=== PATIENT | female | born 1940 | race Caucasian/White ===

== ENCOUNTER 2018-07-17 09:34 | Outpatient (CLI) | payer MEDICARE, SELFPAY ==
[2018-07-17 10:01] LABS: Abs Immature Grans 0.01 k/cumm (0.0-0.09); Absolute Basophil Count 0.02 k/cumm (0.0-0.2); Absolute Eosinophil Count 0.08 k/cumm (0.0-0.7); Absolute Lymphocyte Count 1.26 k/cumm (1.2-3.4); Absolute Monocyte Count 0.59 k/cumm (0.11-0.7); Absolute Neutrophil Count 4.07 k/cumm (1.2-6.7); Basophils % 0.3; Eosinophils % 1.3; HCT 42.4 % (36.0-46.0); Immature Grans % 0.2; Lymphocytes % 20.9; Mean Corpuscular Volume 93.8 fL (80-95); Mean Platelet Volume 9.8 fL (8.0-11.0); Monocytes % 9.8; Neutrophils % 67.5; Platelet Count 214 x1000/uL (130-400); RBC 4.52 m/cumm (4.00-5.20); RBC Distribution Width 13.4 % (11.7-14.6); White Blood Cell Count 6.03 k/cumm (4.4-10.8)
[2018-07-17 10:23] LABS: ALT 20 U/L (12-78); AST 17 U/L (15-37); Albumin 3.5 g/dL (3.4-5.0); Alkaline Phosphatase 85 U/L (46-116); Anion Gap 7.3 mmol/L (3-11); BUN 23 mg/dL (7-18); Bilirubin, Total 0.4 mg/dL (0.2-1.0); CO2 29.7 mmol/L (21.0-32.0); CREATININE 1.23 mg/dL (0.55-1.02); Calcium 9.3 mg/dL (8.5-10.1); Chloride 105 mmol/L (98-107); Estimated GFR 42.01 (mL/min/1.73m2); Glucose 71 mg/dL (70-100); LDH 181 U/L (81-234); Potassium 3.8 mmol/L (3.5-5.1); Sodium 142 mmol/L (136-145); Total Protein 6.6 g/dL (6.4-8.2)
== END 2018-07-17 09:54 ==
PROVIDERS: PCP Family Medicine; Visit Provider Internal Medicine Hematology & Oncology
DX: C83.30 Diffuse large B-cell lymphoma, unspecified site (principal)
CPT/HCPCS: 36415; 80053; 83615; 85025

== ENCOUNTER → 2019-09-09 09:54 | Outpatient (BNVA) | payer MEDICARE, SELFPAY | PROVIDERS: PCP Family Medicine; Referring Provider Family Medicine; Visit Provider Psychiatry & Neurology Neurology | DX: G20 Parkinson's disease (principal); R49.8 Other voice and resonance disorders; R53.83 Other fatigue | CPT/HCPCS: 99205 ==

== ENCOUNTER → 2019-10-08 15:00 | Outpatient (BNVA) | payer MEDICARE, SELFPAY | PROVIDERS: PCP Family Medicine; Referring Provider Family Medicine; Visit Provider Psychiatry & Neurology Neurology | DX: R53.83 Other fatigue (principal); G20 Parkinson's disease; R49.8 Other voice and resonance disorders | CPT/HCPCS: 99214 ==

== ENCOUNTER → 2019-10-22 08:20 | Outpatient (BNVA) | payer MEDICARE, SELFPAY | PROVIDERS: PCP Family Medicine; Referring Provider Family Medicine; Visit Provider Psychiatry & Neurology Neurology | DX: R69 Illness, unspecified (principal) ==

== ENCOUNTER 2019-10-27 02:35 | Outpatient (CLI) | payer MEDICARE, SELFPAY ==
[2019-10-27 11:07] LABS: Abs Immature Grans 0.02 k/cumm (0.0-0.09); Absolute Basophil Count 0.04 k/cumm (0.0-0.2); Absolute Eosinophil Count 0.72 k/cumm (0.0-0.7); Absolute Lymphocyte Count 1.57 k/cumm (1.2-3.4); Absolute Monocyte Count 0.73 k/cumm (0.11-0.7); Absolute Neutrophil Count 4.74 k/cumm (1.2-6.7); Basophils % 0.5; Eosinophils % 9.2; HCT 43.5 % (36.0-46.0); HGB 14.6 g/dL (12.0-15.5); Immature Grans % 0.3 %; Lymphocytes % 20.1; Mean Corp. HGB Concentration 33.6 g/dL (32.0-36.0); Mean Corpuscular Hemoglobin 31.2 pg (27.0-33.0); Mean Corpuscular Volume 92.9 fL (80-95); Mean Platelet Volume 9.7 fL (8.0-11.0); Monocytes % 9.3; Neutrophils % 60.6; Platelet Count 233 x1000/uL (130-400); RBC 4.68 m/cumm (4.00-5.20); White Blood Cell Count 7.82 k/cumm (4.4-10.8)
[2019-10-27 12:32] LABS: ALT 27 U/L (14-59); AST 24 U/L (15-37); Albumin 3.5 g/dL (3.4-5.0); Alkaline Phosphatase 102 U/L (46-116); Anion Gap 8.7 mmol/L (3-11); BUN 20 mg/dL (7-18); Bilirubin, Total 0.8 mg/dL (0.2-1.0); CO2 29.3 mmol/L (21.0-32.0); CREATININE 0.99 mg/dL (0.55-1.02); Calcium 8.7 mg/dL (8.5-10.1); Chloride 100 mmol/L (98-107); Estimated GFR 53.83 (mL/min/1.73m2); Glucose 88 mg/dL (74-106); Potassium 4.1 mmol/L (3.5-5.1); Sodium 138 mmol/L (136-145); TSH (W/Ref FT4) 4.74 uIU/mL (0.36-3.74); Total Protein 6.2 g/dL (6.4-8.2); Vitamin B12 396 pg/mL (193-986)
[2019-10-27 12:48] LABS: FREE T4 1.22 ng/dL (0.76-1.46)
== END 2019-10-27 02:55 ==
PROVIDERS: PCP Family Medicine; Visit Provider Family Medicine
DX: E03.9 Hypothyroidism, unspecified (principal); I48.91 Unspecified atrial fibrillation; R53.83 Other fatigue; J44.9 Chronic obstructive pulmonary disease, unspecified
CPT/HCPCS: 36415; 80053; 82607; 84439; 84443; 85025

== ENCOUNTER 2019-11-27 20:15 | Outpatient (REF) | payer MEDICARE, SELFPAY ==
[2019-11-27 19:40] LABS: Bilirubin Negative (Negative); Blood Trace-intact (Negative); Clarity Clear (Clear); Glucose Negative (Negative); Ketones Negative (Negative); Leukocyte Esterase Negative (Negative); Nitrite Positive (Negative); Specific Gravity >= 1.030 (1.005-1.025); Urobilinogen 0.2 EU/dL (Up TO 0.2); pH 5.5 (5-8)
[2019-11-27 19:53] LABS: Bacteria Many HPF (Negative); C & S Indicated? Yes; Casts Negative LPF (Negative); Crystals Few Calcium Oxalate HPF (Negative); Epithelial Cells Few HPF (Negative); Mucus Negative (Negative)
== END 2019-11-27 20:35 ==
LOC: LBN 20:15
PROVIDERS: PCP Family Medicine; Visit Provider Family Medicine
DX: R82.90 Unspecified abnormal findings in urine (principal)
CPT/HCPCS: 87077; 81003; 81015; 87086; 87186

== ENCOUNTER 2020-04-23 03:37 | Outpatient (CLI) | payer MEDICARE, SELFPAY ==
[2020-04-23 12:21] LABS: Abs Immature Grans 0.02 10^3/uL (0.0-0.06); Absolute Basophil Count 0.06 10^3/uL (0.0-0.2); Absolute Lymphocyte Count 1.29 10^3/uL (1.2-3.4); Absolute Neutrophil Count 4.96 10^3/uL (1.2-6.7); Basophils % 0.9; Eosinophils % 1.4; HCT 43.5 % (36.0-46.0); HGB 13.9 g/dL (11.2-15.7); Immature Grans % 0.3; Lymphocytes % 18.6; MCH 30.7 pg (27.0-33.0); Monocytes % 7.2; Neutrophils % 71.6; Nucleated RBC 0 %; Platelet Count 212 10^3/uL (130-400); RBC 4.53 10^6/uL (3.93-5.22); RDW 13.2 % (11.7-14.6); RDW-SD 46.9 fL; WBC 6.93 10^3/uL (4.4-10.8)
[2020-04-23 14:06] LABS: ALT 29 U/L (14-59); AST 28 U/L (15-37); Albumin 3.6 g/dL (3.4-5.0); Alkaline Phosphatase 87 U/L (46-116); Anion Gap 9.5 mmol/L (3-11); BUN 29 mg/dL (7-18); Bilirubin, Total 0.7 mg/dL (0.2-1.0); CO2 27.5 mmol/L (21.0-32.0); CREATININE 1.08 mg/dL (0.55-1.02); Calcium 9.5 mg/dL (8.5-10.1); Chloride 104 mmol/L (98-107); Estimated GFR 48.69 (mL/min/1.73m2); Glucose 93 mg/dL (74-106); Lipase 141 U/L (73-393); Potassium 4.2 mmol/L (3.5-5.1); Sodium 141 mmol/L (136-145); TSH (W/Ref FT4) 4.02 uIU/mL (0.36-3.74); Total Protein 6.3 g/dL (6.4-8.2)
[2020-04-23 14:38] LABS: FREE T4 1.18 ng/dL (0.76-1.46)
== END 2020-04-23 03:57 ==
PROVIDERS: PCP Family Medicine; Visit Provider Family Medicine
DX: E03.9 Hypothyroidism, unspecified (principal); R53.83 Other fatigue; R00.0 Tachycardia, unspecified; F32.9 Major depressive disorder, single episode, unspecified; I48.91 Unspecified atrial fibrillation; R10.9 Unspecified abdominal pain
CPT/HCPCS: 80053; 83690; 84439; 84443; 85025

== ENCOUNTER 2020-09-09 11:19 | Outpatient (CLI) | payer MEDICARE, SELFPAY ==
--- NOTE | 2020-09-09 10:30 | DI.RAD_ITS ---
EXAM: XR FOOT LT COMPLETE CLINICAL HISTORY: left foot pain. TECHNIQUE: 2D digital imaging was performed. COMPARISON: CR XR FOOT RT COMPLETE from 09/09/2020 FINDINGS: There has been interval bunion surgery with shaving of the medial aspect of the head of the great toe metatarsal and there is a dorsal fusion plate extending from the medial cuneiform to the neck of the great toe metatarsal secured by multiple vertical screws. No hardware fracture. No radiographic ev idence of osteomyelitis or loosening. IMPRESSION: DATA REPOSITORY: RADIATION DOSE DELIVERED:
--- NOTE | 2020-09-09 10:30 | DI.RAD_ITS ---
EXAM: XR FOOT RT COMPLETE CLINICAL HISTORY: right foot pain. TECHNIQUE: 2D digital imaging was performed. COMPARISON: CR LEFT FOOT COMPLETE from 10/11/2012 FINDINGS: There is no evidence of fracture. There is prominent hallux valgus. Minimal degenerative changes in the great toe metatarsophalangeal joint. The plantar arch is somewhat exaggerated. No osseous lesi ons. No obvious osseous tarsal coalition. IMPRESSION: DATA REPOSITORY: RADIATION DOSE DELIVERED:
== END 2020-09-09 11:20 | disposition home or self-care (01) ==
LOC: DIORS 11:19
PROVIDERS: PCP Family Medicine; Referring Provider Family Medicine; Visit Provider Student in an Organized Health Care Education/Training Program
DX: M77.41 Metatarsalgia, right foot (principal); M20.11 Hallux valgus (acquired), right foot; M77.42 Metatarsalgia, left foot; M21.612 Bunion of left foot; Z98.890 Other specified postprocedural states; G20 Parkinson's disease; J44.9 Chronic obstructive pulmonary disease, unspecified
CPT/HCPCS: 99214; 73630

== ENCOUNTER 2020-10-28 13:16 | Outpatient (CLI) | payer MEDICARE, SELFPAY ==
--- NOTE | 2020-10-28 13:30 | RT.EKG_ITS ---
APPROVED REPORT Exam: Resting ECG Patient Location: O HR:73 bpm ECG Measurements Heart Rate 73 AXIS MS [id number] P [id number] QRSd 107 QRS -37 QT 375 T 185 QTc 414 Conclusion Atrial fibrillation...? atrial activity Electrical interference Left anterior fascicular block poor R wave progression
== END 2020-10-28 13:17 | disposition home or self-care (01) ==
LOC: DI.CARD 13:40
PROVIDERS: PCP Family Medicine; Referring Provider Family Medicine; Visit Provider Internal Medicine Cardiovascular Disease
DX: R00.2 Palpitations (principal)
CPT/HCPCS: 93010

== ENCOUNTER → 2020-10-28 13:16 | Outpatient (BNVA) | payer MEDICARE, SELFPAY | PROVIDERS: PCP Family Medicine; Referring Provider Family Medicine; Visit Provider Internal Medicine Cardiovascular Disease | DX: I48.21 Permanent atrial fibrillation (principal); R00.2 Palpitations; I08.2 Rheumatic disorders of both aortic and tricuspid valves; Z79.01 Long term (current) use of anticoagulants | CPT/HCPCS: 93005; 99203; 99213 ==

== ENCOUNTER 2020-11-23 22:08 | Outpatient (REF) | payer MEDICARE, SELFPAY ==
[2020-11-23 21:36] LABS: HCT 39.5 % (36.0-46.0); HGB 12.9 g/dL (11.2-15.7); MCH 31.4 pg (27.0-33.0); MCHC 32.7 % (32.0-36.0); MCV 96.1 fL (80-95); MPV 10.5 fL (8.0-11.0); Platelet Count 194 10^3/uL (130-400); RBC 4.11 10^6/uL (3.93-5.22); RDW 12.9 % (11.7-14.6); RDW-SD 46.1 fL; WBC 5.25 10^3/uL (4.4-10.8)
[2020-11-23 22:00] LABS: ALT 21 U/L (14-59); AST 20 U/L (15-37); Albumin 3.7 g/dL (3.4-5.0); Alkaline Phosphatase 76 U/L (46-116); Anion Gap 5.2 mmol/L (3-11); BUN 25 mg/dL (7-18); Bilirubin, Total 0.7 mg/dL (0.2-1.0); CO2 31.8 mmol/L (21.0-32.0); CREATININE 0.9 mg/dL (0.55-1.02); Chloride 107 mmol/L (98-107); Estimated GFR 59.94 (mL/min/1.73m2); Sodium 144 mmol/L (136-145); TSH (W/Ref FT4) 2.11 uIU/mL (0.36-3.74); Total Protein 6.2 g/dL (6.4-8.2)
[2020-11-23 22:06] LABS: Glucose 45 mg/dL (74-106)
== END 2020-11-23 22:09 | disposition home or self-care (01) ==
LOC: LBN 22:08
PROVIDERS: PCP Family Medicine; Visit Provider Family Medicine
DX: E03.9 Hypothyroidism, unspecified (principal); R53.83 Other fatigue; R00.2 Palpitations; F32.9 Major depressive disorder, single episode, unspecified
CPT/HCPCS: 80053; 85027; 84443

== ENCOUNTER → 2020-12-14 14:21 | Outpatient (BNVA) | payer MEDICARE, SELFPAY | PROVIDERS: PCP Family Medicine; Referring Provider Family Medicine; Visit Provider Psychiatry & Neurology Neurology | DX: G20 Parkinson's disease (principal); R53.83 Other fatigue; J44.9 Chronic obstructive pulmonary disease, unspecified | CPT/HCPCS: 99215 ==

== ENCOUNTER 2021-03-14 08:30 | Emergency (ER) | payer MEDICARE, SELFPAY ==
[2021-03-14] VITALS (26 sets, daily range): BP systolic 102–141; BP diastolic 45–101; PULSE 90–137; RESP 16–31; TEMP 36.5–36.6; O2SAT 94–98
--- NOTE | 2021-03-14 08:45 | RT.EKG_ITS ---
APPROVED REPORT Exam: Resting ECG Reason for Exam: Fall Patient Location: E HR:126 bpm ECG Measurements Heart Rate 126 AXIS OR [id number] P [id number] QRSd 88 QRS -57 QT 355 T 248 QTc 515 Conclusion Pacemaker spikes or artifacts...timing non-diagnostic Atrial fibrillation...? atrial activity Left anterior fascicular block...axis(240,-40), init forces inf Anterior infarct, old...Q >40mS, abnormal ST-T, V2-V5 Prolonged QT interval...QTc >500mS no STEMI. I have reviewed and interpreted ECG and agree with software generated interpretation.
--- NOTE | 2021-03-14 08:49 | W.ED.GENAD ---
Discharge Plan Disposition Patient Disposition: [facility] Condition: Stable Discharge Details Clinical Impression: Closed fracture of neck of left femur Primary Care Provider: Luz Szymanski ED Provider: Naty Melara Home Meds and New Rx's Prescriptions: No Action fluticasone propionate 50 mcg/actuation spray,suspension 2 spray NS BID PRN (Reason: allergy symptoms) Qty: 47.4 RF: 5 lorazepam 0.5 mg tablet 0.5 mg PO HS PRN (Reason: sleep) RF: 0 amantadine HCl 100 mg capsule 100 mg PO DAILY Qty: 30 RF: 5 buspirone 10 mg tablet 10 mg PO TID Qty: 270 RF: 5 verapamil 180 mg capsule,ext rel. pellets 24 hr 180 mg PO DAILY Qty: 90 RF: 5 diltiazem HCl 30 mg tablet 30 mg PO BID PRN (Reason: palpitation) Qty: 50 RF: 0 Eliquis 2.5 mg tablet 2.5 mg PO BID Qty: 180 RF: 12 duloxetine 60 mg capsule,delayed release(DR/EC) 60 mg PO DAILY Qty: 90 RF: 11 Medical Decision Making 80-year-old female presents to the ER with chief complaint of fall last night and left hip pain. Patient lives alone and states that she had a mechanical fall. She was unable to get up initially and crawled around on the floor. Was eventually able to get into a rocking chair. At this time she is complaining of left hip pain and swelling. Denies loss of consciousness or hitting her head no other complaints at this time. She denies any chest pain shortness breath abdominal pain nausea vomiting or diarrhea. Upon initial exam she does have some swelling anteriorly over her proximal femur/left hip area. Distal pulses intact. No other signs of injury. She has a past medical history of aortic valve insufficiency, atrial fibrillation, COPD, hypothyroidism, Parkinson's. TECHNIQUE: 2D digital imaging was performed. COMPARISON: No previous for comparison. FINDINGS: BONES: There is an acute mildly impacted subcapital fracture of the left femoral neck. No bony destructive lesion is seen. Portions of the sacrum are obscured due to overlying bowel. JOINTS: No dislocation present. No joint space narrowing is present. The sacroiliac joints and symphysis pubis appear intact. SOFT TISSUE: Normal. IMPRESSION: Acute mildly impacted subcapital fracture of the left femoral neck. COMPARISON: CR CHEST 2 VIEWS PA,LAT from 07/02/2013 FINDINGS: MEDIASTINUM: Normal. HEART: Mild cardiomegaly. PULMONARY VASCULATURE: Atherosclerosis of the thoracic aorta. LUNGS: Clear. PLEURAL SPACE: No pleural effusion or pneumothorax. BONE:Within normal limits for the patient's age. OTHER FINDINGS:Nipple shadows are seen bilaterally. IMPRESSION: No acute pulmonary findings. Discussed Xray results with patient and family who verbalize understanding and discussed need for possible transfer due to no ortho availabilty. They are in agreement with plan. DI requested to push images to [facility]. 1054: Call made to [facility] regarding ortho consult for transfer request. Spoke with office staff, will call back from Dr. Zaragoza regarding case. 1218: Urinalysis shows evidence of urinary tract infection 30 urine protein trace urine ketones trace blood positive nitrite trace leukocytes 3-5 RBCs 10-20 WBCs. Culture is pending at this time. Ceftriaxone 1 g IV piggyback ordered at this time. This time I am awaiting callback from [facility] regarding acceptance or denial of transfer. Last I spoke with them they are awaiting the images. 1237: Follow up call made to [facility], images received, will call back. 1257: Spoke with [facility] they will accept patient for transfer accepting physician is Dr. Stokes they will call back with a bed assignment. [facility] called and they are requesting a negative Covid result before sending patient. 1528: EMS here, patient transferred to [facility]. Remained hemodynamically stable throughout rest of stay. HPI General Mode of arrival: wheelchair. Date/Time Provider Initiated Documentation: 03/14/21 08:31. Limitations to Documentation: no limitations. Information obtained by: patient. HPI Narrative: 80-year-old female presents to the ER with chief complaint of fall last night and left hip pain. Patient lives alone and states that she had a mechanical fall. She was unable to get up initially and crawled around on the floor. Was eventually able to get into a rocking chair. At this time she is complaining of left hip pain and swelling. Denies loss of consciousness or hitting her head no other complaints at this time. She denies any chest pain shortness breath abdominal pain nausea vomiting or diarrhea. Upon initial exam she does have some swelling anteriorly over her proximal femur/left hip area. Distal pulses intact. No other signs of injury. She has a past medical history of aortic valve insufficiency, atrial fibrillation, COPD, hypothyroidism, Parkinson's. Related Data Home Medications Medication Instructions Recorded Confirmed fluticasone propionate 50 2 spray NS BID PRN #47.4 ml 10/09/19 03/14/21 mcg/actuation nasal spray,suspension buspirone 10 mg tablet 10 mg PO TID #270 tab 09/09/20 03/14/21 verapamil 180 mg 24 hr 180 mg PO DAILY #90 tab-cap 09/09/20 03/14/21 capsule,extended release apixaban 2.5 mg tablet 2.5 mg PO BID #180 tab 10/05/20 03/14/21 diltiazem HCl 30 mg tablet 30 mg PO BID PRN #50 tab-cap 10/05/20 03/14/21 duloxetine 60 mg capsule,delayed 60 mg PO DAILY #90 tab 10/05/20 03/14/21 release lorazepam 0.5 mg tablet 0.5 mg PO HS PRN tab-cap 10/28/20 03/14/21 amantadine HCl 100 mg capsule 100 mg PO DAILY #30 cap 12/14/20 03/14/21 Previous Rx's Medication Instructions Recorded fluticasone propionate 50 2 spray NS BID PRN #47.4 ml 10/09/19 mcg/actuation nasal spray,suspension buspirone 10 mg tablet 10 mg PO TID #270 tab 09/09/20 verapamil 180 mg 24 hr 180 mg PO DAILY #90 tab-cap 09/09/20 capsule,extended release apixaban 2.5 mg tablet 2.5 mg PO BID #180 tab 10/05/20 diltiazem HCl 30 mg tablet 30 mg PO BID PRN #50 tab-cap 10/05/20 duloxetine 60 mg capsule,delayed 60 mg PO DAILY #90 tab 10/05/20 release amantadine HCl 100 mg capsule 100 mg PO DAILY #30 cap 12/14/20 Allergies Allergy/AdvReac Type Severity Reaction Status Date / Time methylphenidate AdvReac Intermediate GI Verified 03/14/21 08:54 codeine AdvReac Unknown Nausea Verified 03/14/21 08:54 azithromycin AdvReac Nausea Verified 03/14/21 08:54 [From Zithromax Z-Edu] sulfamethoxazole AdvReac explosive Verified 03/14/21 08:54 [From Bactrim] diarrhea trazodone AdvReac Nausea Verified 03/14/21 08:54 trimethoprim [From Bactrim] AdvReac explosive Verified 03/14/21 08:54 diarrhea Review of Systems Narrative: Constitutional: Negative for weight loss, alert and oriented, well groomed, normal body habitus, appears comfortable. HEENT: Denies headaches, blurry vision, nasal discharge, sore throat, trouble swallowing. Chest: Denies chest pain, palpitations, irregular rhythm, hypertension. Respiratory: Denies Shortness of breath, cough, hemoptysis. GI: Denies abdominal pain, nausea, vomiting, diarrhea, constipation. : Denies dysuria, hematuria, flank pain, rectal bleeding. Neuro: Denies dizziness, blurry vision, weakness, syncope, headache or facial numbness. Musculoskeletal: Complaining of left hip pain status post fall. Hematologic: Denies easy bruising, intolerance to heat or cold, hair loss. [facility] Medical History Abdominal pain Abnormal weight loss 07/16/04 from 124-107; she feels it's due to increased activity and stress ALLERGIES Allergy or intolerlance to codeine, sulfamethoxazole and trimethoprin. There is a history of low blood pressure on calcium blockers in the past as well. Anxiety JANET-7 SCORE=16 Aortic valve insufficiency Followed by Mohan Morris at [place]. 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 Insomnia (09/02/14) Low back pain (04/12/09) Metatarsalgia of both feet Mild cognitive impairment with memory loss see above Osteopenia t-scores; -2.1; -1.5 Tachycardia Tricuspid valve insufficiency (04/14/16) moderate Surgical History Colonoscopy - MAC 1995 1997 1998 2012 ECHO (~2006) [place] with [place] [facility] [place] pressure 21 EGD - MAC (~1995) showing increase in PA pressures H/O cataract removal with insertion of prosthetic lens H/O esophagogastroduodenoscopy 07/16/95 showing increase in PA pressure S/P appendectomy S/P breast biopsy intraductal papilloma S/P bunionectomy bilateral Family History Mother Essential hypertension Heart disease Father No problems noted. Social History Smoking/Tobacco Use Status: Never Smoking risk assessment performed?: Yes Alcohol Intake: current Alcohol Intake frequency: holidays/special occasions only Alcohol type: wine Drug use: Never Adopted: No Caregiver/Support person: Yes (caregiver for jenni) Details: currently in a fpc, but pt is primary support Foster care: No Household members: none Housing: house Number of Children: 3 number of grandchildren: 4 current occupation: Retired Pets and animals: No What type of physical activity do you participate in: none Seatbelt use: never Drive intox or ride w/intox motorcycle delivery driver: No Firearms in home: Yes (unloaded, not locked) Firearms unloaded and locked: No Do you feel safe at home: Yes Do you feel safe in your relationship?: Yes Exam Narrative Exam Narrative: Constitutional: Alert and oriented x3. Appears stated age. Normal body habitus. Head: Normocephalic, no trauma. Eyes: Pupils PERRLA, Red reflex noted, EOM's intact. Eyelids symmetrical without lesions, discharge, or swelling. ENT: Bilateral TM's WNL, External ear normal to inspection, no mastoid TTP, swelling, or erythema, Nasal turbinates WNL, no nasal discharge. Normal dentition, Posterior pharynx WNL, no exudate. Chest: RRR, Normal S1, S2, distal pulses intact. Resp: Lungs clear to auscultation bilaterally, no wheezes, rales, or rhonchi. Musculoskeletal: Unable to assess gait. Tenderness and swelling noted to left anterior hip/proximal femur area. Distal dorsal pedal pulses intact circulation sensation movement distally to injury intact. Skin: No suspicious rashes or lesions. Capillary refill less than 2 sec. Neurologic: Cranial nerves II-XII intact. Alert and oriented x 3. DTR's intact. Hematologic/Lymphatic: No ecchymosis, no lymphadenopathy.
[2021-03-14 09:22] LABS: Abs Immature Grans 0.08 10^3/uL (0.0-0.06); Absolute Basophil Count 0.03 10^3/uL (0.0-0.2); Absolute Eosinophil Count 0.02 10^3/uL (0.0-0.7); Absolute Lymphocyte Count 0.79 10^3/uL (1.2-3.4); Absolute Monocyte Count 0.76 10^3/uL (0.1-0.8); Absolute Neutrophil Count 8.83 10^3/uL (1.2-6.7); Basophils % 0.3; Eosinophils % 0.2; HCT 44.6 % (36.0-46.0); HGB 14.3 g/dL (11.2-15.7); Immature Grans % 0.8; Lymphocytes % 7.5; MCH 30.6 pg (27.0-33.0); MCHC 32.1 % (32.0-36.0); MCV 95.5 fL (80-95); MPV 10.3 fL (8.0-11.0); Monocytes % 7.2; Nucleated RBC 0 %; Platelet Count 169 10^3/uL (130-400); RBC 4.67 10^6/uL (3.93-5.22); RDW 13.2 % (11.7-14.6); RDW-SD 46.5 fL; WBC 10.51 10^3/uL (4.4-10.8)
[2021-03-14] MEDS: dilTIAZem 30 MG TAB PO (09:25)
[2021-03-14 09:41] LABS: INR 1.1 (0.9-1.1); Prothrombin Time 11.3 sec (9.3-11.0)
--- NOTE | 2021-03-14 10:06 | DI.RAD_ITS ---
Exam(s) XR PELVIS AP XR FEMUR LT EXAM: XR PELVIS AP and XR femur LT CLINICAL HISTORY: Fall, R/O Fracture. TECHNIQUE: 2D digital imaging was performed. COMPARISON: No previous for comparison. FINDINGS: BONES: There is an acute mildly impacted subcapital fracture of the left femoral neck. No bony destr uctive lesion is seen. Portions of the sacrum are obscured due to overlying bowel. JOINTS: No dislocation present. No joint space narrowing is present. The sacroiliac joints and symphy sis pubis appear intact. SOFT TISSUE: Normal. IMPRESSION: Acute mildly impacted subcapital fracture of the left femoral neck. DATA REPOSITORY: RADIATION DOSE DELIVERED:
--- NOTE | 2021-03-14 10:06 | DI.RAD_ITS ---
Exam(s) XR CHEST 2V PA LATERAL EXAM: XR CHEST 2V PA LATERAL CLINICAL HISTORY: Fall, Hip pain TECHNIQUE: 2D digital imaging was performed. COMPARISON: CR CHEST 2 VIEWS PA,LAT from 07/02/2013 FINDINGS: MEDIASTINUM: Normal. HEART: Mild cardiomegaly. PULMONARY VASCULATURE: Atherosclerosis of the thoracic aorta. LUNGS: Clear. PLEURAL SPACE: No pleural effusion or pneumothorax. BONE:Within normal limits for the patient's age. OTHER FINDINGS:Nipple shadows are seen bilaterally. IMPRESSION: No acute pulmonary findings. DATA REPOSITORY: RADIATION DOSE DELIVERED:
[2021-03-14] MEDS: Normal Saline 250 ML 500 ML IV (10:09)
[2021-03-14 10:14] LABS: Magnesium 1.9 mg/dL (1.8-2.4)
[2021-03-14 10:19] LABS: ALT 40 U/L (14-59); AST 24 U/L (15-37); Albumin 3.9 g/dL (3.4-5.0); Alkaline Phosphatase 80 U/L (46-116); BUN 25 mg/dL (7-18); Bilirubin, Total 1.2 mg/dL (0.2-1.0); CREATININE 1.2 mg/dL (0.55-1.02); Calcium 9.4 mg/dL (8.5-10.1); Chloride 106 mmol/L (98-107); Estimated GFR 43.01 (mL/min/1.73m2); Glucose 122 mg/dL (74-106); Potassium 4.2 mmol/L (3.5-5.1); Sodium 142 mmol/L (136-145); Total Protein 6.9 g/dL (6.4-8.2); Troponin I < 0.05 ng/mL (<0.06)
[2021-03-14 11:50] LABS: Bilirubin Negative (Negative); Blood Trace-intact (Negative); Clarity Cloudy (Clear); Glucose Negative (Negative); Ketones Trace mg/dL (Negative); Leukocyte Esterase Trace (Negative); Nitrite Positive (Negative); Specific Gravity 1.025 (1.005-1.025); Urobilinogen 0.2 EU/dL (Up TO 0.2)
[2021-03-14] MEDS: ACETAMINOPHEN 1,000 MG/100 ML BTL 400 MG IVPB (12:08)
[2021-03-14 12:13] LABS: Bacteria Many HPF (Negative); C & S Indicated? Yes; Casts Negative LPF (Negative); Crystals Rare Calcium Oxalate HPF (Negative); Epithelial Cells Few HPF (Negative); Mucus Negative (Negative)
[2021-03-14] MEDS: cefTRIAXone 1 GM/50 ML BAG IVPB (13:14)
[2021-03-14] MEDS: Normal Saline 1,000 ML 125 ML IV (13:25)
[2021-03-14 14:09] LABS: Source Nasal/Nares
[2021-03-14 15:01] LABS: COVID-19 PCR Negative (Negative)
== END 2021-03-14 15:42 | disposition short-term general hospital (02) ==
PROVIDERS: Emergency Provider Registered Nurse Emergency; PCP Family Medicine
DX: S72.092A Other fracture of head and neck of left femur, initial encounter for closed fracture (principal); W18.39XA Other fall on same level, initial encounter
CPT/HCPCS: 36415; 51702; 73552; 80053; 87077; 87635; 93005; 96361; 96365; 96367; 99285; 71046; 72170; 81003; 81015; 83735; 84484; 85025; 85610; 87086; 87186; 93010; 99284; J0131; J0696

== ENCOUNTER 2021-04-26 10:23 | Inpatient (IN) | payer MEDICARE, SELFPAY ==
[2021-04-26] VITALS (69 sets, daily range): BP systolic 84–117; BP diastolic 43–86; PULSE 49–101; RESP 14–31; TEMP 36.2–36.7; O2SAT 92–99
--- NOTE | 2021-04-26 10:15 | DI.CT_ITS ---
Exam(s) CT HEAD WO EXAM: CT HEAD WO CLINICAL HISTORY: Fall 3 days ago, Weakness, R/O Bleed. TECHNIQUE: Imaging Protocol: Axial computed tomography images with coronal and sagittal reformatted images were created and reviewed COMPARISON: No exams were available for comparison FINDINGS: There are no skull fractures. Mild mucosal thickening is seen posteriorly in the right maxillary si nus. There is no evidence of intracranial hemorrhage, mass effect, or shift of midline structures. There are no extra-axial fluid collections. The ventricles are not enlarged or shifted and there is no blo od within the ventricular system nor within the basal cisterns. There is some periventricular hypodensity consistent with chronic small vessel disease but no evidenc e of obvious acute infarct. Mount of involutional changes consistent with the patient's advanced age . IMPRESSION: No acute intracranial findings on this noninfused CT scan of the brain. No evidence of intracranial hemorrhage, as per request. RADIATION DOSE DELIVERED: 652.25mGy.cm Total DLP DATA REPOSITORY: All CT scans at this facility are submitted to the National Radiology Data Registry (NRDR) Dose Index Registry (DIR) with the [employer] ([employer]). RADIATION OPTIMIZATION: All CT scans at this facility use at least one of these dose optimization te chniques: automated exposure control; mA and/or kV adjustment per patient size (includes targeted exa ms where dose is matched to clinical indication); or iterative reconstruction.
--- NOTE | 2021-04-26 10:30 | RT.EKG_ITS ---
APPROVED REPORT Exam: Resting ECG Reason for Exam: Weakness Patient Location: E HR:54 bpm ECG Measurements Heart Rate 54 AXIS AZ [id number] P [id number] QRSd 130 QRS -55 QT 685 T 75 QTc 652 Conclusion Atrial fibrillation...? atrial activity Left bundle branch block...QRSd>120, broad/notched R Prolonged QT interval...QTc >500mS new LBBB from prior, does not meet Sgar[place]ossa criteria I have reviewed and interpreted ECG and agree with software generated interpretation.
--- NOTE | 2021-04-26 10:33 | W.ED.GENAD ---
Discharge Plan Disposition Patient Disposition: [facility] INPATIENT Condition: Fair Discharge Details Clinical Impression: Weakness, Hypokalemia, Frequent falls Admit Date/Time: 04/26/21 15:56 Admit Provider: Cathleen Saha Attending Provider: Cathleen Saha Primary Care Provider: Luz Szymanski ED Provider: Naty Melara Medical Decision Making 80-year-old female presents to the ER via EMS with chief complaint of weakness which is worsened over the last 3 days status post a fall. Patient is alert and oriented x3 upon arrival. She states that she was walking with a walker when she just fell. She denies any chest pain, shortness of breath, nausea vomiting diarrhea. She was recently admitted and released from rehab for a left hip fracture. She does have some caregivers and home health which comes into her home to help her periodically. She does have a contusion noted to the left outer eyebrow and a small contusion noted to her left shoulder. She denies any neck pain. She does report some back pain, does have a history of baseline chronic back pain. She currently takes Eliquis which she took this morning. No other associated symptoms or complaints. She has a past medical history of anxiety, aortic valve insufficiency, atrial fibrillation, COPD non-Hodgkin's lymphoma, hypothyroidism. At this time cardiac work-up ordered including serial troponins, EKG, urinalysis PT ordered due to patient taking of Eliquis. Head CT without contrast rule out bleed. EKG was reviewed by Deja Lorenz MD ER attending, please see her official read and report. Old EKG available for review. Atrial fibrillation with questionably new left bundle branch block QT 685 At this time there is no leukocytosis, RBC 3.50 hemoglobin 10.9 hematocrit 33.5, PT 13.2 INR 1.3, potassium 3.0 chloride 108 anion gap 11.1, BUN 38 creatinine 1.2, GFR is 43, glucose 110 magnesium 1.7 initial troponin eyes within normal limits less than 0.05. Urinalysis is pending, informed by staff nurse midwife that blood pressure is slightly soft at 98/62, normal saline bolus of 500 cc given. 1206: Blood pressure 89/61. Heart rate 62, 98% room air, normal saline at 150 an hour ordered. 1433: Spoke with patient regarding recommendation for admission due to weakness, hypotension, electrolyte abnormality and anemia. Patient said absolutely not. Patient is requesting to be seen by her primary care provider Luz Szymanski. I will involve patient's family. 1529: Spoke with Jamilah ferrara daughter regarding patient case and recommendation for admission, she agrees that her Mom should be admitted. She has home health coming and and has some neighbors checking on her. She does not have anyone to stay with her at home and her family does not feel it is safe for her to go home. 1533: Call made to Fausto, Kosta sister in law, voicemail left. 1534: Hospitalist paged. 1539: Spoke with Fausto, who also agrees patient is unsafe to go home. 1554: Spoke with Dr. Saha who agrees to accept patient for admission. Discussed plan of care and my recommendations for admission with patient who was hesitant at first but agrees to stay overnight for observation. Spoke with Fausto kosta Sister in law who reports that patient was set to have a paliative care appointment with Dr. Szymanski tomorrow. HPI General Mode of arrival: EMS. Date/Time Provider Initiated Documentation: 04/26/21 10:24. Limitations to Documentation: no limitations. Information obtained by: patient, EMS and old records reviewed. HPI Narrative: 80-year-old female presents to the ER via EMS with chief complaint of weakness which is worsened over the last 3 days status post a fall. Patient is alert and oriented x3 upon arrival. She states that she was walking with a walker when she just fell. She denies any chest pain, shortness of breath, nausea vomiting diarrhea. She was recently admitted and released from rehab for a left hip fracture. She does have some caregivers and home health which comes into her home to help her periodically. She does have a contusion noted to the left outer eyebrow and a small contusion noted to her left shoulder. She denies any neck pain. She does report some back pain, does have a history of baseline chronic back pain. She currently takes Eliquis which she took this morning. No other associated symptoms or complaints. She has a past medical history of anxiety, aortic valve insufficiency, atrial fibrillation, COPD non-Hodgkin's lymphoma, hypothyroidism. Related Data Home Medications Medication Instructions Recorded Confirmed fluticasone propionate 50 2 spray NS BID PRN #47.4 ml 10/09/19 04/26/21 mcg/actuation nasal spray,suspension buspirone 10 mg tablet 10 mg PO TID #270 tab 09/09/20 04/26/21 verapamil 180 mg 24 hr 180 mg PO DAILY #90 tab-cap 09/09/20 04/26/21 capsule,extended release apixaban 2.5 mg tablet 2.5 mg PO BID #180 tab 10/05/20 04/26/21 diltiazem HCl 30 mg tablet 30 mg PO BID PRN #50 tab-cap 10/05/20 04/26/21 duloxetine 60 mg capsule,delayed 60 mg PO DAILY #90 tab 10/05/20 04/26/21 release lorazepam 0.5 mg tablet 0.5 mg PO HS PRN tab-cap 10/28/20 04/26/21 amantadine HCl 100 mg capsule 100 mg PO DAILY #30 cap 12/14/20 04/26/21 Previous Rx's Medication Instructions Recorded fluticasone propionate 50 2 spray NS BID PRN #47.4 ml 10/09/19 mcg/actuation nasal spray,suspension buspirone 10 mg tablet 10 mg PO TID #270 tab 09/09/20 verapamil 180 mg 24 hr 180 mg PO DAILY #90 tab-cap 09/09/20 capsule,extended release apixaban 2.5 mg tablet 2.5 mg PO BID #180 tab 10/05/20 diltiazem HCl 30 mg tablet 30 mg PO BID PRN #50 tab-cap 10/05/20 duloxetine 60 mg capsule,delayed 60 mg PO DAILY #90 tab 10/05/20 release amantadine HCl 100 mg capsule 100 mg PO DAILY #30 cap 12/14/20 Allergies Allergy/AdvReac Type Severity Reaction Status Date / Time methylphenidate AdvReac Intermediate GI Verified 04/26/21 10:41 codeine AdvReac Unknown Nausea Verified 04/26/21 10:41 azithromycin AdvReac Nausea Verified 04/26/21 10:41 [From Zithromax Z-Edu] sulfamethoxazole AdvReac explosive Verified 04/26/21 10:41 [From Bactrim] diarrhea trazodone AdvReac Nausea Verified 04/26/21 10:41 trimethoprim [From Bactrim] AdvReac explosive Verified 04/26/21 10:41 diarrhea General UMESH: 3 Review of Systems All systems reviewed & are unremarkable except as noted in HPI and below Constitutional Constitutional: Reports as per HPI, Denies fever(s), Reports frequent falls, Denies headache(s), Reports lethargy and Reports weakness ENT Ears, Nose, Mouth, and Throat: Denies headache(s) Neurologic Neurologic: Reports frequent falls, Denies headache(s) and Reports weakness [facility] Medical History Abdominal pain Abnormal weight loss 07/16/04 from 124-107; she feels it's due to increased activity and stress ALLERGIES Allergy or intolerlance to codeine, sulfamethoxazole and trimethoprin. There is a history of low blood pressure on calcium blockers in the past as well. Anxiety JANET-7 SCORE=16 Aortic valve insufficiency Followed by Mohan Morris at [place]. 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 Insomnia (09/02/14) Low back pain (04/12/09) Metatarsalgia of both feet Mild cognitive impairment with memory loss see above Osteopenia t-scores; -2.1; -1.5 Tachycardia Tricuspid valve insufficiency (04/14/16) moderate Surgical History Colonoscopy - MAC 1995 1997 1998 2012 ECHO (~2006) Echocardiogram with negative pulmonary work up at [facility], PA pressure 21 EGD - MAC (~1995) showing increase in PA pressures H/O cataract removal with insertion of prosthetic lens H/O esophagogastroduodenoscopy 07/16/95 showing increase in PA pressure S/P appendectomy S/P breast biopsy intraductal papilloma S/P bunionectomy bilateral Family History Mother Essential hypertension Heart disease Father No problems noted. Social History Smoking/Tobacco Use Status: Never Smoking risk assessment performed?: Yes Alcohol Intake: current Alcohol Intake frequency: holidays/special occasions only Alcohol type: wine Drug use: Never Adopted: No Caregiver/Support person: Yes (caregiver for jenni) Details: currently in a halfway, but pt is primary support Foster care: No Household members: none Housing: house Number of Children: 3 number of grandchildren: 4 current occupation: Retired Pets and animals: No What type of physical activity do you participate in: none Seatbelt use: never Drive intox or ride w/intox parcel post truck driver: No Firearms in home: Yes (unloaded, not locked) Firearms unloaded and locked: No Do you feel safe at home: Yes Do you feel safe in your relationship?: Yes Exam Narrative Exam Narrative: Constitutional: Alert and oriented x3. Appears stated age. body habitus. Head: Normocephalic, contusion noted to left eyebrow, no hematomas or scalp lacerations noted. Eyes: Pupils PERRLA, Red reflex noted, EOM's intact. Eyelids symmetrical without lesions, discharge, or swelling. ENT: Bilateral TM's WNL, External ear normal to inspection, no mastoid TTP, swelling, or erythema, Nasal turbinates WNL, no nasal discharge. Normal dentition, Posterior pharynx WNL, no exudate. Chest: RRR, Normal S1, S2, distal pulses intact. Resp: Lungs clear to auscultation bilaterally, no wheezes, rales, or rhonchi. Musculoskeletal: Unable to assess gait. No focal neuro deficit generalized weakness. Skin: No suspicious rashes or lesions. Capillary refill less than 2 sec. Neurologic: Cranial nerves II-XII intact. Alert and oriented x 3. No facial droop. Hematologic/Lymphatic: No ecchymosis, no lymphadenopathy. Procedures Stool Hemoccult Procedural Steps Taken: stool placed in appropriate test area, developer placed on stool and control areas and controls appropriately positive and negative Hemoccult result: negative
[2021-04-26 10:56] LABS: Abs Immature Grans 0.03 10^3/uL (0.0-0.06); Absolute Basophil Count 0.02 10^3/uL (0.0-0.2); Absolute Eosinophil Count 0.05 10^3/uL (0.0-0.7); Absolute Lymphocyte Count 0.93 10^3/uL (1.2-3.4); Absolute Monocyte Count 0.74 10^3/uL (0.1-0.8); Absolute Neutrophil Count 6.05 10^3/uL (1.2-6.7); Basophils % 0.3; Eosinophils % 0.6; HCT 33.5 % (36.0-46.0); HGB 10.9 g/dL (11.2-15.7); Immature Grans % 0.4; Lymphocytes % 11.9; MCH 31.1 pg (27.0-33.0); MCHC 32.5 % (32.0-36.0); MCV 95.7 fL (80-95); MPV 10.4 fL (8.0-11.0); Monocytes % 9.5; Neutrophils % 77.3; Nucleated RBC 0 %; Platelet Count 192 10^3/uL (130-400); RDW 14.2 % (11.7-14.6); WBC 7.82 10^3/uL (4.4-10.8)
[2021-04-26 11:11] LABS: INR 1.3 (0.9-1.1); PTT Activated 26.7 sec (21.0-27.5); Prothrombin Time 13.2 sec (9.3-11.0)
[2021-04-26 11:12] LABS: ALT 24 U/L (14-59); AST 21 U/L (15-37); Albumin 3.3 g/dL (3.4-5.0); Alkaline Phosphatase 100 U/L (46-116); Anion Gap 11.1 mmol/L (3-11); BUN 38 mg/dL (7-18); CO2 25.9 mmol/L (21.0-32.0); CREATININE 1.2 mg/dL (0.55-1.02); Calcium 8.6 mg/dL (8.5-10.1); Chloride 108 mmol/L (98-107); Estimated GFR 43.01 (mL/min/1.73m2); Glucose 110 mg/dL (74-106); Magnesium 1.7 mg/dL (1.8-2.4); Sodium 145 mmol/L (136-145); Total Protein 5.9 g/dL (6.4-8.2); Troponin I < 0.05 ng/mL (<0.06)
[2021-04-26] MEDS: Normal Saline 500 ML 1000 ML IV (11:30)
[2021-04-26] MEDS: Magnesium Oxide 400 MG TAB PO (11:34)
[2021-04-26] MEDS: Potassium Chloride Liquid 20 MEQ PKT 40 MEQ PO (11:35)
[2021-04-26] MEDS: Normal Saline 1,000 ML 150 ML IV (12:12)
[2021-04-26 13:04] LABS: Lactate 1.5 mmol/L (0.6-1.4)
[2021-04-26 13:24] LABS: Troponin I < 0.05 ng/mL (<0.06)
[2021-04-26] MEDS: Omnipaque 350 MG/ML 100 ML BTL IJ (13:56)
[2021-04-26] MEDS: Normal Saline Flush 10 ML SYR IVP ×2 (13:57→18:57)
[2021-04-26] MEDS: Normal Saline - Diluent 50 ML VIAL IV (13:57)
--- NOTE | 2021-04-26 14:00 | DI.CT_ITS ---
Exam(s) CT CHEST/ABD/PEL W EXAM: CT CHEST/ABD/PEL W CLINICAL HISTORY: Hypotension, Fall. TECHNIQUE: Imaging Protocol: Axial computed tomography images with coronal and sagittal reformatted images were created and reviewed CONTRAST MATERIAL: Intravenous: Omnipaque 350 Contrast volume:100 ml Oral: None COMPARISON: CT CHEST ABD PELVIS WITH CONTRAST from 12/18/2013 FINDINGS: CHEST: Images are degraded by respiratory motion artifact LUNGS: Mild increased markings left lower lobe-mild infiltrate. No pleural effusions. No obvious fo rhina findings in the trachea and mainstem bronchi. MEDIASTINUM: There is no hilar nor mediastinal adenopathy. Visualized thyroid unremarkable. CARDIAC: Cardiomegaly. No pericardial effusion.Diameter of the ascending thoracic aorta is 3.7 cm. No evidence of dissection. OSSEOUS: No significant osseous lesions.. ABDOMEN: LIVER: Liver is hypodense implying steatosis. No discrete focal hepatic lesions identified. GALLBLADDER/BILIARY: No obvious gallbladder pathology. CBD is not dilated. PANCREAS: Atrophic. SPLEEN: Spleen is not enlarged. There are no intrasplenic lesions. ADRENALS: There are no significant adrenal masses. KIDNEYS: No calculi nor hydronephrosis. No solid renal masses. No cysts evident. ABDOMINAL AORTA: Abdominal aorta is not enlarged. LYMPH NODES: There is no retroperitoneal nor paraaortic adenopathy. ABDOMINAL WALL: No evidence of significant anterior abdominal wall nor inguinal hernia. GI: There is no evidence of bowel obstruction.Extensive sigmoid diverticulosis. No obvious acute div erticulitis. There is some edema in the mesentery noted. PELVIS: LYMPH NODES: There is no intrapelvic nor inguinal adenopathy. GI: No evidence of appendicitis.There is extensive sigmoid diverticulosis. No obvious acute divertic ulitis although there is a small amount of free fluid in the pelvis. URINARY BLADDER: No calculi nor masses evident REPRODUCTIVE: OSSEOUS: Left hip hardware noted no lytic osseous lesions. No compression fractures. Mild anterolis thesis L5 upon S1 (degenerative). IMPRESSION: 1. Mild left lower lobe infiltrate. No pleural effusions. No obvious intrathoracic adenopathy. Car diomegaly. No pericardial effusion. No aortic dissection. 2. Hepatic steatosis. Mesenteric edema noted as well as a small amount of free fluid in the pelvis. 3. Extensive sigmoid diverticulosis. No obvious acute diverticulitis although please note that a sub tle case of diverticulitis can be missed here given the extensive involvement of the sigmoid with div erticular disease. 4. Mild free fluid in the dependent aspect of the pelvis. No obvious fractures. RADIATION DOSE DELIVERED: 931.69mGy.cm Total DLP DATA REPOSITORY: All CT scans at this facility are submitted to the National Radiology Data Registry (NRDR) Dose Index Registry (DIR) with the [employer] (A[employer]). RADIATION OPTIMIZATION: All CT scans at this facility use at least one of these dose optimization te chniques: automated exposure control; mA and/or kV adjustment per patient size (includes targeted exa ms where dose is matched to clinical indication); or iterative reconstruction.
[2021-04-26 16:43] LABS: Bilirubin Negative (Negative); Blood Small (Negative); Clarity Cloudy (Clear); Glucose Negative (Negative); Ketones 15 mg/dL (Negative); Leukocyte Esterase Moderate (Negative); Nitrite Positive (Negative); Specific Gravity >= 1.030 (1.005-1.025); Urobilinogen 0.2 EU/dL (Up TO 0.2)
[2021-04-26 16:47] LABS: Source Nasal/Nares
[2021-04-26 16:50] LABS: WBC >50 HPF (0-5)
[2021-04-26 16:51] LABS: Bacteria Packed HPF (Negative); C & S Indicated? Yes
[2021-04-26 17:12] LABS: HCT 34.2 % (36.0-46.0); HGB 10.9 g/dL (11.2-15.7)
[2021-04-26] MEDS: cefTRIAXone 1 GM/50 ML BAG IVPB (18:11)
[2021-04-26] MEDS: Lactated Ringers 1,000 ML 80 ML IV (18:57)
--- NOTE | 2021-04-26 19:19 | W.PM.HP.N ---
Date of service: 04/26/21 Time of Service: 19:19 Assessment and Plan Assessment and plan (1) UTI (urinary tract infection): Status: Acute Assessment and plan: Empiric ceftriaxone. Await blood culture results. (2) New onset left bundle branch block (LBBB): Status: Acute Assessment and plan: No ACS. Tele. Obtain echo. May require stress testing (could be as outpatient). (3) Ambulatory dysfunction: Status: Acute Assessment and plan: PT consult (4) Atrial fibrillation: Status: Chronic Assessment and plan: Could be related to the fall. Monitor on tele. Continue verapamil. Continue anticoagulation. (5) Acute anemia: Status: Acute Assessment and plan: While lower than previously known, the patient's H/H has been stable today. We will check her anemia studies, but for now would continue anticoagulation. (6) Parkinson's disease: Status: Chronic Assessment and plan: Continue amantadine. (7) Hypokalemia: Status: Acute Assessment and plan: Repleted. Recheck in am (8) Hypomagnesemia: Status: Acute Assessment and plan: Repleted, recheck in am. (9) DVT prophylaxis: Status: Acute Assessment and plan: Continue therapeutic apixaban since H/H is stable. (10) Discharge planning issues: Status: Acute Assessment and plan: Full code Consult palliative care and physical therapy History of Present Illness History of Present Illness Chief Complaint: Falls at home Narrative: Ms Arias is an 80 year old female with PMhx of Afib on anticoagulation, COPD, Parkinson's disease, ambulatory dysfunction, and a recent hip fx in March of 2021, treated at the [facility], after which she was discharged to [facility] and then home with home health two weeks ago who presented to [facility] ED today after a fall 3 days ago and with weakness ever since. The patient states that she has actually had 4 falls since coming home, all of them due to generalized weakness. She denies dizziness, palpitations, chest pain, nausea, loss of consciousness. She did hit her head on her last fall. The patient was found to have a laceration on her chin. The patient states that the falls are happening even though she is using a walker. Her potassium and magnesium were found to be low. She was found to have a UTI by UA, though she denies dysuria. She does endorse a chronic urinary incontinence. She was initiated on ceftriaxone empirically. Hospitalist admission was requested. The patient states that she is not interested in returning to a SNF no matter what. She is interested in hiring an aide to help her at home. Review of Systems All systems reviewed & are unremarkable except as noted in HPI and below [facility] Medical History Abdominal pain Abnormal weight loss 07/16/04 from 124-107; she feels it's due to increased activity and stress ALLERGIES Allergy or intolerlance to codeine, sulfamethoxazole and trimethoprin. There is a history of low blood pressure on calcium blockers in the past as well. Anxiety JANET-7 SCORE=16 Aortic valve insufficiency Followed by Mohan Morris at [place]. 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 Insomnia (09/02/14) Low back pain (04/12/09) Metatarsalgia of both feet Mild cognitive impairment with memory loss see above Osteopenia t-scores; -2.1; -1.5 Tachycardia Tricuspid valve insufficiency (04/14/16) moderate Surgical History Colonoscopy - MAC 1995 1997 1998 2012 ECHO (~2006) Echocardiogram with negative pulmonary work up at [facility], PA pressure 21 EGD - MAC (~1995) showing increase in PA pressures H/O cataract removal with insertion of prosthetic lens H/O esophagogastroduodenoscopy 07/16/95 showing increase in PA pressure S/P appendectomy S/P breast biopsy intraductal papilloma S/P bunionectomy bilateral Family History Mother Essential hypertension Heart disease Father No problems noted. Social History Smoking/Tobacco Use Status: Never Smoking risk assessment performed?: Yes Alcohol Intake: current Alcohol Intake frequency: holidays/special occasions only Alcohol type: wine Drug use: Never Adopted: No Caregiver/Support person: Yes (caregiver for [employer]) Details: currently in a jail, but pt is primary support Foster care: No Household members: none Housing: house Number of Children: 3 number of grandchildren: 4 current occupation: Retired Pets and animals: No What type of physical activity do you participate in: none Seatbelt use: never Drive intox or ride w/intox driver/guide: No Firearms in home: Yes (unloaded, not locked) Firearms unloaded and locked: No Do you feel safe at home: Yes Do you feel safe in your relationship?: Yes Meds Allergies and Home Medications Allergies Allergy/AdvReac Type Severity Reaction Status Date / Time methylphenidate AdvReac Intermediate GI Verified 04/26/21 10:41 codeine AdvReac Unknown Nausea Verified 04/26/21 10:41 azithromycin AdvReac Nausea Verified 04/26/21 10:41 [From Zithromax Z-Edu] sulfamethoxazole AdvReac explosive Verified 04/26/21 10:41 [From Bactrim] diarrhea trazodone AdvReac Nausea Verified 04/26/21 10:41 trimethoprim [From Bactrim] AdvReac explosive Verified 04/26/21 10:41 diarrhea Home Medications Medication Instructions Recorded Confirmed Type fluticasone propionate 50 2 spray NS BID PRN #47.4 ml 10/09/19 04/26/21 Rx mcg/actuation nasal spray,suspension buspirone 10 mg tablet 10 mg PO TID #270 tab 09/09/20 04/26/21 Rx verapamil 180 mg 24 hr 180 mg PO DAILY #90 tab-cap 09/09/20 04/26/21 Rx capsule,extended release apixaban 2.5 mg tablet 2.5 mg PO BID #180 tab 10/05/20 04/26/21 Rx diltiazem HCl 30 mg tablet 30 mg PO BID PRN #50 tab-cap 10/05/20 04/26/21 Rx duloxetine 60 mg capsule,delayed 60 mg PO DAILY #90 tab 10/05/20 04/26/21 Rx release lorazepam 0.5 mg tablet 0.5 mg PO HS PRN tab-cap 10/28/20 04/26/21 History amantadine HCl 100 mg capsule 100 mg PO DAILY #30 cap 12/14/20 04/26/21 Rx Exam Narrative Exam Narrative: General: Pleasant tremulous female, frail, A&ox3 Neurological: A&Ox3, tremulous, no focal deficits Psychiatric: Appropriate speech pattern/content Skin: large ecchymosis on the chin/over the left eye HEENT: ecchymosis/abrasion on chin, normocephalic, EOMI, dry MM, clear oropharynx, no submandibular or cervical lymphadenopathy, no goiter or JVD Cardiovascular: Seemingly regularly regular rhythm, + JERRICA Lungs: CTAB Gastrointestinal: soft, nontender, nondistended Genitourinary: deferred Extremities: B foot drop, 2+ pedal pulses B, no edema/clubbing/cyanosis Results Imaging Additional studies: CT head: No acute intracranial findings on this noninfused CT scan of the brain. No evidence of intracranial hemorrhage, as per request. CT chest/abdomen/pelvis: 1. Mild left lower lobe infiltrate. No pleural effusions. No obvious intrathoracic adenopathy. Cardiomegaly. No pericardial effusion. No aortic dissection. 2. Hepatic steatosis. Mesenteric edema noted as well as a small amount of free fluid in the pelvis. 3. Extensive sigmoid diverticulosis. No obvious acute diverticulitis although please note that a subtle case of diverticulitis can be missed here given the extensive involvement of the sigmoid with diverticular disease. 4. Mild free fluid in the dependent aspect of the pelvis. No obvious fractures. EKG: Afib, new LBBB, HR 54. Labs Result diagrams: 04/26/21 17:00 04/26/21 10:46 Labs: Laboratory Results - last 24 hr 04/26/21 04/26/21 04/26/21 10:46 10:46 10:46 WBC 7.82 RBC 3.50 L Hgb 10.9 L Hct 33.5 L MCV 95.7 H MCH 31.1 MCHC 32.5 RDW 14.2 Plt Count 192 MPV 10.4 Immature Gran % 0.4 Neutrophils % 77.3 Lymphocytes % 11.9 Monocytes % 9.5 Eosinophils % 0.6 Basophils % 0.3 Nucleated RBC % 0 Absolute Neutrophils 6.05 Absolute Lymphocytes 0.93 L Absolute Monocytes 0.74 Absolute Eosinophils 0.05 Absolute Basophils 0.02 PT 13.2 H INR 1.3 H APTT 26.7 VBG Lactate Sodium 145 Potassium 3.0 L Chloride 108 H Carbon Dioxide 25.9 Anion Gap 11.1 H BUN 38 H Creatinine 1.2 H Estimated GFR/1.73 m2 43.01 Glucose 110 H Calcium 8.6 Magnesium 1.7 L Total Bilirubin 1.0 AST 21 ALT 24 Alkaline Phosphatase 100 Troponin I < 0.05 Total Protein 5.9 L Albumin 3.3 L Urine Color Urine Clarity Urine pH Ur Specific Cullen Urine Protein Urine Ketones Urine Blood Urine Nitrite Urine Bilirubin Urine Urobilinogen Ur Leukocyte Esterase Urine RBC Urine WBC Ur Epithelial Cells Urine Crystals Urine Bacteria Urine Mucus Ur Culture Indicated? Urine Glucose COVID-19 Source 04/26/21 04/26/21 04/26/21 12:59 12:59 16:30 WBC RBC Hgb Hct MCV MCH MCHC RDW Plt Count MPV Immature Gran % Neutrophils % Lymphocytes % Monocytes % Eosinophils % Basophils % Nucleated RBC % Absolute Neutrophils Absolute Lymphocytes Absolute Monocytes Absolute Eosinophils Absolute Basophils PT INR APTT VBG Lactate 1.5 H Sodium Potassium Chloride Carbon Dioxide Anion Gap BUN Creatinine Estimated GFR/1.73 m2 Glucose Calcium Magnesium Total Bilirubin AST ALT Alkaline Phosphatase Troponin I < 0.05 Total Protein Albumin Urine Color Yellow Urine Clarity Cloudy Urine pH 6.0 Ur Specific Cullen >= 1.030 H Urine Protein 30 H Urine Ketones 15 H Urine Blood Small H Urine Nitrite Positive H Urine Bilirubin Negative Urine Urobilinogen 0.2 Ur Leukocyte Esterase Moderate H Urine RBC Urine WBC >50 H Ur Epithelial Cells Not Applicable Urine Crystals Not Applicable Urine Bacteria Packed Urine Mucus Not Applicable Ur Culture Indicated? Yes Urine Glucose Negative COVID-19 Source 04/26/21 04/26/21 16:36 17:00 WBC RBC Hgb 10.9 L Hct 34.2 L MCV MCH MCHC RDW Plt Count MPV Immature Gran % Neutrophils % Lymphocytes % Monocytes % Eosinophils % Basophils % Nucleated RBC % Absolute Neutrophils Absolute Lymphocytes Absolute Monocytes Absolute Eosinophils Absolute Basophils PT INR APTT VBG Lactate Sodium Potassium Chloride Carbon Dioxide Anion Gap BUN Creatinine Estimated GFR/1.73 m2 Glucose Calcium Magnesium Total Bilirubin AST ALT Alkaline Phosphatase Troponin I Total Protein Albumin Urine Color Urine Clarity Urine pH Ur Specific Cullen Urine Protein Urine Ketones Urine Blood Urine Nitrite Urine Bilirubin Urine Urobilinogen Ur Leukocyte Esterase Urine RBC Urine WBC Ur Epithelial Cells Urine Crystals Urine Bacteria Urine Mucus Ur Culture Indicated? Urine Glucose COVID-19 Source Nasal/Nares Last Vital Signs Temp 36.7 C 04/26/21 17:05 Pulse 55 L 04/26/21 17:05 Resp 18 04/26/21 17:05 BP 113/56 L 04/26/21 17:05 Pulse Ox 99 04/26/21 17:05
[2021-04-26 20:55] LABS: COVID-19 PCR Negative (Negative)
[2021-04-26] MEDS: Acetaminophen 325 MG TAB PO (21:01)
[2021-04-26] MEDS: LORazepam 0.5 MG TAB PO (21:02)
[2021-04-26] MEDS: Apixaban 2.5 MG TAB PO (21:02)
[2021-04-26] MEDS: busPIRone 5 MG TAB PO (21:02)
[2021-04-27] VITALS (8 sets, daily range): BP systolic 96–113; BP diastolic 55–71; PULSE 57–650; RESP 14–18; TEMP 36.4–37.2; O2SAT 92–97
[2021-04-27 07:09] LABS: Abs Immature Grans 0.02 10^3/uL (0.0-0.06); Absolute Basophil Count 0.04 10^3/uL (0.0-0.2); Absolute Eosinophil Count 0.14 10^3/uL (0.0-0.7); Absolute Lymphocyte Count 0.67 10^3/uL (1.2-3.4); Absolute Monocyte Count 0.47 10^3/uL (0.1-0.8); Absolute Neutrophil Count 3.93 10^3/uL (1.2-6.7); Basophils % 0.8; Eosinophils % 2.7; HCT 32.9 % (36.0-46.0); HGB 10.6 g/dL (11.2-15.7); Immature Grans % 0.4; Lymphocytes % 12.7; MCH 30.5 pg (27.0-33.0); MCHC 32.2 % (32.0-36.0); MCV 94.8 fL (80-95); MPV 10.3 fL (8.0-11.0); Monocytes % 8.9; Neutrophils % 74.5; Nucleated RBC 0 %; Platelet Count 176 10^3/uL (130-400); RBC 3.47 10^6/uL (3.93-5.22); RDW 14.2 % (11.7-14.6); RDW-SD 49.3 fL; WBC 5.27 10^3/uL (4.4-10.8)
[2021-04-27] MEDS: DULoxetine 30 MG CAP 60 MG PO (07:50)
[2021-04-27] MEDS: Apixaban 2.5 MG TAB PO ×2 (07:50→19:39)
[2021-04-27] MEDS: busPIRone 5 MG TAB PO ×3 (07:50→19:39)
[2021-04-27 07:56] LABS: Anion Gap 10.2 mmol/L (3-11); BUN 25 mg/dL (7-18); CO2 23.8 mmol/L (21.0-32.0); CREATININE 0.8 mg/dL (0.55-1.02); Calcium 8.5 mg/dL (8.5-10.1); Chloride 110 mmol/L (98-107); Glucose 92 mg/dL (74-106); Potassium 3.5 mmol/L (3.5-5.1); Sodium 144 mmol/L (136-145)
[2021-04-27 08:03] LABS: Iron 47 ug/dL (50-170); Total Iron Binding Capacity 201 ug/dL (250-450); Transferrin Sat 23 % (15-50)
[2021-04-27 08:05] LABS: Ferritin 157 ng/mL (8-252); Folate 6.6 ng/mL (8.6-20.0); Magnesium 1.6 mg/dL (1.8-2.4); Vitamin B12 963 pg/mL (193-986)
--- NOTE | 2021-04-27 09:18 | PCNE_ITS ---
Date of service: 04/27/21 Time of Service: 07:18 History of Present Illness History of Present Illness Chief Complaint: weakness and pain Narrative: History from H and P History of Present Illness Chief Complaint: Falls at home Narrative: Ms Arias is an 80 year old female with PMhx of Afib on anticoagulation, COPD, Parkinson's disease, ambulatory dysfunction, and a recent hip fx in March of 2021, treated at the [facility], after which she was discharged to [facility] and then home with home health two weeks ago who presented to [facility] ED today after a fall 3 days ago and with weakness ever since. The patient states that she has actually had 4 falls since coming home, all of them due to generalized weakness. She denies dizziness, palpitations, chest pain, nausea, loss of consciousness. She did hit her head on her last fall. The patient was found to have a laceration on her chin. The patient states that the falls are happening even though she is using a walker. Her potassium and magnesium were found to be low. She was found to have a UTI by UA, though she denies dysuria. She does endorse a chronic urinary incontinence. She was initiated on ceftriaxone empirically. Hospitalist admission was requested. The patient states that she is not interested in returning to a SNF no matter what. She is interested in hiring an aide to help her at home. Interim Hx: I have known Alyse for about 30 to 35 years. She has been my PCP for the last 20+ years. During this time she has gone through significant amount of stressors including non-Hodgkin's lymphoma, Parkinson's, failed cataract surgery, chronic low back pain and most recently a significant other who had dementia and was in a care home for several years. A few weeks ago she broke her hip and was in [facility]. She then went to health and rehab and eventually home. I had been contacted by home health as well as [facility] with concerns about how Alyse was doing. Home health did go out to see her and felt that due to her weakness and inability to care for herself that she needed to be seen in the ER. Alyse states that she is feeling better but realizes that she cannot be home alone. She plans to hire help in. She declines going back to a care home. Assessment and Plan Assessment and plan (1) Acute anemia: Status: Acute (2) New onset left bundle branch block (LBBB): Status: Acute (3) UTI (urinary tract infection): Status: Acute (4) Closed fracture of neck of left femur: Status: Acute (5) Frequent falls: Status: Acute (6) Palliative care patient: Status: Acute Assessment and plan: 80 year old, well known to me. PMHx significant for Lymphoma, Parkinsons, A fib, recent hip fracture, anxiety, depression. Lived a lone and has difficulty organizing the details of her life. Family has been there for her for many years, but unfortunately there has been problems over the last couple of years. They are no longer willing to enable her. She knows she cannot live in her present house. Her goal is to move to [place], she has not visited her home in [place] for several years. She refuses to go to [facility] and rehab. Her significant other had been in a [place] care home. She does not want to consider this but it may be one of her options. She wants to have people coming to her house to help her. She does not know where these people will come from but understands that she would have to pay for them. She does have long-term care insurance to help to pay for services. Her anxiety remains a major problem. Unfortunately it does create barriers between her and her family and different caregivers. Alyse and I get along very well. Agree with physical therapy. She has to be safe on discharge. She is not safe living alone at home. I had also called her a number of times at her home from discharge from [facility] and rehab and yesterday when she presented to the ER. Unfortunately she states that she has an old phone that does not work often. This is another barrier to care. Her face is quite bruised from her recent falls. I am concerned that there will be even more if she returns home to an unsafe environment. I do want to commend [facility] and other nursing care. She is very happy with the care she is receiving at [facility]. Review of Systems Narrative: Alyse states that she is very anxious and upset. Pain is stable. She is very weak and knows that she needs help. She does not have any chest pain. No recent GI complaints. She does get short of breath at times. [facility] Medical History Abdominal pain Abnormal weight loss 07/16/04 from 124-107; she feels it's due to increased activity and stress ALLERGIES Allergy or intolerlance to codeine, sulfamethoxazole and trimethoprin. There is a history of low blood pressure on calcium blockers in the past as well. Anxiety JANET-7 SCORE=16 Aortic valve insufficiency Followed by Mohan Morris at [place]. 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 Insomnia (09/02/14) Low back pain (04/12/09) Metatarsalgia of both feet Mild cognitive impairment with memory loss see above Osteopenia t-scores; -2.1; -1.5 Tachycardia Tricuspid valve insufficiency (04/14/16) moderate Surgical History Colonoscopy - MAC 1995 1997 1998 2012 ECHO (~2006) Echocardiogram with negative pulmonary work up at [facility], PA pressure 21 EGD - MAC (~1995) showing increase in PA pressures H/O cataract removal with insertion of prosthetic lens H/O esophagogastroduodenoscopy 07/16/95 showing increase in PA pressure S/P appendectomy S/P breast biopsy intraductal papilloma S/P bunionectomy bilateral Family History Mother Essential hypertension Heart disease Father No problems noted. Social History Smoking/Tobacco Use Status: Never Smoking risk assessment performed?: Yes Alcohol Intake: current Alcohol Intake frequency: holidays/special occasions only Alcohol type: wine Drug use: Never Adopted: No Caregiver/Support person: Yes (caregiver for jenni) Details: currently in a care home, but pt is primary support Foster care: No Household members: none Housing: house Number of Children: 3 number of grandchildren: 4 current occupation: Retired Pets and animals: No What type of physical activity do you participate in: none Seatbelt use: never Drive intox or ride w/intox six horse hitch driver: No Firearms in home: Yes (unloaded, not locked) Firearms unloaded and locked: No Do you feel safe at home: Yes Do you feel safe in your relationship?: Yes Exam Const General: cooperative and no acute distress Nutritional Appearance: thin Orientation: oriented x3 HENMT Head: normal to inspection Ears: hearing grossly impaired (Need to speak slowly and distinctly) Mouth: tongue normal and lip abnormal (bruise and swelling from fall) Teeth and gingiva: poor dentition Neck Neck: other (Swelling in her chin from recent fall) Resp Effort & Inspection: able to speak in complete sentences (Speaks in a very low voice, short sentences) Auscultation: bronchovesicular breath sounds Cardio Rhythm: abnormal rhythm Heart Sounds: murmur Psych Mood: anxious mood Affect: anxious affect Attitude: cooperative Results Last Vital Signs Temp 98.2 F 04/27/21 07:40 Pulse 57 L 04/27/21 07:40 Resp 18 04/27/21 07:40 BP 110/59 L 04/27/21 07:40 Pulse Ox 92 04/27/21 07:40 Labs Result diagrams: 04/28/21 07:59 04/28/21 07:59 Labs: Laboratory Results - last 24 hr 04/26/21 04/26/21 04/26/21 10:46 10:46 10:46 WBC 7.82 RBC 3.50 L Hgb 10.9 L Hct 33.5 L MCV 95.7 H MCH 31.1 MCHC 32.5 RDW 14.2 Plt Count 192 MPV 10.4 Immature Gran % 0.4 Neutrophils % 77.3 Lymphocytes % 11.9 Monocytes % 9.5 Eosinophils % 0.6 Basophils % 0.3 Nucleated RBC % 0 Absolute Neutrophils 6.05 Absolute Lymphocytes 0.93 L Absolute Monocytes 0.74 Absolute Eosinophils 0.05 Absolute Basophils 0.02 PT 13.2 H INR 1.3 H APTT 26.7 VBG Lactate Sodium 145 Potassium 3.0 L Chloride 108 H Carbon Dioxide 25.9 Anion Gap 11.1 H BUN 38 H Creatinine 1.2 H Estimated GFR/1.73 m2 43.01 Glucose 110 H Calcium 8.6 Magnesium 1.7 L Iron TIBC Transferrin % Sat Ferritin Total Bilirubin 1.0 AST 21 ALT 24 Alkaline Phosphatase 100 Troponin I < 0.05 Total Protein 5.9 L Albumin 3.3 L Vitamin B12 Folate Urine Color Urine Clarity Urine pH Ur Specific Minier Urine Protein Urine Ketones Urine Blood Urine Nitrite Urine Bilirubin Urine Urobilinogen Ur Leukocyte Esterase Urine RBC Urine WBC Ur Epithelial Cells Urine Crystals Urine Bacteria Urine Mucus Ur Culture Indicated? Urine Glucose COVID-19 Source SARS-CoV-2 (PCR) 04/26/21 04/26/21 04/26/21 12:59 12:59 16:30 WBC RBC Hgb Hct MCV MCH MCHC RDW Plt Count MPV Immature Gran % Neutrophils % Lymphocytes % Monocytes % Eosinophils % Basophils % Nucleated RBC % Absolute Neutrophils Absolute Lymphocytes Absolute Monocytes Absolute Eosinophils Absolute Basophils PT INR APTT VBG Lactate 1.5 H Sodium Potassium Chloride Carbon Dioxide Anion Gap BUN Creatinine Estimated GFR/1.73 m2 Glucose Calcium Magnesium Iron TIBC Transferrin % Sat Ferritin Total Bilirubin AST ALT Alkaline Phosphatase Troponin I < 0.05 Total Protein Albumin Vitamin B12 Folate Urine Color Yellow Urine Clarity Cloudy Urine pH 6.0 Ur Specific Minier >= 1.030 H Urine Protein 30 H Urine Ketones 15 H Urine Blood Small H Urine Nitrite Positive H Urine Bilirubin Negative Urine Urobilinogen 0.2 Ur Leukocyte Esterase Moderate H Urine RBC Urine WBC >50 H Ur Epithelial Cells Not Applicable Urine Crystals Not Applicable Urine Bacteria Packed Urine Mucus Not Applicable Ur Culture Indicated? Yes Urine Glucose Negative COVID-19 Source SARS-CoV-2 (PCR) 04/26/21 04/26/21 04/27/21 16:36 17:00 06:54 WBC 5.27 D RBC 3.47 L Hgb 10.9 L 10.6 L Hct 34.2 L 32.9 L MCV 94.8 MCH 30.5 MCHC 32.2 RDW 14.2 Plt Count 176 MPV 10.3 Immature Gran % 0.4 Neutrophils % 74.5 Lymphocytes % 12.7 Monocytes % 8.9 Eosinophils % 2.7 Basophils % 0.8 Nucleated RBC % 0 Absolute Neutrophils 3.93 Absolute Lymphocytes 0.67 L Absolute Monocytes 0.47 Absolute Eosinophils 0.14 Absolute Basophils 0.04 PT INR APTT VBG Lactate Sodium Potassium Chloride Carbon Dioxide Anion Gap BUN Creatinine Estimated GFR/1.73 m2 Glucose Calcium Magnesium Iron TIBC Transferrin % Sat Ferritin Total Bilirubin AST ALT Alkaline Phosphatase Troponin I Total Protein Albumin Vitamin B12 Folate Urine Color Urine Clarity Urine pH Ur Specific Minier Urine Protein Urine Ketones Urine Blood Urine Nitrite Urine Bilirubin Urine Urobilinogen Ur Leukocyte Esterase Urine RBC Urine WBC Ur Epithelial Cells Urine Crystals Urine Bacteria Urine Mucus Ur Culture Indicated? Urine Glucose COVID-19 Source Nasal/Nares SARS-CoV-2 (PCR) Negative 04/27/21 04/27/21 04/27/21 06:54 06:54 06:54 WBC RBC Hgb Hct MCV MCH MCHC RDW Plt Count MPV Immature Gran % Neutrophils % Lymphocytes % Monocytes % Eosinophils % Basophils % Nucleated RBC % Absolute Neutrophils Absolute Lymphocytes Absolute Monocytes Absolute Eosinophils Absolute Basophils PT INR APTT VBG Lactate Sodium 144 Potassium 3.5 Chloride 110 H Carbon Dioxide 23.8 Anion Gap 10.2 BUN 25 H D Creatinine 0.8 Estimated GFR/1.73 m2 >= 60.00 Glucose 92 Calcium 8.5 Magnesium 1.6 L Iron 47 L TIBC 201 L Transferrin % Sat 23 Ferritin 157 Total Bilirubin AST ALT Alkaline Phosphatase Troponin I Total Protein Albumin Vitamin B12 963 Folate 6.6 L Urine Color Urine Clarity Urine pH Ur Specific Minier Urine Protein Urine Ketones Urine Blood Urine Nitrite Urine Bilirubin Urine Urobilinogen Ur Leukocyte Esterase Urine RBC Urine WBC Ur Epithelial Cells Urine Crystals Urine Bacteria Urine Mucus Ur Culture Indicated? Urine Glucose COVID-19 Source SARS-CoV-2 (PCR) 04/27/21 06:54 WBC RBC Hgb Hct MCV MCH MCHC RDW Plt Count MPV Immature Gran % Neutrophils % Lymphocytes % Monocytes % Eosinophils % Basophils % Nucleated RBC % Absolute Neutrophils Absolute Lymphocytes Absolute Monocytes Absolute Eosinophils Absolute Basophils PT INR APTT VBG Lactate 1.0 Sodium Potassium Chloride Carbon Dioxide Anion Gap BUN Creatinine Estimated GFR/1.73 m2 Glucose Calcium Magnesium Iron TIBC Transferrin % Sat Ferritin Total Bilirubin AST ALT Alkaline Phosphatase Troponin I Total Protein Albumin Vitamin B12 Folate Urine Color Urine Clarity Urine pH Ur Specific Minier Urine Protein Urine Ketones Urine Blood Urine Nitrite Urine Bilirubin Urine Urobilinogen Ur Leukocyte Esterase Urine RBC Urine WBC Ur Epithelial Cells Urine Crystals Urine Bacteria Urine Mucus Ur Culture Indicated? Urine Glucose COVID-19 Source SARS-CoV-2 (PCR)
[2021-04-27] MEDS: MAGNESIUM SULFATE 2 GM/50 ML BAG IVPB (09:54)
[2021-04-27] MEDS: Folic Acid 1 MG TAB PO (09:54)
--- NOTE | 2021-04-27 10:14 | IN_ITS ---
Date of service: 04/27/21 Time of Service: 10:14 PT Notes Visit Reasons: UTI,Ambulatory Disfunction Physical Therapy Inpatient Initial Evaluation Date: 04/27/2021 Referring Doctor: Cathleen Saha MD for mobility PT Orders: PT CONSULT: Precautions: Fall. Standard. Activity as tolerated. Hard of hearing. Patient Profile/Admitting Diagnosis: Alyse is an 80-year-old female with Parkinson's disease who presented to the ED with weakness and fall. She is diagnosed with urinary tract infection, new onset left BBB, ambulatory dysfunction, atrial fibrillation, acute anemia, hypokalemia, and hypokalemia see PMHX: Medical History Abdominal pain Abnormal weight loss 07/16/04 from 124-107; she feels it's due to increased activity and stress ALLERGIES Allergy or intolerlance to codeine, sulfamethoxazole and trimethoprin. There is a history of low blood pressure on calcium blockers in the past as well. Anxiety JANET-7 SCORE=16 Aortic valve insufficiency Followed by Mohan Morris at [place]. 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 Insomnia (09/02/14) Low back pain (04/12/09) Metatarsalgia of both feet Mild cognitive impairment with memory loss see above Osteopenia t-scores; -2.1; -1.5 Tachycardia Tricuspid valve insufficiency (04/14/16) moderate Surgical History Colonoscopy - MAC 1995 1997 1998 2012 ECHO (~2006) Echocardiogram with negative pulmonary work up at [facility], PA pressure 21 EGD - MAC (~1995) showing increase in PA pressures H/O cataract removal with insertion of prosthetic lens H/O esophagogastroduodenoscopy 07/16/95 showing increase in PA pressure S/P appendectomy S/P breast biopsy intraductal papilloma S/P bunionectomy bilateral Social History/Home Situation: Lives alone in a private home with 5 steps to enter without rails. Independent with all mobility garments without an assistive. Worked as a medical staff physician previously. Equipment Owned/DME: [employer] Subjective: Agreeable to consult. States that she has had 3 to falls in the past 3 weeks. Reports being weak and unsure about getting out of bed today. Denies headache and chest pain. Adamant about not going anywhere but home. Agreeable to home health PT services. Indincates that she has just been recently diagnosed withwith parkinson's Disease and is receiving treatment for it. Objective: General Observation: Supine in bed. Appears anxious about getting out of bed. Mental Status: Alert and able to follow single step commands. Pain: Denies ROM: Right Upper Extremity: Shoulder Flexion only allows up to about 90?. Shoulder abduction only allows up to about 80?. Elbow flexion WFL. Wrist flexion WFL. Functional opening and closing of hand WFL. Left Upper Extremity: Shoulder Flexion only allows up to about 90?. Shoulder abduction only allows up to about 80?.Elbow flexion WFL. Wrist flexion WFL. Functional opening and closing of hand WFL. Right Lower Extremity: Hip flexion WFL. Hip abduction WFL. Knee flexion WFL. Ankle dorsiflexion to neutral only. Ankle plantarflexion WFL. Left Lower Extremity: Hip flexion WFL. Hip abduction WFL. Knee flexion WFL. Ankle dorsiflexion to neutral only. Ankle plantarflexion WFL. Strength: Right Upper Extremity: Shoulder flexors 3-/5. Shoulder abductors 3-/5. Elbow flexors 3+/5. Elbow extensors 3+/5. Social Media Director weak but functional. Left Upper Extremity: Shoulder flexors 3-/5. Shoulder abductors 3-/5. Elbow flexors 3+/5. Elbow extensors 3+/5. Social Media Director weak but functional. Right Lower Extremity: Hip flexors 3+/5. Hip abductors 3+/5. Knee flexors 3+/5. Knee extensors 3+/5. Ankle dorsiflexors 3-/5. Ankle plantarflexors 3+/5. Left Lower Extremity: Hip flexors 3+/5. Hip abductors 3+/5. Knee flexors 3+/5. Knee extensors 3+/5. Ankle dorsiflexors 3-/5. Ankle plantarflexors 3+/5. Bed Mobility/Transfers: Supine to sit minimal assist with HOB at 45? Sit to stand moderate assist with increased tendency to push back during ascent Stand to sit minimal assist Bed to bedside commode minimal assist of 2 Bedside commode to bed minimal assist of 2 Gait: Instructed patient with level surface ambulation of 8 feet requiring minimal assist of 2. Yudelka decreased. Gait parkinsonian with decreased step height and length. Steps discontinuous. Moderate verbal cues needed for safe technique. Balance: Static Sitting: Good Dynamic Sitting: Fair Static Standing: Poor Dynamic Standing: Poor Special Tests: Mobility Limitations Standardized Measure [facility] AM-PAC 6 clicks Basic Mobility Inpatient Short Form: Raw Score: 16 CMS Score: 54% deficit Informed Consent/Education: Patient was instructed in purpose of PT consult and plan of care. Agreeable to proceed with established PT POC to achieve personal goals. Assessment: Alyse demonstrates generalized weakness, abnormal and unsafe gait pattern, impaired static and dynamic standing balance, and functional mobility decline requiring 2 for all mobility performance. Patient presents with clinical signs and symptoms consistent with current/admitting diagnoses that have resulted to mobility limitations, gait instability, generalized weakness, and overall ADL decline as demonstrated by the following impairment level findings: 1. Decreased strength to BUE/LE major muscle groups 2. Impaired sitting/standing balance 3. Impaired activity tolerance 4. Limitation of joint range of motion in B shoulders and ankles Impairments are contributing to the following functional limitations: 1. Decline in bed mobility skills 2. Decline in transfer skills 3. Difficulty with ambulation without assistive device and physical assistance 4. Increased completion time for mobility ADL performance 5. Increased risk for falls 6. Difficulty with managing steps alone safely 7. Inability to thrive at home at this time Patient is assessed as a 49319 moderate complexity based on the following: History: 80-year-old female with past medical history as indicated above Examination: Demonstrable impairment in strength, balance, and mobility level with underlying impairments and functional limitations as exhibited above as well as deficit score of 54% utilizing the [facility] Mobility Inpatient Short Form Presentation: Evolving Decision Makin moderate complexity Goals: Goals X1 week 1. Supine-Sit independent 2. Sit-Supine independent 3. Sit-Stand independent 4. Stand-Sit independent with FWW 5. Bed-Chair independent with FWW 6. Chair-Bed independent with FWW 7. Independent gait on level surface with use of FWW for at least 30 feet without report of pain nor dyspnea 8. Independent stair negotiation while holding onto B rails for at least 5 steps without report of pain nor dyspnea 9. Good static and dynamic standing balance/tolerance Plan of Care/Treatment Plan: 1-2x/day, 7 days/week x 1 week. Plan of care has been reviewed with the DISPLAY FABRICATOR providing the service under Physical Therapy direction. Initiate Physical Therapy intervention for pain management as needed, strengthening, bed mobility, transfers, gait, stairs, balance training, and use of assistive device. DISCHARGE RECOMMENDATIONS: Patient will benefit from care home facility placement for continued skilled physical therapy services in order to progress mobility level, strength, and balance in preparation for a safe discharge to home. TREATMENT CODE/TIME: 87697 x 20 minutes, 57011 x 14 minutes beginning at 10:14 AM. Thank you for the opportunity to participate in the care of this patient. Mikayla Costa PT, DPT, CLT [facility] [place], [place]
[2021-04-27] MEDS: Normal Saline Flush 10 ML SYR IVP ×3 (10:16→19:40)
--- NOTE | 2021-04-27 11:32 | OT.INNT ---
Date of service: 04/27/21 Time of Service: 11:32 Occupational Therapy Notes 04/27/21 OT consult received and pts chart was reviewed. OT attempted to evaluate pt who was mad and states that she is fine and does not need services. OT did attempt to perform bathing with pt when she states, I dont have time for this, lunch is coming. She states that she has no deficits that needs to be addressed and she is upset that she needs to do all the things people ask of her. She reports that if she has an issue she can figure it out. OT will discuss with MD and decide if further consultation is needed at this time. Charley Schaeffer, OTR/L
[2021-04-27] MEDS: Lactated Ringers 1,000 ML 80 ML IV (13:46)
--- NOTE | 2021-04-27 14:41 | INITIAL_ITS ---
- If Service Date Differs Date of service: 04/27/21 Time of Service: 14:41 Care Management Initial Assess REASON FOR HOSPITALIZATION:: UTI PAST MEDICAL HISTORY/PAST SURGICAL HISTORY:: Medical History . Abdominal pain. Abnormal weight loss. 07/16/04 from 124-107; she feels it's due to increased activity and stress. ALLERGIES. Allergy or intolerlance to codeine, sulfamethoxazole and trimethoprin. There is a history of low blood pressure on calcium blockers in the past as well. Anxiety. JANET-7 SCORE=16. Aortic valve insufficiency. Followed by Mohan Morris at [place]. Atrial fibrillation (04/07/13). Bunion of great toe. Cataract. IOL. Chronic obstructive lung disease. Chronic pulmonary heart disease. CT Scan Chest - nodule, otherwise nl; PFT - w/ exercise diffusion - nl at [facility]. Depressive disorder. on Cymbalta; has gone through counseling in [place]. Diffuse large cell non-Hodgkin's lymphoma (03/11/13). PLEURAL EFFUSION. Ductal papillomatosis of breast. s/p breast Bx. Dysphagia. Fatigue. Foot joint pain. 10/10/12. Foot joint pain (10/10/12). H/O echocardiogram. 10/10/12 echo w/neg pulmonary w/u at [facility]; PA pressure 21. Heart palpitations. Hoarseness. Hypothyroidism (03/10/13). Newly diagnosed. Insomnia (09/02/14). Low back pain (04/12/09). Metatarsalgia of both feet. Mild cognitive impairment with memory loss. see above. Osteopenia. t-scores; -2.1; -1.5. Tachycardia. Tricuspid valve insufficiency (04/14/16). moderate. Surgical History . Colonoscopy - MAC. 1995. 1997. 1998. 2012. ECHO (~2006). Echocardiogram with negative pulmonary work up at [facility], PA pressure 21. EGD - MAC (~1995). showing increase in PA pressures. H/O cataract removal with insertion of prosthetic lens. H/O esophagogastroduodenoscopy. 07/16/95 showing increase in PA pressure. S/P appendectomy. S/P breast biopsy. intraductal papilloma. S/P bunionectomy. bilateral PREVIOUS FUNCTIONAL STATUS/SOCIAL/FAMILY SUPPORTS:: Alyse lives alone on [address] in [place], [place]. She has just had VNA serviceds initiated through [facility] . Alyse has been independent with ADLs but recently has had several falls and feels she cannot be alone all of the time. Alyse has 3 children. Her 2 sons, artur and Patrice live in [place] and her daughter Maile lives locally. Alyse declined discussing her children , stating there is some family stuff going on. Her son Artur was visiting when CM met with her and she did acknowledge that he is supportive. She denies having any close friends or neighbors who can offer support however. CURRENT FUNCTIONAL STATUS:: Alyse was sitting up in bed when CM met with her. She was polite but very reserved in her responses and interactions. Alyse's son Artur was present but left to go get a sandwich. Alyse stated that she was told that she would be able to go home today and expressed her displeasure that she has not been discharged. She still had not seen the provider when CM met with her and CM encouraged her to discuss this with her. In further discussion, Alyse stated that she is definitely not interested in going to a SNF. When asked if she felt safe to go home she stated not alone. She informed CM that she would have to get someone to stay with her for a few hours a day.She indicated that she has private means and can hire caregivers. CM provided her with information for 2 agencies that provide these services, at her request. She did acknowledge that this would not be easy to do as resources are limited. ADVANCE DIRECTIVES:: Has COLST form - is a full code Has patient been provided with info about the portal/API?: Yes Did the patient sign up for the portal?: No CODE STATUS:: Full Code INSURANCE COVERAGE / FINANCIAL ISSUES:: Medicare. [employer] plan CURRENT HOME/COMMUNITY SERVICES/EQUIPMENT:: home health nursing and PT through [facility] PRIMARY CARE PHYSICIAN:: Luz Szymanski POTENTIAL DISCHARGE NEEDS:: Follow up with PCP and plan of care PATIENT/FAMILY EDUCATION NEEDS:: Review of discharge instructions, mefducations, limitations, activity, follow up plan, Ask Me Three TRANSPORTATION:: Unknown at this time; to be determined based on disposition PLAN:: Alyse will likely return home with a resumption of home health services and the addition of private caregivers since she will not consider SNF. She will follow up with her community providers and plan of care. CM will continue to support Alyse and assess for discharge planning needs.
[2021-04-27] MEDS: Verapamil 80 MG TAB 160 MG PO (17:33)
[2021-04-27] MEDS: cefTRIAXone 1 GM/50 ML BAG IVPB (18:04)
--- NOTE | 2021-04-27 18:54 | W.PM.PROGNOT ---
Date of Service Date of service: 04/27/21 Time of Service: 18:54 Assessment and Plan Assessment and plan (1) UTI (urinary tract infection): Status: Acute Assessment and plan: Due to GNR, present on admission. Continue empiric ceftriaxone. (2) New onset left bundle branch block (LBBB): Status: Acute Assessment and plan: No ACS. Continue to monitor on Tele. Echo with LVEH of 53%, RVSP of 44 mmHg, dilated R and L atrium, moderate aortic regurg. No wall motion abnormalities. Consider outpatient stress testing. (3) Ambulatory dysfunction: Status: Acute Assessment and plan: PT consult (4) Atrial fibrillation: Status: Chronic Assessment and plan: Could be the cause of the to the fall. Continue to monitor on tele until tomorrow am. Would d/c if no significant events. Continue verapamil. Continue anticoagulation. (5) Acute anemia: Status: Acute Assessment and plan: h/H stable. Replete folate. Continue anticoagulation. (6) Parkinson's disease: Status: Chronic Assessment and plan: Continue amantadine. (7) Hypokalemia: Status: Resolved Assessment and plan: Recheck in am (8) Hypomagnesemia: Status: Acute Assessment and plan: Repleted, recheck in am. (9) DVT prophylaxis: Status: Acute Assessment and plan: Continue therapeutic apixaban since H/H is stable. (10) Discharge planning issues: Status: Acute Assessment and plan: Full code Palliaitve care and physical therapy consulted. Subjective Subjective Interval history since last seen: Ms Arias states she is feeling good. Denies pain/dizziness/chest discomfort/shortness of breath/nausea. Stated she was too tired after all the testing to work with physical therapy. Exam Narrative Exam Narrative: General: Pleasant tremulous female, frail, A&ox3 HEENT: ecchymosis/abrasion on chin, EOMI, MMM Cardiovascular: irregularly irregular rhythm, + JERRICA Lungs: CTAB Gastrointestinal: soft, nontender, nondistended Genitourinary: deferred Extremities: no edema/clubbing/cyanosis Objective Last Vital Signs Temp 36.6 C 04/27/21 15:57 Pulse 75 04/27/21 15:57 Resp 18 04/27/21 15:57 BP 113/71 04/27/21 15:57 Pulse Ox 95 04/27/21 15:57 Laboratory Results - last 24 hr 04/26/21 04/27/21 04/27/21 16:36 06:54 06:54 WBC 5.27 D RBC 3.47 L Hgb 10.6 L Hct 32.9 L MCV 94.8 MCH 30.5 MCHC 32.2 RDW 14.2 Plt Count 176 MPV 10.3 Immature Gran % 0.4 Neutrophils % 74.5 Lymphocytes % 12.7 Monocytes % 8.9 Eosinophils % 2.7 Basophils % 0.8 Nucleated RBC % 0 Absolute Neutrophils 3.93 Absolute Lymphocytes 0.67 L Absolute Monocytes 0.47 Absolute Eosinophils 0.14 Absolute Basophils 0.04 VBG Lactate Sodium Potassium Chloride Carbon Dioxide Anion Gap BUN Creatinine Estimated GFR/1.73 m2 Glucose Calcium Magnesium Iron 47 L TIBC 201 L Transferrin % Sat 23 Ferritin Vitamin B12 Folate SARS-CoV-2 (PCR) Negative 04/27/21 04/27/21 04/27/21 06:54 06:54 06:54 WBC RBC Hgb Hct MCV MCH MCHC RDW Plt Count MPV Immature Gran % Neutrophils % Lymphocytes % Monocytes % Eosinophils % Basophils % Nucleated RBC % Absolute Neutrophils Absolute Lymphocytes Absolute Monocytes Absolute Eosinophils Absolute Basophils VBG Lactate 1.0 Sodium 144 Potassium 3.5 Chloride 110 H Carbon Dioxide 23.8 Anion Gap 10.2 BUN 25 H D Creatinine 0.8 Estimated GFR/1.73 m2 >= 60.00 Glucose 92 Calcium 8.5 Magnesium 1.6 L Iron TIBC Transferrin % Sat Ferritin 157 Vitamin B12 963 Folate 6.6 L SARS-CoV-2 (PCR)
[2021-04-27] MEDS: LORazepam 0.5 MG TAB PO (19:39)
[2021-04-28] VITALS (7 sets, daily range): BP systolic 103–116; BP diastolic 62–67; PULSE 61–86; RESP 15–18; TEMP 36.6–37.3; O2SAT 94–97
[2021-04-28] MEDS: busPIRone 5 MG TAB PO ×3 (07:58→19:44)
[2021-04-28] MEDS: Apixaban 2.5 MG TAB PO ×2 (07:58→19:44)
[2021-04-28] MEDS: DULoxetine 30 MG CAP 60 MG PO (07:58)
[2021-04-28] MEDS: Normal Saline Flush 10 ML SYR IVP ×3 (07:58→17:52)
[2021-04-28] MEDS: Folic Acid 1 MG TAB PO (07:58)
[2021-04-28 08:15] LABS: HCT 34.6 % (36.0-46.0); HGB 11.4 g/dL (11.2-15.7)
[2021-04-28 08:24] LABS: BUN 18 mg/dL (7-18); CREATININE 0.7 mg/dL (0.55-1.02); Calcium 8.1 mg/dL (8.5-10.1); Chloride 108 mmol/L (98-107); Glucose 92 mg/dL (74-106); Magnesium 1.6 mg/dL (1.8-2.4); Potassium 3.7 mmol/L (3.5-5.1); Sodium 144 mmol/L (136-145)
[2021-04-28] MEDS: Verapamil C.R. 180 MG TABCR PO (09:24)
--- NOTE | 2021-04-28 09:25 | PDOC.CMPRO ---
- If Service Date Differs Date of service: 04/28/21 Time of Service: 09:25 Care Management Progress Note S/O:Alyse was sitting up in a chair when CM met with her. Initially she was pleasant and engaged with CM. As the conversation turned to discharge planning however, Alyse refused to continue the conversation. CM asked if she had looked at the brochures for caregivers and she said no. When asked if she planned to she stated I don't want to discuss it. Each question CM asked was met with the same response. Alyse would not maintain eye contact or engage further in conversation. CM explained that she was trying to help her and would return the next day. A: Alyse is an 80 year old woman admitted on 04/26/21 with a UTI and ambulatory dysfunction P:Alyse will likely return home with a resumption of home health services and the addition of private caregivers since she will not consider SNF. She will follow up with her community providers and plan of care. CM will continue to support Alyse and assess for discharge planning needs.
[2021-04-28] MEDS: MAGNESIUM SULFATE 2 GM/50 ML BAG IVPB (10:06)
[2021-04-28] MEDS: Normal Saline 500 ML 30 ML IV (10:06)
--- NOTE | 2021-04-28 10:26 | OT.INNT ---
Date of service: 04/28/21 Time of Service: 08:30 Occupational Therapy Notes 04/28/21 Pt refuses all skilled OT services at this time. If pt changes her mind and MD feels that pt would benefit from further consultation, OT is happy to work with pt if she is agreeable. Charley Schaeffer, OTR/L
--- NOTE | 2021-04-28 14:17 | W.PM.PROGNOT ---
Date of Service Date of service: 04/28/21 Time of Service: Assessment and Plan Assessment and plan (1) UTI (urinary tract infection): Start date: 04/28/21 Start time: : Status: Acute Assessment and plan: Due to GNR, present on admission. Continue empiric ceftriaxone. No speciation at this time, greater than 100 colonies (2) New onset left bundle branch block (LBBB): Start date: 04/28/21 Start time: 13: Status: Acute Assessment and plan: No ACS. D/C teley Echo with LVEH of 53%, RVSP of 44 mmHg, dilated R and L atrium, moderate aortic regurg. No wall motion abnormalities. Consider outpatient stress testing. (3) Ambulatory dysfunction: Start date: 04/28/21 Start time: : Status: Acute Assessment and plan: PT feels she would benefit from SNIF however patient refusing, Max 1 assist today per Alyse BLANKING PRESS OPERATOR (4) Atrial fibrillation: Start date: 04/28/21 Start time: : Status: Chronic Assessment and plan: No event on teley therefore dcd Continue verapamil. Continue anticoagulation. (5) Acute anemia: Start date: 04/28/21 Start time: : Status: Acute Assessment and plan: h/H stable. Replete folate. Continue anticoagulation. (6) Parkinson's disease: Start date: 04/28/21 Start time: 13: Status: Chronic Assessment and plan: Continue amantadine. (7) Hypokalemia: Start date: 04/28/21 Start time: 13: Status: Resolved Assessment and plan: 3.7 (8) Hypomagnesemia: Start date: 04/28/21 Start time: 13: Status: Acute Assessment and plan: 1.6 today, replete with IV and po BID, recheck in am (9) DVT prophylaxis: Start date: 04/28/21 Start time: 13: Status: Acute Assessment and plan: Continue therapeutic apixaban since H/H is stable. (10) Discharge planning issues: Start date: 04/28/21 Start time: 13: Status: Acute Assessment and plan: Full code Pt ideally recommends SNIF however patient refusing, She would like 24 hour care but did not realize that she should not be driving and that they need to be with her at all times upon hearing this she did not like the idea, she would have to sign out AMA as her going home alone would not be a safe discharge. discussed with Dr. Saha. Subjective Subjective Patient reports: other Interval history since last seen: Sitting up in chair. Unrealistic of goals on discharge. Perseverating on paying IRS. She does have her laptop with her with capability to pay. When speaking to her about 24 hour care she did not realize that it would mean she would need someone at all times even when shopping. She believes she is safe to still drive. At this time she is not safe to walk. This was discussed with her. She is frustrated and upset, she does not understand why she needs someone with her at all times. She should not be driving, at this time she is a max one assist per PT, she has had 4 falls since getting out of rehab, a week ago. She states she is a private person and does not want someone falling her all the time. PT does feel she would benefit most from a SNIF, if she does not have a home health care provider this is not a safe discharge and she will have to leave AMA. She does understand this. Exam Narrative Exam Narrative: General: Pleasant female, frail, A&ox3 HEENT: ecchymosis/abrasion on chin, various stages of healing EOMI, MMM Cardiovascular: irregularly irregular rhythm, + JERRICA Lungs: CTAB Gastrointestinal: soft, nontender, nondistended Extremities: no edema/clubbing/cyanosis Objective Last Vital Signs Temp 37.3 C 04/28/21 11:56 Pulse 84 04/28/21 11:56 Resp 15 04/28/21 11:56 BP 114/67 04/28/21 11:56 Pulse Ox 96 04/28/21 11:56 Laboratory Results - last 24 hr 04/28/21 04/28/21 07:59 07:59 Hgb 11.4 Hct 34.6 L Sodium 144 Potassium 3.7 Chloride 108 H Carbon Dioxide 28.0 Anion Gap 8.0 BUN 18 D Creatinine 0.7 Estimated GFR/1.73 m2 >= 60.00 Glucose 92 Calcium 8.1 L Magnesium 1.6 L
[2021-04-28] MEDS: MAGNESIUM SULFATE 4 GM/100 ML BAG IVPB (15:42)
--- NOTE | 2021-04-28 15:47 | CHAPLAIN ---
Alyse Dorman, PT, asked me to visit with Alyse. During PT Alyse said that Alyse Arias seemed upset about learning she would need two people with her at all times when she is home. Alyse, PT, said that may not be the case now, but that is what Alyse Arias had been told prior to Alyse PT working with her. Alyse Arias does not want people living with her, she said, although she acknowledges that she may need some help at home. She said she is not afraid of falling, and if she falls, so that will be it. She did not anticipate that she would need to people with her all the time. She said she hopes to be able to get in her car and drive to [place] or wherever she would like to go, possibly her home in [place]. She told me about her fall, being in the ED, then transferred to [facility] were ortho was available. Then she was transferred to [facility] and she said she had a terrible experience there. She talked about some of the situations she was in there which were uncomfortable for her and made her frightened. Alyse expects Luz Szymanski MD, to come in to see her sometime today, and Alyse is relieved to know she can talk with Luz who has known her for a long time. Alyse has a daughter locally who helps her out some, and another child in [place]. Meera asked me to contact her friend Renetta Pradhan for her and Alyse gave me her cell phone number to give to Renetta, and I will contact Renetta with that information. I will visit Alyse tomorrow.
--- NOTE | 2021-04-28 16:33 | PHACLINREV_ITS ---
Pharmacy Admission Review - Admission Clinical Review (Last Reviewed 04/26/21 @ 10:38 by Naty Melara) Palliative care patient (Acute) Hypomagnesemia (Acute) Discharge planning issues (Acute) DVT prophylaxis (Acute) Acute anemia (Acute) New onset left bundle branch block (LBBB) (Acute) UTI (urinary tract infection) (Acute) Ambulatory dysfunction (Acute) Closed fracture of neck of left femur (Acute) Weakness (Acute) Hypokalemia (Acute) Frequent falls (Acute) methylphenidate Adverse Reaction (Intermediate, Verified 04/26/21 10:41) GI codeine Adverse Reaction (Unknown, Verified 04/26/21 10:41) Nausea azithromycin [From Zithromax Z-Edu] Adverse Reaction (Verified 04/26/21 10:41) Nausea sulfamethoxazole [From Bactrim] Adverse Reaction (Verified 04/26/21 10:41) explosive diarrhea trazodone Adverse Reaction (Verified 04/26/21 10:41) Nausea trimethoprim [From Bactrim] Adverse Reaction (Verified 04/26/21 10:41) explosive diarrhea Resuscitation Status Full Code Height 5 ft 6 in Weight 42.8 kg - Renal Dosing Renal Dosing: BUN 18 mg/dL (7-18) D 04/28/21 07:59 Creatinine 0.7 mg/dL (0.55-1.02) 04/28/21 07:59 Medications needing adjustments: Reviewed (Crcl ~36.63 mL/min; current meds okfiordaliza y. Watch for adjustments if renal function worsens.) - Anticoagulation Anticoagulation: Hgb 11.4 g/dL (11.2-15.7) 04/28/21 07:59 Hct 34.6 % (36.0-46.0) L 04/28/21 07:59 Plt Count 176 10^3/uL (130-400) 04/27/21 06:54 INR 1.3 (0.9-1.1) H 04/26/21 10:46 Creatinine 0.7 mg/dL (0.55-1.02) 04/28/21 07:59 DVT Prophylaxis: N/A Therapeutic Anticoagulation: Reviewed Medications: Apixaban - Opiate Usage Evaluate Pain Scale/Pains Meds: N/A - Relevant Labs Sodium 144 mmol/L (136-145) 04/28/21 07:59 Potassium 3.7 mmol/L (3.5-5.1) 04/28/21 07:59 Chloride 108 mmol/L (98-107) H 04/28/21 07:59 Magnesium 1.6 mg/dL (1.8-2.4) L 04/28/21 07:59 Electrolytes, C-Reactive P, ESR: Reviewed (IV and PO mag replacement ordered.) - DM Control DM Control: Glucose 92 mg/dL (74-106) 04/28/21 07:59 Insulin Dosing: N/A - Heart Failure/UT Heart Failure/UT: Troponin I < 0.05 ng/mL (<0.06) 04/26/21 12:59 EF%, SAMANTHA's, B-Blockers, Diuretics: Reviewed - BP Control BP Control: Blood Pressure 104/66 Blood Pressure 114/67 If elevated: N/A - Qtc Review If Elevated: Reviewed (QTc 652 on admission, pt was on telemetry for a bit after admission) - IV to PO Switch IV Medications: Reviewed - Home Meds Home Med List reviewed: Reviewed Relevent Home Meds Not ordered & why?: diltiazem (PRN) - Current meds Current Medication Order Review: Intervened (Discontinued DI meds that had already been given.) - Comments Comments/Follow Ups: Watch VS, SCr, mag, for culture results and for med changes (possible renal dose adjustments). Antibiotic Activity - Pharmacy Antibiotic Review Pharmacy Antibiotic Activity: C/S review (Urine culture growing gram negative rods and gram positive branden. Ceftriaxone continues for UTI (day 3 starts this evening).)
[2021-04-28] MEDS: cefTRIAXone 1 GM/50 ML BAG IVPB (17:52)
[2021-04-28] MEDS: Magnesium Chloride 64 MG TABCR PO (19:44)
--- NOTE | 2021-04-28 19:44 | PT.INTREAT ---
Date of service: 04/28/21 Time of Service: 09:49 PT Notes Visit Reasons: UTI,Ambulatory Disfunction Inpatient Physical Therapy Treatment Note [facility] Date: 04/28/2021 PRECAUTIONS: Activity as tolerated, fall SUBJECTIVE: Alyse is agreeable to participating in PT. She states that she is very stressed and upset today. She is very concerned that she will not be able to pay her taxes that are due today if she is not discharged to home. OBJECTIVE: PAIN: Patient c/o back pain from prolonged sitting position in chair BED MOBILITY/TRANSFERS Supine-sit: S with HOB at 40 degrees Sit-supine: I with HOB flat Sit-stand: CGA Stand-sit: CGA Bed-chair: CGA Chair-bed: CGA GAIT Assistive Device: FWW Weight bearing: Full Assist: CGA Distance: 5 steps + 10' in a.m.; 10 steps in p.m. Deviation: Parkinsonian gait, slow pacing, short step height and length, cues for increased FARHAN THEREX: Patient was instructed in a seated UE and LE strengthening program in a.m., and in a core stabilization and LE strengthening program in p.m, as per flow sheet. TOILETING: Patient toileted with assist ASSESSMENT: Patient demonstrates improved mobility today compared to yesterday. She completed transfers and gait training with FWW requiring verbal cueing and CGA only. She continues to demonstrate global weakness and global tremor with activity which increases her risk for falls. PLAN: Continue with gait and transfer training as well as global strengthening and bed mobility for continued improvement in mobility and activity tolerance. TREATMENT CODE/TIME: Session 1: 32 minutes; [id number], [id number] (09:49) Session 2: 19 minutes; [id number] (14:48)
[2021-04-29 03:34] VITALS: BP 114/67; PULSE 87; RESP 16; TEMP 36.9; O2SAT 96
[2021-04-29 07:25] LABS: Abs Immature Grans 0.01 10^3/uL (0.0-0.06); Absolute Basophil Count 0.03 10^3/uL (0.0-0.2); Absolute Eosinophil Count 0.19 10^3/uL (0.0-0.7); Absolute Lymphocyte Count 0.73 10^3/uL (1.2-3.4); Absolute Neutrophil Count 3.34 10^3/uL (1.2-6.7); Basophils % 0.6; HCT 34.6 % (36.0-46.0); HGB 11.2 g/dL (11.2-15.7); Immature Grans % 0.2; Lymphocytes % 15.2; MCH 30.8 pg (27.0-33.0); MCHC 32.4 % (32.0-36.0); MCV 95.1 fL (80-95); MPV 10.3 fL (8.0-11.0); Monocytes % 10.4; Neutrophils % 69.6; Nucleated RBC 0 %; Platelet Count 180 10^3/uL (130-400); RBC 3.64 10^6/uL (3.93-5.22); RDW 14.2 % (11.7-14.6); RDW-SD 49.7 fL
[2021-04-29 07:41] LABS: Anion Gap 4.1 mmol/L (3-11); BUN 13 mg/dL (7-18); CO2 27.9 mmol/L (21.0-32.0); CREATININE 0.7 mg/dL (0.55-1.02); Calcium 7.9 mg/dL (8.5-10.1); Chloride 109 mmol/L (98-107); Glucose 83 mg/dL (74-106); Magnesium 2.3 mg/dL (1.8-2.4); Potassium 3.7 mmol/L (3.5-5.1); Sodium 141 mmol/L (136-145)
[2021-04-29] MEDS: Magnesium Chloride 64 MG TABCR PO ×2 (08:00→19:40)
[2021-04-29] MEDS: Verapamil C.R. 180 MG TABCR PO (08:00)
[2021-04-29] MEDS: DULoxetine 30 MG CAP 60 MG PO (08:00)
[2021-04-29] MEDS: busPIRone 5 MG TAB PO ×3 (08:01→19:41)
[2021-04-29] MEDS: Apixaban 2.5 MG TAB PO ×2 (08:01→19:41)
[2021-04-29] MEDS: Folic Acid 1 MG TAB PO (08:01)
[2021-04-29 09:10] VITALS: BP 109/63; PULSE 64; RESP 16; TEMP 36.6; O2SAT 95
[2021-04-29 09:47] LABS: Albumin 2.7 g/dL (3.4-5.0)
--- NOTE | 2021-04-29 10:58 | PCPN_ITS ---
Date of service: 04/28/21 Time of Service: 17:58 Assessment and Plan Assessment and plan (1) UTI (urinary tract infection): Status: Acute (2) Ambulatory dysfunction: Status: Acute (3) Weakness: Status: Acute (4) Palliative care patient: Status: Acute Assessment and plan: Improving, but continues to be weak and require 1 person assist. We discussed that soon she will not qualify for hospitalization and will need to move to another facility or home with care. I explained about costs, three possible d/c plans, etc. Explained about caregivers coming in, going to a private home and going to a [facility], specifically [facility]. She is thinking about her choices. I explained some of the choices take time to get into place and she needs to move forward. She knows I am away for the next 10 days. If she is local, I will see her outpt otherwise I will resume her care when she is home. I have spent more than 50% of time in counseling with this patient. Subjective Subjective Patient reports: feels better; denies nausea Interval history since last seen: Overall feeling stronger. Not happy about needing to choose next steps afer hospitalization. Staff reports she Just doesn't want to think or talk about it I am meeting with Noy and daughter Ana. Exam Narrative Exam Narrative: Sitting in bed Eyes Alignment and Position: alignment normal Resp Effort & Inspection: normal respiratory effort and able to speak in complete sentences (voice hoarse sounding) Neuro General: patient oriented x3 Cognition: normal cognition Speech: abnormal speech Psych Speech and Movement: speech clear Mood: anxious mood and irritable mood Affect: anxious affect and irritable affect Attitude: guarded Objective Last Vital Signs Temp 97.9 F 04/29/21 09:10 Pulse 64 04/29/21 09:10 Resp 16 04/29/21 09:10 BP 109/63 04/29/21 09:10 Pulse Ox 95 04/29/21 09:10 Laboratory Results - last 24 hr 04/29/21 04/29/21 06:42 06:42 WBC 4.80 RBC 3.64 L Hgb 11.2 Hct 34.6 L MCV 95.1 H MCH 30.8 MCHC 32.4 RDW 14.2 Plt Count 180 MPV 10.3 Immature Gran % 0.2 Neutrophils % 69.6 Lymphocytes % 15.2 Monocytes % 10.4 Eosinophils % 4.0 Basophils % 0.6 Nucleated RBC % 0 Absolute Neutrophils 3.34 Absolute Lymphocytes 0.73 L Absolute Monocytes 0.50 Absolute Eosinophils 0.19 Absolute Basophils 0.03 Sodium 141 Potassium 3.7 Chloride 109 H Carbon Dioxide 27.9 Anion Gap 4.1 BUN 13 Creatinine 0.7 Estimated GFR/1.73 m2 >= 60.00 Glucose 83 Calcium 7.9 L Magnesium 2.3 Albumin 2.7 L From PT: ASSESSMENT: Patient demonstrates improved mobility today compared to yesterday. She completed transfers and gait training with FWW requiring verbal cueing and CGA only. She continues to demonstrate global weakness and global tremor with activity which increases her risk for falls. PLAN: Continue with gait and transfer training as well as global strengthening and bed mobility for continued improvement in mobility and activity tolerance. From Hospitalist: Pt ideally recommends SNIF however patient refusing, She would like 24 hour care but did not realize that she should not be driving and that they need to be with her at all times upon hearing this she did not like the idea, she would have to sign out AMA as her going home alone would not be a safe discharge.
--- NOTE | 2021-04-29 13:13 | PT.INTREAT ---
Date of service: 04/29/21 Time of Service: 11:32 PT Notes Visit Reasons: UTI,Ambulatory Disfunction Inpatient Physical Therapy Treatment Note [facility] Date: 04/29/2021 PRECAUTIONS: Activity as tolerated, fall SUBJECTIVE: Alyse is agreeable to participating in PT. She states that she is still very stressed and upset today. She states that due to her recent fall, she has not been able to have a follow up with Dr. Sarabia regarding her new Parkinson's diagnosis. OBJECTIVE: PAIN: Patient c/o back pain from prolonged sitting position in chair BED MOBILITY/TRANSFERS Supine-sit: S with HOB at 50 degrees Sit-supine: I with HOB flat Sit-stand: CGA Stand-sit: CGA Bed-chair: CGA Chair-bed: CGA GAIT Assistive Device: FWW Weight bearing: Full Assist: CGA Distance: 5' + 10' + 15' in a.m.; 6' in p.m. Deviation: Parkinsonian gait, slow pacing, short step height and length, cues for increased FARHAN THEREX: Patient was instructed in a seated UE and LE strengthening program in a.m., and in a core stabilization and LE strengthening program in p.m, as per flow sheet. TOILETING: Patient toileted with assist ASSESSMENT: Patient demonstrates improved mobility today compared to yesterday. She completed transfers and gait training with FWW requiring verbal cueing and CGA only. She continues to demonstrate global weakness and global tremor with activity which increases her risk for falls. PLAN: Continue with gait and transfer training as well as global strengthening and bed mobility for continued improvement in mobility and activity tolerance. TREATMENT CODE/TIME: Session 1: 36 minutes; 25913, [id number] (11:32) Session 2: 17 minutes; 40246, 84697 (13:24)
[2021-04-29 13:55] VITALS: BP 119/72; BP 98/60; PULSE 76; PULSE 84
[2021-04-29 15:35] VITALS: BP 107/67; PULSE 65; RESP 16; TEMP 37.1; O2SAT 95
--- NOTE | 2021-04-29 15:56 | CMPROGNOTE_ITS ---
- If Service Date Differs Date of service: 04/29/21 Time of Service: 15:56 Care Management Progress Note S/O:Alyse was sitting up in bed when CM met with her. She refused to engage in conversation. CM asked about her conversation with Dr. Szymanski last evening. She stated obviously you already know what she said. CM reviewed the options Dr. Szymanski had given her for discharge: SNF, home with home health and caregivers which have not been hired or AFC. The last 2 options would take a f air amount of time to set up. Again, her response to any questions asked about discharge planning was, I don't want to discuss it. After a few moments of silence she stated : I have nothing to say to you. CM informed her that a different CM would be working with her over the weekend. A: Alyse is an 80 year old woman admitted on 04/26/21 with a UTI and ambulatory dysfunction P:Alyse will likely return home with a resumption of home health services and the addition of private caregivers since she will not consider SNF. She will follow up with her community providers and plan of care. CM will continue to support Alyse and assess for discharge planning needs.
--- NOTE | 2021-04-29 16:06 | W.NUTCONSULT ---
Date of service: 04/29/21 Time of Service: 16:06
--- NOTE | 2021-04-29 16:07 | W.NUTCONSULT ---
Date of service: 04/29/21 Time of Service: 16:08
--- NOTE | 2021-04-29 16:09 | W.NUTCONSULT ---
Date of service: 04/29/21 Time of Service: 16:09 Nutritional Consult NUTRITIONAL DIAGNOSIS: Asssessment: 80Yo female with UTI, acute anemia and progressive weakness. Current BMI c/w underweight and noted >10% wt loss in <2 months (from 03/14/21). NFPA showed poor dentition and pt acknowledges a more difficult time managing firm foods (just had soup on lunch tray today). Estimated needs: 1418kcals (REEX1.3PAL using IBW), 61-73g protein (1-1.2g/kg) and 1535mL fluid (25mL/kcal). Noted last vitamin D level entered in 2010 and was on the lower side of normal. Diagnosis: Malnutrition r/t inadequate protein calorie intake AEB low volume intake on trays and >10% wt loss in 2 months. Some chewing and swallowing difficulty r/t poor dentition AEB physical assessment and interviewing pt today. Intervention: Will add soft, higher calorie and protein options (pudding/custard/yogurt) on lunch tray so she may keep them and eat when appetite allows. Pt declined offering of ensure or protein supplements. Recommend checking vitamin D levels due to hx of Parkinson?s Disease and recent progressive weakness. Pt educated today on calorie rich choices on her tray and aiming for higher protein foods from dairy and meat choices. Monitoring and evaluation: Will monitor weight for more aggressive nutrition therapy as needed. Time Spent in Nutritional Counseling and Treatment: 0
--- NOTE | 2021-04-29 16:52 | W.PM.PROGNOT ---
Date of Service Date of service: 04/29/21 Time of Service: 16:53 Assessment and Plan Assessment and plan (1) UTI (urinary tract infection): Status: Acute Assessment and plan: ecoli, present on admission. Continue ceftriaxone day 4 (2) Ambulatory dysfunction: Status: Acute Assessment and plan: PT feels she would benefit from SNIF however patient refusing, Max 1 assist today per Alyse [employer] will place neurology consult regarding parkinson management and ? etiology of ambulatory dysfunction (3) Weakness: Status: Acute Assessment and plan: continue PT fall precautions discussed with Dr Saha Subjective Subjective Patient reports: tolerating liquids well, tolerating a regular diet and afebrile Interval history since last seen: working with PT. recommendations for 24/hour care at home. unsteady when ambulating. Exam Narrative Exam Narrative: Sitting in bed Const General: cooperative and no acute distress Nutritional Appearance: thin Orientation: oriented x3 HENMT Head: normal to inspection Ears: hearing grossly impaired (Need to speak slowly and distinctly) Mouth: tongue normal and lip abnormal (bruise and swelling from fall) Teeth and gingiva: poor dentition Eyes Alignment and Position: alignment normal Neck Neck: other (Swelling in her chin from recent fall) Resp Effort & Inspection: normal respiratory effort and able to speak in complete sentences (voice hoarse sounding) Auscultation: bronchovesicular breath sounds Cardio Rhythm: abnormal rhythm Heart Sounds: murmur Neuro General: patient oriented x3 Cognition: normal cognition Speech: abnormal speech Psych Speech and Movement: speech clear Mood: anxious mood and irritable mood Affect: anxious affect and irritable affect Attitude: cooperative and guarded Objective Last Vital Signs Temp 36.6 C 04/29/21 09:10 Pulse 76 04/29/21 13:55 Resp 16 04/29/21 09:10 BP 98/60 L 04/29/21 13:55 Pulse Ox 95 04/29/21 09:10 Laboratory Results - last 24 hr 04/29/21 04/29/21 06:42 06:42 WBC 4.80 RBC 3.64 L Hgb 11.2 Hct 34.6 L MCV 95.1 H MCH 30.8 MCHC 32.4 RDW 14.2 Plt Count 180 MPV 10.3 Immature Gran % 0.2 Neutrophils % 69.6 Lymphocytes % 15.2 Monocytes % 10.4 Eosinophils % 4.0 Basophils % 0.6 Nucleated RBC % 0 Absolute Neutrophils 3.34 Absolute Lymphocytes 0.73 L Absolute Monocytes 0.50 Absolute Eosinophils 0.19 Absolute Basophils 0.03 Sodium 141 Potassium 3.7 Chloride 109 H Carbon Dioxide 27.9 Anion Gap 4.1 BUN 13 Creatinine 0.7 Estimated GFR/1.73 m2 >= 60.00 Glucose 83 Calcium 7.9 L Magnesium 2.3 Albumin 2.7 L
[2021-04-29] MEDS: Normal Saline Flush 10 ML SYR IVP (18:13)
[2021-04-29] MEDS: cefTRIAXone 1 GM/50 ML BAG IVPB (18:13)
[2021-04-29 19:35] VITALS: BP 122/67; PULSE 64; RESP 18; TEMP 36.5; O2SAT 96
[2021-04-29] MEDS: Acetaminophen 325 MG TAB PO (19:39)
[2021-04-29 23:35] VITALS: BP 121/78; PULSE 62; RESP 18; TEMP 36; O2SAT 95
[2021-04-30 03:25] VITALS: BP 121/78; PULSE 62; RESP 18; TEMP 36.9; O2SAT 96
[2021-04-30 07:10] VITALS: BP 103/68; PULSE 66; RESP 14; TEMP 36.4; O2SAT 94
[2021-04-30] MEDS: Folic Acid 1 MG TAB PO (08:53)
[2021-04-30] MEDS: Verapamil C.R. 180 MG TABCR PO (08:53)
[2021-04-30] MEDS: DULoxetine 30 MG CAP 60 MG PO (08:53)
[2021-04-30] MEDS: busPIRone 5 MG TAB PO ×3 (08:53→19:52)
[2021-04-30] MEDS: Apixaban 2.5 MG TAB PO ×2 (08:53→19:52)
[2021-04-30] MEDS: Magnesium Chloride 64 MG TABCR PO ×2 (08:53→19:52)
--- NOTE | 2021-04-30 12:39 | PT.INTREAT ---
PT Notes Visit Reasons: UTI,Ambulatory Disfunction Inpatient Physical Therapy Treatment Note [facility] Date: 04/30/21 SUBJECTIVE: Alyse states that she is willing to go for a walk. She c/o dizziness once seated on commode for BM and declined further PT. OBJECTIVE: [] BED MOBILITY/TRANSFERS Supine-sit:S (HOB at 50 degrees) Sit-supine: S (HOB at 35 degrees) Sit-stand: CGA Stand-sit: CGA GAIT Assistive Device: FWW Weight bearing: full Assist: CGA Distance: 5'x2 Deviation: festinating gait, THEREX:held due to pt feeling light headed and wanted to stop PT ASSESSMENT: tolerated session fair. She was motivated to participate until she sat on commode to move her bowels. She began to c/o dizziness. She was able to ambulate and transfer back into bed despite dizziness. C/o of it getting slightly worse until she was able to lie down. Nurse was made aware. PLAN: required continued strengthening, and functional mobility including ambulation following PT POC. TREATMENT CODE/TIME: 20 min beginning at 10:10. [id number].
--- NOTE | 2021-04-30 13:43 | PGE_ITS ---
Date of Service Date of service: 04/30/21 Time of Service: 13:43 Assessment and Plan Assessment and plan (1) UTI (urinary tract infection): Status: Acute Assessment and plan: Ecoli, present on admission. No dysuria. Continue ceftriaxone day 5, course complete after dose this afternoon. (2) Ambulatory dysfunction: Status: Acute Assessment and plan: PT feels she would benefit from SNF however patient refusing. Her PT session was stopped early today due to dizziness. Neurology consult pending re: Parkinson management and ? etiology of ambulatory dysfunction. (3) Weakness: Status: Acute Assessment and plan: Continue PT fall precautions Refusing SNF, looking into caregivers in her home. CM to give information on [facility]. Care discussed with Dr Purdy Subjective Subjective Interval history since last seen: Alyse does not feel like she is getting around as well as she should be. Parkinson's is a new diagnosis for her. She is awaiting a neurology consult to see if any medications should be adjusted. She is eating and drinking well and tolerating her diet. She had some back pain last night but did not take anything for it. She is sleeping well. She denies any urinary symptoms. She denies SOB, coughing, wheezing. She had some dizziness this morning when she was getting out of bed, which was new for her. She denies CP/P/palpitations, N/V/D. She is moving her bowels. Exam Narrative Exam Narrative: General: elderly, thin female, laying in her bed. She is awake and alert, pleasant and talkative. HEENT: normocephalic, healing area of ecchymosis to her chin and left neck and healing abrasion to her chin. Neck: supple, no JVD. Cardiovascular: heart sounds regular, nontachycardic. Respirations: respirations appear even and unlabored, rales noted to left base. GI: +BS, soft, nontender on palpation, nondistended. Extremities: no edema, moves all 4 extremities equally. Objective Last Vital Signs Temp 36.4 C L 04/30/21 07:10 Pulse 66 04/30/21 07:10 Resp 14 04/30/21 07:10 BP 103/68 04/30/21 07:10 Pulse Ox 94 04/30/21 07:10
[2021-04-30 16:13] VITALS: BP 110/72; PULSE 76; RESP 16; TEMP 36.6; O2SAT 96
[2021-04-30] MEDS: cefTRIAXone 1 GM/50 ML BAG IVPB (17:18)
[2021-04-30 19:15] VITALS: BP 114/73; PULSE 69; RESP 16; TEMP 36.1; O2SAT 96
[2021-04-30 23:42] VITALS: BP 108/69; PULSE 69; RESP 17; TEMP 36.5; O2SAT 95
[2021-05-01 03:25] VITALS: BP 108/69; PULSE 101; RESP 16; TEMP 36.2; O2SAT 96
[2021-05-01 07:30] VITALS: BP 123/45; PULSE 93; RESP 16; TEMP 35.9; O2SAT 95
[2021-05-01] MEDS: Folic Acid 1 MG TAB PO (09:31)
[2021-05-01] MEDS: DULoxetine 30 MG CAP 60 MG PO (09:31)
[2021-05-01] MEDS: Docusate Sodium 100 MG CAP PO ×2 (09:31→14:47)
[2021-05-01] MEDS: Magnesium Chloride 64 MG TABCR PO ×2 (09:32→20:38)
[2021-05-01] MEDS: busPIRone 5 MG TAB PO ×3 (09:32→20:38)
[2021-05-01] MEDS: Apixaban 2.5 MG TAB PO ×2 (09:32→20:38)
[2021-05-01] MEDS: Verapamil C.R. 180 MG TABCR PO (09:32)
[2021-05-01] MEDS: Senna TAB 1 TAB PO (11:52)
--- NOTE | 2021-05-01 12:59 | PT.INTREAT ---
PT Notes Visit Reasons: UTI,Ambulatory Disfunction Inpatient Physical Therapy Treatment Note [facility] Date: 05/01/21 SUBJECTIVE: Alyse states that she is ready to exercise and go for a walk. OBJECTIVE: [] BED MOBILITY/TRANSFERS Supine-sit: SBA Sit-stand: CGA Stand-sit: CGA GAIT Assistive Device:FWW Weight bearing: full Assist: CGA Distance: 80' Deviation: cues to take longer strides and increase her FARHAN THEREX: global LE strength and stabilization while seated. See flowsheet for details. ASSESSMENT: tolerated session well. Improvement noted in her ambulation today. PLAN: requires continued strengthening to improve her functional mobility. TREATMENT CODE/TIME: 25 min beginning at 1105. [id number], [id number].
--- NOTE | 2021-05-01 16:38 | W.PM.PROGNOT ---
Date of Service Date of service: 05/01/21 Time of Service: 13:15 Assessment and Plan Assessment and plan (1) UTI (urinary tract infection): Start date: 05/01/21 Start time: 13:15 Status: Resolved Assessment and plan: Ecoli, present on admission. No dysuria. Continue ceftriaxone day 5, course complete after dose this afternoon. She has finished her course. (2) Ambulatory dysfunction: Start date: 05/01/21 Start time: 13:15 Status: Acute Assessment and plan: PT feels she would benefit from SNF however patient refusing. Neurology consult pending re: Parkinson management and ? etiology of ambulatory dysfunction. (3) Weakness: Start date: 05/01/21 Start time: 13:15 Status: Acute Assessment and plan: Continue PT fall precautions Refusing SNF, looking into caregivers in her home. CM to give information on [facility]. Care discussed with Dr Purdy Subjective Subjective Patient reports: no new complaints Interval history since last seen: Awaiting neurology to see patient for recommendations on possible parkinson medications. Otherwise no complaints. Home when medically ready. Possibly tomorrow or Sunday. Exam Narrative Exam Narrative: General: elderly, thin female, sitting up in chair. She is awake and alert, pleasant and talkative. HEENT: normocephalic, healing area of ecchymosis to her chin and left neck and healing abrasion to her chin. Neck: supple, no JVD. Cardiovascular: heart sounds regular, nontachycardic. Respirations: respirations appear even and unlabored, LSC GI: +BS, soft, nontender on palpation, nondistended. Extremities: no edema, moves all 4 extremities equally. Objective Last Vital Signs Temp 35.9 C L 05/01/21 07:30 Pulse 93 H 05/01/21 07:30 Resp 16 05/01/21 07:30 BP 123/45 L 05/01/21 07:30 Pulse Ox 95 05/01/21 07:30
[2021-05-01 20:14] VITALS: BP 116/75; PULSE 71; RESP 17; TEMP 36.4; O2SAT 96
[2021-05-01] MEDS: Normal Saline Flush 10 ML SYR IVP (20:44)
[2021-05-01 23:21] VITALS: BP 118/74; PULSE 70; RESP 17; TEMP 36.3; O2SAT 96
[2021-05-02 03:52] VITALS: BP 120/72; PULSE 69; RESP 17; TEMP 36.3; O2SAT 97
[2021-05-02 07:21] LABS: Anion Gap 7.8 mmol/L (3-11); BUN 24 mg/dL (7-18); CO2 28.2 mmol/L (21.0-32.0); CREATININE 0.8 mg/dL (0.55-1.02); Calcium 8.9 mg/dL (8.5-10.1); Chloride 108 mmol/L (98-107); Glucose 86 mg/dL (74-106); Potassium 4.3 mmol/L (3.5-5.1); Sodium 144 mmol/L (136-145)
[2021-05-02 07:25] LABS: Hemoglobin A1C 5.2 % (<5.7)
[2021-05-02] MEDS: Verapamil C.R. 180 MG TABCR PO (08:25)
[2021-05-02] MEDS: busPIRone 5 MG TAB PO ×3 (08:25→19:50)
[2021-05-02] MEDS: Apixaban 2.5 MG TAB PO ×2 (08:26→19:50)
[2021-05-02] MEDS: Folic Acid 1 MG TAB PO (08:26)
[2021-05-02] MEDS: Docusate Sodium 100 MG CAP PO ×3 (08:26→19:50)
[2021-05-02] MEDS: Senna TAB 1 TAB PO (08:26)
[2021-05-02] MEDS: DULoxetine 30 MG CAP 60 MG PO (08:26)
[2021-05-02] MEDS: Magnesium Chloride 64 MG TABCR PO ×2 (08:26→19:50)
[2021-05-02 08:30] VITALS: BP 117/73; PULSE 89; RESP 17; TEMP 36.7; O2SAT 98
[2021-05-02] MEDS: Normal Saline Flush 10 ML SYR IVP ×2 (10:42→19:51)
[2021-05-02] MEDS: Normal Saline 250 ML IV (10:44)
[2021-05-02 11:17] VITALS: BP 110/67; PULSE 87; RESP 17; TEMP 36.8; O2SAT 96
--- NOTE | 2021-05-02 15:23 | W.NEUROCONSU ---
Date of service: 05/02/21 Time of Service: 15:23 Assessment and Plan Assessment and plan (1) Frequent falls: Status: Acute (2) Parkinson's disease: Status: Chronic Assessment and plan: Ms. Arias is an 80 year-old, right-handed woman with: #1. Parkinsons and frequent falls. Previously she had ADRs to Sinemet, complicated by her anxiety. She was agreeable to re-trial. Will have her start Sinemet 25/100mg ER TID at ~6am, 11am, and 4pm. This should be taken with food to reduce change of side effect. ADRs discussed with her. Continue amantadine 100mg daily (dose was increased in past, but currently feels tremor is under good control). Continue PT. I will check in to see how she does on this tomorrow. History of Present Illness History of Present Illness Chief Complaint: Parkinsons and falls Narrative: Handedness: right. HPI: Ms. Arias is an 80 year-old woman with atrial fibrillation on apixaban, non-Hodgkin's lymphoma, remote breast cancer, depression, anxiety, COPD, mild cognitive impairment, osteopenia, and psoriasis. She is well known to me due to Parkinsonism, last seen in December 2020. She has had only sporadic care with me over the years due to her anxiety. At last visit, amantadine was started 100mg daily for tremor. She previously tried Sinemet 25/100mg x 2 doses which caused visual hallucinations. Since last seen, she has been having increasing falls. She fell on 03/14/21 suffering a left hip fracture. She was transferred to [facility] where she underwent surgical repair. She was then at [facility], discharged about 2 weeks ago. She notes amantadine was increased to 200mg daily during her stay. She notes improved tremor with this increase and notes stable tremor here in the hospital - though currently she is getting only 100mg daily. She was admitted here on 04/26/21 for ongoing falls and generalized weakness. Currently, she is unable to live alone at home safely. Consults Requesting physician: Cathleen Saha Review of Systems All systems reviewed & are unremarkable except as noted in HPI and below [facility] Medical History Abdominal pain Abnormal weight loss 07/16/04 from 124-107; she feels it's due to increased activity and stress ALLERGIES Allergy or intolerlance to codeine, sulfamethoxazole and trimethoprin. There is a history of low blood pressure on calcium blockers in the past as well. Anxiety JANET-7 SCORE=16 Aortic valve insufficiency Followed by Mohan Morris at [facility]. 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 Insomnia (09/02/14) Low back pain (04/12/09) Metatarsalgia of both feet Mild cognitive impairment with memory loss see above Osteopenia t-scores; -2.1; -1.5 Tachycardia Tricuspid valve insufficiency (04/14/16) moderate Surgical History Colonoscopy - MAC 1995 1997 1998 2012 ECHO (~2006) Echocardiogram with negative pulmonary work up at [facility], PA pressure 21 EGD - MAC (~1995) showing increase in PA pressures H/O cataract removal with insertion of prosthetic lens H/O esophagogastroduodenoscopy 07/16/95 showing increase in PA pressure S/P appendectomy S/P breast biopsy intraductal papilloma S/P bunionectomy bilateral Family History Mother Essential hypertension Heart disease Father No problems noted. Social History Smoking/Tobacco Use Status: Never Smoking risk assessment performed?: Yes Alcohol Intake: current Alcohol Intake frequency: holidays/special occasions only Alcohol type: wine Drug use: Never Adopted: No Caregiver/Support person: Yes (caregiver for [employer]) Details: currently in a alf, but pt is primary support Foster care: No Household members: none Housing: house Number of Children: 3 number of grandchildren: 4 current occupation: Retired Pets and animals: No What type of physical activity do you participate in: none Seatbelt use: never Drive intox or ride w/intox boat driver: No Firearms in home: Yes (unloaded, not locked) Firearms unloaded and locked: No Do you feel safe at home: Yes Do you feel safe in your relationship?: Yes Visit Medication and Allergies Active Medications Generic Name Dose Route Start Last Admin Trade Name Freq PRN Reason Stop Dose Admin Acetaminophen 0 mg 04/26/21 15:55 04/29/21 19:39 Acetaminophen 325 Mg Tab PO 650 mg Q4H PRN PRN Administration Al Hydrox/Mg Hydrox/Simethicone 30 ml 04/26/21 15:55 Mylanta Suspension 30 Ml Cup PO Q2H PRN PRN Amantadine HCl 100 mg 04/27/21 08:30 05/02/21 08:26 Amantadine 100 Mg Cap PO 100 mg DAILY SHARON Administration Apixaban 2.5 mg 04/26/21 20:00 05/02/21 08:26 Apixaban 2.5 Mg Tab PO 2.5 mg BID SHARON Administration Buspirone HCl 5 mg 04/26/21 20:00 05/02/21 13:29 Buspirone 5 Mg Tab PO 5 mg TID SHARON Administration Dimethicone/Zinc Oxide 0 gm 04/26/21 15:55 Kevan Protect Cream 142 Gm Tube TP PRN PRN Docusate Sodium 100 mg 05/01/21 08:30 05/02/21 13:30 Docusate Sodium 100 Mg Cap PO 100 mg TID SHARON Administration Duloxetine HCl 60 mg 04/27/21 08:30 05/02/21 08:26 Duloxetine 30 Mg Cap PO 60 mg DAILY SHARON Administration Fluticasone Propionate 0 gm 04/26/21 19:29 Fluticasone Nasal [place] 16 Gm Btl NS BID PRN PRN allergy symptoms Folic Acid 1 mg 04/28/21 08:30 05/02/21 08:26 Folic Acid 1 Mg Tab PO 1 mg DAILY SHARON Administration Sodium Chloride 500 mls @ 0 mls/hr 04/26/21 10:29 04/28/21 10:06 Saline 500ml Bag IV 30 mls/hr PRN PRN Administration As Directed IV Miscellaneous Supplies 1 each 04/26/21 10:30 Iv Access IV DIRECTED SHARON Lorazepam 0.5 mg 04/26/21 19:17 04/27/21 19:39 Lorazepam 0.5 Mg Tab PO 0.5 mg HS PRN PRN Administration sleep Magnesium Chloride 64 mg 04/28/21 20:00 05/02/21 08:26 Magnesium Chloride 64 Mg Tabcr PO 64 mg BID SHARON Administration Magnesium Hydroxide 30 ml 04/26/21 15:55 Milk Of Magnesia 30 Ml Cup PO DAILY PRN PRN Polyethylene Glycol 17 gm 05/01/21 20:00 05/02/21 08:29 Polyethylene Glycol 3350 17 Gm Packet PO Not Given BID SHARON Sennosides 1 tab 05/02/21 08:30 05/02/21 08:26 Senna Tab PO 1 tab DAILY SHARON Administration Sodium Chloride 0 ml 04/26/21 10:29 05/02/21 10:42 Normal Saline Flush 10 Ml Syr IVP 10 ml PRN PRN Administration Verapamil HCl 180 mg 04/28/21 08:30 05/02/21 08:25 Verapamil C.R. 180 Mg Tabcr PO 180 mg DAILY SHARON Administration Allergies methylphenidate Adverse Reaction (Intermediate, Verified 04/26/21 10:41) GI codeine Adverse Reaction (Unknown, Verified 04/26/21 10:41) Nausea azithromycin [From Zithromax Z-Edu] Adverse Reaction (Verified 04/26/21 10:41) Nausea sulfamethoxazole [From Bactrim] Adverse Reaction (Verified 04/26/21 10:41) explosive diarrhea trazodone Adverse Reaction (Verified 04/26/21 10:41) Nausea trimethoprim [From Bactrim] Adverse Reaction (Verified 04/26/21 10:41) explosive diarrhea Exam Narrative Exam Narrative: Physical Exam: Gen: Patient of apparent stated age, NAD Head and face: no facial or cranial abnormalities Neck: Supple, no meningismus, no occipital tenderness CV: + S1, S2, RRR, no murmur Resp: CTA B/L Abd: soft, nontender, nondistended Ext: No edema. No clubbing or cyanosis. No bony deformity. Neuro Exam: Language: fluency, naming, repetition, and comprehension intact; Mental Status: AAOx3, current events intact, fund of knowledge intact; Speech: no dysarthria Cranial nerves: Funduscopy: not performed CN II: visual melo intact CN III, IV, : extraocular movements intact, no nystagmus, pupils symmetric and reactive to light CN V: face sensation intact to LT and PP CN VII: no facial asymmetry noted CN VIII: hearing intact bilaterally CN IX, X: palate rises symmetrically CN XI: trapezius/SCM 5/5 bilaterally CN XII: protrudes tongue symmetrically Sensory: intact to LT, PP, vibration, and joint position in all extremities, absent Romberg Motor: bulk intact. Subtle LUE cogwheel rigidity. Fine motor movements slightly bilaterally. No obvious bradykinesia of the UE. No pronator drift. Strength 5/5 throughout except 4+/5 bilateral hip flexors. Occasional RUE resting pill-rolling tremor. Subtle R>L postural UE tremor with no significant action tremor. Reflexes: hyporeflexic throughout; toes down going bilaterally; Coordination: FTN and HTS intact bilaterally Gait: not tested Results Last Vital Signs Temp 98.2 F 05/02/21 11:17 Pulse 87 05/02/21 11:17 Resp 17 05/02/21 11:17 BP 110/67 05/02/21 11:17 Pulse Ox 96 05/02/21 11:17 Labs Result diagrams: 04/29/21 06:42 05/02/21 06:25 Labs: Laboratory Results - last 24 hr 05/02/21 05/02/21 06:25 06:25 Sodium 144 Potassium 4.3 Chloride 108 H Carbon Dioxide 28.2 Anion Gap 7.8 BUN 24 H D Creatinine 0.8 Estimated GFR/1.73 m2 >= 60.00 Glucose 86 Hemoglobin A1c 5.2 Calcium 8.9
[2021-05-02 15:25] VITALS: BP 117/67; PULSE 82; RESP 16; TEMP 36.6; O2SAT 96
--- NOTE | 2021-05-02 15:54 | PT.INTREAT ---
Date of service: 05/02/21 Time of Service: 11:26 PT Notes Visit Reasons: UTI,Ambulatory Disfunction Inpatient Physical Therapy Treatment Note [facility] Date: 05/02/2021 PRECAUTIONS: Activity as tolerated, fall SUBJECTIVE: Alyse is agreeable to participating in PT. She feels much better today and feels that she is making good progress. She hopes to be able to go home soon. She is waiting for her neurology consult with Dr. Garcia, which is scheduled to take place later today. OBJECTIVE: PAIN: Patient c/o back discomfort from prolonged sitting position in chair BED MOBILITY/TRANSFERS Sit-stand: SBA Stand-sit: SBA Bed-chair: SBA Chair-bed: SBA GAIT Assistive Device: FWW Weight bearing: Full Assist: SBA Distance: 100' x2 Deviation: Short step height and length, cues for increased FARHAN, seated rest x1, wheelchair follow THEREX: Patient was instructed in several standing LE strengthening exercises, as per flow sheet. STAIRS: Declined stair training this morning ASSESSMENT: Patient demonstrates improved mobility today compared to last week. She was able to tolerate a progression in gait distance with FWW support and SBA. PLAN: Continue with gait and transfer training as well as global strengthening for continued improvement in mobility and activity tolerance. TREATMENT CODE/TIME: 23 minutes; 43993 x2 (11:26)
--- NOTE | 2021-05-02 15:55 | PTTR_ITS ---
Date of service: 05/02/21 Time of Service: 15:55 PT Notes Visit Reasons: UTI,Ambulatory Disfunction Inpatient Physical Therapy Treatment Note [facility] Date: 05/02/2021 PRECAUTIONS: Fall. Activity as tolerated. SUBJECTIVE: Alyse states that Dr. Billy will work on changing the medication that may be contributing to her balance impairment. States that her steps has no rails. Unsure of what her family memeber/relative did to it but she does not know whether it will work. Denies headache and dizziness throughout session. Did report some fatigue after ambulation activity but no SOB. Commented that she does have an portfolio accountant who is looking into her taxes. OBJECTIVE: Tremors in B hands at rest. PAIN: None reported. Does have a heating pad to her back. BED MOBILITY/TRANSFERS Sit-stand: SBA Stand-sit: SBA Bed-chair: SBA Chair-bed: SBA GAIT Assistive Device: FWW Weight bearing: Full Assist: SBA Distance: 100' + 125' Deviation: Needed 1 seated rest due to onset of fatigue. Increased tremors with fatigue. Step height and length decreased. Mild thoracic kyphosis. THEREX: Worked on seated level exercises: LAQs, hip abduction/adduction, and hip flexion x 10. DBE in between exercises. ASSESSMENT: Participation level improving. Motivation to go home increasing. Activity tolerance getting better. Tremors and fatigue limiting activity performance. PLAN: Progress mobility level, strength, and balance as tolerated. Plans to go home with PT services. TREATMENT CODE/TIME: 83266 x 15 minutes, 62112 x 15 minutes beginning at 15:55 PM.
--- NOTE | 2021-05-02 17:31 | W.PM.PROGNOT ---
Date of Service Date of service: 05/02/21 Time of Service: 15:00 Assessment and Plan Assessment and plan (1) UTI (urinary tract infection): Start date: 05/02/21 Start time: 15:00 Status: Resolved Assessment and plan: Ecoli, present on admission. No dysuria. Continue ceftriaxone day 5, course complete after dose this afternoon. She has finished her course. (2) Ambulatory dysfunction: Start date: 05/02/21 Start time: 15:00 Status: Acute Assessment and plan: PT feels she would benefit from SNF however patient refusing. Neurology recommends extended release sinement 6 am 11 am and 1600 first dose now. She will see her tomorrow. (3) Weakness: Start date: 05/02/21 Start time: 15:00 Status: Acute Assessment and plan: Continue PT fall precautions Refusing SNF, looking into caregivers in her home. CM to give information on [facility]. Care discussed with Dr Purdy Subjective Subjective Patient reports: no new complaints Interval history since last seen: Sitting up in chair. No complaints. Neurology in room. Started on sinmet. Awaiting dispo Exam Narrative Exam Narrative: General: elderly, thin female, sitting up in chair. She is awake and alert, pleasant and talkative. HEENT: normocephalic, healing area of ecchymosis to her chin and left neck and healing abrasion to her chin. Neck: supple, no JVD. Cardiovascular: heart sounds regular, nontachycardic. Respirations: respirations appear even and unlabored, LSC GI: +BS, soft, nontender on palpation, nondistended. Extremities: no edema, moves all 4 extremities equally. Objective Last Vital Signs Temp 36.6 C 05/02/21 15:25 Pulse 82 05/02/21 15:25 Resp 16 05/02/21 15:25 BP 117/67 05/02/21 15:25 Pulse Ox 96 05/02/21 15:25 Laboratory Results - last 24 hr 05/02/21 05/02/21 06:25 06:25 Sodium 144 Potassium 4.3 Chloride 108 H Carbon Dioxide 28.2 Anion Gap 7.8 BUN 24 H D Creatinine 0.8 Estimated GFR/1.73 m2 >= 60.00 Glucose 86 Hemoglobin A1c 5.2 Calcium 8.9
--- NOTE | 2021-05-02 17:57 | PDOC.CMPRO ---
- If Service Date Differs Date of service: 05/02/21 Time of Service: 17:57 Care Management Progress Note S/O: Alyse was sitting up in her chair when CM met with her. She was pleasant and easily engaged in conversation. Alyse shares that she had a small argument with her daughter a few minutes ago because she will not support her decision to move home. Alyse is hopeful to get well enough to move back home however she understands that SNF placement is recommended to help her reach those goals. Alyse advises CM that she is willing to explore SNF options as a last resort, but refuses to go to [facility] based on her own personal experience. Before Alyse makes any decisions she wants to see if she can get private caregivers. A: Alyse is an 80 year old woman admitted on 04/26/21 with a UTI and ambulatory dysfunction P:Alyse will likely return home with a resumption of home health services and the addition of private caregivers vs SNF placement. She will follow up with her community providers and plan of care. CM will continue to support Alyse and assess for discharge planning needs.
[2021-05-02 18:47] VITALS: BP 111/66; PULSE 89; RESP 16; TEMP 37.2; O2SAT 97
[2021-05-02 23:20] VITALS: BP 113/71; PULSE 71; RESP 16; TEMP 36.2; O2SAT 96
[2021-05-03 03:17] VITALS: BP 111/74; PULSE 71; RESP 16; TEMP 36.4; O2SAT 96
[2021-05-03] MEDS: Verapamil C.R. 180 MG TABCR PO (07:39)
[2021-05-03] MEDS: busPIRone 5 MG TAB PO ×2 (07:39→13:59)
[2021-05-03] MEDS: Folic Acid 1 MG TAB PO (07:40)
[2021-05-03] MEDS: Magnesium Chloride 64 MG TABCR PO (07:40)
[2021-05-03] MEDS: Senna TAB 1 TAB PO (07:40)
[2021-05-03] MEDS: Apixaban 2.5 MG TAB PO (07:40)
[2021-05-03] MEDS: DULoxetine 30 MG CAP 60 MG PO (07:40)
[2021-05-03] MEDS: Docusate Sodium 100 MG CAP PO ×2 (07:40→13:59)
[2021-05-03 07:56] LABS: Anion Gap 5.5 mmol/L (3-11); BUN 20 mg/dL (7-18); CO2 28.5 mmol/L (21.0-32.0); CREATININE 0.8 mg/dL (0.55-1.02); Calcium 8.9 mg/dL (8.5-10.1); Chloride 107 mmol/L (98-107); Glucose 92 mg/dL (74-106); Potassium 4.1 mmol/L (3.5-5.1); Sodium 141 mmol/L (136-145)
[2021-05-03 08:29] VITALS: BP 107/57; PULSE 62; RESP 16; TEMP 36; O2SAT 95
--- NOTE | 2021-05-03 10:33 | W.PM.PROGNOT ---
Date of Service Date of service: 05/03/21 Time of Service: 10:33 Assessment and Plan Assessment and plan (1) Frequent falls: Status: Acute (2) Parkinson's disease: Status: Chronic Assessment and plan: Ms. Arias is an 80 year-old, right-handed woman with: #1. Parkinsons and frequent falls. Significant improvement functionally per PT after addition of Sinemet ER. No ADRs. She should continue current regimen unchanged: Sinemet 25/100mg ER TID at ~6am, 11am, and 4pm; along with amantadine 100mg daily. Will hold off on increasing amantadine after discussion. Continue PT. She should follow-up in neurology clinic in 4-6 weeks. Please call with any further questions or concerns. Subjective Subjective Interval history since last seen: Started on Sinemet ER yesterday. 2nd dose this am. No ADRs. Per PT, drastic functional improvement this am. No change in tremors per patient. Exam Narrative Exam Narrative: Physical Exam: Sinemet given ~5hr prior Constitutional: Patient of apparent stated age, well nourished, well developed, no acute distress Neuro: MS/Language/Speech: Alert, oriented, clear language (fluency and comprehension), no dysarthria Motor: bulk intact. Subtle LUE cogwheel rigidity. Fine motor movements reduced slightly bilaterally. No obvious bradykinesia of the UE; mild-moderate LE bradykinesia. No pronator drift. Strength 5/5 throughout except 4+/5 R and 5/5 L hip flexors. Occasional RUE>LUE resting pill-rolling tremor. Subtle R>L postural UE tremor with no significant action tremor. Coordination: Finger to nose performed without dysmetria Gait: not tested Objective Last Vital Signs Temp 96.8 F L 05/03/21 08:29 Pulse 62 05/03/21 08:29 Resp 16 05/03/21 08:29 BP 107/57 L 05/03/21 08:29 Pulse Ox 95 05/03/21 08:29 Laboratory Results - last 24 hr 05/03/21 07:00 Sodium 141 Potassium 4.1 Chloride 107 Carbon Dioxide 28.5 Anion Gap 5.5 BUN 20 H Creatinine 0.8 Estimated GFR/1.73 m2 >= 60.00 Glucose 92 Calcium 8.9
--- NOTE | 2021-05-03 11:16 | PDOC.CMDIS ---
- If Service Date Differs Date of service: 05/03/21 Time of Service: 14:17 LACE Index Scoring Tool - Questions: Length of Stay (in days): 7 - 13 Acuity (Admit via E.D.?): Yes Comorbidities: Chronic Pulmonary Disease E.D. Visits: 2 - Answers: Total Score: 12 Risk of Readmission: High Risk Care Management Discharge Reason for Hospitalization: UTI Discharge Plan: Alyse will return home with a resumption of home health services-[facility] (RN/PT/OT/RADIOISOTOPE TECHNICIAN) and the addition of private caregivers; self coordinated post discharge due to patient unwillingness to coordinate during admission. Alyse remains unagreeable to discharge to SNF, reviewed with her daughter via phone-on speakerphone with Alyse present. Orders faxed to [facility], [facility] referral completed, [facility] at [facility] outreached and aware as well, [facility] transport coordinated. She will follow up with her community providers and plan of care. Patient/Family Education Needs: Review discharge instructions, discuss Ask Me Three. Services Needed at Discharge: Home Delivered Meals ([facility] referral), Home Health Care Services ([facility]: RN/PT/OT/RADIOISOTOPE TECHNICIAN), Transportation ([facility] )
[2021-05-03 12:39] VITALS: BP 106/56; PULSE 63; RESP 17; TEMP 36.3; O2SAT 95
--- NOTE | 2021-05-03 13:28 | W.NUTRFU ---
Date of service: 05/03/21 Time of Service: 13:28 Nutritional Follow up NOTE: Weight stable. PO intake is improving. Will continue to follow progress. Time Spent in Nutritional Counseling and Treatment: 0
--- NOTE | 2021-05-03 14:33 | W.PM.DS.N ---
Date of service: 05/03/21 Time of Service: 14:34 DS: Diagnosis Discharge Diagnosis (1) Frequent falls: Status: Acute (2) Parkinson's disease: Status: Chronic Discharge Plan Disposition Patient Disposition: HOME W/HOME HEALTH SERVICE Condition: Fair Discharge Details Reason For Visit: UTI,Ambulatory Disfunction Admit Date/Time: 04/26/21 19:24 Admit Provider: Cathleen Saha Attending Provider: Cathleen Saha Primary Care Provider: Luz Szymanski [facility] Course Hospital Course: this is an 80 year old female with history of parkinsons, afib on anticoagulation, COPD who has suffered recent falls at home with a hip fracture in mar. She was treated at [facility] and sent to [facility] and rehab where she left [facility] to return home. She reports 4 falls since being home. She has denied dizziness, palpitations, chest pain, nausea, loss of consciousness. She did hit her head on her last fall and suffered a chin laceration. Fortunately her head CT was unremarkable. Her potassium and magnesium were found to be low and replaced. She was found to have a UTI by UA, though she denies dysuria. She did endorse a chronic urinary incontinence. She treated with ceftriaxone empirically. Hospitalist admitted. she underwent PT evaluation. she slowly progressed but it was thought her ambulatory dysfunction was impacted by her parkinsons so neurology was asked to weigh in. she was restarted on her sinemet and was improved dramatically. we discussed discharge to group home facility which she adamantly refused. we did discuss increasing services at the house, including 24 hour caregiver at home but she is not open to take. She is medically stable and we will discharge her to home per her wishes. she continues to decline rehab. PT recommends ongoing home PT/OT. discharge discussed with Dr Purdy . Home Meds and New Rx's Prescriptions: New carbidopa-levodopa 25-100 mg Tablet Extended Release 1 tab PO DAILY@0600 Qty: 90 RF: 0 carbidopa-levodopa 25-100 mg Tablet Extended Release 1 tab PO DAILY@1100 Qty: 0 RF: 0 carbidopa-levodopa 25-100 mg Tablet Extended Release 1 tab PO DAILY@1600 Qty: 0 RF: 0 Continued fluticasone propionate 50 mcg/actuation spray,suspension 2 spray NS BID PRN (Reason: allergy symptoms) Qty: 47.4 RF: 5 lorazepam 0.5 mg tablet 0.5 mg PO HS PRN (Reason: sleep) RF: 0 amantadine HCl 100 mg capsule 100 mg PO DAILY Qty: 30 RF: 5 buspirone 10 mg tablet 10 mg PO TID Qty: 270 RF: 5 verapamil 180 mg capsule,ext rel. pellets 24 hr 180 mg PO DAILY Qty: 90 RF: 5 diltiazem HCl 30 mg tablet 30 mg PO BID PRN (Reason: palpitation) Qty: 50 RF: 0 Eliquis 2.5 mg tablet 2.5 mg PO BID Qty: 180 RF: 12 duloxetine 60 mg capsule,delayed release(DR/EC) 60 mg PO DAILY Qty: 90 RF: 11 Discharge Instructions Instructions: Fall Prevention (DC) Additional Instructions: you have been started on carbidopa-levodopa to be taken at 6 am, 11 am and 4 pm. take as directed 3 times daily. resume the rest of your home medication as prescribed. you have been referred to home health for nursing, PT/OT and psychiatric social worker. Referrals: Luz Szymanski MD, [place] [Primary Care Provider] - Maria Del Rosario Garcia MD [ [facility] STAFF PHYSICIAN] - (4-6 weeks) Activity:: Activity as Tolerated Equipment/Supplies:: Walker Diet:: As Tolerated Discharge Orders Discharge Orders: Discharge Order (Routine); Ordered 05/03/21 Ordered By: Keren Gross DS: Summary Time Spent with Patient providing and/or coordinating discharge services: Greater than 30 minutes Status at Discharge Functional status at discharge: uses cane/walker Overall status at discharge: patient is progressing back to baseline Mental Status: mental status grossly normal Speech and Movement: speech clear Mood: anxious mood and irritable mood Affect: anxious affect and irritable affect Exam Narrative Exam Narrative: Sitting in bed Const General: cooperative and no acute distress Nutritional Appearance: thin Orientation: oriented x3 HENMT Head: normal to inspection Ears: hearing grossly impaired (Need to speak slowly and distinctly) Mouth: tongue normal and lip abnormal (bruise and swelling from fall) Teeth and gingiva: poor dentition Eyes Alignment and Position: alignment normal Neck Neck: other (Swelling in her chin from recent fall) Resp Effort & Inspection: normal respiratory effort and able to speak in complete sentences (voice hoarse sounding) Auscultation: bronchovesicular breath sounds Cardio Rhythm: abnormal rhythm Heart Sounds: murmur Neuro General: patient oriented x3 Cognition: normal cognition Speech: abnormal speech Extrem General: pedal edema bilaterally 1+ Psych Mental Status: mental status grossly normal Speech and Movement: speech clear Mood: anxious mood and irritable mood Affect: anxious affect and irritable affect Attitude: cooperative and guarded DS: Data Vitals/I&O Vitals and I&O: Vital Signs Temperature 36.3 C L 05/03/21 12:39 Temperature Source Tympanic 05/03/21 12:39 Pulse 63 05/03/21 12:39 Pulse Rhythm Regular 05/03/21 09:37 Pulse 58 L 04/26/21 16:40 Respiratory Rate 17 05/03/21 12:39 Respiratory Effort 05/03/21 09:37 Respiratory Depth Normal 05/03/21 09:37 Respiratory Pattern Normal 05/03/21 09:37 Blood Pressure 106/56 L 05/03/21 12:39 Blood Pressure Mean 88 04/26/21 16:30 Pulse Oximetry 95 05/03/21 12:39 Oxygen Delivery Method Room Air 05/03/21 12:39 Oxygen Flow Rate 0 05/03/21 12:39 Pain Level 0 05/03/21 12:39 Intake & Output 05/02/21 05/03/21 05/03/21 23:59 11:59 23:59 Intake Total 410 / 470 10 260 250 / 260 Output Total 400 / 400 200 / 200 Balance 50 / 60 Weight 42.8 kg Intake: IV 260 / 270 Oral 150 / 200 250 / 250 Output: Urine 400 / 400 200 / 200 Other: Urine Color Yellow Yellow Yellow Urine Appearance Clear Clear Clear Urine Odor Normal Comment voided in brief Stool Size Small Small Stool Characteristics Hard Hard Brown Voiding Methods Bedside Commode Diaper Bedside Commode Incontinent Diaper Incontinent Data Completed and Pending Labs on day of discharge: Labs from last 24 hours 05/03/21 07:00 Sodium 141 Potassium 4.1 Chloride 107 Carbon Dioxide 28.5 Anion Gap 5.5 BUN 20 H Creatinine 0.8 Estimated GFR/1.73 m2 >= 60.00 Glucose 92 Calcium 8.9 PFSH Medical History Abdominal pain Abnormal weight loss 07/16/04 from 124-107; she feels it's due to increased activity and stress ALLERGIES Allergy or intolerlance to codeine, sulfamethoxazole and trimethoprin. There is a history of low blood pressure on calcium blockers in the past as well. Anxiety JANET-7 SCORE=16 Aortic valve insufficiency Followed by Mohan Morris at [facility]. 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 Insomnia (09/02/14) Low back pain (04/12/09) Metatarsalgia of both feet Mild cognitive impairment with memory loss see above Osteopenia t-scores; -2.1; -1.5 Tachycardia Tricuspid valve insufficiency (04/14/16) moderate Surgical History Colonoscopy - MAC 1995 1997 1998 2012 ECHO (~2006) Echocardiogram with negative pulmonary work up at [facility] [place], PA pressure 21 EGD - MAC (~1995) showing increase in PA pressures H/O cataract removal with insertion of prosthetic lens H/O esophagogastroduodenoscopy 07/16/95 showing increase in PA pressure S/P appendectomy S/P breast biopsy intraductal papilloma S/P bunionectomy bilateral Family History Mother Essential hypertension Heart disease Father No problems noted. Social History Smoking/Tobacco Use Status: Never Smoking risk assessment performed?: Yes Alcohol Intake: current Alcohol Intake frequency: holidays/special occasions only Alcohol type: wine Drug use: Never Adopted: No Caregiver/Support person: Yes (caregiver for jenni) Details: currently in a fpc, but pt is primary support Foster care: No Household members: none Housing: house Number of Children: 3 number of grandchildren: 4 current occupation: Retired Pets and animals: No What type of physical activity do you participate in: none Seatbelt use: never Drive intox or ride w/intox compactor driver: No Firearms in home: Yes (unloaded, not locked) Firearms unloaded and locked: No Do you feel safe at home: Yes Do you feel safe in your relationship?: Yes
--- NOTE | 2021-05-03 15:19 | PT.INTREAT ---
Date of service: 05/03/21 Time of Service: 09:59 PT Notes Visit Reasons: UTI,Ambulatory Disfunction Inpatient Physical Therapy Treatment Note [facility] Date: 05/03/2021 PRECAUTIONS: Activity as Tolerated, PD SUBJECTIVE: Alyse is pleasant and agreeable to participating in PT. She states that she is feeling much better and that she was placed on an additional medication for her Parkinson's yesterday. She feels she is very close to her baseline and that she will be samantha to return to home safely soon. OBJECTIVE: PAIN: No c/o pain BED MOBILITY/TRANSFERS Sit-stand: S Stand-sit: S GAIT Assistive Device: FWW Weight bearing: Full Assist: S Distance: 100' + 150' Deviation: Seated rest x1, increased shakiness with increased fatigue STAIRS: Up/down 3x4 and 2x6 using B rails and a step-over pattern with supervision ASSESSMENT: Patient tolerated session well, although with complaint of increased fatigue. She was able to tolerate a progression in gait distance with FWW support and supervision, and was able to tolerate the addition of stair training, well. PLAN: Patient to discharge to home later today, per provider. Follow up with PT upon discharge. TREATMENT CODE/TIME: 24 minutes; 80073 x2 (09:59)
--- NOTE | 2021-05-03 17:36 | CHAPLAIN ---
Alyse was sitting up in the chair, dressed in her pajamas. She told me she was being kicked out, so she is going home, although there is no one there to be with her tonight. Sometime tomorrow Home Health will be in for an assessment. Alyse as adamantly refused to go to a SNF because of a bad experience at [facility]. She said he children won't help her at home because they don't believe she should be going home. A neighbor has also refused to help for the same reason, Alyse said. She said she was feeling unloved. She has discussed hiring caregivers in the past, but has not followed through on that. While I was with her, she reached for my hand. She said her Parkinson tremors have been worse because she is stressed. She was scheduled to be discharged at 3:30 p.m. at taken home by a van.
== END 2021-05-03 16:48 | disposition home health service (06) | DRG 57 ==
LOC: ER 15:56 → MS 16:51
PROVIDERS: Nurse Practitioner Family; Admitting Provider Internal Medicine; Emergency Provider Registered Nurse Emergency; PCP Family Medicine; Visit Provider Internal Medicine
DX: G20 Parkinson's disease (principal); N39.0 Urinary tract infection, site not specified; C83.30 Diffuse large B-cell lymphoma, unspecified site; Z68.1 Body mass index [BMI] 19.9 or less, adult; R29.6 Repeated falls; R53.1 Weakness; Z79.01 Long term (current) use of anticoagulants; I44.7 Left bundle-branch block, unspecified; R26.2 Difficulty in walking, not elsewhere classified; I48.91 Unspecified atrial fibrillation; D64.9 Anemia, unspecified; E87.6 Hypokalemia; E83.42 Hypomagnesemia; J44.9 Chronic obstructive pulmonary disease, unspecified; S72.8X2D Other fracture of left femur, subsequent encounter for closed fracture with routine healing; X58.XXXD Exposure to other specified factors, subsequent encounter; F41.9 Anxiety disorder, unspecified; E03.9 Hypothyroidism, unspecified; R49.0 Dysphonia; G47.00 Insomnia, unspecified; M54.50 Low back pain, unspecified; M77.42 Metatarsalgia, left foot; M77.41 Metatarsalgia, right foot; I08.2 Rheumatic disorders of both aortic and tricuspid valves; Z20.822 Contact with and (suspected) exposure to COVID-19; R32 Unspecified urinary incontinence; Z85.3 Personal history of malignant neoplasm of breast; F32.A Depression, unspecified; G31.84 Mild cognitive impairment of uncertain or unknown etiology; M85.80 Other specified disorders of bone density and structure, unspecified site; L40.9 Psoriasis, unspecified; R63.4 Abnormal weight loss; B96.20 Unspecified Escherichia coli [E. coli] as the cause of diseases classified elsewhere
CPT/HCPCS: 36415; 51701; 74177; 80048; 80053; 87077; 87635; 90662; 93005; 96360; 96361; 97110; 97162; 97530; 99222; 99231; 99285; 70450; 71260; 81003; 81015; 82040; 82607; 82728; 82746; 83036; 83540; 83550; 83605; 83735; 84484; 85014; 85018; 85025; 85610; 85730; 87086; 87186; 93010; 93306; 99223; 99232; 99239; G0378; J0696; J3475; J3490

== ENCOUNTER → 2021-05-02 07:33 | Outpatient (BNVA) | payer MEDICARE, SELFPAY ==
--- NOTE | 2021-05-04 09:46 | INDS_ITS ---
Date of service: 05/04/21 Time of Service: 09:46 PT Notes Visit Reasons: [facility] INPATIENT-PD MED ADJUSTMENT? Physical Therapy Inpatient Discharge Summary Date: 04/27/2021 Dates of Services: 04/27/2021 through 05/03/2021 This is a clinical summary of care provided for the duration of dates listed above. No charge was made in the completion of this documentation. Referring Doctor: Cathleen Saha MD for mobility PT Orders: PT CONSULT: Precautions: Fall. Standard. Activity as tolerated. Hard of hearing. Patient Profile/Admitting Diagnosis: Alyse is an 80-year-old female with Parkinson's disease who presented to the ED with weakness and fall. She is diagnosed with urinary tract infection, new onset left BBB, ambulatory dysfunction, atrial fibrillation, acute anemia, hypokalemia, and hypokalemia see PMHX: Medical History Abdominal pain Abnormal weight loss 07/16/04 from 124-107; she feels it's due to increased activity and stress ALLERGIES Allergy or intolerlance to codeine, sulfamethoxazole and trimethoprin. There is a history of low blood pressure on calcium blockers in the past as well. Anxiety JANET-7 SCORE=16 Aortic valve insufficiency Followed by Mohan Morris at [place]. 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 Insomnia (09/02/14) Low back pain (04/12/09) Metatarsalgia of both feet Mild cognitive impairment with memory loss see above Osteopenia t-scores; -2.1; -1.5 Tachycardia Tricuspid valve insufficiency (04/14/16) moderate Surgical History Colonoscopy - MAC 1995 1997 1998 2012 ECHO (~2006) Echocardiogram with negative pulmonary work up at [facility], PA pressure 21 EGD - MAC (~1995) showing increase in PA pressures H/O cataract removal with insertion of prosthetic lens H/O esophagogastroduodenoscopy 07/16/95 showing increase in PA pressure S/P appendectomy S/P breast biopsy intraductal papilloma S/P bunionectomy bilateral Social History/Home Situation: Lives alone in a private home with 5 steps to ent er without rails. Independent with all mobility garments without an assistive. Worked as a medical director previously. Equipment Owned/DME: [employer] Subjective:NT. See most recent PRODUCT CONSULTANT notes. Objective: General Observation: NT. See most recent PRODUCT CONSULTANT notes. Mental Status: NT. See most recent PRODUCT CONSULTANT notes. Pain: NT. See most recent PRODUCT CONSULTANT notes. ROM: Right Upper Extremity: Shoulder Flexion only allows up to about 90?. Shoulder abduction only allows up to about 80?. Elbow flexion WFL. Wrist flexion WFL. Functional opening and closing of hand WFL. Left Upper Extremity: Shoulder Flexion only allows up to about 90?. Shoulder abduction only allows up to about 80?.Elbow flexion WFL. Wrist flexion WFL. Functional opening and closing of hand WFL. Right Lower Extremity: Hip flexion WFL. Hip abduction WFL. Knee flexion WFL. Ankle dorsiflexion to neutral only. Ankle plantarflexion WFL. Left Lower Extremity: Hip flexion WFL. Hip abduction WFL. Knee flexion WFL. Ankle dorsiflexion to neutral only. Ankle plantarflexion WFL. Strength: Right Upper Extremity: Shoulder flexors 3-/5. Shoulder abductors 3-/5. Elbow flexors 3+/5. Elbow extensors 3+/5. Control Tower Operator weak but functional. Left Upper Extremity: Shoulder flexors 3-/5. Shoulder abductors 3-/5. Elbow flexors 3+/5. Elbow extensors 3+/5. Control Tower Operator weak but functional. Right Lower Extremity: Hip flexors 3+/5. Hip abductors 3+/5. Knee flexors 3+/5. Knee extensors 3+/5. Ankle dorsiflexors 3-/5. Ankle plantarflexors 3+/5. Left Lower Extremity: Hip flexors 3+/5. Hip abductors 3+/5. Knee flexors 3+/5. Knee extensors 3+/5. Ankle dorsiflexors 3-/5. Ankle plantarflexors 3+/5. Bed Mobility/Transfers: Supine to sit supervision Sit to stand supervision Stand to sit supervision Bed to bedside commode supervision Bedside commode to bed supervision Gait: Instructed patient with level surface ambulation of 8 feet requiring minimal assist of 2. Yudelka decreased. Gait parkinsonian with decreased step height and length. Steps discontinuous. Moderate verbal cues needed for safe technique. Balance: Static Sitting: Good Dynamic Sitting: Fair Static Standing: Poor Dynamic Standing: Poor Assessment: Patient presents with clinical signs and symptoms consistent with current/admitting diagnoses that have resulted to mobility limitations, gait instability, generalized weakness, and overall ADL decline as demonstrated by the following impairment level findings: 1. Decreased strength to BUE/LE major muscle groups 2. Impaired sitting/standing balance 3. Impaired activity tolerance 4. Limitation of joint range of motion in B shoulders and ankles Impairments are contributing to the following functional limitations: 1. Decline in bed mobility skills 2. Decline in transfer skills 3. Difficulty with ambulation without assistive device and physical assistance 4. Increased completion time for mobility ADL performance 5. Increased risk for falls 6. Difficulty with managing steps alone safely 7. Inability to thrive at home at this time Goals: Goals X1 week 1. Supine-Sit independent NOT MET 2. Sit-Supine independent NOT MET 3. Sit-Stand independent NOT MET 4. Stand-Sit independent with FWW NOT MET 5. Bed-Chair independent with FWW NOT MET 6. Chair-Bed independent with FWW NOT MET 7. Independent gait on level surface with use of FWW for at least 30 feet without report of pain nor dyspnea NOT MET 8. Independent stair negotiation while holding onto B rails for at least 5 steps without report of pain nor dyspnea NOT MET 9. Good static and dynamic standing balance/tolerance NOT MET DISCHARGE RECOMMENDATIONS: Patient will benefit from correction facility placement for continued skilled physical therapy services in order to progress mobility level, strength, and balance in preparation for a safe discharge to home. TREATMENT CODE/TIME: TN Thank you for the opportunity to participate in the care of this patient. Mikayla Costa PT, DPT, CLT [facility] [place], [place]
== END ==
PROVIDERS: PCP Family Medicine; Referring Provider Internal Medicine; Visit Provider Psychiatry & Neurology Neurology
DX: R69 Illness, unspecified (principal)

== ENCOUNTER → 2021-07-21 11:12 | Outpatient (BNVA) | payer MEDICARE, SELFPAY | PROVIDERS: PCP Family Medicine; Referring Provider Family Medicine; Visit Provider Psychiatry & Neurology Neurology | DX: G20 Parkinson's disease (principal); R53.83 Other fatigue; J44.9 Chronic obstructive pulmonary disease, unspecified | CPT/HCPCS: 99214 ==

== ENCOUNTER 2022-06-01 10:32 | Outpatient (CLI) | payer MEDICARE, SELFPAY ==
[2022-06-01 12:30] LABS: HCT 43.6 % (36.0-46.0); HGB 14.1 g/dL (11.2-15.7); MCH 31.1 pg (27.0-33.0); MCHC 32.3 % (32.0-36.0); MCV 96 fL (80-95); MPV 10.1 fL (8.0-11.0); Platelet Count 242 10^3/uL (130-400); RBC 4.53 10^6/uL (3.93-5.22); RDW 13.2 % (11.7-14.6); RDW-SD 47.3 fL
[2022-06-01 18:48] LABS: ALT 19 U/L (14-59); AST 21 U/L (15-37); Albumin 3.9 g/dL (3.4-5.0); Alkaline Phosphatase 83 U/L (46-116); Anion Gap 13.5 mmol/L (3-11); BUN 27 mg/dL (7-18); Bilirubin, Total 0.8 mg/dL (0.2-1.0); CO2 25.5 mmol/L (21.0-32.0); CREATININE 1.1 mg/dL (0.55-1.02); Calcium 9.4 mg/dL (8.5-10.1); Chloride 103 mmol/L (98-107); Estimated GFR 49.86 (mL/min/1.73m2); Glucose 87 mg/dL (74-106); Sodium 142 mmol/L (136-145); TSH (W/Ref FT4) 3.07 uIU/mL (0.36-3.74)
== END 2022-06-01 10:33 | disposition home or self-care (01) ==
LOC: LOS 10:33
PROVIDERS: PCP Family Medicine; Visit Provider Family Medicine
DX: D64.9 Anemia, unspecified (principal); E87.6 Hypokalemia; I10 Essential (primary) hypertension
CPT/HCPCS: 36415; 80053; 85027; 84443

== ENCOUNTER 2022-11-09 01:28 | Outpatient (CLI) | payer MEDICARE, SELFPAY ==
--- NOTE | 2022-11-09 10:58 | DI.RAD_ITS ---
Exam(s) XR HIP LT COMPLETE AP PELVIS EXAM: XR HIP LT COMPLETE AP PELVIS CLINICAL HISTORY: L hip pain,M25.552. TECHNIQUE: 2D digital imaging was performed of the left hip. Two views were obtained. AP pelvis an d lateral left hip views were obtained. COMPARISON: CR XR PELVIS AP from 03/14/[address] CHEST/ABD/PEL W from 04/26/2021 FINDINGS: BONES: Orthopedic hardware is seen at the site of the prior left subcapital femoral neck fracture. T here is loss of volume of the femoral head which may represent avascular necrosis. Secondary mild de generative changes are seen at the hip joint. The right hip is unremarkable. No acute fracture is i dentified. No bony destructive lesion is seen. JOINTS: No dislocation present. SOFT TISSUE: Normal. IMPRESSION: Postsurgical changes of a prior subcapital left femoral neck fracture. Loss of volume of the left fe moral head which may reflect avascular necrosis. Secondary degenerative changes are present. CT or MRI of the hip may be considered for further evaluation. DATA REPOSITORY: RADIATION DOSE DELIVERED:
== END 2022-11-09 01:48 ==
LOC: DI 01:28
PROVIDERS: PCP Family Medicine; Visit Provider Family Medicine
DX: M25.552 Pain in left hip (principal)
CPT/HCPCS: 73502

== ENCOUNTER 2022-11-16 01:04 | Outpatient (CLI) | payer MEDICARE, SELFPAY ==
--- NOTE | 2022-11-16 10:45 | DI.CT_ITS ---
Exam(s) CT PELVIC WO EXAM: CT PELVIC WO CLINICAL HISTORY: ? left hip avascular necrosis ,F/U XRAY,LT HIP PAIN,M87.059,M25.552. TECHNIQUE: Imaging Protocol: Axial computed tomography images with coronal and sagittal reformatted images were created and reviewed. COMPARISON: CT CT CHEST/ABD/PEL W from 04/26/2021 CR XR HIP LT COMPLETE AP PELVIS from 11/09/2022 FINDINGS: Bones: There are again seen intramedullary screws in the sideplate in the proximal femur. Since the prior CT scan from 04/26/2021 there has been fragmentation and sclerosis of the head of the left fem ur. There has been loss of volume. The orthopedic screws now project beyond the cortex of the bone into the joint space. The right hip is unremarkable. No cellulitic or osteomyelitic changes are alirio ntified. No lytic or sclerotic lesions are identified. Soft Tissues: There is colonic diverticulosis without evidence of a diverticulitis. Atherosclerosis is present. The urinary bladder is grossly unremarkable. IMPRESSION: 1. Loss of volume, fragmentation and sclerosis of the left femoral head. This may be secondary to av ascular necrosis. Old comminuted fracture cannot be excluded. The findings were not present in 2020 . 2. Sideplate and screws seen in the proximal left femur. Due to the loss of volume of the femoral he ad, the orthopedic screws now project beyond the cortex into the joint space. RADIATION DOSE DELIVERED: 301.76mGy.cm Total DLP 301.76mGy.cmTotal DLP DATA REPOSITORY: All CT scans at this facility are submitted to the National Radiology Data Registry (NRDR) Dose Index Registry (DIR) with the [employer] ([employer]). RADIATION OPTIMIZATION: All CT scans at this facility use at least one of these dose optimization te chniques: automated exposure control; mA and/or kV adjustment per patient size (includes targeted exa ms where dose is matched to clinical indication); or iterative reconstruction.
== END 2022-11-16 01:24 ==
LOC: DI 01:04
PROVIDERS: PCP Family Medicine; Visit Provider Family Medicine
DX: M25.552 Pain in left hip (principal); M87.052 Idiopathic aseptic necrosis of left femur
CPT/HCPCS: 72192

== ENCOUNTER → 2022-11-24 08:57 | Outpatient (BNVA) | payer MEDICARE, SELFPAY | PROVIDERS: PCP Family Medicine; Referring Provider Family Medicine; Visit Provider Student in an Organized Health Care Education/Training Program | DX: M87.052 Idiopathic aseptic necrosis of left femur; S72.002K Fracture of unspecified part of neck of left femur, subsequent encounter for closed fracture with nonunion; X58.XXXD Exposure to other specified factors, subsequent encounter | CPT/HCPCS: 99215 ==

== ENCOUNTER 2022-11-25 13:16 | Emergency (ER) | payer MEDICARE, SELFPAY ==
[2022-11-25 13:19] VITALS: BP 136/80; PULSE 70; RESP 18; TEMP 37; O2SAT 98
--- NOTE | 2022-11-25 13:30 | RT.EKG_ITS ---
APPROVED REPORT Exam: Resting ECG Reason for Exam: Altered mental status Patient Location: E HR:90 bpm ECG Measurements Heart Rate 90 AXIS ID [id number] P [id number] QRSd 90 QRS -56 QT 461 T 21 QTc 553 Conclusion Atrial fibrillation...? atrial activity Left anterior fascicular block...axis(240,-40), init forces inf Anterior infarct, old...Q >40mS, abnormal ST-T, V2-V5 Prolonged QT interval...QTc >500mS
[2022-11-25 13:43] VITALS: RESP 16
[2022-11-25 14:01] LABS: Abs Immature Grans 0.02 10^3/uL (0.0-0.06); Absolute Basophil Count 0.06 10^3/uL (0.0-0.2); Absolute Eosinophil Count 0.09 10^3/uL (0.0-0.7); Absolute Lymphocyte Count 1.02 10^3/uL (1.2-3.4); Absolute Monocyte Count 0.52 10^3/uL (0.1-0.8); Absolute Neutrophil Count 4.17 10^3/uL (1.2-6.7); Eosinophils % 1.5; HCT 39.6 % (36.0-46.0); HGB 13.1 g/dL (11.2-15.7); Immature Grans % 0.3; Lymphocytes % 17.3; MCH 31.8 pg (27.0-33.0); MCHC 33.1 % (32.0-36.0); MCV 96 fL (80-95); MPV 9.7 fL (8.0-11.0); Monocytes % 8.8; Neutrophils % 71.1; Platelet Count 197 10^3/uL (130-400); RBC 4.12 10^6/uL (3.93-5.22); RDW 13.7 % (11.7-14.6); RDW-SD 48.7 fL; WBC 5.88 10^3/uL (4.4-10.8)
--- NOTE | 2022-11-25 14:07 | ED.GENADUL_ITS ---
Discharge Plan Disposition Patient Disposition: Home Condition: Improving Discharge Details Clinical Impression: Mental status alteration Primary Care Provider: Luz Szymanski ED Provider: Chaka Kelley Home Meds and New Rx's Prescriptions: Continued carbidopa-levodopa 25-100 mg tablet extended release 1 tab PO TID Qty: 270 3RF Rx Instructions: Take at 6am, 11am, and 4pm. amantadine HCl 100 mg capsule 100 mg PO DAILY Qty: 90 5RF duloxetine 30 mg capsule,delayed release(DR/EC) 30 mg PO DAILY Qty: 90 11RF verapamil 180 mg capsule,ext rel. pellets 24 hr 180 mg PO DAILY Qty: 90 5RF lorazepam 0.5 mg tablet 0.5 mg PO QHS PRN (Reason: insomnia) Qty: 30 0RF fluticasone propionate 50 mcg/actuation spray,suspension 2 spray NS BID PRN (Reason: allergy symptoms) Qty: 47.4 5RF diltiazem HCl 30 mg tablet 30 mg PO BID PRN (Reason: palpitation) Qty: 50 0RF Eliquis 2.5 mg tablet 2.5 mg PO BID Qty: 180 12RF buspirone 10 mg tablet 10 mg PO TID Qty: 270 5RF Discharge Instructions Instructions: Altered Mental Status (ED) Additional Instructions: It is important that you stay well hydrated and have proper nutrition as I feel this may be a contributing factor to your episode today. If you have any new or significant worsening of symptoms return immediately to the emergency department for reassessment otherwise follow-up with your primary care provider. Referrals: Luz Szymanski MD, MS [Primary Care Provider] - Discharge Data Discharge Date/Time-TO BE ENTERED AT DEPARTURE: 11/25/22 17:19 Medical Decision Making Patient presenting to the emergency department via EMS for chief complaint of episode of altered mental status. Daughter concerned that patient may be dehydrated and malnourished due to low intake. Patient had a 10 to 15-minute episode not responding to daughter so daughter called EMS. EMS arrived and also per daughter witnessed a similar episode that has since resolved. Patient denies all symptoms, was given 500 mL of normal saline prior to arrival. Patient has significant past medical history of Parkinson's, dementia, significant hearing loss, A-fib, depression, anxiety, COPD, cognitive impairment. Physical exam shows frail thin appearing elderly female with no obvious neurological deficits, irregular heart rhythm but normal S1-S2, clear lung sounds, otherwise unremarkable exam. We will plan on checking labs, urinalysis, EKG, and CT imaging of head for question of possible TIA versus dehydration. Doubt absence seizure, given no persistent symptoms doubt CVA, no syncope so doubt lethal cardiac/ACS event. Pending results we will give patient further 500 mL fluid bolus given that that seem to resolve patient's symptoms. Please see physician interpretation for full interpretation of EKG but upon my review patient is in atrial fibrillation, rate of 90, does not appear to meet acute STEMI criteria. Reviewed patient's labs and CBC is overall nondiagnostic nonworrisome, CMP shows slight elevation of BUN at 19, magnesium 1.7, AST slightly elevated at 38 with ALT low at 7 nondetectable negative troponin all other labs within normal range. We will give patient p.o. magnesium and p.o. challenge. Reviewed CT imaging and radiologist interpretation that shows no acute findings. Patient reassessed and has had no further episodes since receiving fluids. Was unable to obtain urinalysis from patient due to her having incontinence and going in her brief. Discussed with patient and daughter further observation and admission for episode of altered mental status with unclear etiology. After discussion of this patient is insisting on discharge to home which she lives by herself. Discussed this with daughter with daughter seeming supportive of patient decision and further monitoring. We will ambulate patient to make sure patient is safe for ambulation at home and will give patient food intake. Patient able to ambulate with a walker at her baseline so we will discharge patient home for close monitoring and return for new or worsening symptoms. After discussion of diagnosis and plan of care patient has no further needs, questions, or concerns and states clear understanding to return to the emergency department for any worsening symptoms. This documentation was generated using e[employer] system, please disregard any oddities of phrase or misspellings. Medical Records Medical records reviewed: Yes I reviewed the patient's medical records. Imaging Data Radiologic Study: Imaging: CT Scan Radiologist's impression: Exam(s) PROCEDURE INFORMATION: Exam: CTA Head With Contrast, Arteriography Exam date and time: 11/25/2022 2:48 PM Age: 82 years old Clinical indication: Other: TIA TECHNIQUE: Imaging protocol: Computed tomographic angiography of the head with contrast. Exam focused on the arteries. 3D rendering (Not supervised by radiologist): MIP and/or 3D reconstructed images were created by the technologist. Contrast material: OMNIPAQUE 350; Contrast volume: 75 ml; Contrast route: INTRAVENOUS (IV); COMPARISON: CT HEAD WO 04/26/2021 11:06 AM FINDINGS: ANTERIOR CIRCULATION: Right internal carotid artery: Intracranial segment is patent with no significant stenosis. No aneurysm. Right middle cerebral artery: No occlusion or significant stenosis. No aneurysm. Right anterior cerebral artery: No occlusion or significant stenosis. No aneurysm. Left internal carotid artery: Intracranial segment is patent with no significant stenosis. No aneurysm. Left middle cerebral artery: No occlusion or significant stenosis. No aneurysm. Left anterior cerebral artery: No occlusion or significant stenosis. No aneurysm. POSTERIOR CIRCULATION: Right vertebral artery: No occlusion or significant stenosis. No aneurysm. Left vertebral artery: No occlusion or significant stenosis. No aneurysm. Basilar artery: No occlusion or significant stenosis. No aneurysm. Right posterior cerebral artery: No occlusion or significant stenosis. No aneurysm. Left posterior cerebral artery: No occlusion or significant stenosis. No aneurysm. Brain: No definite mass, mass effect, or midline shift. Cerebral ventricles: No ventriculomegaly. Bones/joints: Unremarkable. No acute fracture. Soft tissues: Unremarkable. IMPRESSION: No large vessel stenosis or occlusion. PROCEDURE INFORMATION: Exam: CTA Neck With Contrast Exam date and time: 11/25/2022 2:48 PM Age: 82 years old Clinical indication: Other: TIA TECHNIQUE: Imaging protocol: Computed tomographic angiography of the neck with contrast. 3D rendering (Not supervised by radiologist): MIP and/or 3D reconstructed images were created by the technologist. Contrast material: OMNIPAQUE 350; Contrast volume: 75 ml; Contrast route: INTRAVENOUS (IV); COMPARISON: CT CHEST/ABD/PEL W 04/26/2021 2:02 PM FINDINGS: Right common carotid artery: No stenosis. No dissection or occlusion. Right internal carotid artery: No stenosis of the extracranial segment. No dissection or occlusion. Right external carotid artery: No occlusion or stenosis of the origin. Left common carotid artery: No stenosis. No dissection or occlusion. Left internal carotid artery: No stenosis of the extracranial segment. No dissection or occlusion. Left external carotid artery: No occlusion or stenosis of the origin. Right vertebral artery: No stenosis. No dissection or occlusion. Left vertebral artery: No stenosis. No dissection or occlusion. Soft tissues: Normal. No significant soft tissue swelling. Bones/joints: No acute fracture. IMPRESSION: No stenosis or occlusion. REFERENCES: NASCET CRITERIA. The degree of stenosis in the cervical segment of the internal carotid artery is based on NASCET criteria. Normal is no stenosis. Mild is less than 50% stenosis. Moderate is 50-69% stenosis. Severe is 70% to 99% stenosis. Total occlusion is no detectable patent lumen. Lab Data Lab results reviewed: Yes I reviewed the patient's lab results. HPI General Mode of arrival: EMS . Date/Time Provider Initiated Documentation: 11/25/22 13:26 . Limitations to Documentation: no limitations . Information obtained by: patient, family and RN notes reviewed . History of Present Illness 82 year old F presents to the emergency department with the chief complaint of Altered mental status, Quality is described as other (Denies pain or discomfort), Patient started experiencing this minute(s) (90) and it has been now resolved. No relieving factors improve symptom(s), No exacerbating factors reported . Patient notes no other symptoms.. Patient did receive the following treatments prior to arrival, other (500 fluid bolus NS) Related Data Home Medications Medication Instructions Recorded Confirmed diltiazem HCl 30 mg tablet 30 mg PO BID PRN palpitation #50 06/21/21 11/25/22 tab-caps fluticasone propionate 50 2 spray NS BID PRN allergy 06/21/21 11/25/22 mcg/actuation nasal symptoms #47.4 mL spray,suspension apixaban 2.5 mg tablet (Eliquis) 2.5 mg PO BID #180 tabs 05/30/22 11/25/22 buspirone 10 mg tablet 10 mg PO TID #270 tabs 05/30/22 11/25/22 amantadine HCl 100 mg capsule 100 mg PO DAILY #90 caps 07/25/22 11/25/22 carbidopa ER 25 mg-levodopa 100 mg 1 tab PO TID #270 tabs 07/25/22 11/25/22 tablet,extended release duloxetine 30 mg capsule,delayed 30 mg PO DAILY #90 tabs 07/25/22 11/25/22 release verapamil 180 mg 24 hr 180 mg PO DAILY #90 tab-caps 07/25/22 11/25/22 capsule,extended release lorazepam 0.5 mg tablet 0.5 mg PO QHS PRN insomnia #30 tabs 09/25/22 11/25/22 Previous Rx's Medication Instructions Recorded diltiazem HCl 30 mg tablet 30 mg PO BID PRN palpitation #50 06/21/21 tab-caps fluticasone propionate 50 2 spray NS BID PRN allergy 06/21/21 mcg/actuation nasal symptoms #47.4 mL spray,suspension apixaban 2.5 mg tablet (Eliquis) 2.5 mg PO BID #180 tabs 05/30/22 buspirone 10 mg tablet 10 mg PO TID #270 tabs 05/30/22 amantadine HCl 100 mg capsule 100 mg PO DAILY #90 caps 07/25/22 carbidopa ER 25 mg-levodopa 100 mg 1 tab PO TID #270 tabs 07/25/22 tablet,extended release duloxetine 30 mg capsule,delayed 30 mg PO DAILY #90 tabs 07/25/22 release verapamil 180 mg 24 hr 180 mg PO DAILY #90 tab-caps 07/25/22 capsule,extended release lorazepam 0.5 mg tablet 0.5 mg PO QHS PRN insomnia #30 tabs 09/25/22 Allergies Allergy/AdvReac Type Severity Reaction Status Date / Time methylphenidate AdvReac Intermediate GI Verified 11/28/22 14:17 codeine AdvReac Unknown Nausea Verified 11/28/22 14:17 azithromycin AdvReac Nausea Verified 11/28/22 14:17 [From Zithromax Z-Edu] sulfamethoxazole AdvReac explosive Verified 11/28/22 14:17 [From Bactrim] diarrhea trazodone AdvReac Nausea Verified 11/28/22 14:17 trimethoprim [From Bactrim] AdvReac explosive Verified 11/28/22 14:17 diarrhea General Stated Complaint: GenMedical UEMSH: 3 Review of Systems Constitutional Constitutional: Denies fatigue, Denies fever(s), Denies headache(s), Reports poor appetite and Denies weakness ENT Ears, Nose, Mouth, and Throat: Denies headache(s) and Denies disequilibrium Cardiovascular Cardiovascular: Denies chest pain and Denies dyspnea Respiratory Respiratory: Denies cough and Denies dyspnea Gastrointestinal Gastrointestinal: Denies abdominal pain, Denies nausea and Denies vomiting Neurologic Neurologic: Reports as per HPI, Reports behavioral changes, Denies headache(s), Denies localized weakness, Denies convulsions, Denies sensory deficit, Denies tremor(s), Denies disequilibrium and Denies weakness Psychiatric Psychiatric: Reports behavioral changes Endocrine Endocrine: Denies fatigue PFSH All Active Problems (Updated 11/27/22 @ 12:29 by Luz Szymanski MD, [place]) Aortic stenosis (Chronic) Mental status alteration (Acute) 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 (Acute) Avascular necrosis of bone of hip (Acute) Carmen onychomycosis (Acute) Malnutrition (Acute) Parkinson disease (Chronic) Dementia (Chronic) MOCA on 06/01/22 Discharge planning issues (Acute) DVT prophylaxis (Acute) New onset left bundle branch block (LBBB) (Acute) Ambulatory dysfunction (Acute) Weakness (Acute) Hypokalemia (Acute) Frequent falls (Acute) Fatigue (Acute) Decreased hearing of both ears (Acute) Depression (Chronic) Metatarsalgia of both feet (Acute) Wart viral (Acute) Parkinson's disease (Chronic) Hypophonia (Acute) Presbylarynges (Acute) Abnormal weight loss (Acute) Ductal papillomatosis of breast (Acute) Tricuspid valve insufficiency (Chronic 04/14/16) moderate Osteopenia (Chronic) t-scores; -2.1; -1.5 Insomnia (Chronic 09/02/14) 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 Aortic valve insufficiency (Chronic) Followed by Mohan Morris at [place]. Mild cognitive impairment with memory loss (Chronic) see above Medical History Abdominal pain Abnormal weight loss 07/16/04 from 124-107; she feels it's due to increased activity and stress ALLERGIES Allergy or intolerlance to codeine, sulfamethoxazole and trimethoprin. There is a history of low blood pressure on calcium blockers in the past as well. 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 Dysphagia Fatigue Foot joint pain 10/10/12 Foot joint pain (10/10/12) H/O echocardiogram 10/10/12 echo w/neg pulmonary w/u at [facility] [place] [place]; PA pressure 21 Heart palpitations Hoarseness Low back pain (04/12/09) Palliative care patient Tachycardia Surgical History Colonoscopy - MAC 1995 1997 1998 2012 ECHO (~2006) Echocardiogram with negative pulmonary work up at [facility] [place] [place], PA pressure 21 EGD - MAC (~1995) showing increase in PA pressures H/O cataract removal with insertion of prosthetic lens H/O esophagogastroduodenoscopy 07/16/95 showing increase in PA pressure S/P appendectomy S/P breast biopsy intraductal papilloma S/P bunionectomy bilateral Family History Mother Essential hypertension Heart disease Father No problems noted. 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 Firearms in home: Yes (unloaded, not locked) Firearms unloaded and locked: No Do you feel safe at home: Yes Do you feel safe in your relationship?: Yes Exam Const General: cooperative, no acute distress and well groomed Orientation: alert, awake and oriented x3 HENMT Head: normal to inspection Ears: hearing grossly normal bilaterally and TM's normal bilaterally Mouth: oral mucosae normal and moist mucous membranes Throat: posterior oropharynx normal Eyes Visual Castaneda: normal visual castaneda by confrontation Alignment and Position: alignment normal Periorbital: periorbital findings normal Eyelids: eyelids normal Sclera: sclerae normal Pupils: PERRL EOM: EOM intact bilaterally Neck Neck: normal visual inspection, full ROM and no meningeal signs Resp Effort & Inspection: normal respiratory effort and able to speak in complete sentences Auscultation: clear to auscultation bilaterally Cardio Rate: regular rate Rhythm: abnormal rhythm irregularly irregular Heart Sounds: S1 normal and S2 normal Neuro General: patient alert, patient awake, patient oriented x3, gait normal, tone normal, moves all extremities, CN's II-XI intact bilaterally and not confused Cognition: normal cognition Speech: speech normal Motor: muscle tone normal throughout, strength 5/5 throughout, no pronator drift, no movement abnormalities noted and no fasciculations Sensory Exam: no sensory deficits noted Coordination: [id number] test normal and Does not sway with eyes open Course Vital Signs Vital signs: Vital Signs Temperature 37 C 11/25/22 13:19 Pulse 70 11/25/22 13:19 Respiratory Rate 18 11/25/22 13:19 Blood Pressure 136/80 11/25/22 13:19 Pulse Oximetry 98 11/25/22 13:19 Temperature 37 C 11/25/22 13:19 Temperature Source Oral 11/25/22 13:19 Pulse 70 11/25/22 13:19 Respiratory Rate 16 11/25/22 13:43 Respiratory Effort Normal 11/25/22 13:43 Respiratory Depth Normal 11/25/22 13:43 Blood Pressure 136/80 11/25/22 13:19 Blood Pressure Position Sitting 11/25/22 13:19 Pulse Oximetry 98 11/25/22 13:19 Oxygen Delivery Method Room Air 11/25/22 13:19 Oxygen Flow Rate 0 11/25/22 13:19 Pain Level 0 11/25/22 13:19 Lab/Test Results Lab/Test Results: Laboratory Tests Range/Units 11/25/22 13:47 WBC (4.4-10.8) 10^3/uL 5.88 RBC (3.93-5.22) 10^6/uL 4.12 Hgb (11.2-15.7) g/dL 13.1 Hct (36.0-46.0) % 39.6 MCV (80-95) fL 96 H MCH (27.0-33.0) pg 31.8 MCHC (32.0-36.0) % 33.1 RDW (11.7-14.6) % 13.7 Plt Count (130-400) 10^3/uL 197 MPV (8.0-11.0) fL 9.7 Immature Gran % 0.3 Neutrophils % 71.1 Lymphocytes % 17.3 Monocytes % 8.8 Eosinophils % 1.5 Basophils % 1.0 Nucleated RBC % (0.0-0.3) % 0.0 Absolute Neutrophils (1.2-6.7) 10^3/uL 4.17 Absolute Lymphocytes (1.2-3.4) 10^3/uL 1.02 L Absolute Monocytes (0.1-0.8) 10^3/uL 0.52 Absolute Eosinophils (0.0-0.7) 10^3/uL 0.09 Absolute Basophils (0.0-0.2) 10^3/uL 0.06
[2022-11-25] MEDS: Normal Saline 500 ML IV (14:16)
[2022-11-25 14:21] LABS: ALT 7 U/L (14-59); AST 38 U/L (15-37); Albumin 3.5 g/dL (3.4-5.0); Alkaline Phosphatase 86 U/L (46-116); Anion Gap 7.5 mmol/L (3-11); BUN 19 mg/dL (7-18); Bilirubin, Total 0.8 mg/dL (0.2-1.0); CO2 27.5 mmol/L (21.0-32.0); CREATININE 0.8 mg/dL (0.55-1.02); Calcium 9.1 mg/dL (8.5-10.1); Chloride 103 mmol/L (98-107); Estimated GFR 72.61 (mL/min/1.73m2); Glucose 89 mg/dL (74-106); Magnesium 1.7 mg/dL (1.8-2.4); Potassium 3.7 mmol/L (3.5-5.1); Sodium 138 mmol/L (136-145); Total Protein 6.5 g/dL (6.4-8.2); Troponin I < 50 ng/L (<or=60)
--- NOTE | 2022-11-25 14:30 | DI.CT_ITS ---
Exam(s) CT BRAIN NECK CTA EXAM: CT BRAIN NECK CTA CLINICAL HISTORY: TIA. TECHNIQUE: Imaging Protocol: Axial CT angiography was performed with multi-slice acquisition and mu lti-planar and 3D reconstructions. CONTRAST MATERIAL: Intravenous: Omnipaque 350 Contrast volume:75 ml COMPARISON: CT CT CHEST/ABD/PEL W from 04/26/2021 FINDINGS: CT Head W/O and W contrast: Ventricles and Extra axial spaces: Normal in size and morphology for the patient's age. Patent cavum septum pellucidum. Hemorrhage: None. Cerebral parenchyma: Atrophy. White matter changes of small vessel disease. Midline shift: None. Brainstem/Cerebellum: Normal. Calvarium: Normal. Visualized Paranasal sinuses/Mastoids: Clear. Soft Tissues: Unremarkable. Enhancement: Normal. CTA Brain W: Internal Carotid Arteries: Petrous: Normal. Cavernous: Normal. Cerebral: Normal. Middle Cerebral Arteries: Right: No aneurysm, occlusion or significant stenosis. Left: No aneurysm, occlusion or significant stenosis. Anterior Cerebral Arteries: Right: No aneurysm, occlusion or significant stenosis. Left: No aneurysm, occlusion or significant stenosis. Posterior cerebral Arteries: Right: No aneurysm, occlusion or significant stenosis. Left: No aneurysm, occlusion or significant stenosis. Vertebral Arteries: Right: No aneurysm, occlusion or significant stenosis. Left: No aneurysm, occlusion or significant stenosis. Basilar Artery: No aneurysm, occlusion or significant stenosis. CTA Neck W: Common Carotid: Minimal plaque. Right: No dissection, occlusion or significant stenosis. Left: No dissection, occlusion or significant stenosis. External Carotid: Right: No dissection, occlusion or significant stenosis. Left: No dissection, occlusion or significant stenosis. Internal Carotid: Right: No dissection, occlusion or significant stenosis. Left: No dissection, occlusion or significant stenosis. Vertebral Artery: Right: No dissection, occlusion or significant stenosis. Left: No dissection, occlusion or significant stenosis. Lung Apices: Mild scarring. Bones: Degenerative changes in the cervical spine. No acute abnormality. Soft Tissues: Normal. IMPRESSION: 1. Normal CTA examination of the [place]. 2. CT Head: No acute abnormality.. 3. CTA neck: Minimal plaque at the common carotid arteries. No significant stenosis or evidence of d issection.. RADIATION DOSE DELIVERED: 1,927.76mGy.cm Total DLP DATA REPOSITORY: All CT scans at this facility are submitted to the National Radiology Data Registry (NRDR) Dose Index Registry (DIR) with the [employer] (ACR). RADIATION OPTIMIZATION: All CT scans at this facility use at least one of these dose optimization te chniques: automated exposure control; mA and/or kV adjustment per patient size (includes targeted exa ms where dose is matched to clinical indication); or iterative reconstruction.
[2022-11-25] MEDS: Omnipaque 350 MG/ML 100 ML BTL IJ (14:54)
--- NOTE | 2022-11-25 15:53 | DI.VRAD_ITS ---
PROCEDURE INFORMATION: Exam: CTA Head With Contrast, Arteriography Exam date and time: 11/25/2022 2:48 PM Age: 82 years old Clinical indication: Other: TIA TECHNIQUE: Imaging protocol: Computed tomographic angiography of the head with contrast. Exam focused on the arteries. 3D rendering (Not supervised by radiologist): MIP and/or 3D reconstructed images were created by the technologist. Contrast material: OMNIPAQUE 350; Contrast volume: 75 ml; Contrast route: INTRAVENOUS (IV); COMPARISON: CT HEAD WO 04/26/2021 11:06 AM FINDINGS: ANTERIOR CIRCULATION: Right internal carotid artery: Intracranial segment is patent with no significant stenosis. No aneurysm. Right middle cerebral artery: No occlusion or significant stenosis. No aneurysm. Right anterior cerebral artery: No occlusion or significant stenosis. No aneurysm. Left internal carotid artery: Intracranial segment is patent with no significant stenosis. No aneurysm. Left middle cerebral artery: No occlusion or significant stenosis. No aneurysm. Left anterior cerebral artery: No occlusion or significant stenosis. No aneurysm. POSTERIOR CIRCULATION: Right vertebral artery: No occlusion or significant stenosis. No aneurysm. Left vertebral artery: No occlusion or significant stenosis. No aneurysm. Basilar artery: No occlusion or significant stenosis. No aneurysm. Right posterior cerebral artery: No occlusion or significant stenosis. No aneurysm. Left posterior cerebral artery: No occlusion or significant stenosis. No aneurysm. Brain: No definite mass, mass effect, or midline shift. Cerebral ventricles: No ventriculomegaly. Bones/joints: Unremarkable. No acute fracture. Soft tissues: Unremarkable. IMPRESSION: No large vessel stenosis or occlusion. PROCEDURE INFORMATION: Exam: CTA Neck With Contrast Exam date and time: 11/25/2022 2:48 PM Age: 82 years old Clinical indication: Other: TIA TECHNIQUE: Imaging protocol: Computed tomographic angiography of the neck with contrast. 3D rendering (Not supervised by radiologist): MIP and/or 3D reconstructed images were created by the technologist. Contrast material: OMNIPAQUE 350; Contrast volume: 75 ml; Contrast route: INTRAVENOUS (IV); COMPARISON: CT CHEST/ABD/PEL W 04/26/2021 2:02 PM FINDINGS: Right common carotid artery: No stenosis. No dissection or occlusion. Right internal carotid artery: No stenosis of the extracranial segment. No dissection or occlusion. Right external carotid artery: No occlusion or stenosis of the origin. Left common carotid artery: No stenosis. No dissection or occlusion. Left internal carotid artery: No stenosis of the extracranial segment. No dissection or occlusion. Left external carotid artery: No occlusion or stenosis of the origin. Right vertebral artery: No stenosis. No dissection or occlusion. Left vertebral artery: No stenosis. No dissection or occlusion. Soft tissues: Normal. No significant soft tissue swelling. Bones/joints: No acute fracture. IMPRESSION: No stenosis or occlusion. REFERENCES: NASCET CRITERIA. The degree of stenosis in the cervical segment of the internal carotid artery is based on NASCET criteria. Normal is no stenosis. Mild is less than 50% stenosis. Moderate is 50-69% stenosis. Severe is 70% to 99% stenosis. Total occlusion is no detectable patent lumen. Dictated and Authenticated by: Tammy Mullen MD. Ordering:ABISAI Null MD
[2022-11-25] MEDS: Magnesium Oxide 400 MG TAB PO (16:29)
[2022-11-25 16:55] VITALS: BP 128/73; PULSE 67; RESP 18; TEMP 36.6; O2SAT 97
== END 2022-11-25 17:19 | disposition home or self-care (01) ==
PROVIDERS: Emergency Provider Nurse Practitioner Family; PCP Family Medicine
DX: R41.82 Altered mental status, unspecified (principal); I48.91 Unspecified atrial fibrillation; G20 Parkinson's disease; J44.9 Chronic obstructive pulmonary disease, unspecified
CPT/HCPCS: 70496; 70498; 80053; 93005; 96361; 99285; 83735; 84484; 85025; 93010; 99284; J3490

== ENCOUNTER 2022-11-28 11:01 | Outpatient (CLI) | payer MEDICARE, SELFPAY ==
--- NOTE | 2022-11-28 07:15 | DI.US_ITS ---
APPROVED REPORT EXAM: Comprehensive 2D, Doppler, and color-flow Echocardiogram Patient Location: Out-Patient Automotive Painter: Ana Laura Mathias RDCS (AE) Indications: Pre op hip replacement, aortic stenosis, Tricuspid insufficiency Other Information Study Quality: Adequate Conclusion Normal left ventricular wall thickness and chamber size. Ejection fraction is 45 to 50%. There is m ild to moderate global hypokinesis Normal right ventricular size and systolic function Both atria are severely dilated Aortic valve is calcified and probably trileaflet with moderate regurgitation. There is no hemodynam ically significant aortic stenosis Thickened mitral leaflets with mild regurgitation Thickened tricuspid leaflets with trace to mild regurgitation. Estimated right ventricular systolic pressure is 27 mmHg Mildly dilated ascending aorta Patient was in atrial fibrillation with a controlled rate throughout the study Wall motion Left Ventricle The left ventricle is normal size. Left ventricular systolic function is mildly to moderately decrea sed. There is normal left ventricular wall thickness. There is global hypokinesis of the left ventric le. There is no ventricular septal defect visualized. LVEF is 45-50%. Right Ventricle Right ventricle is grossly normal in size. The right ventricular systolic function is normal. The RVS P is 26.9mmHg. Atria Left atrium is severely dilated. Right atrium is severely dilated. The interatrial septum is intact w ith no evidence for an atrial septal defect. Aortic Valve Aortic valve is calcified. Aortic valve is probably trileaflet. There is no aortic valvular stenosis. Moderate aortic regurgitation. Mitral Valve Mitral valve leaflets are mildly thickened. No evidence of mitral valve stenosis. Mild mitral regurgi tation. Tricuspid Valve Tricuspid valve leaflets are thickened There is no tricuspid valve stenosis. Trace to mild tricuspid regurgitation. Pulmonic Valve The pulmonary valve is normal in structure. There is no pulmonic valvular stenosis. Mild pulmonic reg urgitation. Great Vessels The aortic root is normal in size. The ascending aorta is mildly dilated. IVC is normal in size and c ollapses >50% with inspiration. Pericardium There is no pericardial effusion. 2D Dimensions IVSD d PLAX 0.83 cm F: 0.6-1.0 LV Vol A2C d MOD 47.0 mL LVPW d PLAX 0.86 cm F: 0.6 - 1.0 LV Vol A4C d MOD 70.4 mL LVID d PLAX 4.42 cm F: 3.8 - 5.2 LA vol/ BSA A2C s A-L 49.6 mL/m2 LVDs 3.55 cm F: 2.2 - 3.5 LA vol/ BSA A4C s A-L 55.0 mL/m2 Ao Root d 3.28 cm F: 2.7 - 3.3 LA Vol/ BSA Biplane s A-L 53.6 mL/m2 RA Area A4C 21.33 cm2 LA Area A4C s MOD 23.02 cm2 RA Vol/ BSA A4C s A-L 56.3 mL/m2 LA Area A2C s MOD 21.27 cm2 Ao Asc Diam d 3.57 cm F: 2.3 - 3.1 LV EF A4C MOD 45.4 % LV EF Teichholz 40.7 % LV EF A2C MOD 45.7 % LVEF (Garcia's) 46.42 % F: 54 - 74 LV EF Biplane MOD 46.4 % LV Volume 51.71 mL F: 46 - 106 SV 27.49 mL LV Volume Index 38.58 mL/m2 F: 29 - 61 SV Index 20.52 mL/m2 LV Vol Biplane MOD 59.2 mL FS 19.70 % M-Mode TAPSE 1.24 cm (M/F) >1.7 LV Diastology MV E' medial 0.111 (>0.07 m/s) MV E Vmax 0.83 (0.4-1.3 m/s) LV E/e MED 7.45 (<14) MV E/E' medial 7.50 Aortic Valve LVOT Area 3.05 cm2 AoV Area Vmax 2.08 cm2 LVOT Vmax 0.86 m/s AoV Area/ BSA (Vmax) 1.55 cm2/m2 LVOT Mean Christophe. 0.59 m/s MOE Mean Christophe. 2.25 cm2 LVOT Peak Grad 3.0 mmHg MOE Mean Christophe. Index 1.68 cm2/m2 LVOT Mean Grad 1.6 mmHg AR DT 1370 msec LVOT VTI 0.159 m AR PHT 397 msec LVOT Diam s 1.95 cm AoV Vmax 1.27 m/s Velocity Ratio 0.68 AoV Mean Christophe. 0.80 m/s AoV Peak Grad 6.5 mmHg LVOT SV 48.68 mL AoV Mean Grad 3.0 mmHg AoV VTI 0.198 m AoV Area VTI 2.46 cm2 AoV Area/ BSA (VTI) 1.84 cm/m2 Mitral Valve MV DT 162 (160-240 msec) MR Vmax 4.95 m/s MV PHT 47 msec MR VTI 1.474 m MV Area PHT 4.70 cm2 MR Peak Grad 98.0 mmHg MR Mean Grad 63.4 mmHg Pulmonary Valve PV Vmax 0.72 (0.5-1.5 m/s) RVOT Peak Gr. 1.09 mmHg PV Peak Grad 2.1 mmHg RVOT Mean Gr. 0.55 mmHg PV Mean Grad 1.0 mmHg RVOT VTI 0.083 m PV VTI 0.132 m RVOT Vmax 0.52 m/s Tricuspid Valve TR Peak Grad 23.9 mmHg TR Vmax 2.44 m/s RA Pressure 3.00 mmHg RVSP (TR) 26.9 mmHg
== END 2022-11-28 11:21 ==
LOC: DI 11:02
PROVIDERS: PCP Family Medicine; Visit Provider Family Medicine
DX: I07.1 Rheumatic tricuspid insufficiency (principal); I35.0 Nonrheumatic aortic (valve) stenosis
CPT/HCPCS: 93306

== ENCOUNTER 2022-12-08 08:55 | Emergency (ER) | payer MEDICARE, SELFPAY ==
[2022-12-08] VITALS (17 sets, daily range): BP systolic 112–165; BP diastolic 48–134; PULSE 72–133; RESP 16–33; O2SAT 96–99
--- NOTE | 2022-12-08 | DI.RAD_ITS ---
Exam(s) XR CHEST 2V PA LATERAL EXAM: XR CHEST 2V PA LATERAL CLINICAL HISTORY: weakness. TECHNIQUE: 2D digital imaging was performed. COMPARISON: CR XR CHEST 2V PA LATERAL from 03/14/2021 FINDINGS: 2 views: Heart size is normal. The mediastinum is not widened. Bilateral hyperinflation. No obvious infiltrates. There is vertical line in the lateral aspect of t he right lung which is either pneumothorax or breast shadow. No obvious lung markings seen lateral t o this line. No obvious pleural effusions. IMPRESSION: Possible right-sided pneumothorax versus possible artifact.. Recommendrepeat image with different ro tation and also with expiration. DATA REPOSITORY: RADIATION DOSE DELIVERED:
--- NOTE | 2022-12-08 | DI.CT_ITS ---
Exam(s) CT HEAD WO EXAM: CT HEAD WO CLINICAL HISTORY: fall. TECHNIQUE: Imaging Protocol: Axial computed tomography images with coronal and sagittal reformatted images were created and reviewed COMPARISON: CT CT BRAIN NECK CTA from 11/25/2022 FINDINGS: There are no skull fractures. There is no fluid in the visualized paranasal sinuses. There is no evidence of intracranial hemorrhage, mass effect, or shift of midline structures. There are no extra-axial fluid collections. The ventricles are not enlarged or shifted and there is no blo od within the ventricular system nor within the basal cisterns. Small 4 millimeterlacune again noted in the left cerebellar hemisphere. Also subtle suggestion of 3 millimeter lacunar infarct in the left thalamus., nonhemorrhagic There is mild bilateral symmetrical periventricular hypodensity consistent with chronic small vessel disease. Persistent cavum septum pellucidum again noted. 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 No large territorial infarct. Clinically indicated MRI with diffusion imaging can be performed for added sensitivity and specificit y. RADIATION DOSE DELIVERED: 712.49mGy.cm Total DLP DATA REPOSITORY: All CT scans at this facility are submitted to the National Radiology Data Registry (NRDR) Dose Index Registry (DIR) with the [employer] (ACR). RADIATION OPTIMIZATION: All CT scans at this facility use at least one of these dose optimization te chniques: automated exposure control; mA and/or kV adjustment per patient size (includes targeted exa ms where dose is matched to clinical indication); or iterative reconstruction.
--- NOTE | 2022-12-08 08:45 | RT.EKG_ITS ---
APPROVED REPORT Exam: Resting ECG Reason for Exam: weakness Patient Location: E HR:88 bpm ECG Measurements Heart Rate 88 AXIS ID [id number] P [id number] QRSd 99 QRS -59 QT 407 T 249 QTc 508 Conclusion Atrial fibrillation...V-rate 68-119, irreg A-activity Left anterior fascicular block...axis(240,-40), init forces inf Anterior infarct, old...Q >40mS, abnormal ST-T, V2-V5 Prolonged QT interval...QTc >500mS
--- NOTE | 2022-12-08 10:51 | ED.GENADUL_ITS ---
Discharge Plan Disposition Patient Disposition: Home Discharge Details Clinical Impression: Urinary tract infection Primary Care Provider: Luz Szymanski ED Provider: Pa Westbrook Home Meds and New Rx's Prescriptions: New cephalexin 500 mg capsule 500 mg PO TID Qty: 14 0RF No Action carbidopa-levodopa 25-100 mg tablet extended release 1 tab PO TID Qty: 270 3RF Rx Instructions: Take at 6am, 11am, and 4pm. amantadine HCl 100 mg capsule 100 mg PO DAILY Qty: 90 5RF duloxetine 30 mg capsule,delayed release(DR/EC) 30 mg PO DAILY Qty: 90 11RF verapamil 180 mg capsule,ext rel. pellets 24 hr 180 mg PO DAILY Qty: 90 5RF lorazepam 0.5 mg tablet 0.5 mg PO QHS PRN (Reason: insomnia) Qty: 30 0RF fluticasone propionate 50 mcg/actuation spray,suspension 2 spray NS BID PRN (Reason: allergy symptoms) Qty: 47.4 5RF diltiazem HCl 30 mg tablet 30 mg PO BID PRN (Reason: palpitation) Qty: 50 0RF Eliquis 2.5 mg tablet 2.5 mg PO BID Qty: 180 12RF buspirone 10 mg tablet 10 mg PO TID Qty: 270 5RF cephalexin [Keflex] 500 mg Capsule 500 mg PO TID Discharge Instructions Instructions: Urinary Tract Infection in Women (ED) Additional Instructions: Stop taking the Eliquis today. Use your wheelchair at home at all times for all displacements. Your daughter will bring you to the hospital on Sunday for 10 AM for your surgery. Do not eat or drink anything after midnight on Sunday in preparation for your surgery on Sunday. On Sunday you may take your morning medications except the Eliquis with a small sip of water. Medical Decision Making HPI ROS and physical exam can be found on the paper chart since we were downtown. Essentially this is an 82-year-old lady who was brought to the hospital for evaluation for weakness and a possible fall. Although the patient is adamant that she did not fall and she lives alone family is insistent that she had fallen. Work-up included head CT which was negative. Chest x-ray was also negative. Patient initially refused the left hip x-ray were she notes she has chronic disease and is actually scheduled for surgery this coming Sunday. Blood work was within normal limits. EKG did not show any signs of ischemia. Normal troponin. UA did reveal a mild UTI. [facility] Plan for the patient to go home with some Keflex. The patient had a physical therapy evaluation with a walker. She was unable to walk independently with a walker which she usually is able to do. Following this failed trial I was able to convince her to get x-rays of her left hip which did not reveal any worsening disease. The patient has no admittable diagnoses. This was discussed with the daughter on multiple occasions. The daughter is adamant that she will not take her mother to perform home and that no one in the family is willing to take this elderly patient to their home. Case management was involved please see their notes for discussions that occurred between case management and family and the patient primary care doctor. I was present when the patient daughter and the orthopedic office will have a conversation regarding her preop for Sunday. The patient is agreeable to having surgery on Sunday. She will stop her Eliquis today take the antibiotic for her UTI and continue rest of her medications. Confirm that she will grape picker the patient's medications. On Sunday, tomorrow, the daughter abram patient's groceries like she usually does. There will be people checking on this lady or over the course of the weekend. I have explained to the patient it is very important that she use the wheelchair she has at home if she needs any type of the placement at home until she gets the surgery. HPI General Date/Time Provider Initiated Documentation: 12/08/22 10:38 . HPI Narrative: See paper chart Related Data Home Medications Medication Instructions Recorded Confirmed diltiazem HCl 30 mg tablet 30 mg PO BID PRN palpitation #50 06/21/21 12/08/22 tab-caps fluticasone propionate 50 2 spray NS BID PRN allergy 06/21/21 12/08/22 mcg/actuation nasal symptoms #47.4 mL spray,suspension apixaban 2.5 mg tablet (Eliquis) 2.5 mg PO BID #180 tabs 05/30/22 12/08/22 buspirone 10 mg tablet 10 mg PO TID #270 tabs 05/30/22 12/08/22 amantadine HCl 100 mg capsule 100 mg PO DAILY #90 caps 07/25/22 12/08/22 carbidopa ER 25 mg-levodopa 100 mg 1 tab PO TID #270 tabs 07/25/22 12/08/22 tablet,extended release duloxetine 30 mg capsule,delayed 30 mg PO DAILY #90 tabs 07/25/22 12/08/22 release verapamil 180 mg 24 hr 180 mg PO DAILY #90 tab-caps 07/25/22 12/08/22 capsule,extended release lorazepam 0.5 mg tablet 0.5 mg PO QHS PRN insomnia #30 tabs 09/25/22 12/08/22 cephalexin 500 mg capsule 500 mg PO TID 12/08/22 12/08/22 cephalexin 500 mg capsule 500 mg PO TID #14 caps 12/08/22 Previous Rx's Medication Instructions Recorded diltiazem HCl 30 mg tablet 30 mg PO BID PRN palpitation #50 06/21/21 tab-caps fluticasone propionate 50 2 spray NS BID PRN allergy 06/21/21 mcg/actuation nasal symptoms #47.4 mL spray,suspension apixaban 2.5 mg tablet (Eliquis) 2.5 mg PO BID #180 tabs 05/30/22 buspirone 10 mg tablet 10 mg PO TID #270 tabs 05/30/22 amantadine HCl 100 mg capsule 100 mg PO DAILY #90 caps 07/25/22 carbidopa ER 25 mg-levodopa 100 mg 1 tab PO TID #270 tabs 07/25/22 tablet,extended release duloxetine 30 mg capsule,delayed 30 mg PO DAILY #90 tabs 07/25/22 release verapamil 180 mg 24 hr 180 mg PO DAILY #90 tab-caps 07/25/22 capsule,extended release lorazepam 0.5 mg tablet 0.5 mg PO QHS PRN insomnia #30 tabs 09/25/22 cephalexin 500 mg capsule 500 mg PO TID #14 caps 12/08/22 Allergies Allergy/AdvReac Type Severity Reaction Status Date / Time methylphenidate AdvReac Intermediate GI Verified 12/08/22 14:54 codeine AdvReac Unknown Nausea Verified 12/08/22 14:54 azithromycin AdvReac Nausea Verified 12/08/22 14:54 [From Zithromax Z-Edu] sulfamethoxazole AdvReac explosive Verified 12/08/22 14:54 [From Bactrim] diarrhea trazodone AdvReac Nausea Verified 12/08/22 14:54 trimethoprim [From Bactrim] AdvReac explosive Verified 12/08/22 14:54 diarrhea General Stated Complaint: Dizzy/Sync UMESH: 3 Review of Systems Narrative: see paper chart PFSH All Active Problems (Updated 12/08/22 @ 15:09 by Pa Westbrook MD) Urinary tract infection (Acute) Mental status alteration (Acute) 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 (Acute) Avascular necrosis of bone of hip (Acute) Carmen onychomycosis (Acute) Malnutrition (Acute) Parkinson disease (Chronic) Dementia (Chronic) MOCA on 06/01/22 Discharge planning issues (Acute) DVT prophylaxis (Acute) New onset left bundle branch block (LBBB) (Acute) Ambulatory dysfunction (Acute) Weakness (Acute) Hypokalemia (Acute) Frequent falls (Acute) Fatigue (Acute) Decreased hearing of both ears (Acute) Depression (Chronic) Metatarsalgia of both feet (Acute) Wart viral (Acute) Parkinson's disease (Chronic) Hypophonia (Acute) Presbylarynges (Acute) Abnormal weight loss (Acute) Ductal papillomatosis of breast (Acute) Tricuspid valve insufficiency (Chronic 04/14/16) moderate Osteopenia (Chronic) t-scores; -2.1; -1.5 Insomnia (Chronic 09/02/14) 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 Aortic valve insufficiency (Chronic) Followed by Mohan Morris at [place]. Mild cognitive impairment with memory loss (Chronic) see above Medical History Abdominal pain Abnormal weight loss 07/16/04 from 124-107; she feels it's due to increased activity and stress ALLERGIES Allergy or intolerlance to codeine, sulfamethoxazole and trimethoprin. There is a history of low blood pressure on calcium blockers in the past as well. 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 Dysphagia Fatigue Foot joint pain 10/10/12 Foot joint pain (10/10/12) H/O echocardiogram 10/10/12 echo w/neg pulmonary w/u at [facility]; PA pressure 21 Heart palpitations Hoarseness Low back pain (04/12/09) Palliative care patient Tachycardia Surgical History Colonoscopy - MAC 1995 1997 1998 2012 ECHO (~2006) Echocardiogram with negative pulmonary work up at [facility], PA pressure 21 EGD - MAC (~1995) showing increase in PA pressures H/O cataract removal with insertion of prosthetic lens H/O esophagogastroduodenoscopy 07/16/95 showing increase in PA pressure S/P appendectomy S/P breast biopsy intraductal papilloma S/P bunionectomy bilateral Family History Mother Essential hypertension Heart disease Father No problems noted. Social History Smoking/Tobacco Use Status: Never Smoking risk assessment performed?: Yes Alcohol Intake: current Alcohol Intake frequency: holidays/special occasions only Alcohol type: wine Drug use: Never Adopted: No Caregiver/Support person: Yes (caregiver for fiance) Details: currently in a detention, but pt is primary support Foster care: No Household members: none Housing: house Number of Children: 3 number of grandchildren: 4 current occupation: Retired Pets and animals: No What type of physical activity do you participate in: none Seatbelt use: never Drive intox or ride w/intox crew car driver: No Firearms in home: Yes (unloaded, not locked) Firearms unloaded and locked: No Additional Social history: Unable to assess privatley. Pt. was in ER during pre-op call with Daughter Jamilah Houston, pt is reluctant to do surgery but did verbally agree to move forward with IVONNE. Dr. Westbrook explained to pt. that to walk independently she needs this surgery. Pre-op was completed as best as possible with Jamilah Cullen and Dr. Westbrook. Pt. was instructed to take Diltiazem, verapamil, carbidopa/levodopa, buspirone, dulo xetine, amandtadine, and newly prescribed Cephalexin for UTI morning of surgery. As well as to be NPO after midnight, may have water only up unil 7am morning of surgery after that nothing else by mouth, and to arrive 10am to [facility]. Dtr Jamilah, stated she will be bringing pt. DOS. Exam Narrative Exam Narrative: see paper chart Course Vital Signs Vital signs: Vital Signs Respiratory Rate 16 12/08/22 10:11 Respiratory Rate 16 12/08/22 10:11 Respiratory Effort Normal 12/08/22 10:11 Respiratory Depth Normal 12/08/22 10:11 Respiratory Pattern Normal 12/08/22 10:11
[2022-12-08 11:23] LABS: Abs Immature Grans 0.03 10^3/uL (0.0-0.06); Absolute Basophil Count 0.02 10^3/uL (0.0-0.2); Absolute Eosinophil Count 0.01 10^3/uL (0.0-0.7); Absolute Monocyte Count 0.33 10^3/uL (0.1-0.8); Absolute Neutrophil Count 7.36 10^3/uL (1.2-6.7); Basophils % 0.2; Eosinophils % 0.1; HCT 39.4 % (36.0-46.0); HGB 12.9 g/dL (11.2-15.7); Immature Grans % 0.4; Lymphocytes % 6.1; MCH 31.5 pg (27.0-33.0); MCHC 32.7 % (32.0-36.0); MCV 96 fL (80-95); MPV 9.6 fL (8.0-11.0); Neutrophils % 89.2; Platelet Count 157 10^3/uL (130-400); RDW 13.4 % (11.7-14.6); RDW-SD 47.8 fL; WBC 8.25 10^3/uL (4.4-10.8)
[2022-12-08 11:31] LABS: Bilirubin Negative (Negative); Blood Trace-intact (Negative); Clarity Cloudy (Clear); Glucose Negative (Negative); Ketones Negative (Negative); Leukocyte Esterase Trace (Negative); Nitrite Positive (Negative); Specific Gravity >= 1.030 (1.005-1.025); Urobilinogen 0.2 mg/dL (Up to 0.2); pH 5.5 (5-8)
[2022-12-08 11:37] LABS: Anion Gap 6.4 mmol/L (3-11); BUN 18 mg/dL (7-18); CO2 28.6 mmol/L (21.0-32.0); CREATININE 0.7 mg/dL (0.55-1.02); Calcium 8.4 mg/dL (8.5-10.1); Chloride 106 mmol/L (98-107); Estimated GFR 85.23 (mL/min/1.73m2); Glucose 108 mg/dL (74-106); Potassium 3.8 mmol/L (3.5-5.1); Sodium 141 mmol/L (136-145); Troponin I < 50 ng/L (<or=60)
[2022-12-08 11:38] LABS: Bacteria Many HPF (Negative); C & S Indicated? Yes; Casts Negative LPF (Negative); Crystals Negative HPF (Negative); Epithelial Cells Negative HPF (Negative); Mucus Trace (Negative); Other Cells Negative (Negative); WBC 20-50 HPF (0-5)
--- NOTE | 2022-12-08 12:24 | DI.RAD_ITS ---
Exam(s) XR CHEST 2V PA LATERAL EXAM: XR CHEST 2V PA LATERAL CLINICAL HISTORY: PTX ? expiration. TECHNIQUE: 2D digital imaging was performed. COMPARISON: CR XR CHEST 2V PA LATERAL from 12/08/2022 FINDINGS: 2 views: Performed as repeat because of possible pneumothorax on the right side. Heart size is normal. The mediastinum is not widened. Bilateral hyperinflation. Finding on the right side is most probably skin fold or breast shadow. Th ere appear to be lung markings laterally to this. There is no pneumothorax. No pleural effusions. IMPRESSION: No acute pulmonary findings. DATA REPOSITORY: RADIATION DOSE DELIVERED:
[2022-12-08] MEDS: cefTRIAXone 1 GM/50 ML BAG IV (13:12)
[2022-12-08 14:27] LABS: Troponin I < 50 ng/L (<or=60)
--- NOTE | 2022-12-08 14:39 | DI.RAD_ITS ---
Exam(s) XR HIP LT COMPLETE AP PELVIS EXAM: XR HIP LT COMPLETE AP PELVIS CLINICAL HISTORY: pain. TECHNIQUE: 2D digital imaging was performed. COMPARISON: CR XR HIP LT COMPLETE AP PELVIS from 11/09/2022 FINDINGS: 3 views Again noted is the hardware in left hip across femoral neck fracture. Again noted is some volume los s the femoral head which may represent sequelae of avascular necrosis. Also some degenerative change in hip joint. Opposite-right hip remains relatively unremarkable in appearance. No hardware loosening. No obvious radiographic evidence of osteomyelitis. IMPRESSION: As above. DATA REPOSITORY: RADIATION DOSE DELIVERED:
--- NOTE | 2022-12-08 15:17 | PDOC.CMPRO ---
Date of service: 12/08/22 Time of Service: 14:00 Care Management Progress Note Progress Note Text Progress Note Text: Alyse
--- NOTE | 2022-12-08 15:48 | PDOC.CMPRO ---
Date of service: 12/08/22 Time of Service: 14:00 Care Management Progress Note Progress Note Text Progress Note Text: CM is asked to meet with Alyse after she presented to the ER by ambulance with a chief complaint of Dizziness and Syncope, she is lying in the stretcher and accompanied by her daughter Ana (HCA). Per ER provider, Alyse does not have a diagnosis that warrants inpatient admission, however there are discharge planning concerns. CM discussed the importance of longterm planning with Alyse and Ana. CM offered Alyse Registered Client Associate resources and encouraged increasing rn progressive care support at home, patient declines and handed back the written information provided, including information on the COA. Ana flagged CM down after leaving the room and verbalizes that her mom doesn't know this yet, but she is not taking her home and just wants to be sure that she's not going to have to stay at the hospital for weeks. Per Ana, she was instructed by Alyse's PCP to call 911, have the ambulance bring her to the hospital and leave her here. Per Ana, although Alyse is able to make her own decisions she is stubborn, wont accept any help and she personally can't keep enabling Alyse to make bad decisions. CM reviewed case again with Dr. Westbrook prior to being transferred to Dr. Szymanski call. Dr. Szymanski expresses her frustration with Alyse's willingness to make good choices in relation to having half capacity. Of note, Alyse was evaluated by her PCP on 12/08/22 and per report Alyse does retain capacity.? I did do a capacity evaluation on her at her last visit.? She does have some dementia and is often times difficult to work with due to her stubbornness, but she still retains capacity and can make her own decisions. Fortunately, Alyse is scheduled for an Ortho procedure next week, and may be agreeable to SNF for STR, if requires a 3 night qualifying stay.
--- NOTE | 2022-12-10 09:32 | NUR.NOTE ---
Nursing Note: Accessed chart to look up whether or not on antibiotic.
--- NOTE | 2022-12-13 18:13 | IN_ITS ---
Date of service: 12/08/22 Time of Service: 13:12 PT Notes Visit Reasons: [facility] Physical Therapy Initial Evaluation Date: 12/08/2022 Referring Doctor: Pa Westbrook MD PT Orders: PT CONSULT: Urgent Precautions: Fall. Standard. Patient Profile/Admitting Diagnosis: Alyse is an 82-year-old female with Parkinson's disease who presented to the ED today due to generalized weakness and possible fall at home. Referred to PT to assess balance and safety of ambulation. 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 (Acute) Avascular necrosis of bone of hip (Acute) Carmen onychomycosis (Acute) Malnutrition (Acute) Parkinson disease (Chronic) Dementia (Chronic) MOCA on 06/01/22 Discharge planning issues (Acute) DVT prophylaxis (Acute) New onset left bundle branch block (LBBB) (Acute) Ambulatory dysfunction (Acute) Weakness (Acute) Hypokalemia (Acute) Frequent falls (Acute) Fatigue (Acute) Decreased hearing of both ears (Acute) Depression (Chronic) Metatarsalgia of both feet (Acute) Wart viral (Acute) Parkinson's disease (Chronic) Hypophonia (Acute) Presbylarynges (Acute) Abnormal weight loss (Acute) Ductal papillomatosis of breast (Acute) Tricuspid valve insufficiency (Chronic 04/14/16) moderate Osteopenia (Chronic) t-scores; -2.1; -1.5 Insomnia (Chronic 09/02/14) 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 PFT - w/ exercise diffusion - nl at [facility] Atrial fibrillation (Chronic 04/07/13) Anxiety (Chronic) JANET-7 SCORE=16 Chronic obstructive lung disease (Chronic) Hypothyroidism (Chronic 03/10/13) Newly diagnosed.Aortic valve insufficiency (Chronic) Followed by Mohan Morris at [place]. Mild cognitive impairment with memory loss (Chronic) see above Medical History? Abdominal pain Abnormal weight loss 07/16/04? from 124-107; she feels it's due to increased activity and stress ALLERGIES Allergy or intolerlance to codeine, sulfamethoxazole and trimethoprin.? There is a history of low blood pressure on calcium blockers in the past as well. 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 Colonoscopy - MAC 1995 1997 1998 2012 ECHO (~2006) Echocardiogram with negative pulmonary work up? at [facility],? PA pressure 21EGD - MAC (~1995) showing increase in PA pressures H/O cataract removal with insertion of prosthetic lens H/O esophagogastroduodenoscopy 07/16/95? showing increase in PA pressure S/P appendectomy S/P breast biopsy intraductal papilloma S/P bunionectomy bilateral Social History/Home Situation: Lives alone. Ambulatory inside the house with FWW. Has a lady who comes in once a week for house chores. Does her own laundry and meals. Equipment Owned/DME: FWW Subjective: Agreeable to moved out of bed with FWW. Reports fatigue and weakness. Objective: General Observation: In mild distress. Mildly confused. Asthenic. Mental Status: Alert. Knows where she is. Able to name the current president. Pain: Generalized moderate pain Vital Signs: Closely moniotred via tele ROM: Right Upper Extremity: Grossly WFL Left Upper Extremity: Grossly WFL Right Lower Extremity: Lacks the last 50% at the hip. Grossly WFL in the knee and ankle. Left Lower Extremity: Lacks the last 50% at the hip. Grossly WFL in the knee and ankle. Strength: Right Upper Extremity: Grossly 3/5 Left Upper Extremity: Grossly 3/5 Right Lower Extremity: 3-/5 at the hip. Grossly 3/5 in knee and ankle muscle group Left Lower Extremity: 3-/5 at the hip. Grossly 3/5 in knee and ankle muscle group Bed Mobility/Transfers: Supine to sit minimal assist Sit to supine minimal assist Sit to stand minimal assist of 2 Stand to sit minimal assist of 2 Gait: Instructed patient with level surface ambulation of 8 small steps using FWW however started to lean to the R and needed moderate support from KINGSLEY Morales and this provider to prevent a fall. Steps shuffled. Deferred further ambulation and shouted for help from nursing staff to prevent a fall. Balance: Static Sitting: Fair Dynamic Sitting: Fair Static Standing: Poor Dynamic Standing: Unable Special Tests: Mobility Limitations Standardized Measure [facility] AM-PAC 6 clicks Basic Mobility Inpatient Short Form: Raw Score: 9 CMS Score: 81% deficit 4-stage balance test: Deferred due to high fall risk Informed Consent/Education: Patient was instructed in purpose of PT consult. Unwilling to stay in a SNF due to previous negative experience. Assessment: Unsafe to go back home alone. Will require supervised setting due to high fall risk at this time or will need use of wheelchair inside home to reduce fall risk until scheduled hip surgery. Dr. Westbrook was apprised of discharge recommendations. Patient presents with clinical signs and symptoms consistent with current/admitting diagnoses that have resulted to mobility limitations, gait instability, generalized weakness, and overall ADL decline as demonstrated by the following impairment level findings: 1. Decreased strength to B UE/LE major muscle groups 2. Impaired sitting/standing balance 3. Impaired activity tolerance 4. Limitation of joint range of motion in B hips L>>R Impairments are contributing to the following functional limitations: 1. Decline in bed mobility skills 2. Decline in transfer skills 3. Difficulty with ambulation without assistive device and physical assistance 4. Increased completion time for mobility ADL performance 5. Increased risk for falls 6. Difficulty with managing steps alone safely Patient is assessed as a 81759 high complexity based on the following: History: 82-year-old female with past medical history as indicated above Examination: Demonstrable impairment in strength, balance, and mobility level with underlying impairments and functional limitations as exhibited above as well as deficit score of 81% utilizing the [facility] Mobility Inpatient Short Form Presentation: Evolving Decision Makin moderate complexity Goals: N/A. PT evaluation only. Plan of Care/Treatment Plan: N/A. PT evaluation only. DISCHARGE RECOMMENDATIONS: [] Home with no services [] [] Home with services [specify] [] Home with outpatient PT [] [X] SNF for continued rehabilitation. Patient will benefit from [facility]ci facility placement for continued skilled physical therapy services in order to progress mobility level, strength, and balance in preparation for a safe discharge to home. [] [facility] [] [] SNF versus LTC based on ability to participate and progress [] TREATMENT CODE/TIME: 68137 x 17 minutes beginning at 13:12 PM. Thank you for the opportunity to participate in the care of this patient. Mikayla Costa PT, DPT, CLT [facility] [place], [place]
== END 2022-12-08 18:20 | disposition home or self-care (01) ==
PROVIDERS: Emergency Provider Emergency Medicine; PCP Family Medicine
DX: R42 Dizziness and giddiness (principal); R11.0 Nausea; N39.0 Urinary tract infection, site not specified
CPT/HCPCS: 80048; 87077; 93005; 96365; 99285; 70450; 71046; 73502; 81003; 81015; 84484; 85025; 87086; 87186; 93010; 99284; J0696

== ENCOUNTER 2022-12-12 06:45 | Inpatient (IN) | payer MEDICARE, SELFPAY ==
[2022-12-12] VITALS (12 sets, daily range): BP systolic 91–128; BP diastolic 46–74; PULSE 58–100; RESP 12–25; TEMP 35.8–37; O2SAT 94–100; BMI 14.1
[2022-12-12] MEDS: Acetaminophen 500 MG TAB 1000 MG PO ×2 (10:42→19:50)
[2022-12-12] MEDS: Celecoxib 200 MG CAP 400 MG PO (10:42)
--- NOTE | 2022-12-12 11:21 | ANES.PREOP_ITS ---
General Info Date of Service Date Performed: 12/12/22 Height: 5 ft 5 in Weight: 38.51 kg Body Mass Index (BMI): 14.1 Surgical Procedure: Operation Date: 12/12/22 13:50 Proposed Procedure Side Surgeon p Hip Total Hip Anterior, Bimentum Dual Mobility, Cemented Stem(back-up) Left Tremayne Douglas MD s Hip Hardware Removal Left Tremayne Douglas MD Meds Allergies and Home Medications Allergies Allergy/AdvReac Type Severity Reaction Status Date / Time methylphenidate AdvReac Intermediate GI Verified 12/12/22 10:11 codeine AdvReac Unknown Nausea Verified 12/12/22 10:11 azithromycin AdvReac Nausea Verified 12/12/22 10:11 [From Zithromax Z-Edu] sulfamethoxazole AdvReac explosive Verified 12/12/22 10:11 [From Bactrim] diarrhea trazodone AdvReac Nausea Verified 12/12/22 10:11 trimethoprim [From Bactrim] AdvReac explosive Verified 12/12/22 10:11 diarrhea Home Medication Medication Instructions Recorded diltiazem HCl 30 mg tablet 30 mg PO BID PRN palpitation #50 06/21/21 tab-caps fluticasone propionate 50 2 spray NS BID PRN allergy 06/21/21 mcg/actuation nasal symptoms #47.4 mL spray,suspension apixaban 2.5 mg tablet (Eliquis) 2.5 mg PO BID #180 tabs 05/30/22 buspirone 10 mg tablet 10 mg PO TID #270 tabs 05/30/22 amantadine HCl 100 mg capsule 100 mg PO DAILY #90 caps 07/25/22 carbidopa ER 25 mg-levodopa 100 mg 1 tab PO TID #270 tabs 07/25/22 tablet,extended release duloxetine 30 mg capsule,delayed 30 mg PO DAILY #90 tabs 07/25/22 release verapamil 180 mg 24 hr 180 mg PO DAILY #90 tab-caps 07/25/22 capsule,extended release lorazepam 0.5 mg tablet 0.5 mg PO QHS PRN insomnia #30 tabs 09/25/22 cephalexin 500 mg capsule 500 mg PO TID 12/08/22 cephalexin 500 mg capsule 500 mg PO TID #14 caps 12/08/22 Current Visit Medications: Current Medications Generic Name Dose Route Start Last Admin Trade Name Freq PRN Reason Stop Dose Admin Acetaminophen 1,000 mg 12/12/22 06:00 12/12/22 10:42 Acetaminophen 500 Mg Tab PO 12/12/22 16:00 1,000 mg PREOP SHARON Administration Acetaminophen 1,000 mg 12/12/22 08:30 Acetaminophen 500 Mg Tab PO TID SHARON Celecoxib 400 mg 12/12/22 06:00 12/12/22 10:42 Celecoxib 200 Mg Cap PO 12/12/22 16:00 400 mg PREOP SHARON Administration Celecoxib 200 mg 12/12/22 08:30 Celecoxib 200 Mg Cap PO BID SHARON Dexamethasone 4 mg 12/12/22 08:30 Dexamethasone 4 Mg Tab PO 12/13/22 08:31 DAILY [facility] Docusate Sodium 100 mg 12/12/22 07:29 Docusate Sodium 100 Mg Cap PO BID PRN PRN Constipation Hydromorphone HCl 0.5 mg 12/12/22 07:29 Hydromorphone 2 Mg/Ml Syr IVP Q2H PRN PRN Tranexamic Acid 1,000 mg/ 60 mls @ 360 mls/hr 12/12/22 06:00 Sodium Chloride IV 12/12/22 16:00 PREOP [facility] Ringer's Solution 1,000 mls @ 80 mls/hr 12/12/22 06:00 IV 01/07/23 23:59 INFUSION SHARON Cefazolin Sodium/Dextrose 2 gm in 50 mls @ 100 mls/hr 12/12/22 06:00 Ancef Duplex IVPB 12/12/22 16:00 PREOP [facility] Cefazolin Sodium/Dextrose 1 gm in 50 mls @ 100 mls/hr 12/12/22 08:00 Ancef Duplex IVPB Q8H [facility] IV Miscellaneous Supplies 1 each 12/12/22 06:00 Iv Access IV 01/07/23 23:59 DIRECTED [facility] Ondansetron HCl 4 mg 12/12/22 07:29 Ondansetron 4 Mg/2 Ml Vial IVP Q6H PRN PRN Nausea Oxycodone HCl 0 mg 12/12/22 07:29 Oxycodone 5 Mg Tab PO Q3H PRN PRN Pain Pantoprazole Sodium 40 mg 12/12/22 07:30 Pantoprazole 40 Mg Tabcr PO DAILY@0730 [facility] Sodium Chloride 0 ml 12/12/22 06:00 Normal Saline Flush 10 Ml Syr IV 01/07/23 23:59 PRN PRN Sodium Chloride 0 ml 12/12/22 06:00 Normal Saline 10 Ml Vial IJ 01/07/23 23:59 DIRECTED PRN Sterile Water 0 ml 12/12/22 06:00 Water,Injection,Sterile 10 Ml Vial IJ 01/07/23 23:59 DIRECTED PRN PFSH Active Problems Active Problems: Problem Status Onset Code Chronic obstructive lung disease J44.9 Hypothyroidism 03/10/13 E03.9 Aortic valve insufficiency Mild cognitive impairment with memory loss G31.84 Anxiety F41.9 Atrial fibrillation 04/07/13 I48.91 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 Depressive disorder F32.9 Diffuse large cell non-Hodgkin's lymphoma 03/11/13 C85.80 Insomnia 09/02/14 G47.00 Osteopenia M85.80 Tricuspid valve insufficiency 04/14/16 I07.1 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 Abnormal weight loss R63.4 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 Hypophonia R49.8 Parkinson's disease G20 Wart viral B07.9 Metatarsalgia of both feet M77.41, M77.42 Depression F32.9 Decreased hearing of both ears H91.93 Fatigue R53.83 Weakness R53.1 Hypokalemia E87.6 Frequent falls R29.6 Ambulatory dysfunction R26.2 UTI (urinary tract infection) N39.0 New onset left bundle branch block (LBBB) I44.7 DVT prophylaxis Z29.9 Discharge planning issues Z02.9 Dementia F03.90 Parkinson disease G20 Malnutrition E46 Carmen onychomycosis B37.2 Avascular necrosis of bone of hip M87.059 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 There is a history of low blood pressure on calcium blockers in the past as well. 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 [place]; PA pressure 21 Heart palpitations Hoarseness Low back pain (04/12/09) Palliative care patient Tachycardia Surgical History Surgical History (Updated 12/12/22 @ 10:10 by Tammy Steve RN) Colonoscopy - MAC 1995 1997 1998 2012 ECHO (~2006) Echocardiogram with negative pulmonary work up at [facility] [place], PA pressure 21 EGD - MAC (~1995) showing increase in PA pressures H/O cataract removal with insertion of prosthetic lens H/O esophagogastroduodenoscopy 07/16/95 showing increase in PA pressure History of cataract surgery History of hip surgery Hx of appendectomy S/P appendectomy S/P breast biopsy intraductal papilloma S/P bunionectomy bilateral Tobacco Smoking/Tobacco Use Status: Never Alcohol Alcohol Intake: current Alcohol intake frequency: holidays/special occasions only Alcohol type: wine Substance Use Substance use: Never Vital Signs and Lab Results Vital Signs Most Recent Vital Signs in EMR: Most Recent Vital Signs Temp Pulse Resp BP Pulse Ox 37.0 C 100 H 20 128/71 98 12/12/22 09:55 12/12/22 09:55 12/12/22 09:55 12/12/22 09:55 12/12/22 09:55 Lab Results Blood Type / Crossmatch: No Data to Display Complete Blood Count: White Blood Count 8.25 10^3/uL (4.4-10.8) 12/08/22 11:15 Red Blood Count 4.10 10^6/uL (3.93-5.22) 12/08/22 11:15 Hemoglobin 12.9 g/dL (11.2-15.7) 12/08/22 11:15 Hematocrit 39.4 % (36.0-46.0) 12/08/22 11:15 Platelet Count 157 10^3/uL (130-400) 12/08/22 11:15 Complete Metabolic Panel: Sodium 141 mmol/L (136-145) 12/08/22 11:15 Potassium 3.8 mmol/L (3.5-5.1) 12/08/22 11:15 Chloride 106 mmol/L (98-107) 12/08/22 11:15 Carbon Dioxide 28.6 mmol/L (21.0-32.0) 12/08/22 11:15 BUN 18 mg/dL (7-18) 12/08/22 11:15 Creatinine 0.7 mg/dL (0.55-1.02) 12/08/22 11:15 Est GFR (CKD-EPI 2020) 85.23 (mL/min/1.73m2) 12/08/22 11:15 Magnesium 1.7 mg/dL (1.8-2.4) L 11/25/22 13:47 Calcium 8.4 mg/dL (8.5-10.1) L 12/08/22 11:15 Albumin 3.5 g/dL (3.4-5.0) 11/25/22 13:47 Glucose 108 mg/dL (74-106) H 12/08/22 11:15 Liver Function Panel: Alanine Aminotransferase (ALT/SGPT) 7 U/L (14-59) L 11/25/22 13 :47 Aspartate Amino Transf (AST/SGOT) 38 U/L (15-37) H 11/25/22 13: 47 Coagulation Panel: No Data to Display Cardiac Panel: Troponin I < 50 ng/L (<or=60) 12/08/22 Arterial Blood Gas: No Data to Display Venous Blood Gas: No Data to Display Pancreas Panel: No Data to Display Thyroid Panel: No Data to Display Infectious Disease: No Data to Display Blood Cultures: No Data to Display Toxicology Panel: No Data to Display Imaging and Studies Imaging and Studies Study information below may be from another EMR and interpreted by another provider. Please see original notes in EMR for more complete details. EKG Summary: Atrial Fibrillation (please see study) Echocardiogram Summary: Patient Name: Alyse Arias #: [id number]: [id number] Ordering Provider: Luz Szymanski M.D., DCAccount #: [id number]: REG CLI Primary Care Provider: Luz Szymanski M.D., DCDate of Exam: 11/28/22Sex: F Admission Date: 11/28/22 : 1940 Age: 82 APPROVED REPORT EXAM: Comprehensive 2D, Doppler, and color-flow Echocardiogram Patient Location: Out-Patient Crew Boss: Ana Laura Mathias RDCS (AE) Indications: Pre op hip replacement, aortic stenosis, Tricuspid insufficiency Other Information Study Quality: Adequate Conclusion Normal left ventricular wall thickness and chamber size. Ejection fraction is 45 to 50%. There is mild to moderate global hypokinesis Normal right ventricular size and systolic function Both atria are severely dilated Aortic valve is calcified and probably trileaflet with moderate regurgitation. There is no hemodynamically significant aortic stenosis Thickened mitral leaflets with mild regurgitation Thickened tricuspid leaflets with trace to mild regurgitation. Estimated right ventricular systolic pressure is 27 mmHg Mildly dilated ascending aorta Patient was in atrial fibrillation with a controlled rate throughout the study Wall motion Left Ventricle The left ventricle is normal size. Left ventricular systolic function is mildly to moderately decreased. There is normal left ventricular wall thickness. There is global hypokinesis of the left ventricle. There is no ventricular septal defect visualized. LVEF is 45-50%. Right Ventricle Right ventricle is grossly normal in size. The right ventricular systolic function is normal. The RVSP is 26.9mmHg. Atria Left atrium is severely dilated. Right atrium is severely dilated. The interatrial septum is intact with no evidence for an atrial septal defect. Aortic Valve Aortic valve is calcified. Aortic valve is probably trileaflet. There is no aortic valvular stenosis. Moderate aortic regurgitation. Mitral Valve Mitral valve leaflets are mildly thickened. No evidence of mitral valve stenosis. Mild mitral regurgitation. Tricuspid Valve Tricuspid valve leaflets are thickened There is no tricuspid valve stenosis. Trace to mild tricuspid regurgitation. Pulmonic Valve The pulmonary valve is normal in structure. There is no pulmonic valvular stenosis. Mild pulmonic regurgitation. Great Vessels The aortic root is normal in size. The ascending aorta is mildly dilated. IVC is normal in size and collapses >50% with inspiration. Pericardium There is no pericardial effusion. 2D Dimensions IVSD d PLAX 0.83 cm F: 0.6-1.0LV Vol A2C d MOD 47.0 mL LVPW d PLAX 0.86 cm F: 0.6 - 1.0LV Vol A4C d MOD 70.4 mL LVID d PLAX 4.42 cm F: 3.8 - 5.2LA vol/ BSA A2C s A-L49.6 mL/m2 LVDs 3.55 cm F: 2.2 - 3.5LA vol/ BSA A4C s A-L55.0 mL/m2 Ao Root d 3.28 cm F: 2.7 - 3.3LA Vol/ BSA Biplane s A-L 53.6 mL/m2 RA Area A4C21.33 cm2LA Area A4C s MOD 23.02 cm2 RA Vol/ BSA A4C s A-L 56.3 mL/m2LA Area A2C s MOD 21.27 cm2 Ao Asc Diam d 3.57 cm F: 2.3 - 3.1LV EF A4C MOD 45.4 % LV EF Teichholz 40.7 %LV EF A2C MOD 45.7 % LVEF (Garcia's)46.42 % F: 54 - 74LV EF Biplane MOD 46.4 % LV Ckcvdy93.71 mL F: 46 - 669BP77.49 mL LV Volume Index38.58 mL/m2 F: 29 - 61SV Index20.52 mL/m2 LV Vol Biplane MOD 59.2 mL FS19.70 % M-Mode TAPSE 1.24 cm (M/F) >1.7 LV Diastology MV E' medial0.111 (>0.07 m/s)MV E Vmax 0.83 (0.4-1.3 m/s) LV E/e MED7.45 (<14) MV E/E' medial 7.50 Aortic Valve LVOT Area3.05 cm2AoV Area Vmax2.08 cm2 LVOT Vmax 0.86 m/sAoV Area/ BSA (Vmax)1.55 cm2/m2 LVOT Mean Christophe.0.59 m/sAVA Mean Christophe.2.25 cm2 LVOT Peak Grad 3.0 mmHgAVA Mean Christophe. Index1.68 cm2/m2 LVOT Mean Grad 1.6 mmHgAR DT 1370 msec LVOT VTI0.159 mAR PHT 397 msec LVOT Diam s 1.95 cm AoV Vmax1.27 m/s Velocity Ratio 0.68 AoV Mean Christophe.0.80 m/s AoV Peak Grad6.5 mmHg LVOT SV 48.68 mL AoV Mean Grad3.0 mmHg AoV VTI0.198 m AoV Area VTI2.46 cm2 AoV Area/ BSA (VTI)1.84 cm/m2 Mitral Valve MV DT 162 (160-240 msec)MR Vmax 4.95 m/s MV PHT47 msecMR VTI 1.474 m MV Area PHT 4.70 cm2MR Peak Grad 98.0 mmHg MR Mean Grad 63.4 mmHg Pulmonary Valve PV Vmax 0.72 (0.5-1.5 m/s)RVOT Peak Gr.1.09 mmHg PV Peak Grad 2.1 mmHgRVOT Mean Gr.0.55 mmHg PV Mean Grad 1.0 mmHgRVOT VTI0.083 m PV VTI 0.132 mRVOT Vmax 0.52 m/s Tricuspid Valve TR Peak Grad 23.9 mmHgTR Vmax 2.44 m/s RA Pressure 3.00 mmHg RVSP (TR) 26.9 mmHg Ordered By: Luz Szymanski M.D., SYD CC: Dictated By: Lisset Strickland M.D. 11/28/22 9221 <Electronically signed by Lisset Strickland M.D. in OV> 11/28/22 1518 Transcribed By: Lisset Strickland MD This is privileged, confidential information intended only for the provider named. Any use or distribution by any person other than this provider is strictly prohibited. If you receive this report in error, please notify us immediately at [phone] and return the original report to us at the address above. Thank-you. Anesthesia Assessment and Plan Anesthesia History Personal History: Unknown Anesthesia History Family History: Family History Unknown Exercise Tolerance Exercise Tolerance: Metabolic Equivalents>4 Pertinent Negatives Pertinent Negatives: No Symptoms of GERD, No Major Cardiovascular Symptoms or Complaints, No Major Pulmonary Symptoms or Complaints and No History of CVA/TIA Cardiac & Pulmonary Exam Cardiac Exam: Normal S1/S2 Heart Sounds Pulmonary Exam: Clear Bilateral Breath Sounds Implantable Cardiac Device Does patient have a Pacemaker or an ICD?: No Airway Exam Known Difficult Airway: No Mallampati Class: 2 Mouth Opening: Normal (> 3cm) Thyromental Distance: Greater than 3 cm Neck Range of Motion: Full ROM Neck Circumference: Normal Teeth Condition: Normal Dentition ASA Classification ASA Score: ASA 3 Emergency Case?: No NPO Status NPO Status: NPO Clears >2 hours, Solids >8 hours Anesthesia Plan Resuscitation Status: Full Code Anesthesia Technique: Spinal Anesthesia Airway Planned: Natural Airway Monitors Used: Standard Monitors
[2022-12-12] MEDS: Lactated Ringers 1,000 ML 80 ML IV (11:40)
[2022-12-12] MEDS: ceFAZolin 2 GM/50 ML BAG IVPB (12:47)
--- NOTE | 2022-12-12 15:00 | DI.RAD_ITS ---
Exam(s) XR HIP LT IN OR EXAM: XR HIP LT IN OR CLINICAL HISTORY: AVASCULAR NECROSIS LEFT HIP. TECHNIQUE: 2D digital imaging was performed. COMPARISON: No exams were available for comparison FINDINGS: Fluoroscopy is provided during hip arthroplasty. See procedure report for details. Total fluoroscopy time 1 minutes 20 seconds Radiation exposure index/cumulative dose:soni Mcclure= 5.2675 my IMPRESSION: DATA REPOSITORY: RADIATION DOSE DELIVERED:
--- NOTE | 2022-12-12 15:32 | DSE_ITS ---
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 The surgery was tolerated well without any notable medical, surgical, or anesthetic complications. Mobilization began postoperatively. She was voiding sponta neously. Vitals were stable. Physical therapy worked with the patient. She did have some issues with hypotension on postop day #2 and 3. However, this was found to likely be attributable to long-acting calcium channel jay. With the correction medication this improved. There is no other concerning features of her labs or other work-up which was completed including a full cardiac work- up. At the time of discharge, there were no acute medical issues. Pain was controlled on oral regimen. Home Meds and New Rx's Prescriptions: New acetaminophen 500 mg tablet 500 mg PO Q6H PRN PRN (Reason: pain) Qty: 60 3RF celecoxib 100 mg capsule 100 mg PO BID PRNQty: 60 0RF Continued carbidopa-levodopa 25-100 mg tablet extended release 1 tab PO TID Qty: 270 3RF Rx Instructions: Take at 6am, 11am, and 4pm. amantadine HCl 100 mg capsule 100 mg PO DAILY Qty: 90 5RF duloxetine 30 mg capsule,delayed release(DR/EC) 30 mg PO DAILY Qty: 90 11RF lorazepam 0.5 mg tablet 0.5 mg PO QHS PRN (Reason: insomnia) Qty: 30 0RF fluticasone propionate 50 mcg/actuation spray,suspension 2 spray NS BID PRN (Reason: allergy symptoms) Qty: 47.4 5RF Eliquis 2.5 mg tablet 2.5 mg PO BID Qty: 180 12RF buspirone 10 mg tablet 10 mg PO TID Qty: 270 5RF Changed diltiazem HCl 30 mg tablet 30 mg PO TID Qty: 50 0RF Discontinued verapamil 180 mg capsule,ext rel. pellets 24 hr 180 mg PO DAILY Qty: 90 5RF Discharge Instructions Instructions: Total Hip Replacement (DC), Total Hip Discharge Instructions Additional Instructions: Total Hip Discharge Instructions Activity: The most important activity is to walk. You should try to take short walks a few times a day. You have no restrictions on movement or positioning, but do not try to force what you do. You will find some stiffness and weakness with hip flexion (lifting your knee). Do not try to strengthen this too early, continue to practice walking and stairs and this will come. - Outpatient physical therapy can be helpful to help return you to a normal gait and improve your flexibility and strength. This can start around 2 weeks. For some patients, it?s not necessary. Usually this is determined at the time of discharge or at the first post-operative visit. - You should wear the TERRELL hose on both legs for 2 weeks. Dressing: Keep the surgical dressing in place for at least one week. After the first week it may be removed and replace with light gauze and tape or nothing. It may get wet after 3 days but avoid soaking the dressing. If it gets wet, just lightly pat dry. It is important to always keep some gauze between skin folds, especially when you are sitting. Spend some time with the wound exposed when you are lying flat as the incision does wrinkle onto itself. Medications: - You should take Tylenol and an anti-inflammatory Celebrex as your primary pain control medications. - You have also been prescribed a stomach acid reduction agent Pantoprozole to help reduce stomach acid and reflux. - You may resume Apixaban for anticoagulation tomorrow - If you have constipation you should take Colace or Miralax (which is available [id number]). It takes most people 3-4 days to have a bowel movement. Follow-up: 4 weeks post-op If you have any acute concerns or questions, please do not hesitate to contact the office at [phone]. You may contact Dr. Douglas with any questions after hours through the hospital at [phone] or on his cell phone at [phone]. Stand Alone Forms: Nursing Discharge Form Referrals: Tremayne Douglas MD [ [facility] STAFF PHYSICIAN] - Activity:: Activity as Tolerated Equipment/Supplies:: Walker Diet:: As Tolerated Discharge Orders Discharge Orders: Discharge Order (Routine); Ordered 12/18/22 Ordered By: Tremayne Douglas DS: Summary Time Spent with Patient providing and/or coordinating discharge services: Less than 30 minutes Status at Discharge Functional status at discharge: uses cane/walker Overall status at discharge: patient is progressing back to baseline Mental Status: mental status grossly normal Speech and Movement: speech and movement normal Mood: congruent mood Affect: normal affect Exam Narrative Exam Narrative: Alyse was seen this morning. She is in no acute distress. Left leg shows some swelling about the lateral aspect the left leg with some resolving ecchymosis. No pain with flexion, internal rotation, external rotation of the left hip. Positive ankle dorsiflexion, plantarflexion, great toe extension, great toe flexion. Sensation intact light touch over the femoral side nerve distributions. Psych Mental Status: mental status grossly normal Speech and Movement: speech and movement normal Mood: congruent mood Affect: normal affect DS: Data Vitals/I&O Vitals and I&O: Vital Signs Temperature 98.6 F 12/12/22 09:55 Pulse 100 H 12/12/22 09:55 Pulse Rhythm Irregular 12/12/22 09:55 Respiratory Rate 20 12/12/22 09:55 Respiratory Depth Deep 12/12/22 09:55 Blood Pressure 128/71 12/12/22 09:55 Pulse Oximetry 98 12/12/22 09:55 Oxygen Delivery Method Room Air 12/12/22 09:55 Oxygen Flow Rate 0 12/12/22 09:55 Pain Level 6 12/12/22 09:55 Intake & Output 12/11/22 12/12/22 12/12/22 23:59 11:59 23:59 Intake Total 485 / 485 Balance 485 / 485 Weight 84 lb 14.4 oz Intake: IV 485 / 485 PFSH All Active Problems Dysuria (Acute) Acute blood loss as cause of postoperative anemia (Acute) Chronic obstructive lung disease (Chronic) Hypothyroidism (Chronic 03/10/13) Newly diagnosed. Aortic valve insufficiency (Chronic) Followed by Mohan Morris at [place]. 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) PLEURAL EFFUSION Insomnia (Chronic 09/02/14) Osteopenia (Chronic) t-scores; -2.1; -1.5 Tricuspid valve insufficiency (Chronic 04/14/16) moderate Ductal papillomatosis of breast (Acute) Abnormal weight loss (Acute) Presbylarynges (Acute) Hypophonia (Acute) Parkinson's disease (Chronic) Wart viral (Acute) Metatarsalgia of both feet (Acute) Depression (Chronic) Decreased hearing of both ears (Acute) Fatigue (Acute) Weakness (Acute) Hypokalemia (Acute) Frequent falls (Acute) Ambulatory dysfunction (Acute) New onset left bundle branch block (LBBB) (Acute) DVT prophylaxis (Acute) Discharge planning issues (Acute) Dementia (Chronic) MOCA on 06/01/22 Parkinson disease (Chronic) Malnutrition (Acute) Carmen onychomycosis (Acute) Avascular necrosis of bone of hip (Acute) s/p IVONNE (12/12/22) 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 There is a history of low blood pressure on calcium blockers in the past as well. 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 Dysphagia Fatigue Foot joint pain 10/10/12 Foot joint pain (10/10/12) H/O echocardiogram 10/10/12 echo w/neg pulmonary w/u at [facility]; PA pressure 21 Heart palpitations Hoarseness Low back pain (04/12/09) Palliative care patient Tachycardia Surgical History Colonoscopy - MAC 1995 1997 1998 2012 ECHO (~2006) Echocardiogram with negative pulmonary work up at [facility], PA pressure 21 EGD - MAC (~1995) showing increase in PA pressures H/O cataract removal with insertion of prosthetic lens H/O esophagogastroduodenoscopy 07/16/95 showing increase in PA pressure History of cataract surgery History of hip surgery Hx of appendectomy S/P appendectomy S/P breast biopsy intraductal papilloma S/P bunionectomy bilateral Family History Mother Essential hypertension Heart disease Father No problems noted. Social History Smoking/Tobacco Use Status: Never Smoking risk assessment performed?: Yes Alcohol Intake: current Alcohol Intake frequency: holidays/special occasions only Alcohol type: wine Drug use: Never Adopted: No Caregiver/Support person: Yes (caregiver for fiance) Details: currently in a senior living, but pt is primary support Foster care: No Household members: none Housing: house Number of Children: 3 number of grandchildren: 4 current occupation: Retired Pets and animals: No What type of physical activity do you participate in: none Seatbelt use: never Drive intox or ride w/intox courtesy bus driver: No Firearms in home: Yes (unloaded, not locked) Firearms unloaded and locked: No Additional Social history: Unable to assess privatley. Pt. was in ER during pre-op call with Daughter Jamilah Houston, pt is reluctant to do surgery but did verbally agree to move forward with IVONNE. Dr. Westbrook explained to pt. that to walk independently she needs this surgery. Pre-op was completed as best as possible with Jamilah Cullen and Dr. Westbrook. Pt. was instructed to take Diltiazem, verapamil, carbidopa/levodopa, buspirone, duloxetine, amandtadine, and newly prescribed Cephalexin for UTI morning of surgery. As well as to be NPO after midnight, may have water only up unil 7am morning of surgery after that nothing else by mouth, and to arrive 10am to [facility]. Dtr Jamilah, stated she will be bringing pt. DOS. Time Spent with Patient Time Spent with Patient: 45-69 minutes Time was spent: preparing to see the patient(eg.review tests), obtaining and/or reviewing separately otained hiistory, indepentently interpreting results and counseling the patient
--- NOTE | 2022-12-12 15:42 | ROE_ITS ---
Date of service: 12/12/22 Time of Service: 15:20 Operative Note Operative Note DATE OF PROCEDURE: 12/12/22 PRE-OP DIAGNOSIS: Left Femoral Neck Fracture Malunion and Hardware Failure POST-OP DIAGNOSIS: same PROCEDURE: Removal of Hardware - Left Hip (separate incision) with added difficulty requring metal cutting equipment Left Anterior Total Hip Arthroplasty with Intraoperative Navigation SURGEON: Tremayne Douglas AIRCRAFT STRUCTURAL FITTER: Cesia Willis ANESTHESIA TYPE: Spinal Refer to Anesthesia Record ESTIMATED BLOOD LOSS: 200 PATHOLOGY: none sent TOURNIQUET TIME: 0 COMPLICATIONS: None Patient was transported to: PACU Patient's condition: stable Implants: 1. Depuy Bimentum Dual Mobility Acetabular Component, 51mm 2. Depuy Bimentum Dual Mobility Acetabular Liner, [id number] 3. Depuy Corail Standard 125 degree Collared Femoral Stem, Size 11 4. 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 This was confirmed with radiographic findings. Alyse has exhausted nonoperative methods and was having significant limitations in daily function and desired better function and less pain. I discussed the technical details of a hip replacement. I explained the risks of the procedure to include, but not limited to, bleeding, infection, pain, stiffness, fracture, damage to nerves and vessels, damage to muscles and tendons, loosening, instability, leg length inequality, need for repeat procedure, blood clot and cardiopulmonary demise. Despite these risks, Alyse elected to proceed. Findings: The distal locking screw of the femoral neck system was cold welded. I was unable to remove the screw with any regular techniques as the screw head was firmly fixed into the plate. The more proximal screw was loose and required manipulation to withdrawal. Metal cutting equipment was then utilized to cut out the screw head from the plate which then allowed removal of the screw and removal of the plate system. There was a fragmented femoral head with large defects from the screws and chondral damage from screw prominence. Procedure Description: Alyse was greeted in the preoperative holding area where the correct side was identified and marked. The consent was reviewed with the patient and signed. The history and physical was updated. All questions were answered. She was taken back to the operating room. A spinal anesthestic was then administered. The feet were wrapped with cast padding and Coban and then placed into the boot liners and then into the boots. Care was taken to protect the skin and make sure the heels were fully down and the boots were stable. The patient was then positioned onto the HANA table. Both legs were held in a neutral position. SCDs were applied. The patient was then slid down onto a peroneal post. Prophylactic antibiotics in the form of Cefazolin were administered. 1g of Tranxemic Acid was given intravenously within 30 minutes of incision. The left leg was then prepped with Chloraprep and draped in a standard fashion. A second prep with Chloraprep was performed prior to joceline cement of a shower-curtain type drape with Iodine impregnated skin protection. A timeout to confirm correct identity, side and site, procedure, allergies, anesthesia, and medical concerns was performed. The previous incision about the posterior lateral hip was identified. This was confirmed to be an appropriately positioned incision based on the x-ray. The skin was incised sharply. The IT band was split. Overlying scar tissue to the femoral neck screw system was identified and cleared. There is excellent visualization of the more distal screw. The T25 screwdriver was inserted. However, was unable to remove the screw from within the plate. I was able to move the entire leg by attempting to remove the screw but would not free itself from the plate. Various techniques were utilized to try to free this up but it was of no success. I was able to remove the proximal screw although with the need of an obstetric assistant device because it was free spending. However, once it was removed attention was turned back to the distal screw. Various screw removal techniques were also utilized. However, once again, I was unable to free the screw out from the plate. Therefore, utilized trephines as well as metal cutting bur is to remove the screw head from the plate. Saline irrigation was utilized during this part of the case to minimize heat dissipation but also to remove metal debris from the tissues. Once it was completed the sideplate was able to be removed. The screw was also able to be removed with minimal trauma to the femur noted. The wound was thoroughly irrigated. The deep tissues were injected with a portion of the periarticular cocktail which consisted of ropivacaine, epinephrine, clonidine, ketorolac. The wound was once again irrigated. 5 cc of demineralized bone matrix was then inserted into the holes of the lateral femur. The vastus fascia and the iliotibial band was closed with 0 Vicryl and #1 Vicryl, respectively. The skin and deep tissues of the lateral wound were left open in case her future access, but attention was turned towards the hip replacement. An obliquely oriented incision was made starting lateral to the ASIS and running distal over the Tensor Fascia Elsa (TFL) muscle belly toward the fibular head, approximately 10cm. The skin and soft tissue was dissected sharply, through Denis?s fascia, and to the fascia of the TFL. With the fascia and superior border of the IT band identified, the fascia was incised with a new knife just above any perforators from the IT band. The TFL muscle belly was bluntly dissected away from the fascia and moved laterally. The fat between TFL and rectus was identified to ensure the dissection was not within the TFL. Blunt dissection created space between abductors and the capsule and retractor was placed over the lateral femoral neck. The fibers of the rectus femoris tendon were identified and these were freed from the anterior capsule. A second cobra retractor was placed around the medial femoral neck. The TFL was further retracted laterally to show the deep fascia. Careful dissection through this layer identified three main crossing vessels of the lateral femoral circumflex. These were cauterized in multiple locations and then cut without any noticeable bleeding. The TFL was further released bluntly from the deep fascia to expose anterior hip capsule and fat The Stuart orthopaedic retractor was then placed beneath the TFL and against sartorius and medial soft tissues to protect and retract the soft tissues. A T-capsulotomy was then performed starting at the superior lateral acetabulum and moving distally to the intertrochanteric ridge. These capsular flaps were tagged with a No. 1 Ethibond and elevated from within. The capsular flaps were released to the shoulder of the lateral neck and to the lesser trochanter to give excellent visualization of the proximal femur. A neck osteotomy was performed using an oscillating saw based on preoperative templates. This cut started in the shoulder and of the lateral neck and exited medially. The saw was at all times directed medially to avoid injury to the greater trochanter. Gross traction was applied to the leg and the osteotomy opened. The femoral head was removed with a corkscrew, making sure to protect the TFL on its exit. The femoral head had notable deformity with a nonunion of the subcapital femoral neck fracture. There is also fragmentation of the femoral head with large holes from the protruding screw and hardware. Traction was released after head removal. This was measured on the back table to determine the starting reamer size. Portions of the rectus obscuring visualization were minimally elevated off the superior acetabulum. An anterior retractor was placed over the anterior wall between capsule and labrum and attached to the Gripper retraction system. The femur was rotated to 90 degrees and medial capsule was fully released until the lesser trochanter was palpable and visible; the femur was returned to 30 degrees. A posterior retractor was placed similarly between capsule and labrum. This provided excellent visualization. The contents of the cotyloid fossa were removed with electrocautery and the labrum was removed with a knife. There was significant chondromalacia of the superior acetabulum which was gouged from the protruding screws. Acetabular reaming began with a 43mm reamer. This first reaming was directed anterior to posterior and medial to get down to the true floor. This was inspected and reamed until the true floor was reached. The anterior retractor was then released and entry and exit was provided by traction on the capsular flaps. I then reamed sequentially up to a 51mm reamer where good fit was obtained. The larger reamers were oriented based on anatomical reference of the anterior and lateral funes to ensure proper abduction and anteversion. Positioning and size was confirmed with the fluoroscopy. A 51mm Depuy Bimentum Dual Mobility acetabular component was selected. The deep tissues were irrigated. The acetabular component was then impacted in a position of about 40-45 degrees of abduction and 15-20 degrees of anteversion, using the patient?s anatomy as the ultimate landmark. Fluoroscopy was used to confirm this. There was excellent engineering supplies sales of the acetabular component and the inserting handle was removed. A portion of the wing-articular cocktail was then injected around the acetabulum into the capsule and periosteum. This cocktail consisted of 123mg of Ropivacaine, 0.25mg of Epinephrine, 0.04mg of Clonidine, and 15mg of Ketorolac, diluted to 50cc. The leg was rotated to 120 degrees. Any remaining medial capsule was released until the lesser trochanter was easily palpable. A retractor was placed mediall y. The lateral capsule was further released into the shoulder to allow access to the greater trochanter. A Sky retractor was placed over the greater trochanter which allowed the trochanter to flip in front of the capsule for excellent exposure. The leg was brought down into maximal extension and 20 degrees of adduction while ensuring there was no impingement on the acetabulum. Any remnant capsule within the trochanter was released. Piriformis and obturator externis were identified and protected. There was excellent access to the proximal femur. The lateral neck remnant was removed with a rongeur. A blunt canal probe was used to identify the canal and trajectory for later broaching. A box osteotome initiated the broach course. A small curved rasp and a curved curette were used to work laterally. Broaching then began with a size 8 Corail broach. This was inserted manually around the trochanter and into the canal before mallet blows. This was also checked multiple times to ensure that this was not penetrating the previous lateral femoral holes. The broach was seated to the neck cut level based on the neck cut and the preoperative template. Sequential broaching was continued manually until a tight fit was obtained with good rotational control of the femur. A trial standard 125 degree neck was inserted along with a +1.5 trial head in a 51/28 dual mobility liner. The leg was brought out of extension and adduction and then reduced with traction and internal rotation. The leg was stable anteriorly in a position of 30 degrees of extension and 90 degrees of external rotation. Fluoroscopy was used to ensure there was no fracture and the stem was seated well. Leg lengths were checked with an AP pelvis and pelvic reference points. BioSTL navigation system was used to confirm appropriate positioning and leg length and offset. An alignment lucho was also utilized to ensure that the leg lengths appear to be appropriate. Once content with the desired offset and leg lengths, the leg was brought back into extension, external rotation and adduction. The periosteum and surrounding tissue was injected with remaining portion of the wing-articular cocktail. The proximal femur was irrigated as well as the deep tissues. The Depuy Corail standard 125 degree collared stem, size 11, was then manually inserted into the proximal femur making sure to control rotation. It was then malleted into position with light blows, giving breaks to allow bone expansion and decrease risk of fracture. The selected Depuy Altrx Ceramic Head, size 28+1.5mm, was inserted into the by The Fred Rogers dual mobility liner per instructions at the base facture utilizing the Binstock device. This dual mobility construct was then placed onto the clean and dry trunnion and secured with impaction onto the tapered fit. The leg was brought back out of extension and adduction and reduced with traction and internal rotation. Stability was confirmed with no shuck at 90 degrees of external rotation and 30 degrees of extension. No impingement through range of motion arc. Final x-ray images were obtained with fluoroscopy to confirm adequate positioning and no intraoperative fracture. The deep tissues were thoroughly irrigated with Surgiphor, betadine solution. This was allowed to sit in the wound for 3 minutes before being thoroughly irrigated out with normal saline. The capsule was then reapproximated with the previously placed Ethibond sutures. The TFL fascia was finally closed with a No. 2 Stratafix, barbed suture. Deep tissues were then reapproximated with 0 Vicryl and a running 2-0 Vicryl. The skin was closed with a running 4-0 Monocryl in a subcuticular fashion. This was reinforced with skin glue. A Mepilex silver dressing was applied. At the end of the case, all counts were correct. Alyse was transferred to the hospital bed without difficulty and suffering no apparent complication. Alyse has a good prognosis. Physical therapy will start today and without restrictions, weight-bearing as tolerated. Aspirin 81mg BID will be used for DVT prophylaxis.
--- NOTE | 2022-12-12 15:55 | W.ANESPOSTOP ---
Postoperative Evaluation Date, Time and Location Date Performed: 12/12/22 Time Performed: 15:55 Patient Location: PACU Vital Signs Most Recent Imported Vital Signs: Most Recent Vital Signs Temp Pulse Resp BP Pulse Ox 36.1 C L 69 23 93/48 L 94 12/12/22 15:45 12/12/22 15:45 12/12/22 15:45 12/12/22 15:45 12/12/22 15:45 Pain Score Most Recent Pain Score: Most Recent Pain Score Pain Level 0 12/12/22 15:45 Assessment Mental Status: Awake (Alert & Oriented to Patient Baseline) Airway and Respiratory Function: Patent airway with normal (patient baseline) respiratory exam Cardiovascular Function: Hemodynamically Stable Hydration Status: Adequately Hydrated Nausea & Vomiting: No Nausea or Vomiting Pain: Pain is tolerable per patient Peripheral Nerve Block: Patient did not receive a nerve block
[2022-12-12] MEDS: fentaNYL 100 MCG/2 ML VIAL IVP (15:58)
[2022-12-12] MEDS: traMADol 50 MG TAB PO (16:55)
--- NOTE | 2022-12-12 17:23 | IN_ITS ---
PT Notes Visit Reasons: Left hip avascular necrosis Inpatient Physical Therapy Evaluation Date: 12/12/22 Referring Doctor: Dr. Douglas PT Orders: PT CONSULT: s/p ortho surgery Precautions: fall, standard Patient Profile/Admitting Diagnosis: Alyse is seen post op day 0 following left anterior IVONNE for management of avascular necrosis following ORIF for fixation of left femoral neck fx in 2020. Social History/Home Situation: Patient lives alone in multi-level home. One step to enter, then remains on single level. No longer drives. Independent with all ADLs. Ambulates with walker at baseline. Equipment Owned/DME: [facility] Subjective: Alyse states that she is feeling well. States that her hip feels the same. Objective: General Observation: Resting in bed with IV in LUE. No additional lines. Nursing and family present at time of consultation. Mental Status: A&Ox3. Hard of hearing. Pain: unable to quantify ROM: Right Upper Extremity: WFL Left Upper Extremity: WFL Right Lower Extremity: WFL Left Lower Extremity: Functionally demonstrates hip flexion up to 90*, knee motion 0-90*. Strength: Right Upper Extremity: Shoulder flexion 3/5 or greater. Biceps 4/5. Triceps 4/5. Left Upper Extremity: Shoulder flexion 3/5 or greater. Biceps 4/5. Triceps 4/5. Right Lower Extremity: Quads 3/5 or greater. Hip AB 2/5 or greater. Able to pump ankles and wiggle toes. Left Lower Extremity: Quads 3/5 or greater. Hip AB 2/5 or greater. Able to pump ankles and wiggle toes. Sensation: intact distally Bed Mobility/Transfers: supine-sit: min A with HOB at 30* sit-stand: CGA, cues for technique stand-sit: CGA, cues for safety and technique Gait: Ambulates 6' with FWW, CGA. Assistance for management of IV pole. Declined further ambulation. Balance: Static Sitting: good Dynamic Sitting: fair Static Standing: fair Dynamic Standing: fair Special Tests: Mobility Limitations Standardized Measure [facility] AM-PAC 6 clicks Basic Mobility Inpatient Short Form: Raw Score: 17 CMS Score: 51% Informed Consent/Education: Patient instructed in purpose of PT consult and plan of care. Treatment: Instructed in the followin. quad sets x 5 2. LAQ x 10 (edge of bed) 3. standing weight shifts 3x Assessment: Patient is an 82 year old female referred to physical therapy services with the diagnosis of left IVONNE, post op day 0. Patient presents with clinical signs and symptoms consistent with diagnosis, as demonstrated by the following impairment level findings: 1. decreased LLE strength 2. decreased activity tolerance 3. decreased standing balance 4. gait impairments Impairments are contributing to the following functional limitations: 1. unable to ambulate independently 2. unable to manage stairs 3. unable to tolerate household distance ambulation Patient is assessed as Moderate [id number] complexity based on the following: History: Patient is an 82 year old female presenting s/p left IVONNE. Complicating factors include advanced age, living independently, and multiple medical co- morbidities, including PD. Patient is very anxious to return home. Examination: functional limitations as noted above Presentation: evolving. Decision Making: moderate complexity Goals: Goals X1 week 1. Supine-Sit : supervision 2. Sit-Supine : supervision 3. Sit-Stand : supervision 4. Stand-Sit : supervision 5. Bed-Chair : supervision with FWW 6. Chair-Bed : supervision with FWW 7. Gait : supervision with FWW x 50' 8. Stairs x 1, bilat UE support, supervision only Plan of Care/Treatment Plan: 1-2x/day, 7 days/week x 1 week. Plan of care has been reviewed with the HEALTHCARE ECONOMICS CONSULTANT providing the service under Physical Therapy direction. Initiate Physical Therapy intervention for strengthening, bed mobility, transfers, gait, stairs, balance training, use of assistive device. DISCHARGE RECOMMENDATIONS: Home with services ( PT) vs brief swing bed stay, as patient lives alone and will need to be fully independent with all ADLs. Will continue closely monitoring her progress for discharge planning. TREATMENT CODE/TIME: 5:05 - 5:35 ([id number]) Meera Wakefield, PT, DPT [facility] All Active Problems Chronic obstructive lung disease (Chronic) Hypothyroidism (Chronic 03/10/13) Newly diagnosed. Aortic valve insufficiency (Chronic) Followed by Mohan Morris at [place]. Mild cognitive impairment with memory loss (Chronic) see above Anxiety (Chronic) JANET-7 SCORE=16 Atrial fibrillation (Chronic 04/07/13) Chronic pulmonary heart disease (Chronic) CT Scan Chest - nodule, otherwise nl; PFT - w/ exercise diffusion - nl at 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) PLEURAL EFFUSION Insomnia (Chronic 09/02/14) Osteopenia (Chronic) t-scores; -2.1; -1.5 Tricuspid valve insufficiency (Chronic 04/14/16) moderate Ductal papillomatosis of breast (Acute) Abnormal weight loss (Acute) Presbylarynges (Acute) Hypophonia (Acute) Parkinson's disease (Chronic) Wart viral (Acute) Metatarsalgia of both feet (Acute) Depression (Chronic) Decreased hearing of both ears (Acute) Fatigue (Acute) Weakness (Acute) Hypokalemia (Acute) Frequent falls (Acute) Ambulatory dysfunction (Acute) New onset left bundle branch block (LBBB) (Acute) DVT prophylaxis (Acute) Discharge planning issues (Acute) Dementia (Chronic) MOCA on 06/01/22 Parkinson disease (Chronic) Malnutrition (Acute) Carmen onychomycosis (Acute) Avascular necrosis of bone of hip (Acute) 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 (Acute) Mental status alteration (Acute) Urinary tract infection (Acute) Medical History Abdominal pain Abnormal weight loss 07/16/04 from 124-107; she feels it's due to increased activity and stress ALLERGIES Allergy or intolerlance to codeine, sulfamethoxazole and trimethoprin. There is a history of low blood pressure on calcium blockers in the past as well. 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; PA pressure 21 Heart palpitations Hoarseness Low back pain (04/12/09) Palliative care patient Tachycardia Surgical History (Updated 12/12/22 @ 10:10 by Tammy Steve RN) Colonoscopy - MAC 1995 1997 1998 2012 ECHO (~2006) Echocardiogram with negative pulmonary work up at [facility], PA pressure 21 EGD - MAC (~1995) showing increase in PA pressures H/O cataract removal with insertion of prosthetic lens H/O esophagogastroduodenoscopy 07/16/95 showing increase in PA pressure History of cataract surgery History of hip surgery Hx of appendectomy S/P appendectomy S/P breast biopsy intraductal papilloma S/P bunionectomy bilateral
[2022-12-12] MEDS: ceFAZolin 1 GM/50 ML BAG IVPB (19:49)
[2022-12-12] MEDS: busPIRone 5 MG TAB 10 MG PO (19:50)
[2022-12-12] MEDS: Celecoxib 200 MG CAP PO (19:52)
[2022-12-13] VITALS (7 sets, daily range): BP systolic 100–112; BP diastolic 66–75; PULSE 58–120; RESP 16–19; TEMP 36.2–37.1; O2SAT 97–98
[2022-12-13] MEDS: Lactated Ringers 1,000 ML 80 ML IV (00:35)
[2022-12-13] MEDS: HYDROmorphone 2 MG/ML SYR 0.5 MG IVP (00:36)
[2022-12-13] MEDS: Normal Saline Flush 10 ML SYR IV ×2 (00:37→11:54)
[2022-12-13] MEDS: ceFAZolin 1 GM/50 ML BAG IVPB ×3 (03:51→20:53)
[2022-12-13 06:48] LABS: HCT 33.1 % (36.0-46.0); HGB 10.6 g/dL (11.2-15.7); MCV 97 fL (80-95); MPV 9.9 fL (8.0-11.0); Platelet Count 132 10^3/uL (130-400); RBC 3.42 10^6/uL (3.93-5.22); RDW 13.2 % (11.7-14.6); RDW-SD 47.4 fL; WBC 6.52 10^3/uL (4.4-10.8)
[2022-12-13 07:03] LABS: Anion Gap 4.5 mmol/L (3-11); BUN 26 mg/dL (7-18); CO2 31.5 mmol/L (21.0-32.0); CREATININE 0.8 mg/dL (0.55-1.02); Calcium 8.3 mg/dL (8.5-10.1); Chloride 104 mmol/L (98-107); Estimated GFR 72.61 (mL/min/1.73m2); Glucose 115 mg/dL (74-106); Potassium 4.2 mmol/L (3.5-5.1); Sodium 140 mmol/L (136-145)
--- NOTE | 2022-12-13 07:25 | W.PM.PROGNOT ---
Date of Service Date of service: 12/13/22 Time of Service: 07:15 Assessment and Plan Assessment and plan (1) Avascular necrosis of bone of hip: Status: Acute Assessment and plan: Status post anterior replacement hardware removal yesterday. Case was complicated by difficulty with hardware removal. However, the hip replacement portion of the case went very smoothly. The final x-rays appear to show appropriate positioning of implants without signs of fracture. She has been able to mobilize. She is reluctant to say anything feels different but I think part of this is just her coming out of the anesthesia as well as dealing with the muscular pain which was created by the heart removal and the surgery itself. Continue with mobilization with physical therapy. Weightbearing as tolerated. No restrictions. She does have familial concerns about her return to home. She is also reluctant to consider rehabilitation center discharge. Will be imperative for physical therapy to address her home situation and her ability to discharge to home safely versus a short rehab stay. 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 We will discontinue antibiotics after perioperative antibiotics are completed. (4) Mild cognitive impairment with memory loss: Status: Chronic Assessment and plan: Contributes to discharge planning concerns with her ability to manage independently. (5) Ambulatory dysfunction: Status: Acute Assessment and plan: History of falls and instability. Continue PT consult and discharge planning. Subjective Subjective Interval history since last seen: Alyse reports to be doing well. She had some mild pain last night but overall feels that she is doing well. She has a difficult time saying that anything feels better in the left hip. She is complaining of some left heel pain. She denies numbness or tingling. She denies any issues with the wounds. Her vitals are stable overnight. Exam Narrative Exam Narrative: Sitting up in the chair. No acute distress. Alert and oriented x3. Evaluation the left lower extremity shows dressings which are clean dry and intact. There is some swelling of the left thigh but very minimal. No ecchymosis. Mild tenderness palpation. She is able to tolerate hip flexion, internal rotation and external rotation without significant increase in pain. She is able to demonstrate active dorsiflexion plantarflexion of the ankle as well as extension and flexion of the great toe. Sensation intact to light touch over the deep and superficial peroneal nerve and tibial nerve. There is some pain to palpation along the heel of the left side. No pain to palpation of the Achilles. No notable skin defect. No pain with ankle or subtalar joint range of motion. Objective Last Vital Signs Temp 36.5 C 12/13/22 07:22 Pulse 89 12/13/22 07:22 Resp 18 12/13/22 07:22 BP 100/69 12/13/22 07:22 Pulse Ox 98 12/13/22 07:22 Laboratory Results - last 24 hr 12/13/22 12/13/22 06:30 06:30 WBC 6.52 RBC 3.42 L Hgb 10.6 L Hct 33.1 L MCV 97 H MCH 31.0 MCHC 32.0 RDW 13.2 Plt Count 132 MPV 9.9 Sodium 140 Potassium 4.2 Chloride 104 Carbon Dioxide 31.5 Anion Gap 4.5 BUN 26 H Creatinine 0.8 Est GFR (CKD-EPI 2020) 72.61 Glucose 115 H Calcium 8.3 L Time Spent with Patient Time Spent with Patient: 25-34 minutes Time was spent: obtaining and/or reviewing separately otained hiistory, ordering medications,tests, procedures, indepentently interpreting results and counseling the patient
[2022-12-13] MEDS: Celecoxib 200 MG CAP PO ×2 (08:13→20:51)
[2022-12-13] MEDS: DULoxetine 30 MG CAP PO (08:13)
[2022-12-13] MEDS: Dexamethasone 4 MG TAB PO (08:13)
[2022-12-13] MEDS: Apixaban 2.5 MG TAB PO ×2 (08:13→20:51)
[2022-12-13] MEDS: busPIRone 5 MG TAB 10 MG PO ×3 (08:13→20:51)
[2022-12-13] MEDS: Pantoprazole 40 MG TABCR PO (08:14)
[2022-12-13] MEDS: Acetaminophen 500 MG TAB 1000 MG PO ×3 (08:14→20:50)
--- NOTE | 2022-12-13 09:43 | OT.INIE ---
Occupational Therapy Notes Inpatient Occupational Therapy Evaluation Date: 12/13/22 Referring Doctor:Tremayne Douglas MD OT Orders: Urgent Precautions: Fall, standard, full PATIENT PROFILE/ADMITTING DIAGNOSIS: Pt is a 82 year old female (L) anterior IVONNE for management of avascular necrosis following ORIF for fixation of left femoral neck fx in 2020. 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 (Acute) Avascular necrosis of bone of hip (Acute) Carmen onychomycosis (Acute) Malnutrition (Acute) Parkinson disease (Chronic) Dementia (Chronic) MOCA on 06/01/22Discharge planning issues (Acute) DVT prophylaxis (Acute) New onset left bundle branch block (LBBB) (Acute) Ambulatory dysfunction (Acute) Weakness (Acute) Hypokalemia (Acute) Frequent falls (Acute) Fatigue (Acute) Decreased hearing of both ears (Acute) Depression (Chronic) Metatarsalgia of both feet (Acute) Wart viral (Acute) Parkinson's disease (Chronic) Hypophonia (Acute) Presbylarynges (Acute) Abnormal weight loss (Acute) Ductal papillomatosis of breast (Acute) Tricuspid valve insufficiency (Chronic 04/14/16) moderate Osteopenia (Chronic) t-scores; -2.1; -1.5 Insomnia (Chronic 09/02/14) 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 PFT - w/ exercise diffusion - nl at [facility] Atrial fibrillation (Chronic 04/07/13) Anxiety (Chronic) JANET-7 SCORE=16 Chronic obstructive lung disease (Chronic) Hypothyroidism (Chronic 03/10/13) Newly diagnosed.Aortic valve insufficiency (Chronic) Followed by Mohan Morris at [place].Mild cognitive impairment with memory loss (Chronic) see above Medical History? Abdominal pain Abnormal weight loss 07/16/04? from 124-107; she feels it's due to increased activity and stressALLERGIES Allergy or intolerlance to codeine, sulfamethoxazole and trimethoprin.? There is a history of low blood pressure on calcium blockers in the past as well.Bunion of great toe Cataract IOLDuctal papillomatosis of breast s/p breast BxDysphagia Fatigue Foot joint pain 10/10/12Foot joint pain (10/10/12) H/O echocardiogram 10/10/12 echo w/neg pulmonary w/u at [facility]; PA pressure 21Heart palpitations Hoarseness Low back pain (04/12/09) Palliative care patient Tachycardia Surgical History? Colonoscopy - MAC 1995 1997 1998 2012 ECHO (~2006) Echocardiogram with negative pulmonary work up? at [facility],? PA pressure 21EGD - MAC (~1995) showing increase in PA pressuresH/O cataract removal with insertion of prosthetic lens H/O esophagogastroduodenoscopy 07/16/95? showing increase in PA pressureS/P appendectomy S/P breast biopsy intraductal papillomaS/P bunionectomy bilateral Social History/Home Situation: Patient lives alone in multi-level home. One step to enter, then remains on single level. She is worried that she needs a new piece to her step to be able to enter. No longer drives and relies on daughter/sister for community mobility. Independent with all ADLs inclduing sponge bathing. She notes that she does not use her shower at all. She states that she has a raised toilet seat. Ambulates with walker at baseline. Equipment owned/DME: FWW, raised toilet seat, grab bars SUBJECTIVE: Pt was sitting in chair. She reports that her pain was better than yesterday. She notes that she is worried about getting in to her home but would like to return there when she can. OBJECTIVE: General Observation: Pleasant, IV in (L) UE Mental Status: A&Ox3 Pain: c/o pain in hip but notes that this is better than it was previously. ROM: RUE AROM WFL L UE AROM WFL STRENGTH: RUE 4/5 throughout LUE 4/5 throughout FUNCTIONAL MOBILITY/ADLS: Transfers with FWW BATHING pt denies and would like to hold for today. DRESSING seated in chair Dressing UE (I) don and doffing [facility] gown Dressing LE mod (A) with don and doffing (B) socks GROOMING (I) brushing her hair and oral hygiene TOILETING NT with OT- goal is to progress pt to toilet EATING (I) seated in chair BALANCE: Static sitting Normal Dynamic Sitting Good SPECIAL TESTS: Daily Activity Limitations Standardized Measure [facility] AM -PAC ?6 clicks? Daily Activity Inpatient Short Form: Raw score: 18 INFORMED CONSENT/EDUCATION: Pt instructed in purpose of OT Consult and plan of care. ASSESSMENT: Patient is a 82-year-old female referred to occupational therapy services with diagnosis of (L) anterior IVONNE for management of avascular necrosis following ORIF for fixation of left femoral neck fx in 2020. Patient presents with clinical signs and symptoms consistent with dx, as demonstrated by the following impairment level findings/functional limitations: Impairments in ADL/IADL and leisure activities, decreased functional activity tolerance, pain in hip, decreased functional mobility required for ADL performance. AMPAC score Patient is assessed as a Moderate 56248 complexity based on the following: History: see above Examination: see functional limitations as noted above Presentation: evolving Decision Making: moderate complexity GOALS Goals x1 week 1. Transfers (I) wih FWW 2. Dressing mod (I) 3. Bathing (I) standing at sink 4. Toileting (I) on toilet 5. Eating (I) PLAN OF CARE/TREATMENT PLAN: 1x/day, 5 days/ week x 1week Initiate Occupational Therapy Services for bathing, dressing, grooming, toileting, eating, transfer training. DISCHARGE RECOMMENDATIONS Based on pts current level of function, OT recommends that return home with services for OT for (A) of her ADLs in her home setting and identification of need for adaptive equipment. TREATMENT TIME/MINUTES/CODES 42752, 15 minutes [facility] [place], [place]
--- NOTE | 2022-12-13 11:02 | PDOC.CMIN ---
Date of service: 12/13/22 Time of Service: 11:03 Care Management Initial Assmt Initial Assessment REASON FOR HOSPITALIZATION:: Avascular necrosis of bone of hip, UTI PREVIOUS FUNCTIONAL STATUS/SOCIAL/FAMILY SUPPORTS:: Alyse lives alone in her multi-family home on [address]. Per pt, her Daughter (Ana) and [id number] (Fausto) are supportive and provide her transportation, as she no longer drives. Per pt, she is independent at with her ADL's at baseline and her Daughter Ana stays with her frequently. CURRENT FUNCTIONAL STATUS:: Alyse was sitting in her chair, legs elevated when CM met with her. She is awake, pleasant and easy to engage in conversation. Per Alyse, her hip surgery went well and her current pain is a different kind of pain and feels better. She is hoping to discharge home with New [facility] PT services after surgery. She refuses to discuss STR as an alternative at this time. CM will continue to follow. ADVANCE DIRECTIVES:: Not of file Per PCP note, healthcare agent form was completed at her 11/29/22 visit, Alyse listed her daughter and then brother as her healthcare agents with her [id number] (who often accompanies her to appointments) is able to get information. ([facility] at [facility] will scan form if found) Has patient been provided with info about the portal/API?: No Did the patient sign up for the portal?: No CODE STATUS:: Full Code INSURANCE COVERAGE / FINANCIAL ISSUES:: AARP MCR Supplemental Medicare Part A & B CURRENT HOME/COMMUNITY SERVICES/EQUIPMENT:: FWW Raised toilet seat grab bars PRIMARY CARE PHYSICIAN:: Luz Szymanski POTENTIAL DISCHARGE NEEDS:: New [facility] PT/OT PATIENT/FAMILY EDUCATION NEEDS:: Review discharge instructions, limitations and plan to follow up with community providers. Review ask me three. TRANSPORTATION:: Via private vehicle with daughter vs. RCT private vehicle. PLAN:: OT recommends, discharge home with New OT when medically ready. Anticipate, Alyse will discharge home with new [facility] OT/?PT, RN, TRIAGE REGISTER NURSE when medically ready per Ortho. Aylse will follow up with community providers and her discharge plan of care as prescribed. She will transport via private vehicle with family vs. RCT private vehicle. CM will follow. PFSH All Active Problems (Updated 12/14/22 @ 14:42 by Tremayne Douglas MD) Hypotension after procedure (Acute) Chronic obstructive lung disease (Chronic) Hypothyroidism (Chronic 03/10/13) Newly diagnosed. Aortic valve insufficiency (Chronic) Followed by Mohan Morris at [place]. Mild cognitive impairment with memory loss (Chronic) see above Anxiety (Chronic) JANET-7 SCORE=16 Atrial fibrillation (Chronic 04/07/13) Chronic pulmonary heart disease (Chronic) CT Scan Chest - nodule, otherwise nl; PFT - w/ exercise diffusion - nl at [facility] Depressive disorder (Chronic) on Cymbalta; has gone through counseling in [place] Diffuse large cell non-Hodgkin's lymphoma (Chronic 03/11/13) PLEURAL EFFUSION Insomnia (Chronic 09/02/14) Osteopenia (Chronic) t-scores; -2.1; -1.5 Tricuspid valve insufficiency (Chronic 04/14/16) moderate Ductal papillomatosis of breast (Acute) Abnormal weight loss (Acute) Presbylarynges (Acute) Hypophonia (Acute) Parkinson's disease (Chronic) Wart viral (Acute) Metatarsalgia of both feet (Acute) Depression (Chronic) Decreased hearing of both ears (Acute) Fatigue (Acute) Weakness (Acute) Hypokalemia (Acute) Frequent falls (Acute) Ambulatory dysfunction (Acute) New onset left bundle branch block (LBBB) (Acute) DVT prophylaxis (Acute) Discharge planning issues (Acute) Dementia (Chronic) MOCA on 06/01/22 Parkinson disease (Chronic) Malnutrition (Acute) Carmen onychomycosis (Acute) Avascular necrosis of bone of hip (Acute) s/p IVONNE (12/12/22) 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 There is a history of low blood pressure on calcium blockers in the past as well. 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 Dysphagia Fatigue Foot joint pain 10/10/12 Foot joint pain (10/10/12) H/O echocardiogram 10/10/12 echo w/neg pulmonary w/u at [facility]; PA pressure 21 Heart palpitations Hoarseness Low back pain (04/12/09) Palliative care patient Tachycardia Surgical History (Updated 12/12/22 @ 10:10 by Tammy Steve RN) Colonoscopy - MAC 1995 1997 1998 2012 ECHO (~2006) Echocardiogram with negative pulmonary work up at [facility], PA pressure 21 EGD - MAC (~1995) showing increase in PA pressures H/O cataract removal with insertion of prosthetic lens H/O esophagogastroduodenoscopy 07/16/95 showing increase in PA pressure History of cataract surgery History of hip surgery Hx of appendectomy S/P appendectomy S/P breast biopsy intraductal papilloma S/P bunionectomy bilateral Family History Mother Essential hypertension Heart disease Father No problems noted. Social History Smoking/Tobacco Use Status: Never Smoking risk assessment performed?: Yes Alcohol Intake: current Alcohol Intake frequency: holidays/special occasions only Alcohol type: wine Drug use: Never Adopted: No Caregiver/Support person: Yes (caregiver for fiance) Details: currently in a senior living, but pt is primary support Foster care: No Household members: none Housing: house Number of Children: 3 number of grandchildren: 4 current occupation: Retired Pets and animals: No What type of physical activity do you participate in: none Seatbelt use: never Drive intox or ride w/intox dumpster driver: No Firearms in home: Yes (unloaded, not locked) Firearms unloaded and locked: No Additional Social history: Unable to assess privatley. Pt. was in ER during pre-op call with Daughter Jamilah Houston, pt is reluctant to do surgery but did verbally agree to move forward with IVONNE. Dr. Westbrook explained to pt. that to walk independently she needs this surgery. Pre-op was completed as best as possible with Jamilah Cullen and Dr. Westbrook. Pt. was instructed to take Diltiazem, verapamil, carbidopa/levodopa, buspirone, duloxetine, amandtadine, and newly prescribed Cephalexin for UTI morning of surgery. As well as to be NPO after midnight, may have water only up unil 7am morning of surgery after that nothing else by mouth, and to arrive 10am to [facility]. Dtsoni Askew, stated she will be bringing pt. DOS.
--- NOTE | 2022-12-13 15:28 | PTTR_ITS ---
Date of service: 12/13/22 Time of Service: 10:58 PT Notes Visit Reasons: Left Hip Avascular Necrosis Inpatient Physical Therapy Treatment Note [facility] Date: 12/13/2022 PRECAUTIONS: WBAT on the L LE with AD. High fall risk. SUBJECTIVE: Reports much better pain control this morning than this afternoon. Verbalized burning sensation while voiding urine (nurse updated). Denies headache, chest pain, and lightheadedness throughout session. States almost nothing pain in the morning to I can feel it in my hip pain in the afternoon while walking. OBJECTIVE: 2 Mepilex Ag dressings over surgical incisions. Alert and oriented x 4. PAIN: Minimal pain in the morning, minimal to moderate in the PM requiring seated rest BED MOBILITY/TRANSFERS Sit-stand: stand by assist, cues needed to push on armrests for safety Stand-sit: stand by assist, cues needed to push on armrests for safety Bed-Chair: stand by assist with FWW Chair-bed: stand by assist with FWW GAIT Assistive Device: FWW Weight bearing: WBAT on the L LE Assist: contact guard assist Distance: 100 feet in the morning; 150 feet + 100 feet in the afternoon Deviation: Mildly antalgic. Pre-existing age-related thoracic kyphosis. Mildly short of breath but resolved with rest. THERA EX: Ankle pumps x 10 Gluteal sets x 10 with 5sh LAQs x 10 ASSESSMENT: Slowly regaining increasing independence with mobility performance. Was more shaky during the afternoon session. Pain better controlled during the day but not as much as during the afternoon session however patient was able to cover more distance despite the pain report with seated rest. PLAN: Continue with progressing mobility level on level ground and stairs. Provide HEP for seated exercises. Continue to coordinate sessions with nurse to pre- medicate for better pain control and to minimize effects of Parkinson's disease to mobility performance. TREATMENT CODE/TIME: Session 1-- 07381 x 35 minutes, [id number] x 15 minutes beginning at 10:58 AM. Session 1-- [id number] x 25 minutes, [id number] x 10 minutes beginning at 16:21 PM.
[2022-12-14] VITALS (13 sets, daily range): BP systolic 72–117; BP diastolic 45–71; PULSE 51–86; RESP 12–22; TEMP 36–37.2; O2SAT 95–99
[2022-12-14] MEDS: ceFAZolin 1 GM/50 ML BAG IVPB (03:51)
[2022-12-14] MEDS: Acetaminophen 500 MG TAB 1000 MG PO ×2 (07:54→14:35)
[2022-12-14] MEDS: Apixaban 2.5 MG TAB PO ×2 (07:55→19:30)
[2022-12-14] MEDS: busPIRone 5 MG TAB 10 MG PO ×3 (07:55→19:30)
[2022-12-14] MEDS: Celecoxib 200 MG CAP PO ×2 (07:55→19:30)
--- NOTE | 2022-12-14 07:55 | OTTR_ITS ---
Occupational Therapy Notes Occupational Therapy Inpatient Treatment Note Date: 12/14/22 PRECAUTIONS: Fall, standard, full SUBJECTIVE:Pt states that she is tired but doing well. OBJECTIVE: PAIN:no c/o pain FUNCTIONAL MOBILITY Rolling L/R: (I) Supine-sit: (I) Sit-supine: (I) BATHING: max (A) set up Upper Body: (I) face and (B) UE/abdomen Lower Body: (I) (B) LE DRESSING: Upper Extremity: (I) [facility] gown Lower Extremity: Min (A) and min vc GROOMING: seated in bed, (I) with brushing hair ASSESSMENT/PLAN: Pt is slightly confused today. She is receptive to performance of her ADLs and was (I) with vc. No c/o pain although notes that she didn't sleep well last night. Goal is to continue to progress to standing ADLs as symptoms allow. TREATMENT CODES/TIME: 68291, 15 minutes (07:20) Charley Schaeffer OTR/[facility] [place], [place]
[2022-12-14] MEDS: Dexamethasone 4 MG TAB PO (07:56)
[2022-12-14] MEDS: DULoxetine 30 MG CAP PO (07:56)
[2022-12-14] MEDS: Pantoprazole 40 MG TABCR PO (07:56)
[2022-12-14] MEDS: Verapamil C.R. 180 MG TABCR PO (07:56)
[2022-12-14] MEDS: Normal Saline Flush 10 ML SYR IV ×3 (07:57→16:42)
--- NOTE | 2022-12-14 12:00 | RT.EKG_ITS ---
APPROVED REPORT Exam: Resting ECG Reason for Exam: hypotension Patient Location: I HR:71 bpm ECG Measurements Heart Rate 71 AXIS MD [id number] P [id number] QRSd 90 QRS 241 QT 412 T 84 QTc 448 Conclusion Atrial fibrillation Left anterior fascicular block...axis(240,-40), init forces inf Anteroseptal infarct, age indeterminate...Q >35mS, T neg, V1-V2
--- NOTE | 2022-12-14 13:28 | PGE_ITS ---
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 She has been making excellent progress in physical therapy. She is contact-guard only. She has been able to mobilize independently, even with her low blood pressure. She is utilizing a walker and is working towards discharge to home. (3) Hypotension after procedure: Status: Acute Assessment and plan: Alyse has reported feeling somewhat off this morning and was noted to be hypotensive. She still is able to eat. She feels her mentation is normal. She is unable to ambulate even with a low blood pressure. She does run low at baseline and this very well could simply be a manifestation of hypovolemia, some acute blood loss from the surgery. Her urine output has been sluggish but proba sarika appropriate for her. I will check a CBC and CMP. I will also obtain a EKG. I will also repeat the urinalysis. There are no other concerning features. Given her ongoing atrial fibrillation and left bundle branch block, which is her baseline, I will also order a troponin. I have also asked the hospitalist, Dr. Cuevas, to weigh in to make sure there is nothing else. My suspicion is that she is simply having a lag in her blood pressure due to the effects of her surgery and age and underlying medical comorbidities. We will make sure there is no other concerning features. The bump in the white count to me should be followed but not concerning in itself as she has no other features of infection. Subjective Subjective Interval history since last seen: In general, Alyse reports be doing well. She has been able to ambulate quite well with physical therapy. She feels that the hip is much better. Nursing reports that she has been able to ambulate on her own and transition on her own in the room only with standby assistance. Physical therapy also feels more encouraged by her progress and her stability. However, about an hour before this visit she started feeling not like herself. She was noted to have a low blood pressure. She reported some sensitivity to light. She denies chest pain or shortness of breath. She denies fevers or chills. She did have some burning with urination yesterday which has slightly persisted. She was diagnosed with a UTI prior to her hospitalization for her hip replacement. She denies any numbness or tingling about the left leg. Exam Narrative Exam Narrative: Sitting up in the chair. No acute distress. Alert and orient x3. Normal in appearance. Evaluation the left leg shows some mild fullness about the left thigh but no signs of infection. Some resolving ecchymosis. She is able tolerate internal and external rotation as well as flexion without pain. She is able demonstrate active knee extension. SILT DP/SP/Tib. Objective Last Vital Signs Temp 37.2 C 12/14/22 11:21 Pulse 69 12/14/22 11:21 Resp 17 12/14/22 11:21 BP 72/50 L 12/14/22 13:04 Pulse Ox 99 12/14/22 11:21 Time Spent with Patient Time Spent with Patient: 35-49 minutes Time was spent: preparing to see the patient(eg.review tests), obtaining and/or reviewing separately otained hiistory, ordering medications,tests, procedures, indepentently interpreting results, counseling the patient and care coordination
[2022-12-14 13:48] LABS: HCT 32.1 % (36.0-46.0); HGB 10.8 g/dL (11.2-15.7); MCH 31.9 pg (27.0-33.0); MCHC 33.6 % (32.0-36.0); MCV 95 fL (80-95); MPV 11.2 fL (8.0-11.0); Platelet Count 162 10^3/uL (130-400); RBC 3.39 10^6/uL (3.93-5.22); RDW 13.3 % (11.7-14.6); RDW-SD 47.1 fL; WBC 13.71 10^3/uL (4.4-10.8)
[2022-12-14 14:01] LABS: ALT 10 U/L (14-59); AST 26 U/L (15-37); Albumin 2.7 g/dL (3.4-5.0); Alkaline Phosphatase 73 U/L (46-116); Anion Gap 7.1 mmol/L (3-11); BUN 27 mg/dL (7-18); Bilirubin, Total 0.8 mg/dL (0.2-1.0); CO2 25.9 mmol/L (21.0-32.0); CREATININE 1.1 mg/dL (0.55-1.02); Calcium 8.9 mg/dL (8.5-10.1); Chloride 101 mmol/L (98-107); Estimated GFR 49.55 (mL/min/1.73m2); Glucose 168 mg/dL (74-106); Potassium 4.6 mmol/L (3.5-5.1); Sodium 134 mmol/L (136-145); Total Protein 5.6 g/dL (6.4-8.2)
--- NOTE | 2022-12-14 14:22 | CHAPLAIN ---
Alyse was sitting up in the recliner when I visited. We had a brief conversation. She said she's been touch with family members. I explained my role and offered support.
[2022-12-14] MEDS: Normal Saline 500 ML IV (14:36)
--- NOTE | 2022-12-14 15:03 | PT.INTREAT ---
Date of service: 12/14/22 Time of Service: 10:27 PT Notes Visit Reasons: Left Hip Avascular Necrosis Inpatient Physical Therapy Treatment Note [facility] Date: 12/14/22 PRECAUTIONS: WBAT L LE with AD, high fall risk, standard SUBJECTIVE: Patient reports feeling Bored. No pain. Agreeable to therapy OBJECTIVE: BED MOBILITY/TRANSFERS Sit-stand: contact guard Stand-sit: contact guard Bed-Chair: contact guard Chair-bed: contact guard GAIT Assistive Device: Front wheeled walker Weight bearing: as tolerated Assist: contact guard Distance: 225 feet, rest, 50 feet Deviation: Patient demonstrates reduced step height, reduced stance phase left, step to gait pattern with left leg leading, tends to drift to right side of walker rather than staying centered in the walker, then complains right arm is tired. No loss of balance noted. ASSESSMENT: Patient tolerates therapy well, is resting comfortably in chair at end of treatment, call dent in reach PLAN: Continue strengthening per plan of care until patient is medically ready to discharge, SNF or HHPT suggested depending on patient's continued progress TREATMENT CODE/TIME: 66911 Gait 20 minutes beginning at 10:27
--- NOTE | 2022-12-14 15:13 | PT.INNT ---
Date of service: 12/14/22 Time of Service: 14:57 PT Notes Visit Reasons: Left Hip Avascular Necrosis Initially talking with patient who reports she feels fine but not really fine and that her blood pressure is off and the nurses couldn't find a cuff to take it. Dr Douglas joins us after a minute and advises no PT this afternoon, patient to see Dr Castro to ensure we aren't missing anything with regards to the patient's new low blood pressure. Per Dr Douglas, no physical therapy this afternoon.
--- NOTE | 2022-12-14 15:37 | MCONE_ITS ---
Date of service: 12/14/22 Time of Service: 15:37 Assessment and Plan Assessment and plan (1) Hypotension after procedure: Status: Acute Assessment and plan: DDX include sepsis from UTI, anemia, ACS, PE, hypovolemia. However she has had no CP or hypoxemia perioperatively despite her underlying COPD. She denies any dyspnea. She has no cough or sputum production. She has had dysuria although better today. EKG demonstrates stable chronic afib and although she has anterior loss of R waves suggestive of prior infarct, she had had no new changes in past two years and denies any ischemia. I agree w/ checking troponin I level but w/ her elevated WBC and her failure to respond to iv fluid bolus, I think sepsis is more likely. I would get urine and blood cultures and start her on Rocephin 2 gm empirically while cultures are done. I have ordered lactate and procalcitionin levels to confirm my susupicion of sepsis. If she does not respond to repeat bolus of saline then I would transfer to ICU for norepinephrine drip. Critical care time spent interviewing and examining the patient, reviewing stud ies, discussing case with patient's nurse and consulting physicians was 45 minutes (2) Dysuria: Status: Acute Assessment and plan: obtain repeat urine (straight cath/morillo, actually would prefer morillo at this point to monitor her urine response. antibiotics as above (3) Acute blood loss as cause of postoperative anemia: Status: Acute Assessment and plan: recheck hemogram this afternoon but was stable post op and no evidence of acute bleeding; hip site does not look diproportionately swollen for her surgery and bruising is minimal (4) Chronic obstructive lung disease: Status: Chronic Assessment and plan: not currently an acute issue, not hypoxemia and not dyspneic and no acute bronchospasms (5) Hypothyroidism: Status: Chronic Assessment and plan: will get TSH and FT4 as none has been done recently (6) Atrial fibrillation: Status: Chronic Assessment and plan: stable; I would put on telemetry until hypotension has resolved (7) Parkinson's disease: Status: Chronic (8) Mild cognitive impairment with memory loss: Status: Chronic History of Present Illness History of Present Illness Chief Complaint: Hypotension Narrative: We are consulted for postoperative hypotension on this 82-year-old female with history of chronic atrial fibrillation, mild cognitive impairment/mild dementia, parkinsonism was admitted to the hospital for malunion and hardware failure from a left femoral neck fracture. She underwent left anterior total hip arthroplasty by Dr. Douglas on 12/12/2022. Intraoperative course was uneventful with stable hemodynamics throughout operation. Postoperatively blood pressures have been in the high 90s to low 100s systolically. Patient been feeling fine until today when she felt lightheaded and felt off. Since about 1120 this morning she has had persistent hypotension with systolic pressures in the 70s an d diastolic pressures in the low 50s to high 40s. Preoperatively she had a UTI which grew E. coli which was pansensitive which was treated by her PCP with Keflex. Perioperatively she received Ancef as well as receiving 2 doses of Decadron 4 mg each postoperatively. Patient has no history of adrenal insufficiency and is not chronically on corticosteroids. Labs this morning show stable mild anemia with hemoglobin 10.8 g hematocrit 32% however she has a leukocytosis of 13,700 which is new as her prior WBCs were 6500 yesterday CMP this afternoon demonstrates mild prerenal azotemia with a BUN of 27 creatinine 1.1 which is her baseline creatinine is 0.8. Troponin I level is pending. I have also requested blood cultures and urine cultures as well as a repeat UA and a procalcitonin level and a blood lactate. Patient denies any chest pain or pressure with or dizziness denies any dyspnea nausea vomiting or abdominal pain. She has some mild left hip pain postoperatively but not exquisitely so. She admits that she had some dysuria yesterday but denies any today. She does not have a Morillo catheter in place. EKG was done this afternoon shows stable atrial fibrillation at a rate of 71 bpm. 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 She has had a cumulative intake of 2300 mL of fluid since admission 1100 mL was yesterday. She is currently receiving 500 mL bolus of normal saline. Dr. Douglas asked me to consult on her medically because of the postoperative hypotension. She is a DNR/DNI. I will plan to give her another 500 mL bolus and if she remains hypotensive she should go to the intensive care unit for vasopressor blood pressure support. We will check a repeat H&H to make sure there is no bleeding as well as checking a repeat troponin level blood lactate procalcitonin and blood cultures and urine cultures and begin her empirically on Rocephin 2 g IV for what appears to be probable urosepsis. Review of Systems Constitutional Constitutional: Denies chills, Denies fever(s), Reports lethargy and Reports malaise Cardiovascular Cardiovascular: Denies chest pain, Reports lightheadedness, Denies radiating jaw, neck or arm pain and Denies dyspnea Respiratory Respiratory: Denies chest congestion, Denies cough and Denies dyspnea Gastrointestinal Gastrointestinal: Denies abdominal pain Genitourinary Genitourinary: Reports dysuria Musculoskeletal Musculoskeletal: Reports arthralgias (Left hip) Integumentary/Breasts Skin/Breast: Reports system reviewed and no additional complaints, except as documented Neurologic Neurologic: Reports system reviewed and no additional complaints, except as documented Endocrine Endocrine: Reports system reviewed and no additional complaints, except as documented Hematologic/Lymphatic Hematologic/Lymphatic: Reports system reviewed and no additional complaints, except as documented Allergic/Immunologic Allergic/Immunologic: Reports system reviewed and no additional complaints, except as documented PFSH All Active Problems (Updated 12/14/22 @ 16:02 by Jose Martin Casrto MD) Dysuria (Acute) Acute blood loss as cause of postoperative anemia (Acute) Hypotension after procedure (Acute) Chronic obstructive lung disease (Chronic) Hypothyroidism (Chronic 03/10/13) Newly diagnosed. Aortic valve insufficiency (Chronic) Followed by Mohan Morris at [facility]. 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) PLEURAL EFFUSION Insomnia (Chronic 09/02/14) Osteopenia (Chronic) t-scores; -2.1; -1.5 Tricuspid valve insufficiency (Chronic 04/14/16) moderate Ductal papillomatosis of breast (Acute) Abnormal weight loss (Acute) Presbylarynges (Acute) Hypophonia (Acute) Parkinson's disease (Chronic) Wart viral (Acute) Metatarsalgia of both feet (Acute) Depression (Chronic) Decreased hearing of both ears (Acute) Fatigue (Acute) Weakness (Acute) Hypokalemia (Acute) Frequent falls (Acute) Ambulatory dysfunction (Acute) New onset left bundle branch block (LBBB) (Acute) DVT prophylaxis (Acute) Discharge planning issues (Acute) Dementia (Chronic) MOCA on 06/01/22 Parkinson disease (Chronic) Malnutrition (Acute) Carmen onychomycosis (Acute) Avascular necrosis of bone of hip (Acute) s/p IVONNE (12/12/22) 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 There is a history of low blood pressure on calcium blockers in the past as well. 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 Dysphagia Fatigue Foot joint pain 10/10/12 Foot joint pain (10/10/12) H/O echocardiogram 10/10/12 echo w/neg pulmonary w/u at [facility] [place] [facility] [place]; PA pressure 21 Heart palpitations Hoarseness Low back pain (04/12/09) Palliative care patient Tachycardia Surgical History (Updated 12/12/22 @ 10:10 by Tammy Steve RN) Colonoscopy - MAC 1995 1997 1998 2012 ECHO (~2006) Echocardiogram with negative pulmonary work up at [facility] [place], PA pressure 21 EGD - MAC (~1995) showing increase in PA pressures H/O cataract removal with insertion of prosthetic lens H/O esophagogastroduodenoscopy 07/16/95 showing increase in PA pressure History of cataract surgery History of hip surgery Hx of appendectomy S/P appendectomy S/P breast biopsy intraductal papilloma S/P bunionectomy bilateral Family History Mother Essential hypertension Heart disease Father No problems noted. Social History Smoking/Tobacco Use Status: Never Smoking risk assessment performed?: Yes Alcohol Intake: current Alcohol Intake frequency: holidays/special occasions only Alcohol type: wine Drug use: Never Adopted: No Caregiver/Support person: Yes (caregiver for jenni) Details: currently in a snf, but pt is primary support Foster care: No Household members: none Housing: house Number of Children: 3 number of grandchildren: 4 current occupation: Retired Pets and animals: No What type of physical activity do you participate in: none Seatbelt use: never Drive intox or ride w/intox local company truck driver: No Firearms in home: Yes (unloaded, not locked) Firearms unloaded and locked: No Additional Social history: Unable to assess privatley. Pt. was in ER during pre-op call with Daughter Jamilah Houston, pt is reluctant to do surgery but did verbally agree to move forward with IVONNE. Dr. Westbrook explained to pt. that to walk independently she needs this surgery. Pre-op was completed as best as possible with Jamilah Cullen and Dr. Westbrook. Pt. was instructed to take Diltiazem, verapamil, carbidopa/levodopa, buspirone, duloxetine, amandtadine, and newly prescribed Cephalexin for UTI morning of surgery. As well as to be NPO after midnight, may have water only up unil 7am morning of surgery after that nothing else by mouth, and to arrive 10am to [facility]. Dtr Jamilah, stated she will be bringing pt. DOS. Exam Narrative Exam Narrative: Thin elderly female who is alert and oriented to person place and circumstance HEENT is unremarkable Neck is supple no overt JVD. Normal carotid pulses although irregularly i rregular at a controlled rate no bruit Lungs are clear to auscultation Heart is irregularly irregular controlled rate Abdomen soft scaphoid nontender nondistended no palpable masses Extremities without peripheral cyanosis or edema. Left hip has bandages over the surgical site there is some mild edema and small amount of bruising with some mild point tenderness Results Last Vital Signs Temp 37.1 C 12/14/22 14:37 Pulse 56 L 12/14/22 14:37 Resp 12 12/14/22 14:37 BP 78/48 L 12/14/22 14:37 Pulse Ox 98 12/14/22 14:37 Labs 12/14/22 13:10 12/14/22 13:10 Labs: Laboratory Results - last 24 hr 12/14/22 12/14/22 13:10 13:10 WBC 13.71 H RBC 3.39 L Hgb 10.8 L Hct 32.1 L MCV 95 MCH 31.9 MCHC 33.6 RDW 13.3 Plt Count 162 MPV 11.2 H Sodium 134 L Potassium 4.6 Chloride 101 Carbon Dioxide 25.9 Anion Gap 7.1 BUN 27 H Creatinine 1.1 H Est GFR (CKD-EPI 2020) 49.55 Glucose 168 H Calcium 8.9 Total Bilirubin 0.8 AST 26 ALT 10 L Alkaline Phosphatase 73 Total Protein 5.6 L Albumin 2.7 L
[2022-12-14] MEDS: Normal Saline 500 ML 1000 ML IV (15:56)
--- NOTE | 2022-12-14 15:57 | CMPROGNOTE_ITS ---
Date of service: 12/14/22 Time of Service: 15:57 Care Management Progress Note Progress Note Text Progress Note Text: S/O: Alyse was lying in bed when CM met with her. Her hip pain is much improved and she is working with PT. Per Dr. Douglas, discharge planned discharge home tomorrow may be delayed due to hypotension. Alyse is still planning to discharge home with full VNA sevices, which coincides with PT's recommendation. Pts daughter Ana called CM today and advised that she is not going to transport Alyse home, nor is anyone in her family as recommended by her PCP. She is planning on telling Alyse tomorrow in person. Per Ana, Alyse doesn't take anyone's advise and they are done helping her. She also notes that [facility] refuses to do home visits due to previous interactions. [facility] private vehicle will likely transport, [facility] is an alternative option for [facility] services if [facility] declines referral. CM will continue to support patient with discharge planning concerns, and reviewed additional considerations with Dr. Douglas and no changes are made. A: 82 year old female admitted to [facility] on 12/12/22 for Avascular necrosis of bone of hip P: ?Anticipate, Alyse will discharge home with new [facility] RN/PT/OT/REMOTE CONTROL MIRROR INSTALLER services vs. [facility], when medically ready per Ortho. Alyse will follow up with community providers and her discharge plan of care as prescribed. Alyse will transport home via [facility] private vehicle if family remains unwilling to transport. CM will follow.
[2022-12-14 15:59] LABS: BE (Venous) 1 mmol/L (-2-3); HCO3 (Venous) 26 mmol/L (23-28); O2 Sat (Venous) 54 %; TCO2 (Venous) 25 mmol/L (24-29); pCO2 (Venous) 43 mmHg (41-51); pH (Venous) 7.39 (7.31-7.41); pO2 (Venous) 29 mmHg
[2022-12-14 16:02] LABS: HCT 29.5 % (36.0-46.0); HGB 9.8 g/dL (11.2-15.7); Lactate 2.3 mmol/L (0.6-1.4)
[2022-12-14] MEDS: cefTRIAXone 2 GM/50 ML BAG IVPB (16:10)
[2022-12-14 16:21] LABS: Troponin I < 50 ng/L (<or=60)
[2022-12-14 16:27] LABS: TSH (W/Ref FT4) 1.31 uIU/mL (0.36-3.74)
[2022-12-14 16:35] LABS: Procalcitonin 0.1 ng/mL
[2022-12-14] MEDS: methylPREDNISolone SUCC 40 MG VIAL IVP ×2 (16:41→22:02)
[2022-12-14 16:43] LABS: Bilirubin Negative (Negative); Blood Negative (Negative); Clarity Clear (Clear); Glucose Negative (Negative); Ketones Trace mg/dL (Negative); Leukocyte Esterase Trace (Negative); Nitrite Negative (Negative); Urobilinogen 0.2 mg/dL (Up to 0.2)
[2022-12-14 16:56] LABS: Epithelial Cells Rare HPF (Negative); Other Cells Few Transitional (Negative); RBC 0-2 HPF (0-2)
[2022-12-14 16:57] LABS: Bacteria Few HPF (Negative); C & S Indicated? C&S Done As Ordered; Casts 0-2 Hyaline LPF (Negative); Crystals Negative HPF (Negative); Mucus Trace (Negative)
[2022-12-14 19:22] LABS: Lactate 2.5 mmol/L (0.6-1.4)
[2022-12-14] MEDS: Lactated Ringers 1,000 ML 100 ML IV (19:32)
[2022-12-14] MEDS: traMADol 50 MG TAB PO (21:09)
[2022-12-14] MEDS: Water,Injection,Sterile 10 ML VIAL IJ (22:03)
[2022-12-14 22:15] LABS: Lactate 2.6 mmol/L (0.6-1.4)
[2022-12-15] VITALS (9 sets, daily range): BP systolic 104–132; BP diastolic 59–87; PULSE 65–125; RESP 12–24; TEMP 36–37.4; O2SAT 93–98
[2022-12-15] MEDS: Lactated Ringers 1,000 ML 100 ML IV (03:59)
[2022-12-15] MEDS: methylPREDNISolone SUCC 40 MG VIAL IVP ×2 (05:20→13:29)
[2022-12-15] MEDS: Water,Injection,Sterile 10 ML VIAL IJ (05:20)
[2022-12-15 06:45] LABS: Lactate 1.3 mmol/L (0.6-1.4)
[2022-12-15 06:50] LABS: Abs Immature Grans 0.13 10^3/uL (0.0-0.06); Absolute Basophil Count 0.01 10^3/uL (0.0-0.2); Absolute Lymphocyte Count 0.56 10^3/uL (1.2-3.4); Basophils % 0.1; HCT 28.9 % (36.0-46.0); HGB 9.8 g/dL (11.2-15.7); Immature Grans % 1.2; MCH 31.9 pg (27.0-33.0); MCHC 33.9 % (32.0-36.0); MCV 94 fL (80-95); MPV 10.7 fL (8.0-11.0); Monocytes % 4.7; Platelet Count 136 10^3/uL (130-400); RBC 3.07 10^6/uL (3.93-5.22); RDW 13.3 % (11.7-14.6); RDW-SD 46.4 fL; WBC 11.18 10^3/uL (4.4-10.8)
[2022-12-15 06:52] LABS: Absolute Monocyte Count 0.53 10^3/uL (0.1-0.8); Absolute Neutrophil Count 9.95 10^3/uL (1.2-6.7)
[2022-12-15 07:07] LABS: BUN 25 mg/dL (7-18); CREATININE 0.6 mg/dL (0.55-1.02); Calcium 8.5 mg/dL (8.5-10.1); Chloride 104 mmol/L (98-107); Estimated GFR 88.45 (mL/min/1.73m2); Glucose 136 mg/dL (74-106); Potassium 4.7 mmol/L (3.5-5.1); Sodium 136 mmol/L (136-145)
[2022-12-15] MEDS: Pantoprazole 40 MG TABCR PO (07:41)
[2022-12-15] MEDS: DULoxetine 30 MG CAP PO (07:41)
[2022-12-15] MEDS: busPIRone 5 MG TAB 10 MG PO ×3 (07:41→19:27)
[2022-12-15] MEDS: Apixaban 2.5 MG TAB PO ×2 (07:41→19:27)
[2022-12-15] MEDS: Celecoxib 200 MG CAP PO ×2 (07:41→19:28)
[2022-12-15] MEDS: dilTIAZem 30 MG TAB PO ×2 (11:53→19:28)
--- NOTE | 2022-12-15 13:20 | PGE_ITS ---
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 Arias is an 82-year-old female postop day #3 status post hardware removal and left IVONNE completed on 12/12/2022. Encourage patient on current progress -educated likely to stay inpatient at least until Sunday. Patient had opportunity to have questions answered to her satisfaction and was agreeable with treatment plan. Reviewed hospitalist consult note from yesterday. Reviewed labs in detail. * Troponin from yesterday was less than 50 * Patient's lactate has improved from 2.6H last evening to 1.3 today; procalcitonin was 0.1 yesterday (according to laboratory value low risk for severe sepsis/septic shock) * Reviewed urine analysis which was positive for elevated protein 100 H, trace ketones, trace leukocyte esterase and white blood cell 10-20 H. * Reviewed CBC which shows elevated WBC of 11.18 H Ríos shows appropriate output Case was discussed with hospitalist Dr. Saha - likely will continue to monitor/treat hypotension Patient's family has now decided that they are unwilling to transport home/provide care/help patient any further. Reviewed last PCP note with Dr. Szymanski on 11/28/2022 which states: She does have some dementia and is often times difficult to work with due to her stubbornness, but she still retains capacity and can make her own decisions Patient is currently ambulating with nursing assist and will likely benefit from short term nursing facility for nursing and PT. Case was discussed with Dr. Yates (weekend orthopedic coverage) Reviewed care management note from yesterday Care management has had discussions with patient regarding option for short-term care facility which patient is now agreeable to. Spoke with care management, Angelica Ling RN - patient does have a bed available at a short term nursing facility that she could be transferred on Sunday depending on her status over the weekend Subjective Subjective Interval history since last seen: Ms. Arias is an 82-year-old female postop day #3 status post hardware removal and left IVONNE completed on 12/12/2022. Yesterday patient developed hypotension at which time hospitalist was consulted. Patient has been started on Rocephin 2 g, urine and blood cultures with additional labs were ordered. Patient reports being frustrated today since she was in bed for longer than desired. Reports discomfort diffusely about the left lower extremity. Exam Narrative Exam Narrative: Sitting up in the bed and then ambulated with two nurses and her walker to her chair. No acute distress. Normal in appearance. Resp Effort & Inspection: normal respiratory effort and able to speak in complete sentences Extrem Other: Left lower extremity examination: Dressing is intact and dry. Continued signs of resolving ecchymosis are noted about lower extremity. Patient is able to tolerate gentle passive hip range of motion while seated in chair without discomfort. Objective Last Vital Signs Temp 97.3 F L 12/15/22 12:04 Pulse 125 H 12/15/22 12:04 Resp 24 12/15/22 12:04 BP 119/67 12/15/22 12:04 Pulse Ox 96 12/15/22 12:04 Laboratory Results - last 24 hr 12/14/22 12/14/22 12/14/22 13:10 13:10 15:48 WBC 13.71 H RBC 3.39 L Hgb 10.8 L Hct 32.1 L MCV 95 MCH 31.9 MCHC 33.6 RDW 13.3 Plt Count 162 MPV 11.2 H Immature Gran % Neutrophils % Lymphocytes % Monocytes % Eosinophils % Basophils % Nucleated RBC % Absolute Neutrophils Absolute Lymphocytes Absolute Monocytes Absolute Eosinophils Absolute Basophils VBG pH VBG pCO2 VBG pO2 VBG HCO3 VBG Total CO2 VBG O2 Saturation VBG Base Excess VBG Lactate Sodium 134 L Potassium 4.6 Chloride 101 Carbon Dioxide 25.9 Anion Gap 7.1 BUN 27 H Creatinine 1.1 H Est GFR (CKD-EPI 2020) 49.55 Glucose 168 H Calcium 8.9 Total Bilirubin 0.8 AST 26 ALT 10 L Alkaline Phosphatase 73 Troponin I < 50 Total Protein 5.6 L Albumin 2.7 L Procalcitonin TSH Urine Color Urine Clarity Urine pH Ur Specific [place] Urine Protein Urine Ketones Urine Blood Urine Nitrite Urine Bilirubin Urine Urobilinogen Ur Leukocyte Esterase Urine RBC Urine WBC Ur Epithelial Cells Urine Crystals Urine Bacteria Urine Casts Urine Mucus Urine Other Ur Culture Indicated? Urine Glucose Add-On Test Request 12/14/22 12/14/22 12/14/22 15:48 15:48 15:48 WBC RBC Hgb Hct MCV MCH MCHC RDW Plt Count MPV Immature Gran % Neutrophils % Lymphocytes % Monocytes % Eosinophils % Basophils % Nucleated RBC % Absolute Neutrophils Absolute Lymphocytes Absolute Monocytes Absolute Eosinophils Absolute Basophils VBG pH 7.39 VBG pCO2 43 VBG pO2 29 VBG HCO3 26 VBG Total CO2 25 VBG O2 Saturation 54 VBG Base Excess 1 VBG Lactate 2.3 H* Sodium Potassium Chloride Carbon Dioxide Anion Gap BUN Creatinine Est GFR (CKD-EPI 2020) Glucose Calcium Total Bilirubin AST ALT Alkaline Phosphatase Troponin I Total Protein Albumin Procalcitonin 0.1 TSH Urine Color Urine Clarity Urine pH Ur Specific [place] Urine Protein Urine Ketones Urine Blood Urine Nitrite Urine Bilirubin Urine Urobilinogen Ur Leukocyte Esterase Urine RBC Urine WBC Ur Epithelial Cells Urine Crystals Urine Bacteria Urine Casts Urine Mucus Urine Other Ur Culture Indicated? Urine Glucose Add-On Test Request 12/14/22 12/14/22 12/14/22 15:48 15:48 16:23 WBC RBC Hgb 9.8 L Hct 29.5 L MCV MCH MCHC RDW Plt Count MPV Immature Gran % Neutrophils % Lymphocytes % Monocytes % Eosinophils % Basophils % Nucleated RBC % Absolute Neutrophils Absolute Lymphocytes Absolute Monocytes Absolute Eosinophils Absolute Basophils VBG pH VBG pCO2 VBG pO2 VBG HCO3 VBG Total CO2 VBG O2 Saturation VBG Base Excess VBG Lactate Sodium Potassium Chloride Carbon Dioxide Anion Gap BUN Creatinine Est GFR (CKD-EPI 2020) Glucose Calcium Total Bilirubin AST ALT Alkaline Phosphatase Troponin I Total Protein Albumin Procalcitonin TSH 1.31 Urine Color Yellow Urine Clarity Clear Urine pH 5.0 Ur Specific [place] 1.020 Urine Protein 100 H Urine Ketones Trace H Urine Blood Negative Urine Nitrite Negative Urine Bilirubin Negative Urine Urobilinogen 0.2 Ur Leukocyte Esterase Trace H Urine RBC 0-2 Urine WBC 10-20 H Ur Epithelial Cells Rare Urine Crystals Negative Urine Bacteria Few Urine Casts 0-2 Hyaline Urine Mucus Trace Urine Other Few Transitional Ur Culture Indicated? C&S Done As Ordered Urine Glucose Negative Add-On Test Request 12/14/22 12/14/22 12/14/22 19:13 22:05 Unknown WBC RBC Hgb Hct MCV MCH MCHC RDW Plt Count MPV Immature Gran % Neutrophils % Lymphocytes % Monocytes % Eosinophils % Basophils % Nucleated RBC % Absolute Neutrophils Absolute Lymphocytes Absolute Monocytes Absolute Eosinophils Absolute Basophils VBG pH VBG pCO2 VBG pO2 VBG HCO3 VBG Total CO2 VBG O2 Saturation VBG Base Excess VBG Lactate 2.5 H* 2.6 H* Sodium Potassium Chloride Carbon Dioxide Anion Gap BUN Creatinine Est GFR (CKD-EPI 2020) Glucose Calcium Total Bilirubin AST ALT Alkaline Phosphatase Troponin I Total Protein Albumin Procalcitonin TSH Urine Color Urine Clarity Urine pH Ur Specific [place] Urine Protein Urine Ketones Urine Blood Urine Nitrite Urine Bilirubin Urine Urobilinogen Ur Leukocyte Esterase Urine RBC Urine WBC Ur Epithelial Cells Urine Crystals Urine Bacteria Urine Casts Urine Mucus Urine Other Ur Culture Indicated? Urine Glucose Add-On Test Request TNP 12/15/22 12/15/22 12/15/22 06:36 06:36 06:36 WBC 11.18 H RBC 3.07 L Hgb 9.8 L Hct 28.9 L MCV 94 MCH 31.9 MCHC 33.9 RDW 13.3 Plt Count 136 MPV 10.7 Immature Gran % 1.2 Neutrophils % 89.0 Lymphocytes % 5.0 Monocytes % 4.7 Eosinophils % 0.0 Basophils % 0.1 Nucleated RBC % 0.0 Absolute Neutrophils 9.95 H Absolute Lymphocytes 0.56 L Absolute Monocytes 0.53 Absolute Eosinophils 0.00 Absolute Basophils 0.01 VBG pH VBG pCO2 VBG pO2 VBG HCO3 VBG Total CO2 VBG O2 Saturation VBG Base Excess VBG Lactate 1.3 Sodium 136 Potassium 4.7 Chloride 104 Carbon Dioxide 25.0 Anion Gap 7.0 BUN 25 H Creatinine 0.6 Est GFR (CKD-EPI 2020) 88.45 Glucose 136 H Calcium 8.5 Total Bilirubin AST ALT Alkaline Phosphatase Troponin I Total Protein Albumin Procalcitonin TSH Urine Color Urine Clarity Urine pH Ur Specific [place] Urine Protein Urine Ketones Urine Blood Urine Nitrite Urine Bilirubin Urine Urobilinogen Ur Leukocyte Esterase Urine RBC Urine WBC Ur Epithelial Cells Urine Crystals Urine Bacteria Urine Casts Urine Mucus Urine Other Ur Culture Indicated? Urine Glucose Add-On Test Request Time Spent with Patient Time Spent with Patient: <25 minutes Time was spent: preparing to see the patient(eg.review tests), obtaining and/or reviewing separately otained hiistory, ordering medications,tests, procedures, referring, communicating with other health ocular care technologist, indepentently interpreting results, counseling the patient and care coordination
[2022-12-15] MEDS: Acetaminophen 500 MG TAB 1000 MG PO ×2 (13:30→19:28)
--- NOTE | 2022-12-15 13:48 | PHA.REVIEW2 ---
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 (Acute) Urinary tract infection (Acute) methylphenidate Adverse Reaction (Intermediate, Verified 12/12/22 10:11) GI codeine Adverse Reaction (Unknown, Verified 12/12/22 10:11) Nausea azithromycin [From Zithromax Z-Edu] Adverse Reaction (Verified 12/12/22 10:11) Nausea sulfamethoxazole [From Bactrim] Adverse Reaction (Verified 12/12/22 10:11) explosive diarrhea trazodone Adverse Reaction (Verified 12/12/22 10:11) Nausea trimethoprim [From Bactrim] Adverse Reaction (Verified 12/12/22 10:11) explosive diarrhea Resuscitation Status Full Code Height 5 ft 6 in Weight 36.287 kg - Renal Dosing Renal Dosing: BUN 25 mg/dL (7-18) H 12/15/22 06:36 Creatinine 0.6 mg/dL (0.55-1.02) 12/15/22 06:36 Medications needing adjustments: Reviewed List of meds needing interventions: eCrCl 24 ml/min, eliquis renally dosed, all other orders ok - Anticoagulation Anticoagulation: Hgb 9.8 g/dL (11.2-15.7) L 12/15/22 06:36 Hct 28.9 % (36.0-46.0) L 12/15/22 06:36 Plt Count 136 10^3/uL (130-400) 12/15/22 06:36 Creatinine 0.6 mg/dL (0.55-1.02) 12/15/22 06:36 Therapeutic Anticoagulation: Reviewed Medications: Apixaban - Opiate Usage Evaluate Pain Scale/Pains Meds: Reviewed (morphine IVP prn, tramadol prn) Scheduled Bowel Reg ordered if on Opiates?: No - Relevant Labs Sodium 136 mmol/L (136-145) 12/15/22 06:36 Potassium 4.7 mmol/L (3.5-5.1) 12/15/22 06:36 Chloride 104 mmol/L (98-107) 12/15/22 06:36 Electrolytes, C-Reactive P, ESR: Reviewed - DM Control DM Control: Glucose 136 mg/dL (74-106) H 12/15/22 06:36 DM Control: N/A - Cardiac Review Cardiac Review: Troponin I < 50 ng/L (<or=60) 12/14/22 15:48 BP, HR, EF%: Reviewed List meds needing interventions: admitted for post-op hypotension; pt also experienced hypotension after dose of verapamil was given yesterday morning - med was held and then cancelled today -- upon review of external rx history it appears she hasn't filled this since may of last year and is likely very non-compliant with medication - Qtc Review QTc: Reviewed If Elevated, List meds needing intervention: QTc 448 - IV to PO Switch IV Medications: Reviewed - Home Meds Home Med List reviewed: Intervened Relevent Home Meds Not ordered & why?: verapamil - cancelled after patient experienced severe hypotension Medication adherence barriers identified?: Per pt's external rx history (surescripts) it appears she hasn't filled any of her maintenance medications in several months; carpidopa/levo and amantadine and duloxetine last filled 07/26/22 x 90 days, verapamil last filled 06/07/22 x 90 days, buspirone and eliquis last filled 05/31/22 x 90 days; does patient have a reliable ride to the pharmacy? Pill box reminders? - Current meds Current Medication Order Review: Reviewed (verapamil was cancelled, diltiazem 30mg was scheduled due to elevated HR)
--- NOTE | 2022-12-15 15:08 | PDOC.CMPRO ---
Date of service: 12/15/22 Time of Service: 15:08 Care Management Progress Note Progress Note Text Progress Note Text: S/O: Alyse was lying in bed when CM met with her. Her hip pain is much improved and she is working with PT. She is agreeable to discharge to a SNF for STR, prior to discharging home and shares with CM that Ana, Suman and Fausto came to the hospital this morning to tell her that they are done helping her. Alyse describes the interaction as an ambush. CM was advised by staff that three family members walked into her room at 7am, woke her up from her sleep, stood over her bed and the tone of their voices were not very nice. Visitors were met by the CC RN Shilpa and asked to leave. CM discussed this interaction with Alyse and she asked to remove family members from her HIPAA, CM assisted with this request, chart is updated. Discharge planning has changed, Alyse is now agreeable to discharge to a SNF for STR, with a plan of finishing up her application to the [facility] or discharging home with paid caregiver support. CM will continue to support patient with discharge planning. [address] Alyse accepted a bed offer at [facility] at the beginning of the week. CM will contact SNF first thing Sunday and coordinate discharge. A: 82 year old female admitted to [facility] on 12/12/22 for Avascular necrosis of bone of hip P: ?Alyse accepted a bed offer at [facility] at the beginning of the week. CM will contact SNF first thing Sunday and coordinate discharge.Anticipate, Alyse will discharge to SNF for STR, prior to going home with new VNA RN/PT/OT/ADJ[employer]CT [employer] services. Alyse will follow up with community providers and her discharge plan of care as prescribed.? Transportation will me dependent on dispo. CM will follow.
[2022-12-15] MEDS: cefTRIAXone 2 GM/50 ML BAG IVPB (16:15)
--- NOTE | 2022-12-15 16:39 | PT.INTREAT ---
Date of service: 12/15/22 Time of Service: 11:53 PT Notes Visit Reasons: Left Hip Avascular Necrosis Inpatient Physical Therapy Treatment Note [facility] Date: 12.15.22 PRECAUTIONS: High fall risk, standard, activity as tolerated SUBJECTIVE: A.M. patient tearful, reports this whole thing is just a nightmare. They're sending me home. Where am I going to go? I have nowhere to go. Declines therapy, but agrees to go over HEP. PM patient less distraught, agreeable to therapy, still concerned about prospect of going home. OBJECTIVE: PAIN: none reported, but notes in the afternoon that her hip feels stiff. BED MOBILITY/TRANSFERS Sit-stand: CGA Stand-sit: CGA Bed-Chair: CGA Chair-bed: CGA GAIT Assistive Device: FWW Weight bearing: as tolerated Assist: CGA Distance: afternoon 320 feet Deviation: Patient's posture is strange; right hip juts out laterally, so that left hip is almost directly under right shoulder. This appears to cause patient to list to the right side of the walker. Reduced step height, reduced step length, step to pattern with left leg leading. Patient self-corrects walker placement several times, is unable to correct her posture. THEREX: Patient participates in review of HEP with this therapist in the morning. Demonstrates ability to perform exerises appropriately as follows: Access Code: [email or web address] URL: [email or web address] Date: 12/15/2022 Prepared by: Carmen Lester Exercises - Seated Long Arc Quad? - 1 x daily - 7 x weekly - 3 sets - 10 reps - Seated September? - 1 x daily - 7 x weekly - 3 sets - 10 reps - Sit to Stand with Counter Support? - 1 x daily - 7 x weekly - 3 sets - 10 reps - Standing Knee Flexion? - 1 x daily - 7 x weekly - 3 sets - 10 reps ASSESSMENT: Patient appears very short of breath immediately following treatment, reports her AFIB is acting up. Returns to normal appearance in under a minute, reports she feels fine now. PLAN: Continue strengthening per plan of care. TREATMENT CODE/TIME: morning 36715 Ther Ex 10 minutes beginning at 11:53 Afternoon [id number] Gait 25 minutes beginning at 13:42
[2022-12-15] MEDS: traMADol 50 MG TAB PO (19:28)
--- NOTE | 2022-12-15 19:43 | W.PM.PROGNOT ---
Date of Service Date of service: 12/15/22 Time of Service: 19:55 Assessment and Plan Assessment and plan (1) Hypotension after procedure: Status: Resolved Assessment and plan: I actually think this was her reaction to verapamil. We now know that the patient does not always take her medications as prescribed. When tried on diltiazem 30 mg PO BID, her BP and HR appear to be rather stable, so we will use this regimen instead of verapamil. Continue to monitor on tele. Euvolemic. (2) Atrial fibrillation: Status: Chronic Assessment and plan: Afib/flutter. As above. (3) Dysuria: Status: Acute Assessment and plan: UA mildly dirty.Mild UTI. Urine C&S; NGTD. Continue empiric ceftriaxone for now. Would stop after 3 doses. (4) Acute blood loss as cause of postoperative anemia: Status: Acute Assessment and plan: H/H remains stable. Not requiring blood transfusion at this time. (5) Chronic obstructive lung disease: Status: Chronic Assessment and plan: Not in acute exacerbation. (6) Hypothyroidism: Status: Chronic Assessment and plan: TSH at goal. (7) Parkinson's disease: Status: Chronic Assessment and plan: Continue sinemet. (8) Mild cognitive impairment with memory loss: Status: Chronic Assessment and plan: Monitor for forgetfulness/delirium, but has been doing rather well from the mental status stand point so far. Subjective Subjective Interval history since last seen: Ms Arias denies dizziness, chest pain, shortness of breath, nausea, pain. She did have an encounter with her family this morning which was very upsetting to her. On telemetry, she has been in Aflutter up to 140 overnight, but her HR is doing better now - in the 80s. Exam Narrative Exam Narrative: General: Pleasant elderly female who is A&Ox3, NAD, laying comfortably in bed HEENT: EOMI, MMM Heart: Irregularly irregular rhythm Lungs: CTAB Abdomen: soft, nontender, nondistended Extremities: no edema BLEs, wearing TEDs. Objective Last Vital Signs Temp 37.1 C 12/15/22 19:33 Pulse 86 12/15/22 19:33 Resp 18 12/15/22 19:33 BP 109/69 12/15/22 19:33 Pulse Ox 98 12/15/22 19:33 Laboratory Results - last 24 hr 12/14/22 12/15/22 12/15/22 22:05 06:36 06:36 WBC RBC Hgb Hct MCV MCH MCHC RDW Plt Count MPV Immature Gran % Neutrophils % Lymphocytes % Monocytes % Eosinophils % Basophils % Nucleated RBC % Absolute Neutrophils Absolute Lymphocytes Absolute Monocytes Absolute Eosinophils Absolute Basophils VBG Lactate 2.6 H* 1.3 Sodium 136 Potassium 4.7 Chloride 104 Carbon Dioxide 25.0 Anion Gap 7.0 BUN 25 H Creatinine 0.6 Est GFR (CKD-EPI 2020) 88.45 Glucose 136 H Calcium 8.5 12/15/22 06:36 WBC 11.18 H RBC 3.07 L Hgb 9.8 L Hct 28.9 L MCV 94 MCH 31.9 MCHC 33.9 RDW 13.3 Plt Count 136 MPV 10.7 Immature Gran % 1.2 Neutrophils % 89.0 Lymphocytes % 5.0 Monocytes % 4.7 Eosinophils % 0.0 Basophils % 0.1 Nucleated RBC % 0.0 Absolute Neutrophils 9.95 H Absolute Lymphocytes 0.56 L Absolute Monocytes 0.53 Absolute Eosinophils 0.00 Absolute Basophils 0.01 VBG Lactate Sodium Potassium Chloride Carbon Dioxide Anion Gap BUN Creatinine Est GFR (CKD-EPI 2020) Glucose Calcium Time Spent with Patient Time Spent with Patient: 25-34 minutes Time was spent: preparing to see the patient(eg.review tests), obtaining and/or reviewing separately otained hiistory, ordering medications,tests, procedures, referring, communicating with other health primary care nurse practitioner, indepentently interpreting results, counseling the patient and care coordination
[2022-12-16] VITALS (7 sets, daily range): BP systolic 103–133; BP diastolic 64–80; PULSE 63–94; RESP 16–18; TEMP 36.4–37; O2SAT 96–98
[2022-12-16] MEDS: Pantoprazole 40 MG TABCR PO (06:28)
[2022-12-16 07:46] LABS: Abs Immature Grans 0.07 10^3/uL (0.0-0.06); Absolute Basophil Count 0.01 10^3/uL (0.0-0.2); Absolute Lymphocyte Count 0.57 10^3/uL (1.2-3.4); Absolute Monocyte Count 0.47 10^3/uL (0.1-0.8); Absolute Neutrophil Count 8.58 10^3/uL (1.2-6.7); Basophils % 0.1; HCT 29.1 % (36.0-46.0); HGB 9.8 g/dL (11.2-15.7); Immature Grans % 0.7; Lymphocytes % 5.9; MCH 31.7 pg (27.0-33.0); MCHC 33.7 % (32.0-36.0); MCV 94 fL (80-95); MPV 10.3 fL (8.0-11.0); Monocytes % 4.8; Neutrophils % 88.5; Platelet Count 183 10^3/uL (130-400); RBC 3.09 10^6/uL (3.93-5.22); RDW 13.3 % (11.7-14.6)
[2022-12-16 07:58] LABS: Anion Gap 6.5 mmol/L (3-11); BUN 27 mg/dL (7-18); CO2 25.5 mmol/L (21.0-32.0); CREATININE 0.7 mg/dL (0.55-1.02); Calcium 8.6 mg/dL (8.5-10.1); Chloride 104 mmol/L (98-107); Estimated GFR 85.23 (mL/min/1.73m2); Glucose 125 mg/dL (74-106); Magnesium 1.7 mg/dL (1.8-2.4); Potassium 4.4 mmol/L (3.5-5.1); Sodium 136 mmol/L (136-145)
[2022-12-16] MEDS: Acetaminophen 500 MG TAB 1000 MG PO ×3 (08:45→20:04)
[2022-12-16] MEDS: Apixaban 2.5 MG TAB PO ×2 (08:46→20:05)
[2022-12-16] MEDS: Celecoxib 200 MG CAP PO ×2 (08:46→20:04)
[2022-12-16] MEDS: dilTIAZem 30 MG TAB PO ×2 (08:46→20:04)
[2022-12-16] MEDS: DULoxetine 30 MG CAP PO (08:46)
[2022-12-16] MEDS: busPIRone 5 MG TAB 10 MG PO ×3 (08:46→20:04)
--- NOTE | 2022-12-16 09:46 | PGE_ITS ---
Date of Service Date of service: 12/16/22 Time of Service: 09:46 Assessment and Plan Assessment and plan (1) Avascular necrosis of bone of hip: Status: Acute Assessment and plan: 82-year-old female postop day #4 status post Left anterior total hip arthroplasty with removal of hardware, complicated by challenging removal of prior femoral neck fracture hardware. Subjectively okay. Pain controlled. No significant complaints or concerns outside of social/family issues already documented yesterday. Objectively vital signs and blood work stable, Ríos in place with appropriate clear urine output. Left hip dressing clean dry intact. Sensation intact skin light touch about dressing. Intact motor and strength distally foot and ankle. Unable to activate straight leg raise on her own, but able to perform straight leg raise with some assistance and maintain raised position. No notable discomfort about hip with motion or strength testing. No signs of blood clot or infection. As previously discussed, continue physical therapy rehabilitation and discharge planning as patient continues to consider options. Appreciate medical consultation?antihypertensives adjusted, complete antibiotic course for UTI. Discontinue Ríos catheter. Objective Last Vital Signs Temp 97.5 F L 12/16/22 06:37 Pulse 80 12/16/22 06:37 Resp 16 12/16/22 06:37 BP 119/74 12/16/22 06:37 Pulse Ox 96 12/16/22 06:37 Laboratory Results - last 24 hr 12/16/22 12/16/22 07:11 07:11 WBC 9.70 RBC 3.09 L Hgb 9.8 L Hct 29.1 L MCV 94 MCH 31.7 MCHC 33.7 RDW 13.3 Plt Count 183 MPV 10.3 Immature Gran % 0.7 Neutrophils % 88.5 Lymphocytes % 5.9 Monocytes % 4.8 Eosinophils % 0.0 Basophils % 0.1 Nucleated RBC % 0.0 Absolute Neutrophils 8.58 H Absolute Lymphocytes 0.57 L Absolute Monocytes 0.47 Absolute Eosinophils 0.00 Absolute Basophils 0.01 Sodium 136 Potassium 4.4 Chloride 104 Carbon Dioxide 25.5 Anion Gap 6.5 BUN 27 H Creatinine 0.7 Est GFR (CKD-EPI 2020) 85.23 Glucose 125 H Calcium 8.6 Magnesium 1.7 L Time Spent with Patient Time Spent with Patient: <25 minutes Time was spent: preparing to see the patient(eg.review tests), obtaining and/or reviewing separately otained hiistory, ordering medications,tests, procedures, referring, communicating with other health manager critical care unit, indepentently interpreting results, counseling the patient and care coordination
--- NOTE | 2022-12-16 10:23 | PT.INTREAT ---
PT Notes Visit Reasons: Left Hip Avascular Necrosis Inpatient Physical Therapy Treatment Note [facility] Date: 12/16/22 PRECAUTIONS: OBJECTIVE: Supine-sit: Min Assist x 1 Sit-supine: Min Assistx1 Sit-stand: CGA Stand-sit: CGA GAIT Assistive Device: FWW Weight bearing: Full Assist: CGA/SBA Distance: Approx 350ft THEREX: Supine Q.S. x 10, heels slides x 10, hop abd with assist x 10, SLR with assist x 10. ASSESSMENT: Pt tolerated today's session well. Pt has difficulty lifting the L LE I. PLAN: Cont as per PT POC. TREATMENT CODE/TIME: 10:00-10:20 (20) TA
[2022-12-16] MEDS: traMADol 50 MG TAB PO ×2 (13:02→20:04)
[2022-12-16] MEDS: cefTRIAXone 2 GM/50 ML BAG IVPB (17:18)
--- NOTE | 2022-12-16 17:41 | PGE_ITS ---
Date of Service Date of service: 12/16/22 Time of Service: 17:41 Assessment and Plan Assessment and plan (1) Hypotension after procedure: Status: Resolved Assessment and plan: I actually think this was her reaction to verapamil. She is tolerating cardizem 30 mg PO BID. Would continue current therapy. (2) Atrial fibrillation: Status: Chronic Assessment and plan: Afib/flutter. As above. Replete magnesium. (3) Dysuria: Status: Acute Assessment and plan: UA mildly dirty.Mild UTI. Urine C&S; NGTD. Continue empiric ceftriaxone for now. Would stop after 3 doses. (4) Acute blood loss as cause of postoperative anemia: Status: Acute Assessment and plan: H/H exactly the same. Not requiring blood transfusion at this time. (5) Chronic obstructive lung disease: Status: Chronic Assessment and plan: Not in acute exacerbation. (6) Hypothyroidism: Status: Chronic Assessment and plan: TSH at goal. (7) Parkinson's disease: Status: Chronic Assessment and plan: Continue sinemet. (8) Mild cognitive impairment with memory loss: Status: Chronic Assessment and plan: Monitor for forgetfulness/delirium, but has been doing rather well from the mental status stand point so far. Hospitalists are signing off. Please, reconsult if needed. Subjective Subjective Interval history since last seen: Ms Arias had a good night. She reports that her pain is well controlled. Denies dizziness, CP, SOB. HR on the monitor has been 60s-80s. Exam Narrative Exam Narrative: General: Pleasant elderly female who is A&Ox3, NAD, sitting up in a chair HEENT: EOMI, MMM Heart: Irregularly irregular rhythm Lungs: CTAB Abdomen: soft, nontender, nondistended Extremities: no edema BLEs, wearing TEDs. Objective Last Vital Signs Temp 36.5 C 12/16/22 15:57 Pulse 74 12/16/22 15:57 Resp 18 12/16/22 15:57 BP 118/72 12/16/22 15:57 Pulse Ox 97 12/16/22 15:57 Laboratory Results - last 24 hr 12/16/22 12/16/22 07:11 07:11 WBC 9.70 RBC 3.09 L Hgb 9.8 L Hct 29.1 L MCV 94 MCH 31.7 MCHC 33.7 RDW 13.3 Plt Count 183 MPV 10.3 Immature Gran % 0.7 Neutrophils % 88.5 Lymphocytes % 5.9 Monocytes % 4.8 Eosinophils % 0.0 Basophils % 0.1 Nucleated RBC % 0.0 Absolute Neutrophils 8.58 H Absolute Lymphocytes 0.57 L Absolute Monocytes 0.47 Absolute Eosinophils 0.00 Absolute Basophils 0.01 Sodium 136 Potassium 4.4 Chloride 104 Carbon Dioxide 25.5 Anion Gap 6.5 BUN 27 H Creatinine 0.7 Est GFR (CKD-EPI 2020) 85.23 Glucose 125 H Calcium 8.6 Magnesium 1.7 L Time Spent with Patient Time Spent with Patient: 25-34 minutes Time was spent: preparing to see the patient(eg.review tests), obtaining and/or reviewing separately otained hiistory, ordering medications,tests, procedures, referring, communicating with other health medicare insurance specialist, indepentently interpreting results, counseling the patient and care coordination
[2022-12-16] MEDS: Magnesium Chloride 64 MG TABCR PO (20:04)
[2022-12-17] VITALS (11 sets, daily range): BP systolic 103–145; BP diastolic 54–88; PULSE 60–112; RESP 16–21; TEMP 35.7–36.6; O2SAT 96–100
[2022-12-17] MEDS: Pantoprazole 40 MG TABCR PO (06:38)
[2022-12-17] MEDS: DULoxetine 30 MG CAP PO (08:04)
[2022-12-17] MEDS: busPIRone 5 MG TAB 10 MG PO ×3 (08:05→19:31)
[2022-12-17] MEDS: dilTIAZem 30 MG TAB PO ×3 (08:05→19:30)
[2022-12-17] MEDS: Celecoxib 200 MG CAP PO ×2 (08:05→19:31)
[2022-12-17] MEDS: Apixaban 2.5 MG TAB PO ×2 (08:05→19:31)
--- NOTE | 2022-12-17 10:12 | PT.INTREAT ---
PT Notes Visit Reasons: Left Hip Avascular Necrosis Inpatient Physical Therapy Treatment Note [facility] Date: 12/17/22 PRECAUTIONS: SUBJECTIVE: Pt reports that she is not feeling as comfortable today. She hates to say no to PT. OBJECTIVE: Sit-stand: CGA Stand-sit: CGA GAIT Assistive Device: FWW Weight bearing: Full Assist: CGA Distance: . From the chair to the bathroom and thento PT room and had to take a seated rest. Pt then requested to be wheeled back to her room. THEREX: Pt refused exercises today. She was too tired. ASSESSMENT: Pt was not able to tolerate a lot of walking today compared to yesterday. She seemed very tired today. PLAN: Cont as per PT POC. TREATMENT CODE/TIME: 9:55-10:10 (15) TA
--- NOTE | 2022-12-17 14:00 | W.PM.PROGNOT ---
Date of Service Date of service: 12/17/22 Time of Service: 14:05 Assessment and Plan Assessment and plan (1) Avascular necrosis of bone of hip: Status: Acute Assessment and plan: 82-year-old female postop day #5 status post Left anterior total hip arthroplasty with removal of hardware, complicated by challenging removal of prior femoral neck fracture hardware. Subjectively okay with regards to hip. No headache, chest pain, shortness of breath, nausea, or vomiting. Pain controlled. Continues to perseverate over social/family issues relating to discharge. Vital signs stable voiding well without Ríos. Left hip dressing clean dry intact. Sensation intact skin light touch about dressing. Intact motor and strength distally foot and ankle. Improved, good straight leg raise. Strong foot and ankle range of motion. Neurovascularly intact throughout. No signs of blood clot or infection. As previously discussed, continue physical therapy rehabilitation and discharge planning as patient continues to consider options. No more hypotension?medical team has. I have ordered ceftriaxone to stop after completing the recommended antibiotic course for UTI. Objective Last Vital Signs Temp 97.2 F L 12/17/22 11:45 Pulse 60 12/17/22 11:45 Resp 20 12/17/22 11:45 BP 103/54 L 12/17/22 11:45 Pulse Ox 98 12/17/22 11:45 Time Spent with Patient Time Spent with Patient: <25 minutes Time was spent: preparing to see the patient(eg.review tests), obtaining and/or reviewing separately otained hiistory, ordering medications,tests, procedures, referring, communicating with other health patient care assistant and counseling the patient
[2022-12-17] MEDS: Normal Saline Flush 10 ML SYR IV (16:10)
[2022-12-17] MEDS: cefTRIAXone 2 GM/50 ML BAG IVPB (16:11)
[2022-12-17] MEDS: Magnesium Chloride 64 MG TABCR PO (19:30)
[2022-12-18 04:14] VITALS: BP 120/71; PULSE 96; RESP 16; TEMP 36.9; O2SAT 98
[2022-12-18] MEDS: Normal Saline Flush 10 ML SYR IV ×2 (04:16→07:46)
[2022-12-18 06:49] VITALS: BP 147/85; PULSE 102; RESP 22; TEMP 36.3; O2SAT 98
[2022-12-18 07:32] VITALS: BP 127/75; PULSE 95; RESP 18; TEMP 36.6; O2SAT 97
[2022-12-18 07:46] VITALS: PULSE 108
[2022-12-18] MEDS: dilTIAZem 30 MG TAB PO (07:46)
[2022-12-18] MEDS: Celecoxib 200 MG CAP PO (07:46)
[2022-12-18] MEDS: Acetaminophen 500 MG TAB 1000 MG PO (07:47)
[2022-12-18] MEDS: Magnesium Chloride 64 MG TABCR PO (07:47)
[2022-12-18] MEDS: busPIRone 5 MG TAB 10 MG PO (07:47)
[2022-12-18] MEDS: Apixaban 2.5 MG TAB PO (07:47)
[2022-12-18] MEDS: DULoxetine 30 MG CAP PO (07:47)
[2022-12-18] MEDS: Pantoprazole 40 MG TABCR PO (07:47)
--- NOTE | 2022-12-18 09:05 | NT_ITS ---
Occupational Therapy Notes 12/18/22 OT attempted to work with pt who would like to hold at this time. OT will attempt to continue to resume care tomorrow. Charley Schaeffer OTR/[facility] [place], [place]
[2022-12-18 10:44] LABS: COVID-19 PCR Negative (Negative)
[2022-12-18 10:45] LABS: Source Nasal/Nares
[2022-12-18 11:08] VITALS: BP 102/60; PULSE 84; RESP 18; TEMP 36.6; O2SAT 99
[2022-12-18 11:37] VITALS: PULSE 98
--- NOTE | 2022-12-18 11:47 | PGE_ITS ---
Date of Service Date of service: 12/18/22 Time of Service: 11:57 Subjective Subjective Interval history since last seen: Patient seen in brief follow up. She had an episode of Rapid Afib this am with HR up to 170. This was self-limited - the patient was up and in the bathroom - and resolved on its own before any prn medications could be given. I have discussed with Dr Douglas that the patient would benefit from increasing her cardizem to 30 mg PO TID. Objective Last Vital Signs Temp 36.6 C 12/18/22 11:08 Pulse 84 12/18/22 11:08 Resp 18 12/18/22 11:08 BP 102/60 12/18/22 11:08 Pulse Ox 99 12/18/22 11:08 Laboratory Results - last 24 hr 12/18/22 09:50 COVID-19 Source Nasal/Nares SARS-CoV-2 (PCR) Negative Time Spent with Patient Time Spent with Patient: <25 minutes Time was spent: preparing to see the patient(eg.review tests), ordering medications,tests, procedures, referring, communicating with other health floor care specialist and care coordination
--- NOTE | 2022-12-18 11:47 | W.PM.DS.N ---
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 The surgery was tolerated well without any notable medical, surgical, or anesthetic complications. Mobilization began postoperatively. She was voiding spontaneously. Vitals were stable. Physical therapy worked with the patient. She did have some issues with hypotension on postop day #2 and 3. However, this was found to likely be attributable to long-acting calcium channel jay. With the correction medication this improved. There is no other concerning features of her labs or other work-up which was completed including a full cardiac work-up. At the time of discharge, there were no acute medical issues. Pain was controlled on oral regimen. Home Meds and New Rx's Prescriptions: New acetaminophen 500 mg tablet 500 mg PO Q6H PRN PRN (Reason: pain) Qty: 60 3RF celecoxib 100 mg capsule 100 mg PO BID PRNQty: 60 0RF Continued carbidopa-levodopa 25-100 mg tablet extended release 1 tab PO TID Qty: 270 3RF Rx Instructions: Take at 6am, 11am, and 4pm. amantadine HCl 100 mg capsule 100 mg PO DAILY Qty: 90 5RF duloxetine 30 mg capsule,delayed release(DR/EC) 30 mg PO DAILY Qty: 90 11RF lorazepam 0.5 mg tablet 0.5 mg PO QHS PRN (Reason: insomnia) Qty: 30 0RF fluticasone propionate 50 mcg/actuation spray,suspension 2 spray NS BID PRN (Reason: allergy symptoms) Qty: 47.4 5RF Eliquis 2.5 mg tablet 2.5 mg PO BID Qty: 180 12RF buspirone 10 mg tablet 10 mg PO TID Qty: 270 5RF Changed diltiazem HCl 30 mg tablet 30 mg PO TID Qty: 50 0RF Discontinued verapamil 180 mg capsule,ext rel. pellets 24 hr 180 mg PO DAILY Qty: 90 5RF Discharge Instructions Instructions: Total Hip Replacement (DC), Total Hip Discharge Instructions Additional Instructions: Total Hip Discharge Instructions Activity: The most important activity is to walk. You should try to take short walks a few times a day. You have no restrictions on movement or positioning, but do not try to force what you do. You will find some stiffness and weakness with hip flexion (lifting your knee). Do not try to strengthen this too early, continue to practice walking and stairs and this will come. - Outpatient physical therapy can be helpful to help return you to a normal gait and improve your flexibility and strength. This can start around 2 weeks. For some patients, it?s not necessary. Usually this is determined at the time of discharge or at the first post-operative visit. - You should wear the TERRELL hose on both legs for 2 weeks. Dressing: Keep the surgical dressing in place for at least one week. After the first week it may be removed and replace with light gauze and tape or nothing. It may get wet after 3 days but avoid soaking the dressing. If it gets wet, just lightly pat dry. It is important to always keep some gauze between skin folds, especially when you are sitting. Spend some time with the wound exposed when you are lying flat as the incision does wrinkle onto itself. Medications: - You should take Tylenol and an anti-inflammatory Celebrex as your primary pain control medications. - You have also been prescribed a stomach acid reduction agent Pantoprozole to help reduce stomach acid and reflux. - You may resume Apixaban for anticoagulation tomorrow - If you have constipation you should take Colace or Miralax (which is available [id number]). It takes most people 3-4 days to have a bowel movement. Follow-up: 4 weeks post-op If you have any acute concerns or questions, please do not hesitate to contact the office at [phone]. You may contact Dr. Douglas with any questions after hours through the hospital at [phone] or on his cell phone at [phone]. Stand Alone Forms: Nursing Discharge Form Referrals: Tremayne Douglas MD [ [facility]FF PHYSICIAN] - 12/25/22 11:30 am Activity:: Activity as Tolerated Equipment/Supplies:: Walker Diet:: As Tolerated Discharge Orders Discharge Orders: Discharge Order (Routine); Ordered 12/18/22 Ordered By: Tremayne Douglas DS: Summary Time Spent with Patient providing and/or coordinating discharge services: Less than 30 minutes Status at Discharge Functional status at discharge: uses cane/walker Overall status at discharge: patient is progressing back to baseline Mental Status: mental status grossly normal Speech and Movement: speech and movement normal Mood: congruent mood Affect: normal affect Exam Narrative Exam Narrative: No acute distress. Alert and oriented times person, place, time. Left leg shows some swelling about the lateral aspect the left hip. However, minimal ecchymosis. Mild pain with palpation over the lateral aspect of the left hip. No pain with hip internal, external rotation, flexion. Sensation intact light touch of the femoral, sciatic nerve distributions. Intact ankle dorsiflexion, plantarflexion, EHL, FHL function. Psych Mental Status: mental status grossly normal Speech and Movement: speech and movement normal Mood: congruent mood Affect: normal affect DS: Data Vitals/I&O Vitals and I&O: Vital Signs Temperature 36.6 C 12/18/22 11:08 Temperature Source Tympanic 12/18/22 11:08 Pulse 84 12/18/22 11:08 Pulse Rhythm Irregular 12/18/22 04:22 Respiratory Rate 18 12/18/22 11:08 Respiratory Effort Non-Labored 12/18/22 04:22 Respiratory Depth Normal 12/18/22 04:22 Respiratory Pattern Normal 12/18/22 04:22 Blood Pressure 102/60 12/18/22 11:08 Pulse Oximetry 99 12/18/22 11:08 Respiratory End-tidal CO2 34 12/12/22 16:09 Oxygen Delivery Method Room Air 12/18/22 11:08 Oxygen Flow Rate 0 12/18/22 11:08 Pain Level 1 12/18/22 11:08 Comment RN requested b/p 12/14/22 23:58 Intake & Output 12/17/22 12/17/22 12/18/22 11:59 23:59 11:59 Intake Total 600 / 600 Output Total 100 / 450 350 / 450 125 / 125 Balance -100 / 150 250 / 150 -115 / -115 Intake: IV 50 / 50 Oral 550 / 550 Output: Urine 100 / 450 350 / 450 125 / 125 Other: Urine Color Yellow Yellow Yellow Urine Appearance Clear Clear Clear Urine Odor Normal Normal Comment unmeasured, incontinent pt voided on with PT so unsure how much ,color or appearence Stool Size Small Large Small Stool Characteristics Formed Formed Formed Brown Hard Voiding Methods Toilet Toilet Toilet Data Completed and Pending Labs on day of discharge: Labs from last 24 hours 12/18/22 09:50 COVID-19 Source Nasal/Nares SARS-CoV-2 (PCR) Negative Preliminary micro results at discharge 12/14/22 15:33 Blood Culture - Preliminary Blood NO GROWTH 72 HOURS 12/14/22 15:48 Blood Culture - Preliminary Blood NO GROWTH 72 HOURS PFSH All Active Problems Dysuria (Acute) Acute blood loss as cause of postoperative anemia (Acute) Chronic obstructive lung disease (Chronic) Hypothyroidism (Chronic 03/10/13) Newly diagnosed. Aortic valve insufficiency (Chronic) Followed by Mohan Morris at [place]. Mild cognitive impairment with memory loss (Chronic) see above Anxiety (Chronic) JANET-7 SCORE=16 Atrial fibrillation (Chronic 04/07/13) Chronic pulmonary heart disease (Chronic) CT Scan Chest - nodule, otherwise nl; PFT - w/ exercise diffusion - nl at 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) PLEURAL EFFUSION Insomnia (Chronic 09/02/14) Osteopenia (Chronic) t-scores; -2.1; -1.5 Tricuspid valve insufficiency (Chronic 04/14/16) moderate Ductal papillomatosis of breast (Acute) Abnormal weight loss (Acute) Presbylarynges (Acute) Hypophonia (Acute) Parkinson's disease (Chronic) Wart viral (Acute) Metatarsalgia of both feet (Acute) Depression (Chronic) Decreased hearing of both ears (Acute) Fatigue (Acute) Weakness (Acute) Hypokalemia (Acute) Frequent falls (Acute) Ambulatory dysfunction (Acute) New onset left bundle branch block (LBBB) (Acute) DVT prophylaxis (Acute) Discharge planning issues (Acute) Dementia (Chronic) MOCA on 06/01/22 Parkinson disease (Chronic) Malnutrition (Acute) Carmen onychomycosis (Acute) Avascular necrosis of bone of hip (Acute) s/p IVONNE (12/12/22) 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 There is a history of low blood pressure on calcium blockers in the past as well. 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; PA pressure 21 Heart palpitations Hoarseness Low back pain (04/12/09) Palliative care patient Tachycardia Surgical History Colonoscopy - MAC 1995 1997 1998 2012 ECHO (~2006) Echocardiogram with negative pulmonary work up at [facility], PA pressure 21 EGD - MAC (~1995) showing increase in PA pressures H/O cataract removal with insertion of prosthetic lens H/O esophagogastroduodenoscopy 07/16/95 showing increase in PA pressure History of cataract surgery History of hip surgery Hx of appendectomy S/P appendectomy S/P breast biopsy intraductal papilloma S/P bunionectomy bilateral Family History Mother Essential hypertension Heart disease Father No problems noted. Social History Smoking/Tobacco Use Status: Never Smoking risk assessment performed?: Yes Alcohol Intake: current Alcohol Intake frequency: holidays/special occasions only Alcohol type: wine Drug use: Never Adopted: No Caregiver/Support person: Yes (caregiver for fiance) Details: currently in a chcf, but pt is primary support Foster care: No Household members: none Housing: house Number of Children: 3 number of grandchildren: 4 current occupation: Retired Pets and animals: No What type of physical activity do you participate in: none Seatbelt use: never Drive intox or ride w/intox cross country truck driver: No Firearms in home: Yes (unloaded, not locked) Firearms unloaded and locked: No Additional Social history: Unable to assess privatley. Pt. was in ER during pre-op call with Daughter Jamilah Houston, pt is reluctant to do surgery but did verbally agree to move forward with IVONNE. Dr. Westbrook explained to pt. that to walk independently she needs this surgery. Pre-op was completed as best as possible with Jamilah Cullen and Dr. Westbrook. Pt. was instructed to take Diltiazem, verapamil, carbidopa/levodopa, buspirone, duloxetine, amandtadine, and newly prescribed Cephalexin for UTI morning of surgery. As well as to be NPO after midnight, may have water only up unil 7am morning of surgery after that nothing else by mouth, and to arrive 10am to [facility]. Dtr Jamilah, stated she will be bringing pt. DOS. Time Spent with Patient Time Spent with Patient: 45-69 minutes Time was spent: obtaining and/or reviewing separately otained hiistory, indepentently interpreting results, counseling the patient and care coordination
--- NOTE | 2022-12-18 14:41 | PT.INTREAT ---
Date of service: 12/18/22 Time of Service: 09:01 PT Notes Visit Reasons: Left Hip Avascular Necrosis Inpatient Physical Therapy Treatment Note [facility] Date: 12/18/22 PRECAUTIONS: Fall, standard, activity as tolerated, WBAT with AD SUBJECTIVE: Patient reports she feels better but still not right, wants to get out of bed, wants to walk. OBJECTIVE: PAIN: none reported BED MOBILITY/TRANSFERS Rolling L/R: independent Supine-sit: modified independent Sit-stand: contact guard Stand-sit: contact guard Bed-Chair: contact guard Chair-bed: contact guard GAIT Assistive Device: front wheeled walker Weight bearing: as tolerated Assist: contact guard Distance: 120 feet Deviation: initially demonstrates a step-to gait pattern with left leg leading, gradually begins to step through, but still has reduced step legth right, reduced stance phase left. NEURO CARROLL: Patient participates in dynamic standing balance activities including reaching outside base of support, reaching behind. ASSESSMENT: Patient tolerates therapy well, is resting comfortably in chair with call dent at end of session. PLAN: continue strengthening per plan of care TREATMENT CODE/TIME: [id number] Gait 15 minutes, [id number] Neuro Acrroll 13 minutes beginning at 9:01
--- NOTE | 2022-12-18 16:56 | CMDISCH_ITS ---
Date of service: 12/18/22 Time of Service: 16:56 LACE Index Scoring Tool Questions: Length of Stay (in days): 4 - 6 Was the patient admitted via the E.D.?: No Comorbidities: Chronic Pulmonary Disease and Dementia E.D. Visits: 2 Answers: Total Score: 11 Risk of Readmission: High Risk Care Management Discharge Plan Reason for Hospitalization: Avascular necrosis of bone of hip, UTI Discharge Plan: Alyse was transferred to [facility] for short term rehab today prior to returning home. She was transported via [facility] private vehicle, coordinated by [facility]. She expressed some concern about traveling so far for short term rehab. CM explored her concerns which were primarily that she did not have clothes with her, and that she would not be able to access her bank or post office for mail. CM provided her with some clothes which were previously donated to [facility], and provided support to help her understand that she may access her bank by phone, and also call the post office to inform them that she will not be home right away; this eased some of her anxiety. She will follow up with her PCP and discharge plan of care. Patient/Family Education Needs: Review discharge instructions and expectations for SNF, discussion of self care needs including ask me three. Services Needed at Discharge: Residential Facility ([facility])
--- NOTE | 2022-12-19 07:38 | OTDS_ITS ---
Occupational Therapy Notes Occupational Therapy Inpatient Discharge Summary Date: 12/19/22 Referring Doctor:Tremayne Douglas MD OT Orders: Urgent Precautions: Fall, standard, full PATIENT PROFILE/ADMITTING DIAGNOSIS: Pt is a 82 year old female (L) anterior IVONNE for management of avascular necrosis following ORIF for fixation of left femoral neck fx in 2020. 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 (Acute) Avascular necrosis of bone of hip (Acute) Carmen onychomycosis (Acute) Malnutrition (Acute) Parkinson disease (Chronic) Dementia (Chronic) MOCA on 06/01/22Discharge planning issues (Acute) DVT prophylaxis (Acute) New onset left bundle branch block (LBBB) (Acute) Ambulatory dysfunction (Acute) Weakness (Acute) Hypokalemia (Acute) Frequent falls (Acute) Fatigue (Acute) Decreased hearing of both ears (Acute) Depression (Chronic) Metatarsalgia of both feet (Acute) Wart viral (Acute) Parkinson's disease (Chronic) Hypophonia (Acute) Presbylarynges (Acute) Abnormal weight loss (Acute) Ductal papillomatosis of breast (Acute) Tricuspid valve insufficiency (Chronic 04/14/16) moderate Osteopenia (Chronic) t-scores; -2.1; -1.5 Insomnia (Chronic 09/02/14) Diffuse large cell non-Hodgkin's lymphoma (Chronic 03/11/13) PLEURAL EFFUSION Depressive disorder (Chronic) on Cymbalta; has gone through counseling in [place] Chronic pulmonary heart disease (Chronic) CT Scan Chest - nodule, otherwise nl;? PFT - w/ exercise diffusion [place] [facility] Atrial fibrillation (Chronic 04/07/13) Anxiety (Chronic) JANET-7 SCORE=16 Chronic obstructive lung disease (Chronic) Hypothyroidism (Chronic 03/10/13) Newly diagnosed.Aortic valve insufficiency (Chronic) Followed by Mohan Morris at [place].Mild cognitive impairment with memory loss (Chronic) see above Medical History? Abdominal pain Abnormal weight loss 07/16/04? from 124-107; she feels it's due to increased activity and stressALLERGIES Allergy or intolerlance to codeine, sulfamethoxazole and trimethoprin.? There is a history of low blood pressure on calcium blockers in the past as well.Bunion of great toe Cataract IOLDuctal papillomatosis of breast s/p breast BxDysphagia Fatigue Foot joint pain 10/10/12Foot joint pain (10/10/12) H/O echocardiogram 10/10/12 [place] w[place] [facility] PA pressure 21Heart palpitations Hoarseness Low back pain (04/12/09) Palliative care patient Tachycardia Surgical History? Colonoscopy - MAC 1995 1997 1998 2012 ECHO (~2006) Echocardiogram with negative pulmonary [place] [facility] PA pressure 21EGD - MAC (~1995) showing increase in PA pressuresH/O cataract removal with insertion of prosthetic lens H/O esophagogastroduodenoscopy 07/16/95? showing increase in PA pressureS/P appendectomy S/P breast biopsy intraductal papillomaS/P bunionectomy bilateral Social History/Home Situation: Patient lives alone in multi-level home. One step to enter, then remains on single level. She is worried that she needs a new piece to her step to be able to enter. No longer drives and relies on daughter/sister for community mobility. Independent with all ADLs inclduing sponge bathing. She notes that she does not use her shower at all. She states that she has a raised toilet seat. Ambulates with walker at baseline. Equipment owned/DME: FWW, raised toilet seat, grab bars SUBJECTIVE:??NT OBJECTIVE:? ROM: RUE AROM WFL L UE AROM WFL STRENGTH: RUE 4/5 throughout LUE 4/5 throughout FUNCTIONAL MOBILITY/ADLS: Transfers with FWW BATHING seated in chair (I) UE/LE with vc DRESSING seated in chair Dressing UE (I) don and doffing hospital gown Dressing LE mod (A) with don and doffing (B) socks GROOMING (I) brushing her hair and oral hygiene TOILETING on toilet, (I) with vc or min (A) EATING (I) seated in chair BALANCE: Static sitting Normal Dynamic Sitting Good ASSESSMENT:?? Patient is a 82-year-old female referred to occupational therapy services with diagnosis of? (L) anterior IVONNE for management of avascular necrosis following ORIF for fixation of left femoral neck fx in 2020. Patient was receptive to her ADLs but was confused at times. She requires min-mod vc for performance of task initiation and for follow through of tasks. Functionally she tolerated sitting ADLs well and was fairly (I). GOALS 1.? Transfers (I) wih FWW 2.? Dressing mod (I) 3.? Bathing (I) standing at sink 4.? Toileting (I) on toilet 5.? Eating (I) PLAN OF CARE/TREATMENT PLAN: Pt was discharged to [facility]. DISCHARGE RECOMMENDATIONS Based on pts current level of function, OT recommends that return home with services for OT for (A) of her ADLs in her home setting and identification of need for adaptive equipment. TREATMENT TIME/MINUTES/CODES N/A Charley Schaeffer OTR/L [facility] [place], [place]
--- NOTE | 2022-12-19 14:07 | INDS_ITS ---
Date of service: 12/18/22 PT Notes Visit Reasons: Left Hip Avascular Necrosis Physical Therapy Inpatient Discharge Summary Date: 12/18/22 Date of service: 12/13/2022 through 12/18/2022 This is a clinical summary of care provided for the duration of dates listed above. No charge was made in the completion of this documentation. Referring Doctor:? Dr. Douglas PT Orders: PT CONSULT: s/p ortho surgery Precautions: WBAT on the L LE with AD. Patient Profile/Admitting Diagnosis:?? Alyse is seen post op day 0 following left anterior IVONNE for management of avascular necrosis following ORIF for fixation of left femoral neck fx in 2020. PMHx: All Active Problems? Chronic obstructive lung disease (Chronic) Hypothyroidism (Chronic 03/10/13) Newly diagnosed.Aortic valve insufficiency (Chronic) Followed by Mohan Morris at [place].Mild cognitive impairment with memory loss (Chronic) see above Anxiety (Chronic) JANET-7 SCORE=16 Atrial fibrillation (Chronic 04/07/13) Chronic pulmonary heart disease (Chronic) CT Scan Chest - nodule, otherwise nl;? 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) PLEURAL EFFUSION Insomnia (Chronic 09/02/14) Osteopenia (Chronic) t-scores; -2.1; -1.5 Tricuspid valve insufficiency (Chronic 04/14/16) moderate Ductal papillomatosis of breast (Acute) Abnormal weight loss (Acute) Presbylarynges (Acute) Hypophonia (Acute) Parkinson's disease (Chronic) Wart viral (Acute) Metatarsalgia of both feet (Acute) Depression (Chronic) Decreased hearing of both ears (Acute) Fatigue (Acute) Weakness (Acute) Hypokalemia (Acute) Frequent falls (Acute) Ambulatory dysfunction (Acute) New onset left bundle branch block (LBBB) (Acute) DVT prophylaxis (Acute) Discharge planning issues (Acute) Dementia (Chronic) MOCA on 06/01/22Parkinson disease (Chronic) Malnutrition (Acute) Carmen onychomycosis (Acute) Avascular necrosis of bone of hip (Acute) 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 Abdominal pain Abnormal weight loss 07/16/04? from 124-107; she feels it's due to increased activity and stress ALLERGIES Allergy or intolerlance to codeine, sulfamethoxazole and trimethoprin.? There is a history of low blood pressure on calcium blockers in the past as well. 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Dysphagia Fatigue Foot joint pain 10/10/12 Foot joint pain (10/10/12) H/O echocardiogram 10/10/12 echo w/neg pulmonary w/u at [facility]; PA pressure 21 Heart palpitations Hoarseness Low back pain (04/12/09) Palliative care patient Tachycardia Surgical History?(Updated 12/12/22 @ 10:10 by Tammy Steve RN) Colonoscopy - MAC 1995 1997 1998 2012 ECHO (~2006) Echocardiogram with negative pulmonary work up? at [facility],? PA pressure 21EGD - MAC (~1995) showing increase in PA pressures H/O cataract removal with insertion of prosthetic lens H/O esophagogastroduodenoscopy 07/16/95? showing increase in PA pressure History of cataract surgery History of hip surgery Hx of appendectomy S/P appendectomy S/P breast biopsy intraductal papilloma S/P bunionectomy bilateral Social History/Home Situation: Patient lives alone in multi-level home. One step to enter, then remains on single level. No longer drives. Independent with all ADLs. Ambulates with walker at baseline. Equipment Owned/DME: [facility] Subjective:? NT. See most recent C[facility] ATTORNEY notes. Objective:? General Observation: NT. See most recent CIVIL ATTORNEY notes. Mental Status: NT. See most recent CIVIL ATTORNEY notes. Pain: NT. See most recent CIVIL ATTORNEY notes. ROM: Right Upper Extremity: WFL Left Upper Extremity: WFL Right Lower Extremity: WFL Left Lower Extremity: Functionally demonstrates hip flexion up to 90*, knee motion 0-90*. Strength: Right Upper Extremity:? Shoulder flexion 3/5 or greater. Biceps 4/5. Triceps 4/5. Left Upper Extremity: Shoulder flexion 3/5 or greater. Biceps 4/5. Triceps 4/5. Right Lower Extremity: Quads 3/5 or greater. Hip AB 2/5 or greater. Able to pump ankles and wiggle toes. Left Lower Extremity: Quads 3/5 or greater. Hip AB 2/5 or greater. Able to pump ankles and wiggle toes. Sensation:? intact distally BED MOBILITY/TRANSFERS? Rolling L/R: independent Supine-sit: modified independent ? Sit-stand: contact guard? Stand-sit: contact guard? Bed-Chair: contact guard? Chair-bed: contact guard ? GAIT? Assistive Device: front wheeled walker? Weight bearing: as tolerated Assist: contact guard ? Distance:? 120 feet? Deviation: initially demonstrates a step-to gait pattern with left leg leading, gradually begins to step through, but still has reduced step legth right, reduced stance phase left. ? Balance:? Static Sitting: good Dynamic Sitting: fair Static Standing: fair Dynamic Standing: fair Assessment:?? Patient is an 82 year old female referred to physical therapy services with the diagnosis of left IVONNE, post op day 0.? Patient presents with clinical signs and symptoms consistent with diagnosis, as demonstrated by the following impairment level findings: 1. decreased LLE strength 2. decreased activity tolerance 3. decreased standing balance 4. gait impairments Impairments are contributing to the following functional limitations: 1. unable to ambulate independently 2. unable to manage stairs 3. unable to tolerate household distance ambulation Goals: Goals X1 week 1. Supine-Sit : supervision NOT MET 2. Sit-Supine : supervision NOT MET 3. Sit-Stand : supervision NOT MET 4. Stand-Sit : supervision NOT MET 5. Bed-Chair : supervision with FWW NOT MET 6. Chair-Bed : supervision with FWW NOT MET 7. Gait : supervision with FWW x 50' NOT MET 8. Stairs x 1, bilat UE support, supervision only NOT MET DISCHARGE RECOMMENDATIONS: Patient will benefit from home health PT services in order to progress mobility level using least restrictive assistive ambulatory device, assess home safety, identify additional equipment needs, and establish a functional maintenance program that will increase ability of patient to remain at home. TREATMENT CODE/TIME: NC Thank you for the opportunity to participate in the care of this patient. Mikayla Costa PT, DPT, CLT [facility] [place], [place]
== END 2022-12-18 12:05 | disposition skilled nursing facility (03) | DRG 470 ==
LOC: PDS 15:36 → MS 16:49 → PDS 12-15 12:40 → MS 12-15 12:41
PROVIDERS: Internal Medicine; Admitting Provider Student in an Organized Health Care Education/Training Program; PCP Family Medicine; Visit Provider Student in an Organized Health Care Education/Training Program
PROC: 0SRB04A Replacement of Left Hip Joint with Ceramic on Polyethylene Synthetic Substitute, Uncemented, Open Approach (ICD-10-PCS; CPT 27130; principal; 2022-12-12 13:30)
PROC: 0SRB04A Replacement of Left Hip Joint with Ceramic on Polyethylene Synthetic Substitute, Uncemented, Open Approach (ICD-10-PCS; CPT 27130; 2022-12-12 13:30)
DX: M87.052 Idiopathic aseptic necrosis of left femur (principal); N39.0 Urinary tract infection, site not specified; D62 Acute posthemorrhagic anemia; S72.092 Other fracture of head and neck of left femur; E46 Unspecified protein-calorie malnutrition; C83.30 Diffuse large B-cell lymphoma, unspecified site; Z68.1 Body mass index [BMI] 19.9 or less, adult; I95.81 Postprocedural hypotension; E03.9 Hypothyroidism, unspecified; J44.9 Chronic obstructive pulmonary disease, unspecified; G20 Parkinson's disease; I48.91 Unspecified atrial fibrillation; I44.7 Left bundle-branch block, unspecified; R53.1 Weakness; E87.6 Hypokalemia; R29.6 Repeated falls; Z91.81 History of falling; R53.83 Other fatigue; F32.A Depression, unspecified; I07.1 Rheumatic tricuspid insufficiency; F02.A0 Dementia in other diseases classified elsewhere, mild, without behavioral disturbance, psychotic disturbance, mood disturbance, and anxiety; I25.2 Old myocardial infarction; Z66 Do not resuscitate
CPT/HCPCS: 27130; 20985; 20680; 36415; 80048; 80053; 82805; 84145; 85027; 87040; 87635; 97110; 97112; 97116; 97162; 97163; 97166; 97530; 97535; 73501; 81003; 81015; 83605; 83735; 84443; 84484; 85014; 85018; 85025; 87086; 93005; 93010; 99223; 99232; J0690; J1170; J2370; J2405; J3010; J8540

== ENCOUNTER 2022-12-25 11:29 | Outpatient (CLI) | payer MEDICARE, SELFPAY ==
--- NOTE | 2022-12-25 12:20 | DI.RAD_ITS ---
Exam(s) XR HIP LT COMPLETE AP PELVIS EXAM: XR HIP LT COMPLETE AP PELVIS CLINICAL HISTORY: 1st post op S/P L IVONNE. TECHNIQUE: 2D digital imaging was performed. COMPARISON: CR XR HIP LT COMPLETE AP PELVIS from 12/08/2022 XA XR HIP LT IN OR from 12/12/2022 FINDINGS: Two views There has been interval left hip revision with placement of a prosthesis. Components of prosthesis a ppear to be in satisfactory position alignment. No fractures nor loosening evident. IMPRESSION: Satisfactory appearance of left hip prosthesis. DATA REPOSITORY: RADIATION DOSE DELIVERED:
== END 2022-12-25 11:30 | disposition home or self-care (01) ==
LOC: DIORS 11:29
PROVIDERS: PCP Family Medicine; Referring Provider Family Medicine; Visit Provider Student in an Organized Health Care Education/Training Program
DX: Z96.642 Presence of left artificial hip joint (principal); Z47.1 Aftercare following joint replacement surgery
CPT/HCPCS: 73502

== ENCOUNTER → 2023-01-22 11:10 | Outpatient (BNVA) | payer MEDICARE, SELFPAY | PROVIDERS: PCP Family Medicine; Referring Provider Family Medicine; Visit Provider Student in an Organized Health Care Education/Training Program | DX: Z47.1 Aftercare following joint replacement surgery (principal); M70.62 Trochanteric bursitis, left hip; Z96.642 Presence of left artificial hip joint ==

== ENCOUNTER 2023-05-09 16:22 | Inpatient (IN) | payer MEDICARE, SELFPAY ==
[2023-05-09] VITALS (56 sets, daily range): BP systolic 81–128; BP diastolic 57–103; PULSE 105–151; RESP 16–41; TEMP 36.8–36.9; O2SAT 93–97
--- NOTE | 2023-05-09 16:15 | RT.EKG_ITS ---
APPROVED REPORT Exam: Resting ECG Reason for Exam: Shortness of Breath Patient Location: E HR:112 bpm ECG Measurements Heart Rate 112 AXIS TX [id number] P [id number] QRSd 119 QRS 258 QT 378 T 83 QTc 517 Conclusion Atrial fibrillation...? atrial activity ST elevation secondary to LVH...Multiple VCG criteria
--- NOTE | 2023-05-09 16:45 | DI.RAD_ITS ---
Exam(s) XR CHEST 2V PA LATERAL EXAM: XR CHEST 2V PA LATERAL CLINICAL HISTORY: shortness of breath. TECHNIQUE: 2D digital imaging was performed. COMPARISON: CR XR CHEST 2V PA LATERAL from 12/08/2022 FINDINGS: 2 views: Heart size is normal. The mediastinum is not widened. There are moderate size bilateral pleural effusions. Also infiltrates in both lung bases. IMPRESSION: Moderate-sized bilateral pleural effusions and infiltrates in both lung bases. DATA REPOSITORY: RADIATION DOSE DELIVERED:
[2023-05-09 17:02] LABS: Abs Immature Grans 0.05 10^3/uL (0.0-0.06); Absolute Basophil Count 0.06 10^3/uL (0.0-0.2); Absolute Eosinophil Count 0.05 10^3/uL (0.0-0.7); Absolute Lymphocyte Count 0.98 10^3/uL (1.2-3.4); Absolute Monocyte Count 1.07 10^3/uL (0.1-0.8); Absolute Neutrophil Count 6.95 10^3/uL (1.2-6.7); Basophils % 0.7; Eosinophils % 0.5; HCT 41.6 % (36.0-46.0); HGB 13.1 g/dL (11.2-15.7); Immature Grans % 0.5; Lymphocytes % 10.7; MCH 28.5 pg (27.0-33.0); MCHC 31.5 % (32.0-36.0); MCV 90 fL (80-95); MPV 11.3 fL (8.0-11.0); Monocytes % 11.7; Neutrophils % 75.9; Nucleated RBC 0.3 % (0.0-0.3); Platelet Count 276 10^3/uL (130-400); RDW 16.1 % (11.7-14.6); RDW-SD 52.1 fL; WBC 9.16 10^3/uL (4.4-10.8)
[2023-05-09 17:25] LABS: ALT 23 U/L (14-59); AST 121 U/L (15-37); Albumin 3.2 g/dL (3.4-5.0); Alkaline Phosphatase 161 U/L (46-116); Anion Gap 10.1 mmol/L (3-11); BUN 45 mg/dL (7-18); Bilirubin, Total 1.9 mg/dL (0.2-1.0); CO2 22.9 mmol/L (21.0-32.0); CREATININE 1.5 mg/dL (0.55-1.02); Calcium 9.6 mg/dL (8.5-10.1); Chloride 102 mmol/L (98-107); Estimated GFR 34.15 (mL/min/1.73m2); Glucose 148 mg/dL (74-106); Magnesium 2.1 mg/dL (1.8-2.4); Potassium 4.4 mmol/L (3.5-5.1); Sodium 135 mmol/L (136-145); Total Protein 6.4 g/dL (6.4-8.2)
[2023-05-09 17:29] LABS: Troponin I 1274 ng/L (<or=60)
[2023-05-09 17:45] LABS: D-Dimer 1053 ng/mlFEU (<500)
--- NOTE | 2023-05-09 17:45 | DI.CT_ITS ---
Exam(s) CT CHEST PE CTA EXAM: CT CHEST PE CTA CLINICAL HISTORY: SOB, elevated dimer. TECHNIQUE: Imaging Protocol: Axial CT angiography was performed with multi-slice acquisition and mu lti-planar reconstructions as well as axial, coronal and sagittal MIP reconstructions. CONTRAST MATERIAL: Intravenous: Omnipaque 350 Contrast volume:60 ml COMPARISON: CT CT CHEST/ABD/PEL W from 04/26/2021 CR XR CHEST 2V PA LATERAL from 05/09/2023 FINDINGS: Exam limited by motion. Pulmonary Arteries: No evidence of filling defect to suggest pulmonary emboli. The pulmonary arteri es are well opacified with IV contrast. No emboli are seen. Small distal branch vessels are somewha t obscured by artifact. Tracheobronchial tree: Patent where visualized. Mediastinum and Anuradha: No dominant adenopathy or fluid collection. Pulmonary parenchyma: Evaluation limited by respiratory motion and expiratory changes. Left upper lo be pneumonia. Basilar atelectasis. No dominant measurable mass. Pleura: Moderate right and small left pleural effusion. No pneumothorax. Heart: The heart is markedly dilated. Markedly dilated right atrium with reflux of contrast into the IVC suggesting right heart failure. Mild coronary artery calcifications are seen. Aorta: Ascending aorta 3.9 cm. Descending aorta 2.5 cm.. No aneurysm. No dissection. Upper abdomen: Unremarkable. Bones: moderate L1 compression fracture, new since 2020. No acute fracture lines visible. Mild retr opulsion of the superior endplate. No significant central canal stenosis. Tubes, Catheters, and Lines: None IMPRESSION: No evidence of pulmonary embolism. Marked cardiomegaly and bilateral pleural effusions consistent with heart failure. Left upper lobe pneumonia. RADIATION DOSE DELIVERED: Total DLP DATA REPOSITORY: All CT scans at this facility are submitted to the National Radiology Data Registry (NRDR) Dose Index Registry (DIR) with the [employer] (A[employer]). RADIATION OPTIMIZATION: All CT scans at this facility use at least one of these dose optimization te chniques: automated exposure control; mA and/or kV adjustment per patient size (includes targeted exa ms where dose is matched to clinical indication); or iterative reconstruction.
[2023-05-09 17:52] LABS: INR 1.6 (0.9-1.1); PTT Activated 25.2 sec (23.6-32.8); Prothrombin Time 15.3 sec (9.1-11.1)
[2023-05-09] MEDS: Aspirin 81 MG CHEW 324 MG CH (17:57)
--- NOTE | 2023-05-09 18:00 | RT.EKG_ITS ---
APPROVED REPORT Exam: Resting ECG Reason for Exam: shortness of breath Patient Location: E HR:125 bpm ECG Measurements Heart Rate 125 AXIS WI 94 P 0 QRSd 121 QRS -89 QT 366 T 106 QTc [address] segment or T wave abnormalities to suggest occlusive NE
[2023-05-09 18:03] LABS: NT-proBNP > 35000 pg/mL (<300)
[2023-05-09] MEDS: Heparin in 0.45% NaCl 25,000 UNIT/250 ML BAG 5.5 UNIT IV (18:21)
[2023-05-09] MEDS: dilTIAZem 25 MG/5 ML VIAL 10 MG IVP (18:25)
[2023-05-09] MEDS: Clopidogrel 300 MG TAB 600 MG PO (18:26)
--- NOTE | 2023-05-09 18:30 | NUR.NOTE ---
Nursing Note: Pt was not able to swallow most pills that were given. Provider aware.
--- NOTE | 2023-05-09 18:34 | W.ED.GENAD ---
Discharge Plan Disposition Patient Disposition: Admit to [facility] Condition: Serious Discharge Details Clinical Impression: Respiratory failure, Dementia, Heart failure, Acute non-ST elevation myocardial infarction (NSTEMI), Atrial fibrillation with rapid ventricular response Admit Date/Time: 05/09/23 22:30 Admit Provider: Palmer Richards Attending Provider: Palmer Richards Primary Care Provider: Luz Szymanski ED Provider: Savanah Hennessy Medical Decision Making 82yo F with hx of afib, COPD, Parkinson's dementia, LBBB, presenting for shortness of breath for the past several days. History from EMS, patient, caregiver, and daughter. Patient has / in-home assistance. Over the past 3-4 days has had intermittent and worsening shortness of breath and generalized weakness, found to be hypoxic at home. No chest pain at any point. Tachycardiac to low 100's on arrival, vital signs otherwise reassuring. EKG afib, IVD (?LBBB), not consistent with occlusive IN. Satting well on 4L NC, mildly tachypenic to mid 20's, breath sounds diminished in lung bases. Cachectic. Not overtly volume overloaded, certainly no peripheral edema. Labs reviewed as below, CBC reassuring, CMP without significant electrolyte abnormalities, CR 1.5 (unknown baseline), bilirubin 1.9, INR 1.6. BNP markedly elevated at >35,000, initial troponin 1274. Limited bedside echo; patient unable to tolerate much of exam, became slightly agitated; limited exam shows no pericardial effusion, dilated ventricles with poor squeeze bilaterally, no significant B-lines. Regrettably unable to obtain IVC view. CXR independently reviewed, bilateral effusions on my view, agree with radiology read below. Dimer elevated; CT for PE independently reviewed, no large saddle embolus on my view with opacities consistent with possible pneumonia (will treat with ceftriaxone), agree with radiology read below- cardiomegaly with multichamber dilation, concerning for right heart failure. Repeat EKG again with no indication of occlusive IN. Delta troponin uptrending (~1300). On reassessment HR uptrending to 130's; patient on diltazem at home, given 5mg IV diltiazem here with improvement in HR to 110's. Remains normotensive. Discussed with Dr. [place] [facility] [place] several times; plan for aspirin and plavix load, high-dose statin, heparin gtt; will start diuresis with 40mg of IV lasix and see if improves patient's respiratory status. Patient with difficulty swallowing plavix (large pills); able to take 300mg. Patient would benefit from cardiac catherization soon however [facility] unable to [place] currently due to capacity; called [facility] and they are also unable to accept. Discussed goals of care with patient and daughter at bedside. Patient states she does want to be full code and would like to pursue cardiac cath, though she does not have capacity at this time. Daughter at bedside affirms these decisions, however they are in agreement that they do not wish to be transferred any further away that [facility] [place] [facility]. I discussed with them my concerns that patient is likely to deteriorate further here and that we have limited resources available; daughter indicates that she understands this. They would like to have further conversations about goals of care tomorrow (patient is usually less confused during the day) and discuss with pt's PCP Dr. Szymanski. I also discussed the likely poor outcome following CPR or intubation and that with these recent events Ms. Arias is likely nearing the end of her life; her daughter understands this. At this time remains full code, however would like to hold off on invasive procedures/central line/thoracentesis at this time. On reassessment patient continues to sat well on 4LNC though unable to wean, remains tachypenic mostly in mid to low 20's, normotensive. Discussed with hospitalist on-call Dr. Richards and patient accepted to medicine service. Imaging Data Radiologic Study: Imaging: X-Ray Radiologist's impression: IMPRESSION: Moderate-sized bilateral pleural effusions and infiltrates in both lung bases. Radiologic Study #2: Imaging: CT Scan Radiologist's impression: IMPRESSION: 1. No large central pulmonary embolism is identified. The small and distal pulmonary arteries are partially obscured by artifact from breathing motion and not well evaluated for diagnosis or exclusion of small or distal pulmonary emboli. 2. Large right pleural effusion. Small left pleural effusion. 3. Large region of patchy hazy ground-glass opacity throughout much of the left upper lobe. Scattered additional smaller patchy hazy ground-glass opacities in the remaining lobes. Infection would be considered primarily given asymmetric distribution although pulmonary edema could have a similar appearance. Alternative etiologies are not excluded. 4. Marked cardiomegaly with multichamber dilatation. Massive dilatation of the right atrium with reflux of contrast into the inferior vena cava and hepatic veins suggesting right heart failure. Lab Data Lab results reviewed: Yes I reviewed the patient's lab results. Labs: Laboratory Tests Range/Units 05/09/23 05/09/23 05/09/23 16:55 19:15 20:20 WBC (4.4-10.8) 10^3/uL 9.16 RBC (3.93-5.22) 10^6/uL 4.60 Hgb (11.2-15.7) g/dL 13.1 Hct (36.0-46.0) % 41.6 MCV (80-95) fL 90 MCH (27.0-33.0) pg 28.5 MCHC (32.0-36.0) % 31.5 L RDW (11.7-14.6) % 16.1 H Plt Count (130-400) 10^3/uL 276 MPV (8.0-11.0) fL 11.3 H Immature Gran % 0.5 Neutrophils % 75.9 Lymphocytes % 10.7 Monocytes % 11.7 Eosinophils % 0.5 Basophils % 0.7 Nucleated RBC % (0.0-0.3) % 0.3 Absolute Neutrophils (1.2-6.7) 10^3/uL 6.95 H Absolute Lymphocytes (1.2-3.4) 10^3/uL 0.98 L Absolute Monocytes (0.1-0.8) 10^3/uL 1.07 H Absolute Eosinophils (0.0-0.7) 10^3/uL 0.05 Absolute Basophils (0.0-0.2) 10^3/uL 0.06 PT (9.1-11.1) sec 15.3 H INR (0.9-1.1) 1.6 H APTT (23.6-32.8) sec 25.2 D-Dimer (<500) ng/mlFEU 1053 H Sodium (136-145) mmol/L 135 L Potassium (3.5-5.1) mmol/L 4.4 Chloride (98-107) mmol/L 102 Carbon Dioxide (21.0-32.0) mmol/L 22.9 Anion Gap (3-11) mmol/L 10.1 BUN (7-18) mg/dL 45 H Creatinine (0.55-1.02) mg/dL 1.5 H Est GFR (CKD-EPI 2020) (mL/min/1.73m2) 34.15 Glucose (74-106) mg/dL 148 H Calcium (8.5-10.1) mg/dL 9.6 Magnesium (1.8-2.4) mg/dL 2.1 Total Bilirubin (0.2-1.0) mg/dL 1.9 H AST (15-37) U/L 121 H ALT (14-59) U/L 23 Alkaline Phosphatase (46-116) U/L 161 H Troponin I (<or=60) ng/L 1274 H* 1355 H* NT-Pro-B Natriuret Pep (<300) pg/mL > 31240 H Total Protein (6.4-8.2) g/dL 6.4 Albumin (3.4-5.0) g/dL 3.2 L COVID-19 Source Nasopharynx SARS-CoV-2 (PCR) (Negative) Negative Influenza Type A (PCR) (Negative) Negative Influenza Type B (PCR) (Negative) Negative RSV (PCR) (Negative) Negative HPI General Mode of arrival: ambulatory. Date/Time Provider Initiated Documentation: 05/09/23 16:24. Limitations to Documentation: altered mental status. Information obtained by: patient, family and EMS. HPI Narrative: 82yo F with hx of afib, COPD, Parkinson's dementia, LBBB, presenting for shortness of breath for the past several days. History from EMS, patient, caregiver, and daughter. Patient has 24/7 in-home assistance. Over the past 3-4 days has had intermittent and worsening shortness of breath. Over the same period of time has been sleeping much more than usual and generally weak overall. Found to be hypoxic at home (unclear how much), discussed with their PCP possibly starting home oxygen but unable to arrange and so presents to the ED. Limited history from patient 2/t dementia; she denies any chest pain at any point. Does report some shortness of breath. Stopped her eliquis three days ago because she has a dental procedure scheduled for tomorrow. No history of heart disease/heart attacks/heart failure. She is otherwise in her usual state of health with no fevers, chills, rash, nausea, vomiting, abdominal pain, dysuria, hematuria, numbness, focal weakness, or other concerns. Related Data Home Medications Medication Instructions Recorded Confirmed acetaminophen 500 mg tablet 500 mg PO Q6H PRN PRN pain #60 tabs 03/06/23 05/09/23 amantadine HCl 100 mg capsule 100 mg PO DAILY #90 caps 03/06/23 05/09/23 apixaban 2.5 mg tablet (Eliquis) 2.5 mg PO BID #180 tabs 03/06/23 05/09/23 buspirone 10 mg tablet 10 mg PO TID #270 tabs 03/06/23 05/09/23 carbidopa ER 25 mg-levodopa 100 mg 1 tab PO TID #270 tabs 03/06/23 05/09/23 tablet,extended release duloxetine 30 mg capsule,delayed 30 mg PO DAILY #90 tabs 03/06/23 05/09/23 release fluticasone propionate 50 2 spray NS BID PRN allergy 03/06/23 05/09/23 mcg/actuation nasal symptoms #47.4 mL spray,suspension diltiazem HCl 30 mg tablet 30 mg PO TID PRN tachycardia #50 03/29/23 05/09/23 tab-caps Previous Rx's Medication Instructions Recorded acetaminophen 500 mg tablet 500 mg PO Q6H PRN PRN pain #60 tabs 03/06/23 amantadine HCl 100 mg capsule 100 mg PO DAILY #90 caps 03/06/23 apixaban 2.5 mg tablet (Eliquis) 2.5 mg PO BID #180 tabs 03/06/23 buspirone 10 mg tablet 10 mg PO TID #270 tabs 03/06/23 carbidopa ER 25 mg-levodopa 100 mg 1 tab PO TID #270 tabs 03/06/23 tablet,extended release duloxetine 30 mg capsule,delayed 30 mg PO DAILY #90 tabs 03/06/23 release fluticasone propionate 50 2 spray NS BID PRN allergy 03/06/23 mcg/actuation nasal symptoms #47.4 mL spray,suspension diltiazem HCl 30 mg tablet 30 mg PO TID PRN tachycardia #50 03/29/23 tab-caps Allergies Allergy/AdvReac Type Severity Reaction Status Date / Time methylphenidate AdvReac Intermediate GI Verified 03/06/23 11:46 codeine AdvReac Unknown Nausea Verified 03/06/23 11:46 azithromycin AdvReac Nausea Verified 03/06/23 11:46 [From Zithromax Z-Edu] sulfamethoxazole AdvReac explosive Verified 03/06/23 11:46 [From Bactrim] diarrhea trazodone AdvReac Nausea Verified 03/06/23 11:46 trimethoprim [From Bactrim] AdvReac explosive Verified 03/06/23 11:46 diarrhea General Stated Complaint: RespSymp UMESH: 3 Review of Systems Narrative: see HPI PFSH All Active Problems (Updated 05/09/23 @ 23:04 by Savanah Hennessy MD) Atrial fibrillation with rapid ventricular response (Acute) Acute non-ST elevation myocardial infarction (NSTEMI) (Acute) Heart failure (Acute) Dementia (Chronic) Respiratory failure (Acute) History of hip replacement (Chronic) Trochanteric bursitis, left hip (Acute) Fall (Acute 01/08/23) Contusion of right hip (Acute 01/08/23) History of total left hip arthroplasty (Acute 12/12/22) Aortic valve insufficiency (Chronic) Followed by Mohan Morris at [address]. 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) PLEURAL EFFUSION Insomnia (Chronic 09/02/14) Osteopenia (Chronic) t-scores; -2.1; -1.5 Tricuspid valve insufficiency (Chronic 04/14/16) moderate Ductal papillomatosis of breast (Acute) Abnormal weight loss (Acute) Presbylarynges (Acute) Hypophonia (Acute) Parkinson's disease (Chronic) Wart viral (Acute) Metatarsalgia of both feet (Acute) Depression (Chronic) Decreased hearing of both ears (Acute) Fatigue (Acute) Weakness (Acute) Hypokalemia (Acute) Frequent falls (Acute) Ambulatory dysfunction (Acute) New onset left bundle branch block (LBBB) (Acute) DVT prophylaxis (Acute) Discharge planning issues (Acute) Dementia (Chronic) MOCA 15/30 on 06/01/22 Parkinson disease (Chronic) Malnutrition (Acute) Carmen onychomycosis (Acute) Medical History Abdominal pain Abnormal weight loss 07/16/04 from 124-107; she feels it's due to increased activity and stress ALLERGIES Allergy or intolerlance to codeine, sulfamethoxazole and trimethoprin. There is a history of low blood pressure on calcium blockers in the past as well. 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 Dysphagia Fatigue Foot joint pain 10/10/12 Foot joint pain (10/10/12) H/O echocardiogram 10/10/12 echo w/neg pulmonary w/[place] [facility]; PA pressure 21 Heart palpitations Hoarseness Low back pain (04/12/09) Palliative care patient Tachycardia Surgical History Colonoscopy - MAC 1995 1997 1998 2012 ECHO (~2006) Echocardiogram with negative pulmonary work [place] at [facility], PA pressure 21 EGD - MAC (~1995) showing increase in PA pressures H/O cataract removal with insertion of prosthetic lens H/O esophagogastroduodenoscopy 07/16/95 showing increase in PA pressure History of cataract surgery History of hip surgery Hx of appendectomy S/P appendectomy S/P breast biopsy intraductal papilloma S/P bunionectomy bilateral Family History Mother Essential hypertension Heart disease Father No problems noted. Social History Smoking/Tobacco Use Status: Never Smoking risk assessment performed?: Yes Alcohol Intake: current Alcohol Intake frequency: holidays/special occasions only Alcohol type: wine Drug use: Never Adopted: No Caregiver/Support person: Yes (caregiver for jenni) Details: currently in a longterm, but pt is primary support Foster care: No Household members: none Housing: house Number of Children: 3 number of grandchildren: 4 current occupation: Retired Pets and animals: No What type of physical activity do you participate in: none Seatbelt use: never Drive intox or ride w/intox truck driver teamster: No Firearms in home: Yes (unloaded, not locked) Firearms unloaded and locked: No Exam Narrative Exam Narrative: General: Alert, cachectic, in no acute distress. Head: Normocephalic, atraumatic Neck: Trachea midline, Neck supple. ENT: MMM. Cardiac: Mildly tachcycardiac, irregular, no murmurs appreciated Resp: RR in 20's, no increased work of breathing. Diminshed breath sounds in bases. Abd: Soft, non-distended, nontender : No suprapubic tenderness. Extremities: No deformities. No peripheral edema. Neurologic: GCS 14. Moves all extremities freely against gravity Course Vital Signs Vital signs: Vital Signs Temperature 36.9 C 05/09/23 16:23 Pulse 105 H 05/09/23 16:23 Respiratory Rate 22 05/09/23 16:23 Blood Pressure 125/103 H 05/09/23 16:23 Pulse Oximetry 93 05/09/23 16:23 Temperature 36.8 C 05/09/23 16:37 Temperature Source Temporal Artery Scan 05/09/23 16:23 Pulse 123 H 05/09/23 18:01 Pulse 127 H 05/09/23 18:20 Respiratory Rate 35 H 05/09/23 18:20 Respiratory Effort Normal 05/09/23 16:38 Respiratory Depth Normal 05/09/23 16:38 Blood Pressure 91/71 L 05/09/23 18:15 Blood Pressure Mean 77 05/09/23 18:15 Blood Pressure Position Sitting 05/09/23 16:23 Pulse Oximetry 97 05/09/23 16:37 Oxygen Delivery Method Room Air 05/09/23 16:37 Oxygen Flow Rate 0 05/09/23 16:23 Pain Level 0 05/09/23 16:23 Lab/Test Results Lab/Test Results: Laboratory Tests Range/Units 05/09/23 16:55 WBC (4.4-10.8) 10^3/uL 9.16 RBC (3.93-5.22) 10^6/uL 4.60 Hgb (11.2-15.7) g/dL 13.1 Hct (36.0-46.0) % 41.6 MCV (80-95) fL 90 MCH (27.0-33.0) pg 28.5 MCHC (32.0-36.0) % 31.5 L RDW (11.7-14.6) % 16.1 H Plt Count (130-400) 10^3/uL 276 MPV (8.0-11.0) fL 11.3 H Immature Gran % 0.5 Neutrophils % 75.9 Lymphocytes % 10.7 Monocytes % 11.7 Eosinophils % 0.5 Basophils % 0.7 Nucleated RBC % (0.0-0.3) % 0.3 Absolute Neutrophils (1.2-6.7) 10^3/uL 6.95 H Absolute Lymphocytes (1.2-3.4) 10^3/uL 0.98 L Absolute Monocytes (0.1-0.8) 10^3/uL 1.07 H Absolute Eosinophils (0.0-0.7) 10^3/uL 0.05 Absolute Basophils (0.0-0.2) 10^3/uL 0.06 PT (9.1-11.1) sec 15.3 H INR (0.9-1.1) 1.6 H APTT (23.6-32.8) sec 25.2 D-Dimer (<500) ng/mlFEU 1053 H Sodium (136-145) mmol/L 135 L Potassium (3.5-5.1) mmol/L 4.4 Chloride (98-107) mmol/L 102 Carbon Dioxide (21.0-32.0) mmol/L 22.9 Anion Gap (3-11) mmol/L 10.1 BUN (7-18) mg/dL 45 H Creatinine (0.55-1.02) mg/dL 1.5 H Est GFR (CKD-EPI 2020) (mL/min/1.73m2) 34.15 Glucose (74-106) mg/dL 148 H Calcium (8.5-10.1) mg/dL 9.6 Magnesium (1.8-2.4) mg/dL 2.1 Total Bilirubin (0.2-1.0) mg/dL 1.9 H AST (15-37) U/L 121 H ALT (14-59) U/L 23 Alkaline Phosphatase (46-116) U/L 161 H Troponin I (<or=60) ng/L 1274 H* NT-Pro-B Natriuret Pep (<300) pg/mL > 79757 H Total Protein (6.4-8.2) g/dL 6.4 Albumin (3.4-5.0) g/dL 3.2 L Critical Care Time Critical Care Time Critical Care Time: Yes Total Critical Care Time: 42 Attestation: Due to a high probability of clinically significant, life threatening deterioration, the patient required my highest level of preparedness to intervene emergently and I personally spent this critical care time directly and personally managing the patient. This critical care time included obtaining a history; examining the patient; pulse oximetry; ordering and review of studies; arranging urgent treatment with development of a management plan; evaluation of patient's response to treatment; frequent reassessment; and, discussions with other providers. This critical care time was performed to assess and manage the high probability of imminent, life-threatening deterioration that could result in multi-organ failure. It was exclusive of separately billable procedures. POCUS Exam (ED) Limited Cardiac Exam DATE OF EXAM: 05/09/23 PROVIDER THAT PERFORMED THE STUDY: Savanah Hennessy IS THIS A REPEAT EXAM DURING THIS ENCOUNTER: no REASON FOR EXAM: Dyspnea VISUALIZED STRUCTURES: Four Chambers VIEW OBTAINED: Apical 4-Chamber, Parasternal long-axis, Parasternal short-axis and Subxiphoid PERTINENT FINDINGS/IMPRESSION: LV dysfunction, RV dilation and RV dysfunction; No pericardial effusion Did not tolerate exam
[2023-05-09] MEDS: Omnipaque 350 MG/ML 100 ML BTL IJ (19:05)
[2023-05-09] MEDS: Normal Saline - Diluent 50 ML VIAL IJ (19:06)
[2023-05-09] MEDS: Normal Saline Flush 10 ML SYR IVP (19:07)
[2023-05-09] MEDS: cefTRIAXone 2 GM/50 ML BAG IVPB (19:30)
[2023-05-09] MEDS: Furosemide 40 MG/4 ML VIAL IVP (19:41)
--- NOTE | 2023-05-09 19:49 | DI.VRAD_ITS ---
PROCEDURE INFORMATION: Exam: CTA Chest With Contrast Exam date and time: 05/09/2023 6:49 PM Age: 82 years old Clinical indication: Shortness of breath; Additional info: SOB, elevated d dimer TECHNIQUE: Imaging protocol: Computed tomographic angiography of the chest with contrast. Exam focused on the arteries. 3D rendering (Not supervised by radiologist): MIP and/or 3D reconstructed images were created by the technologist. Contrast material: OMNIPAQUE; Contrast volume: 60 ml; Contrast route: INTRAVENOUS (IV); COMPARISON: CT CHEST/ABD/PEL W 04/26/2021 2:02 PM FINDINGS: Pulmonary arteries: No large central pulmonary embolism identified. The small and distal pulmonary arteries are partially obscured by artifact from breathing motion and not well evaluated for diagnosis or exclusion of small or distal pulmonary emboli. Enlarged pulmonary trunk and main pulmonary arteries suggesting pulmonary hypertension. Aorta: Ascending thoracic aorta dilated to 3.9 cm. Normal caliber descending thoracic aorta measuring 2.5 cm. No focal aneurysm. Thyroid: Thyroid gland largely obscured by artifact but grossly normal in size. Lungs: Large region of hazy alveolar opacity throughout much of the left upper lobe. Scattered smaller patchy hazy opacities also noted. Dependent and platelike atelectasis in the lower lung zones. Pleural spaces: Large right pleural effusion. Small left pleural effusion. No pneumothorax. Heart: Marked cardiomegaly with multichamber dilatation. Marked dilatation of the right atrium with reflux of contrast into a distended inferior vena cava and hepatic veins suggesting right heart failure. Lymph nodes: No pathologically enlarged mediastinal or hilar lymph nodes. Bones/joints: Compression/burst type fracture at L1 with moderate-severe loss of central vertebral height, a Schmorl's node extending through the superior endplate, and fracture extension through the posterior vertebral wall with posterior displacement of the upper portion of the posterior vertebral wall by 5 mm leaving a residual AP canal dimension of approximately 12 mm, uncertain chronicity and possibly nonacute but new since a comparison exam from April 26, 2021. Clinical correlation recommended. Atrophic right 1st rib, probably a developmental appearance, also seen on the comparison exam. Soft tissues: No gross soft tissue mass or fluid collection seen in the chest wall. No gross soft tissue mass or fluid collection seen in the chest wall. IMPRESSION: 1. No large central pulmonary embolism is identified. The small and distal pulmonary arteries are partially obscured by artifact from breathing motion and not well evaluated for diagnosis or exclusion of small or distal pulmonary emboli. 2. Large right pleural effusion. Small left pleural effusion. 3. Large region of patchy hazy ground-glass opacity throughout much of the left upper lobe. Scattered additional smaller patchy hazy ground-glass opacities in the remaining lobes. Infection would be considered primarily given asymmetric distribution although pulmonary edema could have a similar appearance. Alternative etiologies are not excluded. 4. Marked cardiomegaly with multichamber dilatation. Massive dilatation of the right atrium with reflux of contrast into the inferior vena cava and hepatic veins suggesting right heart failure. Dictated and Authenticated by: Gopi Soler MD. Ordering:KEYSHA Pavon MD
[2023-05-09 20:03] LABS: COVID-19 PCR Negative (Negative); Influenza A PCR Negative (Negative); Influenza B PCR Negative (Negative); RSV PCR Negative (Negative)
[2023-05-09 20:06] LABS: Source Nasopharynx
[2023-05-09 20:47] LABS: Troponin I 1355 ng/L (<or=60)
--- NOTE | 2023-05-09 22:00 | RT.EKG_ITS ---
APPROVED REPORT Exam: Resting ECG Reason for Exam: shortness breath Patient Location: E HR:128 bpm ECG Measurements Heart Rate 128 AXIS AL 105 P 0 QRSd 124 QRS -83 QT 369 T 95 QTc 539 Conclusion afib Left ventricular hypertrophy...multiple LVH criteria ST elevation secondary to LVH...Multiple VCG criteria
--- NOTE | 2023-05-09 22:27 | W.PM.HP.N ---
Date of service: 05/09/23 Time of Service: 22:27 Assessment and Plan Assessment and plan (1) Acute non-ST elevation myocardial infarction (NSTEMI): Start date: 05/09/23 Status: Acute Assessment and plan: This is an 82-year-old lady with end-stage dementia and Parkinson disease presenting with increasing shortness of breath and is found to be in heart failure which is worsening as well as having a non-STEMI with elevated troponins. She is not symptomatic with chest pain but was short of breath at home with increased sleeping. He will be diuresed and treated for acute non-STEMI with IV heparin with heart rate control and treatment of her non-STEMI with metoprolol. She previously was on diltiazem as needed. She is a DNR/DNI at this time with CODE STATUS reviewed in the ED and daughter not wishing full CODE STATUS to continue. (2) Heart failure: Start date: 05/09/23 Status: Acute Assessment and plan: Markedly dilated cardiac chambers as well as markedly elevated BNP and pleural effusions. Patient will be diuresed with aggressive treatment of her acute non-STEMI with heparin infusion and medical therapy. Echocardiogram will be done in the morning. (3) Pneumonia: Start date: 05/09/23 Status: Acute Assessment and plan: Patchy infiltrates predominate in the left upper lobe but also and other lobes of the lung the patient covered with Zosyn IV. We need to consider aspiration with a problem swallowing. (4) Atrial fibrillation: Status: Chronic Assessment and plan: Patient does have chronic atrial fibrillation and usually on Eliquis which is been held recently. She is now slightly tachycardic and metoprolol will be advanced for heart rate control and because of patient's acute cardiac ischemia. Titrate to blood pressure and heart rate. Patient is on heparin and Eliquis is being held. (5) Dementia: Status: Chronic Assessment and plan: Patient recently appears has had advancing problems swallowing and losing weight by caregivers report. If needed, speech therapy should evaluate swallowing and patient will need modified diet but may continue to fail with her advancing disease. She is a DNR/DNI. (6) Parkinson's disease: Status: Chronic Assessment and plan: Advancing but appears to be well controlled on medical therapy. Patient's dementia may be associated. History of Present Illness History of Present Illness Chief Complaint: Worsening shortness of breath with increased sleeping Narrative: This is an 82-year-old female patient who has significant Parkinson's disease and dementia requiring 24-hour caregiver. She began to have increasing shortness of breath over the last 3 days with more sleeping than usual and less activity. She did not have any reported edema. She also has had problems swallowing because of dental work which has been done recently with the patient on and off Eliquis with planned dental work. She had the left side of her upper and lower teeth removed most recently and had planned to have the right side done soon and is off Eliquis upon admission. She has a history of chronic atrial fibrillation. She presented to the ED and was evaluated for her shortness of breath and found to have an acute non-STEMI with elevated troponins though she was not having chest pain or palpitations by report. Imaging did show pleural effusions and CHF the patient is receiving Lasix. This will be continued IV twice daily. CODE STATUS was converted to DNR/DNI after long discussion with the daughter in the ED this was confirmed by the caregiver who is with patient at the time that I saw the patient. Patient does not offer history with her dementia and the caregiver reviewed the history of recent events with me. The patient was not in distress and lying flat in bed during my interview. Does have problems swallowing more recently despite her dental work this may be associated with her dementia and passing hard disease. She was loaded with Plavix and aspirin but could only take half of the Plavix dose. Cardiology did recommend heparin infusion for 48 hours and trending troponins with treatment of her CHF. Patient will have an echocardiogram and Ríos cath will be placed because of incontinence and to monitor fluid status more closely as stated she now is a DNR/DNI. Review of Systems Narrative: 13 point review of systems otherwise unrevealing or unobtainable. PFSH All Active Problems (Updated 05/10/23 @ 02:44 by Palmer Richarsd) Pneumonia (Acute) Atrial fibrillation with rapid ventricular response (Acute) Acute non-ST elevation myocardial infarction (NSTEMI) (Acute) Heart failure (Acute) Dementia (Chronic) Respiratory failure (Acute) History of hip replacement (Chronic) Trochanteric bursitis, left hip (Acute) Fall (Acute 01/08/23) Contusion of right hip (Acute 01/08/23) History of total left hip arthroplasty (Acute 12/12/22) Aortic valve insufficiency (Chronic) Followed by Mohan Morris at [place]. 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) PLEURAL EFFUSION Insomnia (Chronic 09/02/14) Osteopenia (Chronic) t-scores; -2.1; -1.5 Tricuspid valve insufficiency (Chronic 04/14/16) moderate Ductal papillomatosis of breast (Acute) Abnormal weight loss (Acute) Presbylarynges (Acute) Hypophonia (Acute) Parkinson's disease (Chronic) Wart viral (Acute) Metatarsalgia of both feet (Acute) Depression (Chronic) Decreased hearing of both ears (Acute) Fatigue (Acute) Weakness (Acute) Hypokalemia (Acute) Frequent falls (Acute) Ambulatory dysfunction (Acute) New onset left bundle branch block (LBBB) (Acute) DVT prophylaxis (Acute) Discharge planning issues (Acute) Dementia (Chronic) MOCA on 06/01/22 Parkinson disease (Chronic) Malnutrition (Acute) Carmen onychomycosis (Acute) Medical History Palliative care patient Heart palpitations Bunion of great toe Tachycardia Abdominal pain Fatigue Hoarseness Foot joint pain (10/10/12) Dysphagia 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 There is a history of low blood pressure on calcium blockers in the past as well. Hypothyroidism (03/10/13) Newly diagnosed. Chronic obstructive lung disease Surgical History Hx of appendectomy History of cataract surgery History of hip surgery H/O cataract removal with insertion of prosthetic lens S/P breast biopsy intraductal papilloma S/P bunionectomy bilateral S/P appendectomy H/O esophagogastroduodenoscopy 07/16/95 showing increase in PA pressure EGD - MAC (~1995) showing increase in PA pressures ECHO (~2006) Echocardiogram with negative pulmonary work up at [facility] [place], PA pressure 21 Colonoscopy - MAC 1995 1997 1998 2012 Family History Mother Essential hypertension Heart disease Father No problems noted. Social History Smoking/Tobacco Use Status: Never Smoking risk assessment performed?: Yes Alcohol Intake: current Alcohol Intake frequency: holidays/special occasions only Alcohol type: wine Drug use: Never Adopted: No Caregiver/Support person: Yes (caregiver for jenni) Details: currently in a assisted, but pt is primary support Foster care: No Household members: none Housing: house Number of Children: 3 number of grandchildren: 4 current occupation: Retired Pets and animals: No What type of physical activity do you participate in: none Seatbelt use: never Drive intox or ride w/intox cdl driver: No Firearms in home: Yes (unloaded, not locked) Firearms unloaded and locked: No Meds Allergies and Home Medications Allergies Allergy/AdvReac Type Severity Reaction Status Date / Time methylphenidate AdvReac Intermediate GI Verified 03/06/23 11:46 codeine AdvReac Unknown Nausea Verified 03/06/23 11:46 azithromycin AdvReac Nausea Verified 03/06/23 11:46 [From Zithromax Z-Edu] sulfamethoxazole AdvReac explosive Verified 03/06/23 11:46 [From Bactrim] diarrhea trazodone AdvReac Nausea Verified 03/06/23 11:46 trimethoprim [From Bactrim] AdvReac explosive Verified 03/06/23 11:46 diarrhea Home Medications Medication Instructions Recorded Confirmed Type acetaminophen 500 mg tablet 500 mg PO Q6H PRN PRN pain #60 tabs 03/06/23 05/09/23 Rx amantadine HCl 100 mg capsule 100 mg PO DAILY #90 caps 03/06/23 05/09/23 Rx apixaban 2.5 mg tablet (Eliquis) 2.5 mg PO BID #180 tabs 03/06/23 05/09/23 Rx buspirone 10 mg tablet 10 mg PO TID #270 tabs 03/06/23 05/09/23 Rx carbidopa ER 25 mg-levodopa 100 mg 1 tab PO TID #270 tabs 03/06/23 05/09/23 Rx tablet,extended release duloxetine 30 mg capsule,delayed 30 mg PO DAILY #90 tabs 03/06/23 05/09/23 Rx release fluticasone propionate 50 2 spray NS BID PRN allergy 03/06/23 05/09/23 Rx mcg/actuation nasal symptoms #47.4 mL spray,suspension diltiazem HCl 30 mg tablet 30 mg PO TID PRN tachycardia #50 03/29/23 05/09/23 Rx tab-caps Exam Narrative Exam Narrative: General: Patient appears older than stated age, masklike facies and very thin almost very cachectic. She is nonverbal staring straight ahead during conversation with patient's caregiver at bedside. She does not appear in acute distress. She is not oriented to person, place or time. HEENT: Normocephalic, eyes with pupils equal react light symmetrically, extraocular movement tachycardia sclera anicteric. Oropharynx with moist mucosa and poor dentition with multiple extractions recently. Neck: Supple without JVD. Back: Kyphotic without CVA tenderness. Lungs: Fair aeration with no focalizing rales or rhonchi. Decreased aeration at the bases. No expiratory wheeze. Breast: Exam deferred. Heart: Irregularly irregular rhythm with tachycardic rate and no appreciable murmur or gallop. Abdomen: Scaphoid contour, soft nontender to palpation with no palpable hepatosplenomegaly. Skin: Pale, warm and dry with decreased turgor and rough texture. Extremities: Without clubbing, cyanosis or pitting edema with muscle wasting diffusely. Fair capillary refill. Neuro: Cranial nerves II through XII appear to be grossly intact. Resting tremor present of her right hand with increased tone. No focal motor deficits. Psych: Flattened affect masklike facies and mood difficult to interpret with patient nonverbal. Normal thought processes manifested. Remote and recent memory not testable with patient nonverbal. Results Imaging Imaging Studies: Exam: CTA Chest With Contrast Exam date and time: 05/09/2023 6:49 PM Age: 82 years old Clinical indication: Shortness of breath; Additional info: SOB, elevated d dimer TECHNIQUE: Imaging protocol: Computed tomographic angiography of the chest with contrast. Exam focused on the arteries. 3D rendering (Not supervised by radiologist): MIP and/or 3D reconstructed images were created by the technologist. Contrast material: OMNIPAQUE; Contrast volume: 60 ml; Contrast route: INTRAVENOUS (IV); COMPARISON: CT CHEST/ABD/PEL W 04/26/2021 2:02 PM FINDINGS: Pulmonary arteries: No large central pulmonary embolism identified. The small and distal pulmonary arteries are partially obscured by artifact from breathing motion and not well evaluated for diagnosis or exclusion of small or distal pulmonary emboli. Enlarged pulmonary trunk and main pulmonary arteries suggesting pulmonary hypertension. Aorta: Ascending thoracic aorta dilated to 3.9 cm. Normal caliber descending thoracic aorta measuring 2.5 cm. No focal aneurysm. Thyroid: Thyroid gland largely obscured by artifact but grossly normal in size. Lungs: Large region of hazy alveolar opacity throughout much of the left upper lobe. Scattered smaller patchy hazy opacities also noted. Dependent and platelike atelectasis in the lower lung zones. Pleural spaces: Large right pleural effusion. Small left pleural effusion. No pneumothorax. Heart: Marked cardiomegaly with multichamber dilatation. Marked dilatation of the right atrium with reflux of contrast into a distended inferior vena cava and hepatic veins suggesting right heart failure. Lymph nodes: No pathologically enlarged mediastinal or hilar lymph nodes. Bones/joints: Compression/burst type fracture at L1 with moderate-severe loss of central vertebral height, a Schmorl's node extending through the superior endplate, and fracture extension through the posterior vertebral wall with posterior displacement of the upper portion of the posterior vertebral wall by 5 mm leaving a residual AP canal dimension of approximately 12 mm, uncertain chronicity and possibly nonacute but new since a comparison exam from April 26, 2021. Clinical correlation recommended. Atrophic right 1st rib, probably a developmental appearance, also seen on the comparison exam. Soft tissues: No gross soft tissue mass or fluid collection seen in the chest wall. No gross soft tissue mass or fluid collection seen in the chest wall. IMPRESSION: 1. No large central pulmonary embolism is identified. The small and distal pulmonary arteries are partially obscured by artifact from breathing motion and not well evaluated for diagnosis or exclusion of small or distal pulmonary emboli. 2. Large right pleural effusion. Small left pleural effusion. 3. Large region of patchy hazy ground-glass opacity throughout much of the left upper lobe. Scattered additional smaller patchy hazy ground-glass opacities in the remaining lobes. Infection would be considered primarily given asymmetric distribution although pulmonary edema could have a similar appearance. Alternative etiologies are not excluded. 4. Marked cardiomegaly with multichamber dilatation. Massive dilatation of the right atrium with reflux of contrast into the inferior vena cava and hepatic veins suggesting right heart failure. EXAM: XR CHEST 2V PA LATERAL CLINICAL HISTORY: shortness of breath. TECHNIQUE: 2D digital imaging was performed. COMPARISON: CR XR CHEST 2V PA LATERAL from 12/08/2022 FINDINGS: 2 views: Heart size is normal. The mediastinum is not widened. There are moderate size bilateral pleural effusions. Also infiltrates in both lung bases. IMPRESSION: Moderate-sized bilateral pleural effusions and infiltrates in both lung bases. Labs 05/09/23 16:55 05/09/23 16:55 Labs: Laboratory Results - last 24 hr 05/09/23 05/09/23 05/09/23 16:55 19:15 20:20 WBC 9.16 RBC 4.60 Hgb 13.1 Hct 41.6 MCV 90 MCH 28.5 MCHC 31.5 L RDW 16.1 H Plt Count 276 MPV 11.3 H Immature Gran % 0.5 Neutrophils % 75.9 Lymphocytes % 10.7 Monocytes % 11.7 Eosinophils % 0.5 Basophils % 0.7 Nucleated RBC % 0.3 Absolute Neutrophils 6.95 H Absolute Lymphocytes 0.98 L Absolute Monocytes 1.07 H Absolute Eosinophils 0.05 Absolute Basophils 0.06 PT 15.3 H INR 1.6 H APTT 25.2 D-Dimer 1053 H Sodium 135 L Potassium 4.4 Chloride 102 Carbon Dioxide 22.9 Anion Gap 10.1 BUN 45 H Creatinine 1.5 H Est GFR (CKD-EPI 2020) 34.15 Glucose 148 H Calcium 9.6 Magnesium 2.1 Total Bilirubin 1.9 H AST 121 H ALT 23 Alkaline Phosphatase 161 H Troponin I 1274 H* 1355 H* NT-Pro-B Natriuret Pep > 01674 H Total Protein 6.4 Albumin 3.2 L COVID-19 Source Nasopharynx SARS-CoV-2 (PCR) Negative Influenza Type A (PCR) Negative Influenza Type B (PCR) Negative RSV (PCR) Negative Last Vital Signs Temp 36.8 C 05/09/23 16:37 Pulse 115 H 05/09/23 18:32 Resp 22 05/09/23 20:30 BP 85/57 L 05/09/23 18:32 Pulse Ox 97 05/09/23 16:37 Time Spent Time spent with Patient: >75 minutes Time was spent: preparing to see the patient(eg.review tests), obtaining and/or reviewing separately otained hiistory, ordering medications,tests, procedures, referring, communicating with other health acute care nurse, indepentently interpreting results and care coordination
[2023-05-10] VITALS (76 sets, daily range): BP systolic 78–117; BP diastolic 59–83; PULSE 63–150; RESP 11–30; TEMP 36.3–36.6; O2SAT 87–99
[2023-05-10] MEDS: Metoprolol 12.5 MG TAB PO ×2 (01:32→09:15)
[2023-05-10 02:12] LABS: PTT Activated 37.3 sec (23.6-32.8)
[2023-05-10 02:18] LABS: NT-proBNP > 35000 pg/mL (<300)
[2023-05-10 02:19] LABS: Troponin I 1893 ng/L (<or=60)
[2023-05-10 07:36] LABS: HCT 35.2 % (36.0-46.0); HGB 11.4 g/dL (11.2-15.7); MCH 28.9 pg (27.0-33.0); MCHC 32.4 % (32.0-36.0); MCV 89 fL (80-95); MPV 10.6 fL (8.0-11.0); Platelet Count 232 10^3/uL (130-400); RBC 3.94 10^6/uL (3.93-5.22); RDW 15.8 % (11.7-14.6); RDW-SD 51.3 fL; WBC 8.44 10^3/uL (4.4-10.8)
[2023-05-10 07:55] LABS: INR 1.4 (0.9-1.1); Prothrombin Time 13.7 sec (9.1-11.1)
[2023-05-10 07:57] LABS: PTT Activated 45.2 sec (23.6-32.8)
--- NOTE | 2023-05-10 08:00 | DI.US_ITS ---
APPROVED REPORT EXAM: Comprehensive 2D, Doppler, and color-flow Echocardiogram Patient Location: In-Patient Room/Bed: [address]: Negro Moe RDCS (AE) Indications: new onset CHF Other Information Study Quality: Adequate. Technically limited study due to inability to position patient. Conclusion Normal left ventricular wall thickness and chamber size. Ejection fraction is approximately 30%. Se ptal motion is consistent with an IVCD. Patient is in atrial fibrillation with an uncontrolled rate which makes assessment of LV function less accurate Right ventricle is enlarged and hypocontractile Right atrium is severely dilated. The left atrium is moderately dilated The aortic valve is sclerotic and trileaflet with moderate regurgitation Normal tricuspid valve with moderate to severe regurgitation. Estimated right ventricular systolic p ressure is 35 mmHg Mildly thickened mitral leaflets with mild to moderate eccentric regurgitation Mildly dilated ascending aorta Wall motion Left Ventricle The left ventricle is normal size. Left ventricular systolic function is moderately decreased. There is normal left ventricular wall thickness. There is no ventricular septal defect visualized. LVEF is 30%. Right Ventricle Right ventricle is mildly dilated. Right ventricle is moderately hypokinetic. The RVSP is 35.1 mmHg. Atria The left atrium is moderately dilated Right atrium is severely dilated. The interatrial septum is int act with no evidence for an atrial septal defect. Aortic Valve Moderate aortic valve sclerosis. Aortic valve is trileaflet. There is no aortic valvular stenosis. Mo derate aortic regurgitation. Mitral Valve Mitral valve leaflets are mildly thickened. No evidence of mitral valve stenosis. Mild to moderate ec centric mitral regurgitation. Tricuspid Valve The tricuspid valve is normal in structure. There is no tricuspid valve stenosis. Moderate to severe tricuspid regurgitation. Pulmonic Valve The pulmonary valve is normal in structure. There is no pulmonic valvular stenosis. Mild pulmonic reg urgitation. Great Vessels The aortic root is normal in size. The ascending aorta is mildly dilated. Aortic arch is not well vis ualized. The IVC collapses <50% with inspiration. Pericardium There is no pericardial effusion. 2D Dimensions IVSD d PLAX 0.88 cm F: 0.6-1.0 Ao Root d 3.18 cm F: 2.7 - 3.3 LVPW d PLAX 1.00 cm F: 0.6 - 1.0 Ao Asc Diam d 3.76 cm F: 2.3 - 3.1 LVID d PLAX 4.21 cm F: 3.8 - 5.2 LVDs 3.59 cm F: 2.2 - 3.5 LV EF Teichholz 31.7 % FS 14.78 % LV EDV (Teich) 79.1 mL LV ESV (Teich) 54.0 mL Stroke Vol Index (Teich) 16.05 M-Mode TAPSE 1.48 cm (M/F) >1.7 LV Volumes - Method of Disks (Garcia's) Single Plane 2D LV Volumes Biplane 2D LV Volumes LV EDV A4C 99.2 mL LV EDV BP 90.83 mL F: 46 - 106 LV ESV A4C 72.9 mL LV ESV BP 65.3 mL LVEF(%) A4C 26.6 % LVEF(%) BP 28.09 % F: 54 - 74 LV EDV A2C 77.6 mL LV EDV BP Index 57.85 mL/m2 F: 29 - 61 LV ESV A2C 56.4 mL SV BP LVEF(%) A2C 27.3 % SV Index LA Volume LA Length A4C 5.3 cm LA Length A2C LA Area A4C s 14.93 cm2 LA Area A2C s LA Vol A4C A-L 35.35 mL LA Vol A2C A-L LA Vol Biplane A-L LA Vol A4C MOD 31.6 mL LA Vol A2C MOD LA Vol BP MOD LV Diastology MV E Vmax 0.49 (0.4-1.3 m/s) MV A Vmax 0.40 (0.4-1.3 m/s) E/A Ratio 1.2 Aortic Valve AoV Vmax 0.71 m/s LVOT Vmax 0.51 m/s AoV Peak Grad 2.0 mmHg LVOT Peak Grad 1.1 mmHg AoV Area (Vmax) 1.55 cm2 LVOT VTI 0.099 m AoV VTI 0.114 m LVOT Mean Grad 0.5 mmHg AoV Mean Christophe. 0.50 m/s LVOT SV 21.25 mL AoV Mean Grad 1.1 mmHg LVOT Diam s 1.65 cm AoV Area (VTI) 1.87 cm2 Velocity Ratio 0.72 Mitral Valve MV DT 102 (160-240 msec) Pulmonary Valve PV Vmax 0.78 (0.5-1.5 m/s) RVOT Vmax 0.42 m/s PV Peak Grad 2.4 mmHg RVOT Peak Gr. 0.7 mmHg PV Mean Christophe 0.57 m/s RVOT VTI 0.079 m PV Mean Grad 1.4 mmHg RVOT Mean Gr. 0.4 mmHg Tricuspid Valve RA Pressure 8.00 mmHg TR Vmax 2.60 m/s TR Peak Grad 27.1 mmHg RVSP (TR) 35.1 mmHg
[2023-05-10 08:10] LABS: ALT 19 U/L (14-59); AST 66 U/L (15-37); Albumin 2.5 g/dL (3.4-5.0); Alkaline Phosphatase 117 U/L (46-116); Anion Gap 9.7 mmol/L (3-11); BUN 44 mg/dL (7-18); CO2 27.3 mmol/L (21.0-32.0); CREATININE 1.4 mg/dL (0.55-1.02); Calcium 8.6 mg/dL (8.5-10.1); Chloride 104 mmol/L (98-107); Glucose 93 mg/dL (74-106); Magnesium 1.9 mg/dL (1.8-2.4); Sodium 141 mmol/L (136-145); Total Protein 5.2 g/dL (6.4-8.2)
[2023-05-10 08:12] LABS: Troponin I 2002 ng/L (<or=60)
--- NOTE | 2023-05-10 09:13 | INITIAL_ITS ---
Date of service: 05/10/23 Time of Service: 09:13 Care Management Initial Assmt Initial Assessment REASON FOR HOSPITALIZATION:: Acute NSTEMI, Heart Failure, Pneumonia PREVIOUS FUNCTIONAL STATUS/SOCIAL/FAMILY SUPPORTS:: Alyse lives in her home on [address]. She has 05/02 caregiver support and requires full assistance with her ADL's and GET's. On admission it is noted that Alyse weight is 84lbs, she has been mostly bed bound and her ability to eat had been compromised for several months due to the poor dentition. She had half of her teeth extracted 2 weeks ago and continues to decline. Palliative Care met with Alyse and family today and per provider they do not want her transferred to a tertiary hospital and comfort care is the goal. CURRENT FUNCTIONAL STATUS:: Alyse is lying in bed, she is accompanied by her daughter. She appears comfortable, her eyes are open, she makes eye contact with this continuity writer and does not talk. ADVANCE DIRECTIVES:: None on file Has patient been provided with info about the portal/API?: Yes Did the patient sign up for the portal?: No CODE STATUS:: DNR/DNI INSURANCE COVERAGE / FINANCIAL ISSUES:: [facility] Supplemental CURRENT HOME/COMMUNITY SERVICES/EQUIPMENT:: 05/02 caregiver support Followed by Palliative Grab Bars, tub seat/Bench Wheel chair Walker PRIMARY CARE PHYSICIAN:: Luz Szymanski POTENTIAL DISCHARGE NEEDS:: Hospice PATIENT/FAMILY EDUCATION NEEDS:: Review discharge instructions, limitations, medications and plan to follow up with community providers. Discuss ask me three. ANTICIPATED BARRIERS TO DISCHARGE:: None identified TRANSPORTATION:: Dependent on dispo PLAN:: Alyse met with Dr. Szymanski from Palliative, transfer to a tertiary hospital is deferred and Alyse is transitioned to comfort care measures. Anticipate she will remain at [facility] for end of life care vs discharge home on hospice. CM will follow. [facility] All Active Problems (Updated 05/10/23 @ 10:34 by Jose Martin Castro MD) Pneumonia (Acute) Atrial fibrillation with rapid ventricular response (Acute) Acute non-ST elevation myocardial infarction (NSTEMI) (Acute) Heart failure (Acute) Dementia (Chronic) Respiratory failure (Acute) History of hip replacement (Chronic) Trochanteric bursitis, left hip (Acute) Fall (Acute 01/08/23) Contusion of right hip (Acute 01/08/23) History of total left hip arthroplasty (Acute 12/12/22) Aortic valve insufficiency (Chronic) Followed by Mohan Morris at [place]. 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) PLEURAL EFFUSION Insomnia (Chronic 09/02/14) Osteopenia (Chronic) t-scores; -2.1; -1.5 Tricuspid valve insufficiency (Chronic 04/14/16) moderate Ductal papillomatosis of breast (Acute) Abnormal weight loss (Acute) Presbylarynges (Acute) Hypophonia (Acute) Parkinson's disease (Chronic) Wart viral (Acute) Metatarsalgia of both feet (Acute) Depression (Chronic) Decreased hearing of both ears (Acute) Fatigue (Acute) Weakness (Acute) Hypokalemia (Acute) Frequent falls (Acute) Ambulatory dysfunction (Acute) New onset left bundle branch block (LBBB) (Acute) DVT prophylaxis (Acute) Discharge planning issues (Acute) Dementia (Chronic) MOCA on 06/01/22 Parkinson disease (Chronic) Malnutrition (Acute) Carmen onychomycosis (Acute) Medical History Palliative care patient Heart palpitations Bunion of great toe Tachycardia Abdominal pain Fatigue Hoarseness Foot joint pain (10/10/12) Dysphagia 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 There is a history of low blood pressure on calcium blockers in the past as well. Hypothyroidism (03/10/13) Newly diagnosed. Chronic obstructive lung disease Surgical History Hx of appendectomy History of cataract surgery History of hip surgery H/O cataract removal with insertion of prosthetic lens S/P breast biopsy intraductal papilloma S/P bunionectomy bilateral S/P appendectomy H/O esophagogastroduodenoscopy 07/16/95 showing increase in PA pressure EGD - MAC (~1995) showing increase in PA pressures ECHO (~2006) Echocardiogram with negative pulmonary work up at [facility], PA pressure 21 Colonoscopy - MAC 1995 1997 1998 2012 Family History Mother Essential hypertension Heart disease Father No problems noted. Social History Smoking/Tobacco Use Status: Never Smoking risk assessment performed?: Yes Alcohol Intake: current Alcohol Intake frequency: holidays/special occasions only Alcohol type: wine Drug use: Never Adopted: No Caregiver/Support person: Yes (caregiver for fiance) Details: [place] in [place], but pt is primary support Foster care: No Household members: none Housing: house Number of Children: 3 number of grandchildren: 4 current occupation: Retired Pets and animals: No What type of physical activity do you participate in: none Seatbelt use: never Drive intox or ride w/intox 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
[2023-05-10] MEDS: Metoprolol 5 MG/5 ML VIAL 2.5 MG IVP (09:56)
--- NOTE | 2023-05-10 10:00 | RT.EKG_ITS ---
APPROVED REPORT Exam: Resting ECG Reason for Exam: [place] Patient Location: I HR:87 bpm ECG Measurements Heart Rate 87 AXIS [place] [id number] P [id number] QRSd 96 QRS -70 QT 540 T 246 QTc 650 Conclusion Atrial fibrillation...V-rate 60- 75, irreg A-activity Left anterior fascicular block...axis(240,-40), init forces inf LVH with secondary repolarization abnormality...multi-LVH criteria, abnrm ST-T Anterior infarct, acute (LAD)...ST >0.25mV, V2-V5 Prolonged QT interval...QTc >500mS
--- NOTE | 2023-05-10 10:02 | PGE_ITS ---
Date of Service Date of service: 05/10/23 Time of Service: 10:02 Assessment and Plan Assessment and plan (1) Acute non-ST elevation myocardial infarction (NSTEMI): Start date: 05/09/23 Status: Acute Assessment and plan: This is an 82-year-old lady with end-stage dementia and Parkinson disease presenting with increasing shortness of breath and is found to be in heart failure which is worsening as well as having a non-STEMI with elevated troponins and rapid atrial fibrillation (worsening of her known afib). She is not symptomatic with chest pain but was short of breath at home with increased sleeping. Family are indecisive about pursuing cardiac cath and certainly do not want transfer beyond the immediate area. They are ok w/ medical managment and her code status was changed last night to DNR/DNI. They would like palliative care consult. continue DAPT, heparin and metoprolol. will change her lasix from scheduled push doses to lasix drip so at to better control the degree of diuresis. Her echo cardiogram demonstrated severe diffuse hypokinesis w/ some regional wall abormalities of inferoseptal, septal and anteroseptal akinesis, while the anterior, anterolateral and inferolateral appear to be hypokinetic, await formal echo reading from cardiology Critical care time spent interviewing and examining the patient, reviewing studies, discussing case with patient's nurse and consulting physicians was 60 minutes (2) Heart failure: Start date: 05/09/23 Status: Acute Assessment and plan: Markedly dilated cardiac chambers as well as markedly elevated BNP and pleural e ffusions. Patient will be diuresed with aggressive treatment of her acute non- STEMI with heparin infusion and medical therapy. Echocardiogram will be done in the morning. Qualifiers: Heart failure type: combined systolic and diastolic Heart failure chronicity: acute Qualified Code(s): I50.41 - Acute combined systolic (congestive) and diastolic (congestive) heart failure (3) Pneumonia: Start date: 05/09/23 Status: Acute Assessment and plan: Patchy infiltrates predominate in the left upper lobe but also and other lobes of the lung. I have changed her zosyn to Unasyn. also have changed her diet to pureed w/ thickened liquids and will ask for COLLECTION ADVISOR consult Qualifiers: Pneumonia type: aspiration pneumonia Aspiration pneumonia type: unspecified Laterality: left Lung location: upper lobe of lung Qualified Code(s): J69.0 - Pneumonitis due to inhalation of food and vomit (4) Atrial fibrillation: Status: Chronic Assessment and plan: Patient does have chronic atrial fibrillation and usually on Eliquis which is been held recently due to dental extrasctions. continue heparin for 48 hours and if no cath is pursued then resume her Eliquis. use prn iv lopressor for acute tachycardia while adjusting her po lopressor. Qualifiers: Atrial fibrillation type: longstanding persistent Qualified Code(s): I48.11 - Longstanding persistent atrial fibrillation (5) Dementia: Status: Chronic Assessment and plan: Patient recently appears has had advancing problems swallowing and losing weight by caregivers report. If needed, speech therapy should evaluate swallowing and patient will need modified diet but may continue to fail with her advancing disease. She is a DNR/DNI. Qualifiers: Dementia type: Parkinson's disease Dementia severity: severe Dementia behavioral or psychological symptom: without behavioral, psychotic, or mood disturbance or anxiety Qualified Code(s): G20.A1 - Parkinson's disease without dyskinesia, without mention of fluctuations; F02.C0 - Dementia in other diseases classified elsewhere, severe, without behavioral disturbance, psychotic disturbance, mood disturbance, and anxiety (6) Parkinson's disease: Status: Chronic Assessment and plan: Advancing but appears to be well controlled on medical therapy. Patient's dementia may be associated. Qualifiers: Dyskinesia presence: unspecified whether dyskinesia Fluctuating manifestations: unspecified whether manifestations fluctuate Qualified Code(s): G20.A1 - Parkinson's disease without dyskinesia, without mention of fluctuations Subjective Subjective Interval history since last seen: Patient was very lethargic this morning. She did wake up for a little while for her daughter and for her caregiver who was able to get the patient to take her morning meds w/out chokling. Per my discussion w/ them, she has been having increasing dyspnea since last Sunday but it became worse on Sunday (3days ago). No associated chest pain or pressure. Patient has been declining for some time in that she has been having increasing difficulties swallowing. Last night she was found to be in rapid atrial fibrillation and acute CHF w/ NSTEMI (however she has LBBB at baseline so difficult to say whether STEMI vs NSTEMI). ED provider did discuss her case w/ [facility] and [facility] and neither one had bed capacity to accept her in transfer. Family does not want her to go further away than [place], [place] or to [place], [place]. Family main concern is that the patient is comfortable although they would entertain cath and PCI if it would improve the quality of her life. I explained to them that while it may or may not help w/ her heart, she is still left w/ worsening Parkinsonism, and dementia. They would like to talk it over w/ Dr. Szymanski. I have put in a palliative care consult. Exam Narrative Exam Narrative: Overweight female sleeping awakens easily. She has trouble sustaining conversation. She does not appear to be in acute distress. Neck veins are not distended however patient was upright at higher than 60degrees Lungs: bibasilar rale, no rhonchi or wheezing Heart: Irregularly irregular slightly tachycardic soft systolic murmur apex normal renal or heave Abdomen scaphoid soft and nontender Lower extremities without peripheral edema Neuro exam: Patient is lethargic but awakens easily answers to her name but not able to carry on a long conversation. No focal motor deficits. Moves all 4 ext remitie no facial asymmetry.-Surgical caregiver feeding medications with thickening patient did not cough. Objective Last Vital Signs Temp 36.6 C 05/10/23 08:08 Pulse 150 H 05/10/23 08:26 Resp 22 05/10/23 08:26 BP 90/60 L 05/10/23 08:26 Pulse Ox 87 L 05/10/23 08:26 Laboratory Results - last 24 hr 05/09/23 05/09/23 05/09/23 16:55 19:15 20:20 WBC 9.16 RBC 4.60 Hgb 13.1 Hct 41.6 MCV 90 MCH 28.5 MCHC 31.5 L RDW 16.1 H Plt Count 276 MPV 11.3 H Immature Gran % 0.5 Neutrophils % 75.9 Lymphocytes % 10.7 Monocytes % 11.7 Eosinophils % 0.5 Basophils % 0.7 Nucleated RBC % 0.3 Absolute Neutrophils 6.95 H Absolute Lymphocytes 0.98 L Absolute Monocytes 1.07 H Absolute Eosinophils 0.05 Absolute Basophils 0.06 PT 15.3 H INR 1.6 H APTT 25.2 D-Dimer 1053 H Sodium 135 L Potassium 4.4 Chloride 102 Carbon Dioxide 22.9 Anion Gap 10.1 BUN 45 H Creatinine 1.5 H Est GFR (CKD-EPI 2020) 34.15 Glucose 148 H Calcium 9.6 Magnesium 2.1 Total Bilirubin 1.9 H AST 121 H ALT 23 Alkaline Phosphatase 161 H Troponin I 1274 H* 1355 H* NT-Pro-B Natriuret Pep > 78194 H Total Protein 6.4 Albumin 3.2 L COVID-19 Source Nasopharynx SARS-CoV-2 (PCR) Negative Influenza Type A (PCR) Negative Influenza Type B (PCR) Negative RSV (PCR) Negative 05/09/23 05/10/23 05/10/23 22:36 01:40 07:03 WBC 8.44 RBC 3.94 Hgb 11.4 Hct 35.2 L MCV 89 MCH 28.9 MCHC 32.4 RDW 15.8 H Plt Count 232 MPV 10.6 Immature Gran % Neutrophils % Lymphocytes % Monocytes % Eosinophils % Basophils % Nucleated RBC % Absolute Neutrophils Absolute Lymphocytes Absolute Monocytes Absolute Eosinophils Absolute Basophils PT 13.7 H INR 1.4 H APTT 37.3 H 45.2 H D-Dimer Sodium 141 Potassium 3.0 L D Chloride 104 Carbon Dioxide 27.3 Anion Gap 9.7 BUN 44 H Creatinine 1.4 H Est GFR (CKD-EPI 2020) 37.10 Glucose 93 Calcium 8.6 Magnesium 1.9 Total Bilirubin 1.0 AST 66 H ALT 19 Alkaline Phosphatase 117 H Troponin I Cancelled 1893 H* 2002 H* NT-Pro-B Natriuret Pep > 01670 H Total Protein 5.2 L Albumin 2.5 L COVID-19 Source SARS-CoV-2 (PCR) Influenza Type A (PCR) Influenza Type B (PCR) RSV (PCR) Time Spent with Patient Time Spent with Patient: >50 minutes Time was spent: preparing to see the patient(eg.review tests), obtaining and/or reviewing separately otained hiistory, ordering medications,tests, procedures, referring, communicating with other health medical care manager, indepentently interpreting results, counseling the patient and care coordination
[2023-05-10] MEDS: Clopidogrel 75 MG TAB PO (10:06)
[2023-05-10] MEDS: Aspirin 81 MG CHEW PO (10:06)
[2023-05-10] MEDS: DULoxetine 30 MG CAP PO (10:06)
[2023-05-10] MEDS: busPIRone 5 MG TAB 10 MG PO (10:06)
[2023-05-10 11:22] LABS: Troponin I 1787 ng/L (<or=60)
[2023-05-10 12:03] LABS: Bilirubin Negative (Negative); Blood Trace-lysed (Negative); Clarity Clear (Clear); Glucose Negative (Negative); Ketones Negative (Negative); Leukocyte Esterase Negative (Negative); Nitrite Negative (Negative); Specific Gravity 1.015 (1.005-1.025); Urobilinogen 0.2 mg/dL (Up to 0.2); pH 5.5 (5-8)
[2023-05-10] MEDS: AMPICILLIN/SULBACTAM 3 GM in Normal Saline 100 ML IVPB (12:08)
[2023-05-10 12:10] LABS: Bacteria Negative HPF (Negative); C & S Indicated? No; Casts 0-2 Hyaline LPF (Negative); Crystals Negative HPF (Negative); Epithelial Cells Few HPF (Negative); Mucus Negative (Negative); Other Cells Few Renal (Negative); RBC 0-2 HPF (0-2); WBC Negative HPF (0-5)
[2023-05-10] MEDS: Normal Saline 500 ML IV (12:12)
[2023-05-10] MEDS: Lidocaine 2% Jelly 6 ML SYR (13:41)
--- NOTE | 2023-05-10 17:06 | W.PALLCONSUL ---
Date of service: 05/10/23 Time of Service: 14:00 History of Present Illness History of Present Illness Chief Complaint: Frail elderly, sp STEMI Narrative: I have known Alyse for approximately 35 years. She is an 82-year-old woman who lives alone on [facility]. She presently has caregivers 24 hours a day. She has been very self-directed and what she wanted for help and care in the past. Family has been there for her but she often times does alienate caregivers, family, and [facility]. Several months ago she had a bolt from a hip fracture repair that was sticking into her acetabulum. This was properly fixed by Dr. Douglas who did not do the first surgery. She had considerably less pain but was more disabled. Her weight at that time was approximately 86 pounds. She was overwhelmed with life, had difficulty with ambulation, and would get fixated on tasks but not accomplish them. Recently she was having all of her teeth extracted. She had gone through half of this and was due to return actually yesterday. I had heard from her caregivers that she was pretty much bedbound, was not eating or drinking. I advised them to take her to the emergency room. In the emergency room she was found to have a non-STEMI which converted to a STEMI. It was decided by her daughter to not have her transferred and she did have a change in her CODE STATUS to DNR/DNI. I was asked by hospitalist Dr. Sherman to visit with Alyse and her daughter and determine goals of care. Alyse appeared to recognize me when I walked in the room. We did have a discussion about where she was with her health at that point. She seems to understand that she was not getting out of bed much, had very little p.o., but had no chest pain. Baseline she is short of breath. Consults Consult date: 05/10/23 Requesting physician: Jose Martin Castro Assessment and Plan Assessment and plan (1) Atrial fibrillation with rapid ventricular response: Status: Acute (2) STEMI (ST elevation myocardial infarction): Status: Acute (3) Atrial fibrillation: Status: Chronic Assessment and plan: Discussion with patient and daughter. Alyse had some capacity to understand what was going on with her and could contribute to her health decisions. She clearly stated that she would like care directed at her comfort. We talked about removing some of the IVs, telemetry, oxygen etc. and she was in agreement that this should be stopped. She also wanted medication only directed at her comfort. She is a DNR/DNI. As her physician for 35 years I agree with her decision. I do think that she is dying. Her daughter is in agreement with the plan. We should stop vitals except for respiratory rate. Only medications for comfort. If her oxygenation decreases, morphine may be helpful to improve shortness of breath and anxiety. I will continue to see Alyse I did speak with Dr. Sherman about the above. Qualifiers: Atrial fibrillation type: longstanding persistent Qualified Code(s): I48.11 - Longstanding persistent atrial fibrillation Review of Systems Narrative: Very little p.o., mouth pain, no chest pain, shortness of breath but this is her baseline regarding her capacity I think she did have some capacity to understand her condition at this point. PFSH All Active Problems (Updated 05/11/23 @ 07:17 by Luz Szymanski MD, [place]) Palliative care patient (Acute) STEMI (ST elevation myocardial infarction) (Acute) Pneumonia (Acute) Atrial fibrillation with rapid ventricular response (Acute) Acute non-ST elevation myocardial infarction (NSTEMI) (Acute) Heart failure (Acute) Dementia (Chronic) Respiratory failure (Acute) History of hip replacement (Chronic) Trochanteric bursitis, left hip (Acute) Fall (Acute 01/08/23) Contusion of right hip (Acute 01/08/23) History of total left hip arthroplasty (Acute 12/12/22) Aortic valve insufficiency (Chronic) Followed by Mohan Morris at [facility]. 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) PLEURAL EFFUSION Insomnia (Chronic 09/02/14) Osteopenia (Chronic) t-scores; -2.1; -1.5 Tricuspid valve insufficiency (Chronic 04/14/16) moderate Ductal papillomatosis of breast (Acute) Abnormal weight loss (Acute) Presbylarynges (Acute) Hypophonia (Acute) Parkinson's disease (Chronic) Wart viral (Acute) Metatarsalgia of both feet (Acute) Depression (Chronic) Decreased hearing of both ears (Acute) Fatigue (Acute) Weakness (Acute) Hypokalemia (Acute) Frequent falls (Acute) Ambulatory dysfunction (Acute) New onset left bundle branch block (LBBB) (Acute) DVT prophylaxis (Acute) Discharge planning issues (Acute) Dementia (Chronic) MOCA 15 on 06/01/22 Parkinson disease (Chronic) Malnutrition (Acute) Carmen onychomycosis (Acute) Medical History Palliative care patient Heart palpitations Bunion of great toe Tachycardia Abdominal pain Fatigue Hoarseness Foot joint pain (10/10/12) Dysphagia 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 There is a history of low blood pressure on calcium blockers in the past as well. Hypothyroidism (03/10/13) Newly diagnosed. Chronic obstructive lung disease Surgical History Hx of appendectomy History of cataract surgery History of hip surgery H/O cataract removal with insertion of prosthetic lens S/P breast biopsy intraductal papilloma S/P bunionectomy bilateral S/P appendectomy H/O esophagogastroduodenoscopy 07/16/95 showing increase in PA pressure EGD - MAC (~1995) showing increase in PA pressures ECHO (~2006) Echocardiogram with negative [place] [facility] PA pressure 21 Colonoscopy - MAC 1995 1997 1998 2012 Family History Mother Essential hypertension Heart disease Father No problems noted. Social History Smoking/Tobacco Use Status: Never Smoking risk assessment performed?: Yes Alcohol Intake: current Alcohol Intake frequency: holidays/special occasions only Alcohol type: wine Drug use: Never Adopted: No Caregiver/Support person: Yes (caregiver for jenni) Details: currently in a usp, but pt is primary support Foster care: No Household members: none Housing: house Number of Children: 3 number of grandchildren: 4 current occupation: Retired Pets and animals: No What type of physical activity do you participate in: none Seatbelt use: never Drive intox or ride w/intox reach lift truck driver: No Firearms in home: Yes (unloaded, not locked) Firearms unloaded and locked: No Exam Narrative Exam Narrative: Alyse is lying in bed. She appeared to recognize me. She could answer my questions. She shook her head many times. Her heart was irregular and tachycardic. Lungs difficult to appreciate due to patient cooperation. Mood is somewhat confused but was able to answer many questions. Please note nurse and family member, daughter were by her side at this time Results Last Vital Signs Temp 97.5 F L 05/10/23 12:07 Pulse 89 05/10/23 15:00 Resp 24 05/10/23 15:50 BP 94/69 L 05/10/23 15:00 Pulse Ox 92 05/10/23 15:50 Conclusion Normal left ventricular wall thickness and chamber size. Ejection fraction is approximately 30%. 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 Patient is in atrial fibrillation with an uncontrolled rate which makes assessment of LV function less accurate Right ventricle is enlarged and hypocontractile Right atrium is severely dilated. The left atrium is moderately dilated The aortic valve is sclerotic and trileaflet with moderate regurgitation Normal tricuspid valve with moderate to severe regurgitation. Estimated right ventricular systolic pressure is 35 mmHg Mildly thickened mitral leaflets with mild to moderate eccentric regurgitation Mildly dilated ascending aorta Labs 05/10/23 07:03 05/10/23 07:03 Labs: Laboratory Results - last 24 hr 05/09/23 05/09/23 05/09/23 16:55 19:15 20:20 WBC RBC Hgb Hct MCV MCH MCHC RDW Plt Count MPV PT 15.3 H INR 1.6 H APTT 25.2 D-Dimer 1053 H Sodium 135 L Potassium 4.4 Chloride 102 Carbon Dioxide 22.9 Anion Gap 10.1 BUN 45 H Creatinine 1.5 H Est GFR (CKD-EPI 2020) 34.15 Glucose 148 H Calcium 9.6 Magnesium 2.1 Total Bilirubin 1.9 H AST 121 H ALT 23 Alkaline Phosphatase 161 H Troponin I 1274 H* 1355 H* NT-Pro-B Natriuret Pep > 61122 H Total Protein 6.4 Albumin 3.2 L Urine Color Urine Clarity Urine pH Ur Specific Sterling Urine Protein Urine Ketones Urine Blood Urine Nitrite Urine Bilirubin Urine Urobilinogen Ur Leukocyte Esterase Urine RBC Urine WBC Ur Epithelial Cells Urine Crystals Urine Bacteria Urine Casts Urine Mucus Urine Other Ur Culture Indicated? Urine Glucose COVID-19 Source Nasopharynx SARS-CoV-2 (PCR) Negative Influenza Type A (PCR) Negative Influenza Type B (PCR) Negative RSV (PCR) Negative 05/09/23 05/10/23 05/10/23 22:36 01:40 07:03 WBC 8.44 RBC 3.94 Hgb 11.4 Hct 35.2 L MCV 89 MCH 28.9 MCHC 32.4 RDW 15.8 H Plt Count 232 MPV 10.6 PT 13.7 H INR 1.4 H APTT 37.3 H 45.2 H D-Dimer Sodium 141 Potassium 3.0 L D Chloride 104 Carbon Dioxide 27.3 Anion Gap 9.7 BUN 44 H Creatinine 1.4 H Est GFR (CKD-EPI 2020) 37.10 Glucose 93 Calcium 8.6 Magnesium 1.9 Total Bilirubin 1.0 AST 66 H ALT 19 Alkaline Phosphatase 117 H Troponin I Cancelled 1893 H* 2002 H* NT-Pro-B Natriuret Pep > 17113 H Total Protein 5.2 L Albumin 2.5 L Urine Color Urine Clarity Urine pH Ur Specific [place] Urine Protein Urine Ketones Urine Blood Urine Nitrite Urine Bilirubin Urine Urobilinogen Ur Leukocyte Esterase Urine RBC Urine WBC Ur Epithelial Cells Urine Crystals Urine Bacteria Urine Casts Urine Mucus Urine Other Ur Culture Indicated? Urine Glucose COVID-19 Source SARS-CoV-2 (PCR) Influenza Type A (PCR) Influenza Type B (PCR) RSV (PCR) 05/10/23 05/10/23 05/10/23 09:50 10:40 14:00 WBC RBC Hgb Hct MCV MCH MCHC RDW Plt Count MPV PT INR APTT D-Dimer Sodium Potassium Cancelled Chloride Carbon Dioxide Anion Gap BUN Creatinine Est GFR (CKD-EPI 2020) Glucose Calcium Magnesium Total Bilirubin AST ALT Alkaline Phosphatase Troponin I 1787 H* NT-Pro-B Natriuret Pep Total Protein Albumin Urine Color Yellow Urine Clarity Clear Urine pH 5.5 Ur Specific Sterling 1.015 Urine Protein Trace H Urine Ketones Negative Urine Blood Trace-lysed H Urine Nitrite Negative Urine Bilirubin Negative Urine Urobilinogen 0.2 Ur Leukocyte Esterase Negative Urine RBC 0-2 Urine WBC Negative Ur Epithelial Cells Few Urine Crystals Negative Urine Bacteria Negative Urine Casts 0-2 Hyaline Urine Mucus Negative Urine Other Few Renal Ur Culture Indicated? No Urine Glucose Negative COVID-19 Source SARS-CoV-2 (PCR) Influenza Type A (PCR) Influenza Type B (PCR) RSV (PCR) 05/10/23 05/10/23 16:30 23:30 WBC RBC Hgb Hct MCV MCH MCHC RDW Plt Count MPV PT INR APTT Cancelled D-Dimer Sodium Potassium Chloride Carbon Dioxide Anion Gap BUN Creatinine Est GFR (CKD-EPI 2020) Glucose Calcium Magnesium Total Bilirubin AST ALT Alkaline Phosphatase Troponin I NT-Pro-B Natriuret Pep Cancelled Total Protein Albumin Urine Color Urine Clarity Urine pH Ur Specific [place] Urine Protein Urine Ketones Urine Blood Urine Nitrite Urine Bilirubin Urine Urobilinogen Ur Leukocyte Esterase Urine RBC Urine WBC Ur Epithelial Cells Urine Crystals Urine Bacteria Urine Casts Urine Mucus Urine Other Ur Culture Indicated? Urine Glucose COVID-19 Source SARS-CoV-2 (PCR) Influenza Type A (PCR) Influenza Type B (PCR) RSV (PCR)
[2023-05-10 22:01] LABS: Legionella Ag Detection Urine Negative (Negative)
[2023-05-11 08:10] VITALS: RESP 22
--- NOTE | 2023-05-11 13:02 | CMPROGNOTE_ITS ---
Date of service: 05/11/23 Time of Service: 13:03 Care Management Progress Note Progress Note Text Progress Note Text: S/O: Alyse was transitioned to comfort focused care yesterday after meeting with Palliative. See Palliative note. She was lying in bed when CM met with her. Alyse is awake, and does not engage in conversation with this scientific writer. Anticipate Alyse will remain in the hospital for the next 24-48 hours, then possible discharge home with [facility] if she is not immanent. CM met with her daughter Ana outside of Alyse's room and discussed the possibility of discharging home with same day admission to hospice services. Ana s wants to make sure Alyse understands what going home on hospice will be like. And asks that a provider join her in this conversation. Ana was able to rehire Alyse's caregivers incase she is discharged home on hospice. When GILLES was talking about DME, Ana shared that she doesn't feel Alyse would want a hospital bed and would be more comfortable in her own bed. CM will follow. A: 82 year old female admitted to [facility] on 05/09/23 for Acute NSTEMI, CHF, Pneumonia P:Alyse has been followed by Dr. Szymanski from Palliative, transfer to a tertiary hospital is deferred by patient and family and Alyse was transitioned to comfort care measures. Anticipate she will remain at [facility] for end of life care vs discharge home on hospice. CM will follow.
[2023-05-11] MEDS: Normal Saline Flush 10 ML SYR IVP ×2 (13:42→22:01)
--- NOTE | 2023-05-11 14:56 | W.POCUS ---
Pocus Exam Limited Thoracic Lung Exam DATE OF EXAM: 05/11/23 TIME OF EXAM: 11:42 IS THIS A REPEAT EXAM DURING THIS ENCOUNTER: No REASON FOR EXAM: Hypoxia and Pneumonia VISUALIZED STRUCTURES: right anterior, left anterior, right lateral, left lateral, right posterior, left posterior, right subcostal and left subcostal PERTINENT FINDINGS/IMPRESSION: B-lines/left side thoracis location: anterior, B-lines/right side thoracis location: posterior, Pneumonia (bilateral pneumonic consolidation in multilobar configuration), Left pleural effusion (large effusion) and Right pleural effusion (large effusion w/ plankton) INCIDENTAL FINDINGS: Patient has A/B pattern in that her right anterior superior and inferior regions but B lines in other regions including left anterior superior and left anterior inferior regions. Large bilateral pleural effusions are seen at both lung bases best seen in the mid axillary lateral view that tracts superiorly and is associated w/ basilar atelectasis and consolidation. Subpleural consolidation is noted in the apical regions posteriorly and larger consilidations w/ air bronchograms are noted in the inferior posterior lung zones. these finding are consistent w/ multilobar pneumonia w/ parapneumonic effusions. Exam complete
[2023-05-11 15:36] VITALS: RESP 23
--- NOTE | 2023-05-11 16:40 | CHAPLAIN ---
Alyse was in bed when I visited. I spoke with both Alyse and her daughter, Ana. Alyse was transitioned to comfort-centered are yesterday after a palliative consult with Dr. Szymanski, who has know Meera for many years. Alyse and Ana are considering having Alyse remain here, or taking her home and having her admitted to [facility], with some paid caregivers. Her status is DNR/DNI. Alyse didn't speak to me, but nodded a few times. Ana said she was appreciative of the meals that are being sent up for her. I explained my role, offered support and let Alyse and Ana know that patrol agent support is available 05/02.
--- NOTE | 2023-05-11 18:03 | W.PM.PROGNOT ---
Date of Service Date of service: 05/11/23 Time of Service: 18:03 Assessment and Plan Assessment and plan (1) Parkinson's disease: Status: Chronic Assessment and plan: per my discussion w/ her PCP, Dr. Szymanski, she agrees w/ patient and family decision to go comfort care. I talked w/ her daughter today. I explained that we can keep her on acute inpatient as long as her demise is imminent but that if Alyse rallies and improves then we are looking at returning home on hospice. Her daughter indicated that no one has spoken about hospice w/ her. I told her that we will leave on acute hospital status through the weekend but if she rallies then we will be looking for discharge next week. I discussed this w/ case management, Mary. Patient has all the comfort care package orders needed to keep her comfortable Qualifiers: Dyskinesia presence: unspecified whether dyskinesia Fluctuating manifestations: unspecified whether manifestations fluctuate Qualified Code(s): G20.A1 - Parkinson's disease without dyskinesia, without mention of fluctuations (2) Dementia: Status: Chronic Qualifiers: Dementia type: Parkinson's disease Dementia severity: severe Dementia behavioral or psychological symptom: without behavioral, psychotic, or mood disturbance or anxiety Qualified Code(s): G20.A1 - Parkinson's disease without dyskinesia, without mention of fluctuations; F02.C0 - Dementia in other diseases classified elsewhere, severe, without behavioral disturbance, psychotic disturbance, mood disturbance, and anxiety (3) Acute non-ST elevation myocardial infarction (NSTEMI): Status: Acute (4) Heart failure: Status: Acute Qualifiers: Heart failure type: combined systolic and diastolic Heart failure chronicity: acute Qualified Code(s): I50.41 - Acute combined systolic (congestive) and diastolic (congestive) heart failure (5) Pneumonia: Status: Acute Qualifiers: Pneumonia type: aspiration pneumonia Aspiration pneumonia type: unspecified Laterality: left Lung location: upper lobe of lung Qualified Code(s): J69.0 - Pneumonitis due to inhalation of food and vomit (6) Atrial fibrillation: Status: Chronic Qualifiers: Atrial fibrillation type: longstanding persistent Qualified Code(s): I48.11 - Longstanding persistent atrial fibrillation Subjective Subjective Patient reports: no new complaints and feels better; denies shortness of breath Interval history since last seen: Patient denies any pain or dyspnea Exam Narrative Exam Narrative: Thin female, Alyse seems pleasant and smiles for me. She does not seem to be in any discomfort Lungs: clear anteriorly Heart: irregularly irregular, slightly tachycardic Abdomen: soft, nontender, nondistended Extremities: no edema Objective Last Vital Signs Temp 36.4 C L 05/10/23 12:07 Pulse 89 05/10/23 15:00 Resp 23 05/11/23 15:36 BP 94/69 L 05/10/23 15:00 Pulse Ox 92 05/10/23 15:50 Time Spent with Patient Time Spent with Patient: 25-34 minutes Time was spent: referring, communicating with other health foster care worker, counseling the patient (and patient daughter) and care coordination
[2023-05-12] MEDS: DULoxetine 30 MG CAP PO (08:26)
--- NOTE | 2023-05-12 15:11 | W.PM.PROGNOT ---
Date of Service Date of service: 05/12/23 Time of Service: 15:11 Assessment and Plan Assessment and plan (1) Parkinson's disease: Status: Chronic Assessment and plan: Comfort care. Previous discussion re home on hospice. Acute hospital status through the weekend Patient has all the comfort care package orders needed to keep her comfortable Qualifiers: Dyskinesia presence: unspecified whether dyskinesia Fluctuating manifestations: unspecified whether manifestations fluctuate Qualified Code(s): G20.A1 - Parkinson's disease without dyskinesia, without mention of fluctuations (2) Dementia: Status: Chronic Qualifiers: Dementia type: Parkinson's disease Dementia severity: severe Dementia behavioral or psychological symptom: without behavioral, psychotic, or mood disturbance or anxiety Qualified Code(s): G20.A1 - Parkinson's disease without dyskinesia, without mention of fluctuations; F02.C0 - Dementia in other diseases classified elsewhere, severe, without behavioral disturbance, psychotic disturbance, mood disturbance, and anxiety (3) Acute non-ST elevation myocardial infarction (NSTEMI): Status: Acute (4) Heart failure: Status: Acute Qualifiers: Heart failure type: combined systolic and diastolic Heart failure chronicity: acute Qualified Code(s): I50.41 - Acute combined systolic (congestive) and diastolic (congestive) heart failure (5) Pneumonia: Status: Acute Qualifiers: Pneumonia type: aspiration pneumonia Aspiration pneumonia type: unspecified Laterality: left Lung location: upper lobe of lung Qualified Code(s): J69.0 - Pneumonitis due to inhalation of food and vomit (6) Atrial fibrillation: Status: Chronic Qualifiers: Atrial fibrillation type: longstanding persistent Qualified Code(s): I48.11 - Longstanding persistent atrial fibrillation Subjective Subjective Patient reports: no new complaints Exam Narrative Exam Narrative: General: Alert, cachectic, in no acute distress. Head: Normocephalic, atraumatic Neck: Trachea midline, Neck supple. ENT: MMM. Cardiac: Irregular, no murmurs Resp: RR in 20's, no increased work of breathing. LSCTAB, diminshed throughout Abd: Soft, non-distended, nontender : No suprapubic tenderness. Extremities: No deformities. No peripheral edema. Neurologic: GCS 14. Moves all extremities freely against gravity Objective Last Vital Signs Temp 36.4 C L 05/10/23 12:07 Pulse 89 05/10/23 15:00 Resp 23 05/11/23 15:36 BP 94/69 L 05/10/23 15:00 Pulse Ox 92 05/10/23 15:50 Time Spent with Patient Time Spent with Patient: 25-34 minutes Time was spent: preparing to see the patient(eg.review tests), ordering medications,tests, procedures, referring, communicating with other health primary care physician, indepentently interpreting results, counseling the patient and care coordination
[2023-05-13] MEDS: Acetaminophen 325 MG TAB PO (05:20)
[2023-05-13] MEDS: DULoxetine 30 MG CAP PO (07:32)
--- NOTE | 2023-05-13 10:14 | W.PM.PROGNOT ---
Date of Service Date of service: 05/13/23 Time of Service: 10:14 Assessment and Plan Assessment and plan (1) Parkinson's disease: Status: Chronic Assessment and plan: Remains of comfort care. Previous discussion re home on hospice, but today daughter is not considering home Acute hospital status through the weekend Patient has all the comfort care package orders needed to keep her comfortable Oral morphine elexir PRN Lorazepam oral PRN PRN scopolamine Discussed with Dr. Purdy Qualifiers: Dyskinesia presence: unspecified whether dyskinesia Fluctuating manifestations: unspecified whether manifestations fluctuate Qualified Code(s): G20.A1 - Parkinson's disease without dyskinesia, without mention of fluctuations (2) Dementia: Status: Chronic Qualifiers: Dementia behavioral or psychological symptom: without behavioral, psychotic, or mood disturbance or anxiety Dementia severity: severe Dementia type: Parkinson's disease Qualified Code(s): G20.A1 - Parkinson's disease without dyskinesia, without mention of fluctuations; F02.C0 - Dementia in other diseases classified elsewhere, severe, without behavioral disturbance, psychotic disturbance, mood disturbance, and anxiety (3) Acute non-ST elevation myocardial infarction (NSTEMI): Status: Acute (4) Heart failure: Status: Acute Qualifiers: Heart failure chronicity: acute Heart failure type: combined systolic and diastolic Qualified Code(s): I50.41 - Acute combined systolic (congestive) and diastolic (congestive) heart failure (5) Pneumonia: Status: Acute Qualifiers: Aspiration pneumonia type: unspecified Laterality: left Lung location: upper lobe of lung Pneumonia type: aspiration pneumonia Qualified Code(s): J69.0 - Pneumonitis due to inhalation of food and vomit (6) Atrial fibrillation: Status: Chronic Qualifiers: Atrial fibrillation type: longstanding persistent Qualified Code(s): I48.11 - Longstanding persistent atrial fibrillation (7) Discharge planning issues: Status: Acute Assessment and plan: CM to f/u Previous discussion re home on hospice, but today daughter is not considering home Subjective Subjective Patient reports: no new complaints (no pain on HOGSHEAD DUMPER, comfortable), tolerating liquids well, tolerating a regular diet, flatus, bowel movement and afebrile; denies diarrhea, nausea, vomiting, shortness of breath or fever Exam Narrative Exam Narrative: Constitutional The patient is sitting in chair/ lying in bed comfortable and cooperative during the interview. daughter at bedside. The patient is well groomed without acute distress HENMT: Head is atraumatic, normocephalic, Facial structures with normal appearance, emaciated Eyes: Well aligned Neck: Neuro:alert and oriented to self and family members Chest:Chest is symmetrical Resp: tachypnea , speaks in short sentences, labored breathing, clear lung bilaterally Cardio:tachycardia HR 130 GI: Abdomen is not distended, scaphoid, soft and non tender, bowel sounds are present : no bladder distension Back/spine/Pelvis: No back tenderness, Integumentary: No skin lesions or rash Extremities:gen weakness Psych: RASS 0, congruent mood and normal to flat affect. Objective Last Vital Signs Temp 36.4 C L 05/10/23 12:07 Pulse 89 05/10/23 15:00 Resp 23 05/11/23 15:36 BP 94/69 L 05/10/23 15:00 Pulse Ox 92 05/10/23 15:50 Time Spent with Patient Time Spent with Patient: >50 minutes Time was spent: preparing to see the patient(eg.review tests), ordering medications,tests, procedures, referring, communicating with other health healthcare administration internship, indepentently interpreting results, counseling the patient and care coordination
[2023-05-13 12:09] VITALS: RESP 24
[2023-05-13] MEDS: MORPHine Oral Concentrate 20 MG/ML PO (12:09)
[2023-05-13 15:41] LABS: Streptococcus Pneumoniae Ag, U Negative (Negative)
[2023-05-14] MEDS: DULoxetine 30 MG CAP PO (07:44)
--- NOTE | 2023-05-14 07:57 | W.PALPGNOTE ---
Date of service: 05/14/23 Time of Service: 07:57 Assessment and Plan Assessment and plan (1) STEMI (ST elevation myocardial infarction): Status: Acute (2) Atrial fibrillation with rapid ventricular response: Status: Acute (3) Dementia: Status: Chronic Qualifiers: Dementia behavioral or psychological symptom: without behavioral, psychotic, or mood disturbance or anxiety Dementia severity: severe Dementia type: Parkinson's disease Qualified Code(s): G20.A1 - Parkinson's disease without dyskinesia, without mention of fluctuations; F02.C0 - Dementia in other diseases classified elsewhere, severe, without behavioral disturbance, psychotic disturbance, mood disturbance, and anxiety (4) Palliative care patient: Status: Acute (5) Comfort measures only status: Status: Acute Assessment and plan: CAlled daughter , Ana. Alyse agreed to jail placement and perhaps hospice. She also thinks she is in [place] Per daughter and staff feel she does not have capacity to make this decision. Spoke with Ana this AM. She agrees with the plan to move Alyse to , hopefully the [facility] and to see how her mom does and provide comfort oriented care Staff is doing a wonderful job keeping Alyse comfortable. Subjective Subjective Interval history since last seen: Alyse states that she has been drinking and is very thirsty but has not been eating. She does not have much in the way of pain. She is very very weak and finding it hard to move around. She looks like she recognized me but did not see my name Exam Narrative Exam Narrative: Unsure about her capacity at this time. She shook her head yes for almost every question I asked. She admits to being very thirsty and also does want to get up and out of bed. She is tachycardic with a rate about 120. Lungs poor aeration. She looks cachectic Objective Last Vital Signs Temp 97.5 F L 05/10/23 12:07 Pulse 89 05/10/23 15:00 Resp 24 05/13/23 12:09 BP 94/69 L 05/10/23 15:00 Pulse Ox 92 05/10/23 15:50
--- NOTE | 2023-05-14 08:55 | CMPROGNOTE_ITS ---
Date of service: 05/14/23 Time of Service: 08:55 Care Management Progress Note Progress Note Text Progress Note Text: S/O: Alyse was sitting up in bed taking sips of soup when CM met with her. Her daughter, Ana was visiting. CM discussed the option of Alyse returning home with caregivers vs SNF for end of life care. Ana stated that her mother does not want to go to SNF, but she thinks it is the safest choice. She stated that she did have 24/7 caregivers, but they are not available at this time. Ana stated that she would like a referral to be sent to the [facility]. CM stated that we would like to send the referral to multiple SNF's, in the event that the [facility] does not have beds. Ana agreed to CM sending referrals to the [facility], [facility], [facility], [place], [facility] and [place]. CM will continue to follow. A: 82 year old female admitted to [facility] on 05/09/23 for Acute NSTEMI, CHF, Pneumonia P:Alyse has been followed by Dr. Szymanski from Palliative, transfer to a tertiary hospital is deferred by patient and family and Alyse was transitioned to comfort care measures. Anticipate she will remain at [facility] for end of life care vs discharge home on hospice. CM will follow.
--- NOTE | 2023-05-14 12:35 | PGE_ITS ---
Date of Service Date of service: 05/14/23 Time of Service: 12:35 Assessment and Plan Assessment and plan (1) Parkinson's disease: Status: Chronic Assessment and plan: Remains of comfort care. Seen by palliative care today. Hospice consult ordered Previous discussion re home on hospice, but today daughter is not considering home. CM: Sandro Andino aware and will follow up with patient Acute hospital status through the weekend but looking into placement Patient has all the comfort care package orders needed to keep her comfortable We will schedule the oral morphine elixir Lorazepam oral PRN PRN scopolamine Discussed with Dr. Purdy Qualifiers: Dyskinesia presence: unspecified whether dyskinesia Fluctuating manifestations: unspecified whether manifestations fluctuate Qualified Code(s): G20.A1 - Parkinson's disease without dyskinesia, without mention of fluctuations (2) Dementia: Status: Chronic Qualifiers: Dementia type: Parkinson's disease Dementia severity: severe Dementia behavioral or psychological symptom: without behavioral, psychotic, or mood disturbance or anxiety Qualified Code(s): G20.A1 - Parkinson's disease without dyskinesia, without mention of fluctuations; F02.C0 - Dementia in other diseases classified elsewhere, severe, without behavioral disturbance, psychotic disturbance, mood disturbance, and anxiety (3) Acute non-ST elevation myocardial infarction (NSTEMI): Status: Acute (4) Heart failure: Status: Acute Qualifiers: Heart failure type: combined systolic and diastolic Heart failure chronicity: acute Qualified Code(s): I50.41 - Acute combined systolic (congestive) and diastolic (congestive) heart failure (5) Pneumonia: Status: Acute Qualifiers: Pneumonia type: aspiration pneumonia Aspiration pneumonia type: unspecified Laterality: left Lung location: upper lobe of lung Qualified Code(s): J69.0 - Pneumonitis due to inhalation of food and vomit (6) Atrial fibrillation: Status: Chronic Qualifiers: Atrial fibrillation type: longstanding persistent Qualified Code(s): I48.11 - Longstanding persistent atrial fibrillation (7) Discharge planning issues: Status: Acute Assessment and plan: CM to f/u Previous discussion re home on hospice, but today daughter is not considering home Subjective Subjective Patient reports: no new complaints (no pain on TELECOMMUNICATIONS PROFESSIONAL, comfortable), tolerating liquids well, flatus and afebrile; denies bowel movement, diarrhea, nausea, vomiting, shortness of breath (but intermittent high resp rate noticed) or fever Exam Narrative Exam Narrative: The patient is in bed appears, decreased interaction when compare to 05/13, denies pain and any further needs. Pale in color and increased cyanosis in under eye areas. the patient is cachectic, no neuro deficit , remains generally weak, but moves extremities Objective Last Vital Signs Temp 36.4 C L 05/10/23 12:07 Pulse 89 05/10/23 15:00 Resp 24 05/13/23 12:09 BP 94/69 L 05/10/23 15:00 Pulse Ox 92 05/10/23 15:50 Laboratory Results - last 24 hr 05/10/23 09:50 Urine Legionella Ag Negative Ur Strep pneumoniae Ag Negative Time Spent with Patient Time Spent with Patient: 35-49 minutes Time was spent: preparing to see the patient(eg.review tests), ordering medications,tests, procedures, referring, communicating with other health rehab care assistant, indepentently interpreting results, counseling the patient and care coordination
[2023-05-14] MEDS: MORPHine Oral Concentrate 20 MG/ML PO (15:53)
--- NOTE | 2023-05-15 10:43 | W.NUTRFU ---
Date of service: 05/15/23 Time of Service: 10:43 Nutrition Note NOTE: Transition to comfort measures noted. No aggressive nutrition intervention planned at this time. I have interacted with the pt and her dtr for planning guest trays and offering any menu options that Alyse might find appetizing (made her a smoothie last night with frozen strawberries, almond milk, yogut and sugar) and she drank 100%. Otherwise has not been interested in much oral intake. Will be providing comfort card via assistant food service director and refresh as needed. Time Spent in Nutritional Counseling and Treatment: 0
[2023-05-15] MEDS: MORPHine Oral Concentrate 20 MG/ML PO ×2 (11:19→17:57)
--- NOTE | 2023-05-15 11:44 | CMPROGNOTE_ITS ---
Date of service: 05/15/23 Time of Service: 11:44 Care Management Progress Note Progress Note Text Progress Note Text: S/O: Alyse was resting when CM met with her and her daughter today. Per report, Alyse has been refusing food/drink and medications by mouth today. Ana, her daughter, expressed concern about her mother's pain control, as she reported that her mother was crying out in pain whenever she was being moved. CM discussed these concerns with the provider, who will provide additional options for pain control. CM followed up on SNF referrals today; [facility] remains closed, the [facility] and [facility] do not have a current bed available. [facility] is reviewing the referral, although they stated that her insurance will not cover non skilled care, and at this time Alyse is not able to work with therapy, therefore she would have to pay privately for room and board. CM discussed this with Ana, who stated that Alyse has a termination clerk care insurance policy, which she has been using to pay for her private caregivers. CM called [facility] to discuss this, but admissions was not available. CM will continue to follow. A: 82 year old female admitted to [facility] on 05/09/23 for Acute NSTEMI, CHF, Pneumonia P:Alyse has been followed by Dr. Szymanski from Palliative, transfer to a tertiary hospital is deferred by patient and family and Alyse was transitioned to comfort care measures. Anticipate she will remain at [facility] for end of life care vs discharge home on hospice. CM will follow.
--- NOTE | 2023-05-15 14:25 | PGE_ITS ---
Date of Service Date of service: 05/15/23 Time of Service: 12:00 Assessment and Plan Assessment and plan (1) Parkinson's disease: Status: Chronic Assessment and plan: Remains of comfort care. Seen by palliative care today. Hospice consult ordered Previous discussion re home on hospice, but today daughter is not considering home. CM: Sandro Andino aware and will follow up with patient Acute hospital status through the weekend but looking into placement Patient has all the comfort care package orders needed to keep her comfortable We will order scheduled and PRN oral morphine elixir WB pain scale at 8 but patient, refusing or unable to make eye contact, refusing pain medicine,. Daughter worries that the patient is not getting adequate pain management- Morphine BROOMCORN SORTER with 1 mg/hr iv infusion ordered. Lorazepam oral scheduled and PRN PRN scopolamine Discussed with Dr. Purdy Qualifiers: Dyskinesia presence: unspecified whether dyskinesia Fluctuating manifestations: unspecified whether manifestations fluctuate Qualified Code(s): G20.A1 - Parkinson's disease without dyskinesia, without mention of fluctuations (2) Dementia: Status: Chronic Assessment and plan: On NOVELTIES SALES REPRESENTATIVE, refusing oral meds at times Qualifiers: Dementia type: Parkinson's disease Dementia severity: severe Dementia behavioral or psychological symptom: without behavioral, psychotic, or mood disturbance or anxiety Qualified Code(s): G20.A1 - Parkinson's disease without dyskinesia, without mention of fluctuations; F02.C0 - Dementia in other diseases classified elsewhere, severe, without behavioral disturbance, psychotic disturbance, mood disturbance, and anxiety (3) Acute non-ST elevation myocardial infarction (NSTEMI): Status: Acute (4) Heart failure: Status: Acute Qualifiers: Heart failure type: combined systolic and diastolic Heart failure chronicity: acute Qualified Code(s): I50.41 - Acute combined systolic (congestive) and diastolic (congestive) heart failure (5) Pneumonia: Status: Acute Qualifiers: Pneumonia type: aspiration pneumonia Aspiration pneumonia type: unspecified Laterality: left Lung location: upper lobe of lung Qualified Code(s): J69.0 - Pneumonitis due to inhalation of food and vomit (6) Atrial fibrillation: Status: Chronic Qualifiers: Atrial fibrillation type: longstanding persistent Qualified Code(s): I48.11 - Longstanding persistent atrial fibrillation (7) Discharge planning issues: Status: Acute Assessment and plan: CM to f/u Previous discussion re home on hospice, but today daughter is not considering home and would consider placement hospice consult pending Subjective Subjective Patient reports: no new complaints (increased pain on NOVELTIES SALES REPRESENTATIVE, refusing oral until pain is severe ), tolerating liquids well (but decreased intake of soft food), flatus, bowel movement, shortness of breath (but intermittent) and afebrile; denies diarrhea, nausea, vomiting or fever Exam Narrative Exam Narrative: The patient is in bed appears, less interactions again today . Denies need for pain medicine but pain scale at 8 on WB pain scale. Eyes remained shut as patient negated with head movement that she would not open her eyes. Pale in color and increased cyanosis in under eye areas. the patient is cachectic with scaphoid abdomen, tachycardia noticed , no neuro deficit but increased spasticity, remains generally weak, but moves extremities but less fluid in motion Objective Last Vital Signs Temp 36.4 C L 05/10/23 12:07 Pulse 89 05/10/23 15:00 Resp 24 05/13/23 12:09 BP 94/69 L 05/10/23 15:00 Pulse Ox 92 05/10/23 15:50 Time Spent with Patient Time Spent with Patient: >50 minutes Time was spent: preparing to see the patient(eg.review tests), ordering medic ations,tests, procedures, referring, communicating with other health daycare manager, indepentently interpreting results, counseling the patient and care coordination
[2023-05-15] MEDS: Acetaminophen 650 MG SUPP PR ×2 (16:35→21:54)
[2023-05-15] MEDS: Scopolamine 1 MG/3 DAYS PATCH TD (17:47)
[2023-05-15] MEDS: LORazepam 2 MG/1 ML Oral Concentrate 0.5 MG PO (17:58)
[2023-05-16] MEDS: MORPHine Oral Concentrate 20 MG/ML PO ×2 (04:01→09:41)
[2023-05-16] MEDS: Acetaminophen 650 MG SUPP PR (04:02)
[2023-05-16] MEDS: LORazepam 2 MG/1 ML Oral Concentrate 0.5 MG PO (11:33)
[2023-05-16] MEDS: fentaNYL 12 MCG PATCH TD (11:40)
[2023-05-16] MEDS: MORPHine Oral Concentrate 20 MG/ML 10 MG PO ×5 (12:03→22:22)
--- NOTE | 2023-05-16 14:30 | W.PALPGNOTE ---
Date of service: 05/16/23 Time of Service: 11:00 Assessment and Plan Assessment and plan (1) Comfort measures only status: Status: Acute Assessment and plan: I spoke with pharmacy yesterday about comfort measures orders. I touched base again today Noy is uncomfortable. I asked nursing to place the fentanyl patch which was ordered. I am uncertain how helpful it will be due to her BMI. Hospitalist and I reviewed orders and d/c cymbalta and sinemet. Changed morphine to Q2 hours, scheduled. Noy is actively dying. She will stay in [facility] until she dies. Reviewed signs of dying with daughter. She is feeling comfortable with her mom's care going forward I have spent more than 50% of time in counseling with this patient. Subjective Subjective Interval history since last seen: Noy is lying in bed. She opens her eyes and appears to recognize me. Nursing feels her grimmaces are dreaming Exam Narrative Exam Narrative: Noy appears to be uncomfortable. She is having periods of apnea. Her toes are cyanotic, but not her mouth or hands Objective Last Vital Signs Temp 97.5 F L 05/10/23 12:07 Pulse 89 05/10/23 15:00 Resp 24 05/13/23 12:09 BP 94/69 L 05/10/23 15:00 Pulse Ox 92 05/10/23 15:50
--- NOTE | 2023-05-16 14:46 | W.PM.PROGNOT ---
Date of Service Date of service: 05/16/23 Time of Service: 14:46 Assessment and Plan Assessment and plan (1) STEMI (ST elevation myocardial infarction): Status: Acute (2) Atrial fibrillation with rapid ventricular response: Status: Acute (3) Dementia: Status: Chronic Qualifiers: Dementia type: Parkinson's disease Dementia severity: severe Dementia behavioral or psychological symptom: without behavioral, psychotic, or mood disturbance or anxiety Qualified Code(s): G20.A1 - Parkinson's disease without dyskinesia, without mention of fluctuations; F02.C0 - Dementia in other diseases classified elsewhere, severe, without behavioral disturbance, psychotic disturbance, mood disturbance, and anxiety (4) Palliative care patient: Status: Acute (5) Comfort measures only status: Status: Acute Assessment and plan: comfort measures medication, adjust as needed. will likely remain here for end of life care. palliative care following discussed with Dr Purdy. Subjective Subjective Interval history since last seen: minimally responsive. not taking po Exam Const General: no acute distress Nutritional Appearance: thin Orientation: obtunded HENMT Head: normal to inspection and atraumatic Mouth: moist mucous membranes abnormal (dry) Resp Effort & Inspection: normal respiratory effort Skin General skin exam: mottling Objective Last Vital Signs Temp 36.4 C L 05/10/23 12:07 Pulse 89 05/10/23 15:00 Resp 24 05/13/23 12:09 BP 94/69 L 05/10/23 15:00 Pulse Ox 92 05/10/23 15:50 Time Spent with Patient Time Spent with Patient: 25-34 minutes Time was spent: preparing to see the patient(eg.review tests), ordering medications,tests, procedures, referring, communicating with other health medicare contact specialist and counseling the patient
--- NOTE | 2023-05-16 17:27 | PDOC.CMPRO ---
Date of service: 05/16/23 Time of Service: 17:27 Care Management Progress Note Progress Note Text Progress Note Text: S/O: Alyse was resting comfortably when CM met with her. Her daughter was by her side. GILLES spoke to Dr. Szymanski, who visited today, and recommended that Alyse remain at [facility] for end of life care. The hospitalist team agrees, as her passing appears to be imminent, and moving her at this point would be harmful. GILLES spoke to Ana, her daughter, who is happy to have her mother remain at [facility] for end of life care. She stated that she is planning to use [facility] for final arrangements. CM will continue to follow. A: 82 year old female admitted to [facility] on 05/09/23 for Acute NSTEMI, CHF, Pneumonia P:Alyse has been followed by Dr. Szymanski from Palliative, transfer to a tertiary hospital is deferred by patient and family and Alyse was transitioned to comfort care measures. Anticipate she will remain at [facility] for end of life care vs discharge home on hospice. CM will follow.
[2023-05-17] MEDS: MORPHine Oral Concentrate 20 MG/ML 10 MG PO ×2 (02:44)
--- NOTE | 2023-05-17 04:55 | W.PM.DDS ---
Date of service: 05/17/23 Time of Service: 04:57 Discharge Plan Disposition Patient Disposition: Condition: Serious Discharge Details Reason For Visit: Acute NTEMI, CHF, Pneumonia Admit Date/Time: 05/09/23 22:30 Admit Provider: Palmer Richards Attending Provider: Palmer Richards Primary Care Provider: Luz Szymanski Hospital Course Hospital Course: 82 year old female with advanced Parkinson's disease and dementia -- admitted 05/09 with NSTEMI, manifesting solely with SOB, found to be in heart failure as well as to have pneumonia.. Initially received medical management, including heparin, diuresis and antibiotics. On hospital day 2 palliative care consultation was obtained and decision jointly by patient and family was to forego further curative interventions and transition solely to comfort directed care. Accordingly above regimen discontinued and patient was treated with combination of topical and oral analgesics, along with anxiolytics as needed. Patient had appropriate response to this regimen, became progressively less responsive and early in the morning on hospital day 9 peacefully. Home Meds and New Rx's Prescriptions: No Action acetaminophen 500 mg tablet 500 mg PO Q6H PRN PRN (Reason: pain) Qty: 60 3RF amantadine HCl 100 mg capsule 100 mg PO DAILY Qty: 90 5RF Eliquis 2.5 mg tablet 2.5 mg PO BID Qty: 180 12RF buspirone 10 mg tablet 10 mg PO TID Qty: 270 5RF carbidopa-levodopa 25-100 mg tablet extended release 1 tab PO TID Qty: 270 3RF Rx Instructions: Take at 6am, 11am, and 4pm. duloxetine 30 mg capsule,delayed release(DR/EC) 30 mg PO DAILY Qty: 90 11RF fluticasone propionate 50 mcg/actuation spray,suspension 2 spray NS BID PRN (Reason: allergy symptoms) Qty: 47.4 5RF diltiazem HCl 30 mg tablet 30 mg PO TID PRN (Reason: tachycardia) Qty: 50 0RF Discharge Data Cause of : NSTEMI, initial episode of care Discharge Date/Time-TO BE ENTERED AT DEPARTURE: 05/17/23 05:06 Discharge Sum: Prov Provider Consults: 05/10/23 09:20 Palliative Care Consult [CONS] Routine Consultation Status:: Follow-up needed Clarification:: Manage/follow per spec. Reason for consult:: family requests palliative care consult; patient known to Dr. Szymanski; assist family w/ goals of care 05/14/23 12:36 Hospice Consult [CONS] Routine Consultation Status:: Follow-up needed Clarification:: Manage/follow per spec. Reason for consult:: This is an 82-year-old lady with end-stage dementia and Parkinson disease presenting with increasing shortness is found to be in heart failure as well as having a non-STEMI with elevated troponins. She is on comfort care measures only. She is not imminently dying. Discharge option on hospice or palliative care( consult completed) Discharge Sum: Diag PCOD Cause of : NSTEMI, initial episode of care Contributing Factors (1) STEMI (ST elevation myocardial infarction): Contributing factors: Parkinson's disease, dementia (2) Atrial fibrillation with rapid ventricular response: (3) Dementia: (4) Palliative care patient: (5) Comfort measures only status: Discharge Sum: Summary Date and Time Admission Date: 05/09/2310/25/23 22:30 Date of : 05/17/23 Time of : 04:22 Summary Details: see above
--- NOTE | 2023-05-17 05:06 | W.PM.DS.N ---
Date of service: 05/17/23 Time of Service: 05:07 DS: Diagnosis Discharge Diagnosis (1) STEMI (ST elevation myocardial infarction): Status: Acute (2) Atrial fibrillation with rapid ventricular response: Status: Acute (3) Dementia: Status: Chronic (4) Palliative care patient: Status: Acute (5) Comfort measures only status: Status: Acute Discharge Plan Disposition Patient Disposition: Discharge Details Reason For Visit: Acute NTEMI, CHF, Pneumonia Admit Date/Time: 05/09/23 22:30 Admit Provider: Palmer Richards Attending Provider: Palmer Richards Primary Care Provider: Luz Szymanski Hospital Course Hospital Course: 82 year old female with advanced Parkinson's disease and dementia -- admitted 05/09 with NSTEMI, manifesting solely with SOB, found to be in heart failure as well as to have pneumonia.. Initially received medical management, including heparin, diuresis and antibiotics. On hospital day 2 palliative care consultation was obtained and decision jointly by patient and family was to forego further curative interventions and transition solely to comfort directed care. Accordingly above regimen discontinued and patient was treated with combination of topical and oral analgesics, along with anxiolytics as needed. Patient had appropriate response to this regimen, became progressively less responsive and early in the morning on hospital day 9 peacefully. Discharge Data Cause of : NSTEMI, initial episode of care Discharge Date/Time-TO BE ENTERED AT DEPARTURE: 05/17/23 05:06 DS: Summary Time Spent with Patient providing and/or coordinating discharge services: Less than 30 minutes Status at Discharge Functional status at discharge: bed bound () Overall status at discharge: other Mental Status: other Speech and Movement: other () Mood: other Affect: other Exam Psych Mental Status: other Speech and Movement: other () Mood: other Affect: other DS: Data Vitals/I&O Vitals and I&O: Vital Signs Temperature 36.4 C L 05/10/23 12:07 Temperature Source Temporal Artery Scan 05/10/23 08:08 Pulse 89 05/10/23 15:00 Pulse Rhythm Irregular 05/10/23 16:52 Pulse 103 H 05/10/23 15:50 Respiratory Rate 24 05/13/23 12:09 Respiratory Effort Normal 05/10/23 16:52 Respiratory Depth Normal 05/10/23 16:52 Respiratory Pattern Normal 05/10/23 16:52 Blood Pressure 94/69 L 05/10/23 15:00 Blood Pressure Mean 78 05/10/23 15:00 Blood Pressure Position Supine 05/10/23 08:08 Pulse Oximetry 92 05/10/23 15:50 Oxygen Delivery Method Room Air 05/10/23 08:16 Oxygen Flow Rate 0 05/10/23 08:16 Pain Level 0 05/13/23 12:40 Comment Pt. denies pain at this time. 05/13/23 12:40 Intake & Output 05/16/23 05/16/23 05/17/23 11:59 23:59 11:59 Intake Total 0 / 0 0 / 0 Balance 0 / 0 0 / 0 Intake: Oral 0 / 0 0 / 0 Other: Urine Color Light [place] Dark [place] Urine Appearance Clear Comment pt has brief on no urine noted Voiding Methods Diaper Diaper PFSH All Active Problems (Updated 05/14/23 @ 07:59 by Luz Szymanski MD, [place]) Comfort measures only status (Acute) Palliative care patient (Acute) STEMI (ST elevation myocardial infarction) (Acute) Pneumonia (Acute) Atrial fibrillation with rapid ventricular response (Acute) Acute non-ST elevation myocardial infarction (NSTEMI) (Acute) Heart failure (Acute) Dementia (Chronic) Respiratory failure (Acute) History of hip replacement (Chronic) Trochanteric bursitis, left hip (Acute) Fall (Acute 01/08/23) Contusion of right hip (Acute 01/08/23) History of total left hip arthroplasty (Acute 12/12/22) Aortic valve insufficiency (Chronic) Followed by Mohan Morris at [place]. 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) PLEURAL EFFUSION Insomnia (Chronic 09/02/14) Osteopenia (Chronic) t-scores; -2.1; -1.5 Tricuspid valve insufficiency (Chronic 04/14/16) moderate Ductal papillomatosis of breast (Acute) Abnormal weight loss (Acute) Presbylarynges (Acute) Hypophonia (Acute) Parkinson's disease (Chronic) Wart viral (Acute) Metatarsalgia of both feet (Acute) Depression (Chronic) Decreased hearing of both ears (Acute) Fatigue (Acute) Weakness (Acute) Hypokalemia (Acute) Frequent falls (Acute) Ambulatory dysfunction (Acute) New onset left bundle branch block (LBBB) (Acute) DVT prophylaxis (Acute) Discharge planning issues (Acute) Dementia (Chronic) MOCA 15 on 06/01/22 Parkinson disease (Chronic) Malnutrition (Acute) Carmen onychomycosis (Acute) Medical History Palliative care patient Heart palpitations Bunion of great toe Tachycardia Abdominal pain Fatigue Hoarseness Foot joint pain (10/10/12) Dysphagia 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 There is a history of low blood pressure on calcium blockers in the past as well. Hypothyroidism (03/10/13) Newly diagnosed. Chronic obstructive lung disease Surgical History Hx of appendectomy History of cataract surgery History of hip surgery H/O cataract removal with insertion of prosthetic lens S/P breast biopsy intraductal papilloma S/P bunionectomy bilateral S/P appendectomy H/O esophagogastroduodenoscopy 07/16/95 showing increase in PA pressure EGD - MAC (~1995) showing increase in PA pressures ECHO (~2006) Echocardiogram with negative pulmonary work up at [facility], PA pressure 21 Colonoscopy - MAC 1995 1997 1998 2012 Family History Mother Essential hypertension Heart disease Father No problems noted. Social History Smoking/Tobacco Use Status: Never Smoking risk assessment performed?: Yes Alcohol Intake: current Alcohol Intake frequency: holidays/special occasions only Alcohol type: wine Drug use: Never Adopted: No Caregiver/Support person: Yes (caregiver for jenni) Details: currently in a [place] [facility], but pt is primary support Foster care: No Household members: none Housing: house Number of Children: 3 number of grandchildren: 4 current occupation: Retired Pets and animals: No What type of physical activity do you participate in: none Seatbelt use: never Drive intox or ride w/intox crew truck driver: No Firearms in home: Yes (unloaded, not locked) Firearms unloaded and locked: No Time Spent with Patient Time Spent with Patient: <45 minutes Time was spent: other
--- NOTE | 2023-05-17 08:29 | W.PALPGNOTE ---
Date of service: 05/17/23 Time of Service: 07:00 Assessment and Plan Assessment and plan (1) Comfort measures only status: Status: Acute (2) Acute non-ST elevation myocardial infarction (NSTEMI): Status: Acute Assessment and plan: Alyse was a 82 year old female with multiple comorbidities. She came to the hospital [facility] for restorative care with a stemi. She opted for comfort care. She passed 05/17/23 at 4:22 AM Angie and I discussed her mom's care. She was happy with and relieve . She has definite direction and help for the future. Subjective Subjective Interval history since last seen: Alyse this AM. I am meeting with her daughter and JEANETTE. She a few hours today. Angie felt her mom was comfortable the last 48 hours. She is relieved. Exam Narrative Exam Narrative: Alyse is lying in bed. She is not breathing. There is no heartbeat Objective Last Vital Signs Temp 97.5 F L 05/10/23 12:07 Pulse 89 05/10/23 15:00 Resp 24 05/13/23 12:09 BP 94/69 L 05/10/23 15:00 Pulse Ox 92 05/10/23 15:50
== END 2023-05-17 04:45 | disposition expired ==
LOC: ER 23:04 → ICU 23:46 → MS 05-10 17:30
PROVIDERS: Internal Medicine; Admitting Provider Family Medicine; Emergency Provider Student in an Organized Health Care Education/Training Program; PCP Family Medicine; Visit Provider Family Medicine
DX: I21.4 Non-ST elevation (NSTEMI) myocardial infarction (principal); I50.41 Acute combined systolic (congestive) and diastolic (congestive) heart failure; J69.0 Pneumonitis due to inhalation of food and vomit; J96.00 Acute respiratory failure, unspecified whether with hypoxia or hypercapnia; Z68.1 Body mass index [BMI] 19.9 or less, adult; E46 Unspecified protein-calorie malnutrition; I48.11 Longstanding persistent atrial fibrillation; Z66 Do not resuscitate; Z79.01 Long term (current) use of anticoagulants; I35.0 Nonrheumatic aortic (valve) stenosis; F41.9 Anxiety disorder, unspecified; F32.A Depression, unspecified; G47.00 Insomnia, unspecified; G20.A1 Parkinson's disease without dyskinesia, without mention of fluctuations; R13.10 Dysphagia, unspecified; R63.4 Abnormal weight loss; R32 Unspecified urinary incontinence; Z96.642 Presence of left artificial hip joint; M85.80 Other specified disorders of bone density and structure, unspecified site; M77.42 Metatarsalgia, left foot; M77.41 Metatarsalgia, right foot; R53.1 Weakness; E87.6 Hypokalemia; I44.7 Left bundle-branch block, unspecified; E03.9 Hypothyroidism, unspecified; M54.50 Low back pain, unspecified; Z51.5 Encounter for palliative care; J44.9 Chronic obstructive pulmonary disease, unspecified; F02.C0 Dementia in other diseases classified elsewhere, severe, without behavioral disturbance, psychotic disturbance, mood disturbance, and anxiety
CPT/HCPCS: 00123; 36415; 71275; 76604; 80053; 85027; 87449; 87637; 93005; 93306; 96374; 96375; 99291; 71046; 81003; 81015; 83735; 83880; 84132; 84484; 85025; 85379; 85610; 85730; 87899; 93010; 99223; 99231; 99232; J0295; J1940; J3490